=== PATIENT | female | born 1940 | race Caucasian/White ===

== ENCOUNTER → 2017-05-28 | Outpatient (CLI) | payer MEDICARE ==
--- NOTE | 2017-05-31 07:49 | MM ---
Reason for exam: additional evaluation requested from prior study. Last mammogram was performed 1 year and 2 months ago. History: Patient is postmenopausal and has history of breast cancer at age 50. Lumpectomy of the left breast, 1991. Radiation therapy, 1991. Benign excisional biopsy of the left breast, 1989. Took hormonal contraceptives for 3 years. Physical Findings: Nurse Summary: 1.5cm nodule in the right breast at 12 o'clock (nurse gilberto). MG 3D Diag Mammo W/Cad JAN Bilateral CC and MLO view(s) were taken. Prior study comparison: April 02, 2016, bilateral MG 3d diag mammo w/cad JAN. January 03, 2015, bilateral MG diagnostic mammo w CAD JAN. August 17, 2013, CAD bilateral diagnostic mammogram. August 12, 2012, CAD bilateral diagnostic mammogram. The breast tissue is heterogeneously dense. This may lower the sensitivity of mammography. Post surgical and post treatment change in the left breast. Stable regional calcifications, lumpectomy scar, fat necrosis, and retained wire fragment. BB on the right breast. Focal asymmetry anterior 12 o'clock right breast does not completely disperse. These results were verbally communicated with the patient and result sheet given to the patient on 05/28/17. ASSESSMENT: Incomplete: need additional imaging evaluation, BI-RAD 0 RECOMMENDATION: Ultrasound of the right breast. (11-1 o'clock to include the palpable area)
--- NOTE | 2017-05-31 07:52 | USB ---
Reason for exam: additional evaluation requested from abnormal screening. History: Patient is postmenopausal and has history of breast cancer at age 50. Lumpectomy of the left breast, 1991. Radiation therapy, 1991. Benign excisional biopsy of the left breast, 1989. Took hormonal contraceptives for 3 years. US Breast Limited RT Right breast ultrasound demonstrates a 1.1 x 0.9 x 1.5cm spiculated, solid, hypoechoic lesion at 12 o'clock, this is suspicious, corresponds to the palpable area and should be biopsied. These results were verbally communicated with the patient and result sheet given to the patient on 05/28/17. ASSESSMENT: Suspicious, BI-RAD 4 RECOMMENDATION: Surgical consultation and ultrasound core biopsy of the right breast. Called Dr. Washington with mammographic findings and has scheduled an appointment for the patient for 05/31/17 at 3:[address] Bullock. PRELIMINARY REPORT CALLED AND FAXED TO DR. BULLOCK ON 05/31/17 /TP.
== END | disposition home or self-care (01) ==
LOC: RADMAMWWP 13:07
PROVIDERS: ATTEND Obstetrics & Gynecology
DX: Z08 Encounter for follow-up examination after completed treatment for malignant neoplasm (principal); Z85.3 Personal history of malignant neoplasm of breast
CPT/HCPCS: 76642; G0204; G0279

== ENCOUNTER → 2017-06-02 | Day surgery (SDC) | payer MEDICARE ==
[2017-06-02 12:49] VITALS: RESP 16; BMI 22.3
[2017-06-02 14:04] VITALS: BP 142/77; PULSE 60; TEMP 97.5
--- NOTE | 2017-06-02 14:12 | USB ---
EXAMINATION TYPE: US biopsy breast VAD RT, MG diagnostic mammo RT wo CAD DATE OF EXAM: 06/02/2017 CLINICAL HISTORY: Abnormal Mammogram and ultrasound R92.8. Palpable abnormality by nurse. TECHNIQUE: Ultrasound guided core biopsy of right breast with clip placement and follow-up diagnostic two-view mammogram. COMPARISON: Right breast ultrasound and diagnostic bilateral breast mammogram May 28, 2017 and older studies. FINDINGS: The procedure of ultrasound guided core biopsy was explained to the patient. Benefits, alternatives, and risks were discussed. An informed consent was then obtained. The patient was placed in supine positioning for imaging and for the procedure. The overlying skin was prepped and draped in usual sterile fashion. Lidocaine was used as anesthetic into the skin. Lidocaine with epinephrine is used as anesthetic into the deeper tissue up to area of concern in the right breast. Under ultrasound guidance, a 12-gauge vacuum assisted biopsy gun device was used to obtain 4 core samples. Following this, a biopsy clip was left in lesion. The patient tolerated the procedure well without any immediate complication. The patient was kept in the radiology department for short stay after the procedure and then discharged home in stable condition. Postprocedure mammogram shows successful deployment of clip. Lesion is not well identified on this mammogram. Lesion is identified but still not well seen on 3- D mammogram on prior study. IMPRESSION: Successful, uncomplicated ultrasound guided core biopsy of area of concern in the right breast, full pathology results to follow. High index of suspicion noted at time of procedure. Pathology Results: Malignant BREAST, RIGHT, SITE A AT TWELVE O'CLOCK, ULTRASOUND GUIDED CORE BIOPSY: INVASIVE DUCTAL CARCINOMA. Recommendation Surgical consult of the right breast. SHAHRAM
== END ==
LOC: RADUSWWP 12:23
PROVIDERS: ATTEND Surgery
DX: C50.911 Malignant neoplasm of unspecified site of right female breast (principal); R92.8 Other abnormal and inconclusive findings on diagnostic imaging of breast; Z88.1 Allergy status to other antibiotic agents; Z88.2 Allergy status to sulfonamides; Z88.8 Allergy status to other drugs, medicaments and biological substances
CPT/HCPCS: 88305; 19083; G0206; A4648; J2001; 88341; 88342

== ENCOUNTER → 2018-04-04 | Outpatient (CLI) | payer MEDICARE ==
--- NOTE | 2018-04-04 16:54 | BD ---
EXAMINATION TYPE: Axial Bone Density DATE OF EXAM: 04/04/2018 COMPARISON: 2016 CLINICAL HISTORY: 77-year-old female postmenopausal without HRT, osteopenia Height: 63.5 Weight: 137 FRAX RISK QUESTIONS: History of Fracture in Adulthood: y Secondary Osteoporosis: RISK FACTORS HISTORY OF: Postmenopausal woman: y Lost more than 2 inches in height since high school: y MEDICATIONS: Additional Medications: breast cancer ,blood pressure, acid reflux Additional History: breast cancer original 25 years ago, reoccur ence 2017 EXAM MEASUREMENTS: Bone mineral densitometry was performed using the [employer] System. Bone mineral density as measured about the Lumbar spine is: ----- L1-L4(G/cm2): 1.036 T Score Values are as follows: ----- L2: -1.3 ----- L3: -0.9 ----- L4: -1.8 ----- L1-L4: -1.2 Bone mineral density has: Increased 1.8% since study of: 04/02/2016 Bone mineral density about the R hip (g/cm2): 0.675 Bone mineral density about the L hip (g/cm2): 0.656 T Score values are as follows: -----R Neck: -2.6 -----L Neck: -2.8 -----R Total: -1.9 -----L Total: -2.2 Bone mineral density has: Decreased -3.7% since study of: 04/02/2016 IMPRESSION: Osteoporosis (T Score less than -2.5). There is increased fracture risk and therapy is usually indicated based on age. Re-Screen 1-2 years. NOTE: T-SCORE=SD OF THE YOUNG ADULT MEAN.
== END | disposition home or self-care (01) ==
LOC: RADBDWWP 07:33
PROVIDERS: ATTEND Internal Medicine Hematology & Oncology
DX: M81.0 Age-related osteoporosis without current pathological fracture (principal); C50.811 Malignant neoplasm of overlapping sites of right female breast; Z79.890 Hormone replacement therapy
CPT/HCPCS: 77080

== ENCOUNTER → 2018-04-04 | Outpatient (CLI) | payer MEDICARE ==
--- NOTE | 2018-04-04 09:46 | MM ---
Reason for exam: follow-up at short interval from prior study. Last mammogram was performed 10 months ago. History: Patient is postmenopausal and has history of breast cancer at age 50. Malignant US biopsy breast VAD RT of the right breast, June 02, 2017. Lumpectomy of the left breast, 1991. Radiation therapy, 1991. Benign excisional biopsy of the left breast, 1989. Took hormonal contraceptives for 3 years. Taking antineoplastic for 1 year. Physical Findings: Nurse did not find any significant physical abnormalities on exam. MG 3D Diag Mammo W/Cad JAN Bilateral CC and MLO view(s) were taken. Prior study comparison: June 02, 2017, right breast MG diagnostic mammo RT wo CAD. May 28, 2017, bilateral MG 3d diag mammo w/cad JAN. The breast tissue is heterogeneously dense. This may lower the sensitivity of mammography. Post surgical and post treatment change right breast new from last year. 6 month follow up can continue to assess any evolving changes. Fat necrosis left breast, retained wire fragment are unchanged. These results were verbally communicated with the patient and result sheet given to the patient on 04/04/18. ASSESSMENT: Probably benign, BI-RAD 3 RECOMMENDATION: Follow-up diagnostic mammogram of the right breast in 6 months.
== END | disposition home or self-care (01) ==
LOC: RADMAMWWP 07:36
PROVIDERS: ATTEND Radiology Diagnostic Radiology
DX: C50.911 Malignant neoplasm of unspecified site of right female breast (principal)
CPT/HCPCS: 77066; G0279; 77062

== ENCOUNTER → 2018-10-10 | Outpatient (CLI) | payer MEDICARE ==
--- NOTE | 2018-10-10 10:39 | MM ---
Reason for exam: follow-up at short interval from prior study. Last mammogram was performed 6 months ago. History: Patient is postmenopausal and has history of breast cancer at age 50. Malignant US biopsy breast VAD RT of the right breast, June 02, 2017. Lumpectomy of the left breast, 1991. Radiation therapy, 1991. Benign excisional biopsy of the left breast, 1989. Took hormonal contraceptives for 3 years. Taking antineoplastic for 1 year. Physical Findings: Nurse did not find any significant physical abnormalities on exam. MG 3D Diag Mammo W/Cad RT CC and MLO view(s) were taken of the right breast. Prior study comparison: April 04, 2018, bilateral MG 3d diag mammo w/cad JAN. June 02, 2017, right breast MG diagnostic mammo RT wo CAD. The breast tissue is heterogeneously dense. This may lower the sensitivity of mammography. Post therapy change on the right. These results were verbally communicated with the patient and result sheet given to the patient on 10/10/18. ASSESSMENT: Benign, BI-RAD 2 RECOMMENDATION: Follow-up diagnostic mammogram of both breasts in 6 months. Back on schedule.
== END ==
LOC: RADMAMWWP 09:23
PROVIDERS: ATTEND Radiology Diagnostic Radiology
DX: C50.911 Malignant neoplasm of unspecified site of right female breast (principal)
CPT/HCPCS: 77065; G0279; 77061

== ENCOUNTER 2019-03-24 08:03 | Day surgery (SDC) | payer MEDICARE ==
[2019-03-23 08:33] VITALS: BMI 23.1
[2019-03-24] MEDS ORDERED: LIDOCAINE 1% 20 ML VIAL (10MG/ML) FOR IV START INTRADERMA ONE (08:40)
[2019-03-24] MEDS ORDERED: LACTATED RINGERS 1,000 ML IV ONE (08:40)
[2019-03-24 08:52] VITALS: RESP 16; TEMP 98.3
[2019-03-24] MEDS ORDERED: PROPOFOL 10 MG/ML 20 ML VIAL IV ONE (09:16)
--- NOTE | 2019-03-24 09:34 | P.PCN ---
Date of Procedure: 03/24/19 Procedure(s) Performed: BRIEF HISTORY: Patient is a 78-year-old pleasant female, scheduled for an elective colonoscopy as a part of evaluation of prior history of colon polyps. Last colonoscopy was 5 years ago. PROCEDURE PERFORMED: Colonoscopy. PREOPERATIVE DIAGNOSIS: History of colon polyps. IV sedation per Anesthesia. PROCEDURE: After informed consent was obtained, the patient, was brought into the endoscopy unit. IV sedation was administered by Anesthesia under continuous monitoring. Digital rectal examination was normal. Initially the Olympus CF-160 flexible video colonoscope was then inserted in the rectum, gradually advanced into the cecum without any difficulty. Careful examination was performed as the scope was gradually being withdrawn. Ileocecal valve and the appendiceal orifice were visualized and appeared normal. Prep was excellent. Mucosa of the cecum, ascending colon, transverse colon, descending colon, sigmoid colon, and rectum appeared normal. Scattered left-sided diverticulosis. Retroflexion was performed in the rectum and no lesions were seen. The patient tolerated the procedure well. IMPRESSION: Normal-appearing colon from rectum to cecum with no evidence of colorectal neoplasia . Scattered left-sided diverticulosis. RECOMMENDATIONS: Findings of this examination were discussed with the patient as well as a family. She was advised to be a high-fiber diet and take fiber supplements a regular basis. She can have a repeat surveillance colonoscopy in 5 years from now as a part of value should of prior history of colon polyps based on her overall medical condition..
[2019-03-24 09:56] VITALS: BP 126/78; PULSE 72
== END 2019-03-24 10:20 | disposition home or self-care (01) ==
LOC: ORWHC2ENDO 08:03
PROVIDERS: ATTEND Internal Medicine Gastroenterology
DX: Z12.11 Encounter for screening for malignant neoplasm of colon (principal); K57.30 Diverticulosis of large intestine without perforation or abscess without bleeding; K21.9 Gastro-esophageal reflux disease without esophagitis; Z86.010 Personal history of colon polyps; I10 Essential (primary) hypertension; E78.5 Hyperlipidemia, unspecified; Z85.3 Personal history of malignant neoplasm of breast; Z88.1 Allergy status to other antibiotic agents; Z79.82 Long term (current) use of aspirin; Z79.899 Other long term (current) drug therapy; Z88.2 Allergy status to sulfonamides; Z88.8 Allergy status to other drugs, medicaments and biological substances
CPT/HCPCS: J2704; G0105; 45378

== ENCOUNTER → 2019-04-05 | Outpatient (CLI) | payer MEDICARE ==
--- NOTE | 2019-04-05 09:40 | MM ---
Reason for exam: additional evaluation requested from prior study. Last mammogram was performed 6 months ago. History: Patient is postmenopausal and has history of breast cancer at age 50. Malignant US biopsy breast VAD RT of the right breast, June 02, 2017. Lumpectomy of the left breast, 1991. Radiation therapy, 1991. Benign excisional biopsy of the left breast, 1989. Took hormonal contraceptives for 3 years. Taking antineoplastic for 1 year. Physical Findings: Nurse Summary: 1cm nodule in the left breast at 12 o'clock (nurse kp). MG 3D Diag Mammo W/Cad JAN Bilateral CC and MLO view(s) were taken. Prior study comparison: October 10, 2018, right breast MG 3d diag mammo w/cad RT. April 04, 2018, bilateral MG 3d diag mammo w/cad JAN. There are scattered fibroglandular densities. No significant new findings when compared with previous films. These results were verbally communicated with the patient and result sheet given to the patient on 04/05/19. ASSESSMENT: Benign, BI-RAD 2 RECOMMENDATION: Follow-up diagnostic mammogram of both breasts in 1 year.
== END ==
LOC: RADMAMWWP 08:46
PROVIDERS: ATTEND Radiology Diagnostic Radiology
DX: C50.919 Malignant neoplasm of unspecified site of unspecified female breast (principal)
CPT/HCPCS: 77066; G0279; 77062

== ENCOUNTER → 2020-04-09 | Outpatient (CLI) | payer MEDICARE ==
--- NOTE | 2020-04-09 11:19 | MM ---
Reason for exam: additional evaluation requested from prior study. Last mammogram was performed 1 year ago. History: Patient is postmenopausal and has history of breast cancer at age 50. Malignant US biopsy breast VAD RT of the right breast, June 02, 2017. Lumpectomy of the left breast, 1991. Radiation therapy, 1991. Benign excisional biopsy of the left breast, 1989. Took hormonal contraceptives for 3 years. Taking antineoplastic for 1 year. Physical Findings: Nurse Summary: 1cm nodule in the left breast at 12 o'clock (nurse vinicius). MG 3D Diag Mammo W/Cad JAN Bilateral CC and MLO view(s) were taken. Prior study comparison: April 05, 2019, bilateral MG 3d diag mammo w/cad JAN. April 04, 2018, bilateral MG 3d diag mammo w/cad JAN. May 28, 2017, bilateral MG 3d diag mammo w/cad JAN. April 02, 2016, bilateral MG 3d diag mammo w/cad JAN. The breast tissue is heterogeneously dense. This may lower the sensitivity of mammography. No significant new findings when compared with previous films. These results were verbally communicated with the patient and result sheet given to the patient on 04/09/20. ASSESSMENT: Benign, BI-RAD 2 RECOMMENDATION: Follow-up diagnostic mammogram of both breasts in 1 year.
== END | disposition home or self-care (01) ==
LOC: RADMAMWWP 09:59
PROVIDERS: ATTEND Radiology Diagnostic Radiology
DX: C50.911 Malignant neoplasm of unspecified site of right female breast (principal); R92.8 Other abnormal and inconclusive findings on diagnostic imaging of breast
CPT/HCPCS: 77066; G0279; 77062

== ENCOUNTER → 2020-05-03 | Outpatient (CLI) | payer MEDICARE ==
--- NOTE | 2020-05-06 08:06 | BD ---
EXAMINATION TYPE: Axial Bone Density DATE OF EXAM: 05/03/2020 COMPARISON: 04/04/2018 CLINICAL HISTORY: Postmenopausal female. Height: 62.5 IN Weight: 129 LBS RISK FACTORS HISTORY OF: Family History of Osteoporosis: SISTER Active: YES Diet low in dairy products/other sources of calcium: YES Postmenopausal woman: AGE 54 Lost more than 2 inches in height since high school: YES 3 11/16" MEDICATIONS: Osteoporosis Medications: YES Which medication: Prolia How Lon YEARS Additional Medications: PROLIA INJ. , BLOOD PRESSURE , STOMACH MEDS,CALCIUM, VIT D Additional History: BREAST CANCER TWICE WITH RADIATION EXAM MEASUREMENTS: Bone mineral densitometry was performed using the [employer] System. Bone mineral density as measured about the Lumbar spine is: ----- L1-L4(G/cm2): 1.089 T Score Values are as follows: ----- L2: -1.1 ----- L3: -0.6 ----- L4: -0.5 ----- L1-L4: -0.8 Bone mineral density has: Increased 7.1% since study of: 04/04/2018 Bone mineral density about the R hip (g/cm2): 0.692 Bone mineral density about the L hip (g/cm2): 0.681 T Score values are as follows: -----R Neck: -2.5 -----L Neck: -2.6 -----R Total: -1.7 -----L Total: -2.1 Bone mineral density has: Increased 2.7% since study of: 04/04/2018 IMPRESSION: Osteoporosis (T Score less than -2.5) remains present. There remains increased fracture risk and therapy is usually indicated based on age. Re-Screen 1-2 years. NOTE: T-SCORE=SD OF THE YOUNG ADULT MEAN.
== END | disposition home or self-care (01) ==
LOC: RADBDWWP 08:35
PROVIDERS: ATTEND Internal Medicine Hematology & Oncology
DX: M81.0 Age-related osteoporosis without current pathological fracture (principal); C50.811 Malignant neoplasm of overlapping sites of right female breast; N95.1 Menopausal and female climacteric states; Z79.890 Hormone replacement therapy; Z88.1 Allergy status to other antibiotic agents; Z88.2 Allergy status to sulfonamides; Z88.8 Allergy status to other drugs, medicaments and biological substances
CPT/HCPCS: 77080

== ENCOUNTER → 2021-04-10 | Outpatient (CLI) | payer MEDICARE ==
--- NOTE | 2021-04-16 14:52 | MM ---
Reason for exam: additional evaluation requested from prior study. Last mammogram was performed 1 year ago. History: Patient is postmenopausal, has history of other cancer at age 78, and has history of breast cancer at age 50. Malignant US biopsy breast VAD RT of the right breast, June 02, 2017. Radiation therapy of the left breast, 2016. Lumpectomy of the left breast, 1991. Radiation therapy, 1991. Benign excisional biopsy of the left breast, 1989. Took hormonal contraceptives for 3 years. Taking antineoplastic for 2 years. Physical Findings: Nurse did not find any significant physical abnormalities on exam. MG 3D Diag Mammo W/Cad JAN Bilateral CC and MLO view(s) were taken. Prior study comparison: April 09, 2020, bilateral MG 3d diag mammo w/cad JAN. April 05, 2019, bilateral MG 3d diag mammo w/cad JAN. The breast tissue is heterogeneously dense. This may lower the sensitivity of mammography. Bilateral lumpectomy and radiation, stable. No significant new findings when compared with previous films. These results were verbally communicated with the patient and result sheet given to the patient on 04/10/21. ASSESSMENT: Benign, BI-RAD 2 RECOMMENDATION: Follow-up diagnostic mammogram of both breasts in 1 year.
== END | disposition home or self-care (01) ==
LOC: RADMAMWWP 12:53
PROVIDERS: ATTEND Internal Medicine Hematology & Oncology
DX: R92.2 Inconclusive mammogram (principal); Z78.0 Asymptomatic menopausal state; Z85.3 Personal history of malignant neoplasm of breast
CPT/HCPCS: 77066; G0279; 77062

== ENCOUNTER → 2021-07-18 | Outpatient (CLI) | payer MEDICARE ==
[2021-07-18 11:34] LABS: African American GFR (CKD) >90 (>60 ml/min/1.73 sqM); Blood Urea Nitrogen 25 mg/dL (7-17); Non-African American GFR(CKD) 79 (>60 ml/min/1.73 sqM)
--- NOTE | 2021-07-18 12:22 | CT ---
EXAMINATION TYPE: CT chest w con DATE OF EXAM: 07/18/2021 COMPARISON: None HISTORY: breast CA CT DLP: 171.5 mGycm Automated exposure control for dose reduction was used. CONTRAST: CT scan of the chest is performed with IV Contrast, patient injected with 100 mL of Isovue 300. FINDINGS: LUNGS: There is a pleural-based mass left upper lobe anteriorly measuring approximately 6.6 cm in stagecraft teacher niocaudal dimension by 3.2 cm in greatest transverse dimension by 1.9 cm AP dimension. There is evide nce of chest wall invasion as well as adjacent rib destruction of ribs 3 and 4. The remainder of the lungs are clear. Hyperinflation compatible with COPD. MEDIASTINUM: There are no greater than 1 cm hilar or mediastinal lymph nodes. No pericardial effusi on is seen. Thoracic aorta is of normal caliber. The heart is not enlarged. UPPER ABDOMEN: Bilateral adrenal nodularity measuring 1 cm on the left and 1.1 cm on the right. Left renal cyst. Hypoattenuating lesion near the dome of the liver felt to reflect cyst as well. OTHER: Postoperative changes left breast. IMPRESSION: Left upper lobe pleural-based mass with chest wall invasion and early rib destruction as noted. Corre late with PET/CT.
== END | disposition home or self-care (01) ==
LOC: RADCTMAIN 10:51
PROVIDERS: ATTEND Internal Medicine Hematology & Oncology
DX: Z03.89 Encounter for observation for other suspected diseases and conditions ruled out (principal); C50.811 Malignant neoplasm of overlapping sites of right female breast; R91.8 Other nonspecific abnormal finding of lung field
CPT/HCPCS: 82565; 84520; 71260; 36415; Q9967

== ENCOUNTER 2021-07-31 08:49 | Day surgery (SDC) | payer MEDICARE ==
[2021-07-31] MEDS ORDERED: ALPRAZolam 0.25 MG TAB PO PRN (09:03)
[2021-07-31] MEDS ORDERED: HYDROmorphone 0.5 MG/0.5 ML SYRINGE IVP PRN (09:03)
[2021-07-31 09:38] LABS: Mean Platelet Volume 9.9; Platelet Count 342 k/uL (150-450)
[2021-07-31 09:48] VITALS: TEMP 98.3
[2021-07-31 09:48] LABS: Prothrombin Time 10.8 sec (9.0-12.0)
--- NOTE | 2021-07-31 11:14 | XR ---
EXAMINATION TYPE: XR chest 1V portable DATE OF EXAM: 07/31/2021 COMPARISON: CT chest 07/18/2021 HISTORY: Status post left lung biopsy TECHNIQUE: Single frontal view of the chest is obtained. FINDINGS: Pleural-based density persists on the left. Postop changes are noted with surgical clips o f the right breast. There is no evident pneumothorax or pleural effusion. Cardiac mediastinal silhoue tte is within normal limits. Aorta is dense. IMPRESSION: No evident complication status post left lung biopsy
--- NOTE | 2021-07-31 12:11 | CT ---
EXAMINATION TYPE: CT biopsy lung LT DATE OF EXAM: 07/31/2021 HISTORY: Breast cancer, abnormal chest CT, pleural-based left upper lobe lung mass, R22.2 lung mass COMPARISON: CT chest 07/18/2021 Maximal barrier technique was utilized, hand hygiene obtained with soap and water. The skin overlyin g a suitable path to the pleural-based left upper lobe lung mass was localized using CT and the overl tom skin was prepped and draped. Lidocaine used for local anesthesia. A skin deejay made with a scal pel. Using CT guidance, access was gained to the lesion with a 19-gauge guide needle. Core specimen obtained coaxially with a 20-gauge needle and submitted to cytology. 2 pass(es) performed in all. Following the procedure no immediate complications. The patient is discharged in stable condition. Hemostasis achieved. IMPRESSION: SUCCESSFUL CT GUIDED CORE BIOPSY upper lobe lung mass. PATHOLOGY PENDING. THIS PROCEDURE WAS PERFOR MED BY THE UNDERSIGNED.
[2021-07-31 13:56] VITALS: RESP 16
[2021-07-31 13:59] VITALS: BP 143/77; PULSE 82
--- NOTE | 2021-07-31 14:11 | XR ---
EXAMINATION TYPE: XR chest 1V portable DATE OF EXAM: 07/31/2021 COMPARISON: Chest x-ray same dated earlier time HISTORY: Status post left lung biopsy TECHNIQUE: Single frontal view of the chest is obtained. FINDINGS: There is no interval change. IMPRESSION: No evident complication status post left lung biopsy.
== END 2021-07-31 14:08 | disposition home or self-care (01) ==
LOC: RADPROMAIN 08:49
PROVIDERS: ATTEND Internal Medicine Hematology & Oncology
DX: C50.912 Malignant neoplasm of unspecified site of left female breast (principal); C50.911 Malignant neoplasm of unspecified site of right female breast; C78.02 Secondary malignant neoplasm of left lung; Z86.11 Personal history of tuberculosis
CPT/HCPCS: 32408; 36415; 71045; 85049; 85610; 88305; 88341; 88342

== ENCOUNTER → 2021-08-20 | Outpatient (CLI) | payer MEDICARE ==
--- NOTE | 2021-08-20 16:31 | XR ---
EXAMINATION TYPE: XR skull limited DATE OF EXAM: 08/20/2021 COMPARISON: NONE HISTORY: Pre-MRI. History of breast cancer with newly diagnosed lung cancer. TECHNIQUE: 2 view skull. FINDINGS: No metallic intracranial foreign body is identified to prevent MRI study. There is nonspeci fic left parietal roughly 1.0 cm sclerotic focus. Suspect benign bone island. IMPRESSION: As above.
--- NOTE | 2021-08-21 04:14 | MR ---
EXAMINATION TYPE: MR brain wo con DATE OF EXAM: 08/20/2021 COMPARISON: None HISTORY: Lung cancer Multiplanar multiecho imaging of the brain without contrast. There is cerebral cortical atrophy. There is no mass effect nor midline shift. There is no evidence o f intracranial hemorrhage. There is patchy increased signal in the periventricular white matter. Diff usion images show increased signal around the lateral ventricles in the white matter. This could be s ubacute ischemia. There is metal artifact from left parietal craniotomy small defect. The brainstem is intact. Cerebellum is intact. There is mild thinning of the corpus callosum. Sella t urcica appears normal. There is no evidence of orbital mass. IMPRESSION: Cerebral atrophy. White matter signal changes consistent with acute and chronic small vessel ischemia . Demyelinating disease not excluded.
== END | disposition home or self-care (01) ==
LOC: RADMRIMAIN 15:54
PROVIDERS: ATTEND Internal Medicine Hematology & Oncology
DX: C34.12 Malignant neoplasm of upper lobe, left bronchus or lung (principal); G31.9 Degenerative disease of nervous system, unspecified; I99.8 Other disorder of circulatory system; C50.811 Malignant neoplasm of overlapping sites of right female breast; D64.9 Anemia, unspecified; M85.9 Disorder of bone density and structure, unspecified
CPT/HCPCS: 70250; 70551

== ENCOUNTER → 2021-08-22 | Outpatient (CLI) | payer MEDICARE ==
--- NOTE | 2021-08-26 08:37 | PE ---
Nuclear medicine PET/CT HISTORY: C 34.12, lung cancer, initial Patient received 11.1 mCi F-18 FDG intravenously and delayed scanning was performed from the skull ba se to the mid thighs. Localization and attenuation correction CT scan was performed Chest and neck: There is no cervical or supraclavicular adenopathy. There is a prevascular node measu ring approximately 1 cm short axis but with associated hypermetabolic uptake, SUV 14.7. No axillary, or hilar adenopathy. Along the anterior upper chest wall on the left at the site of patient's prior b iopsy there is hypermetabolic uptake corresponding with patient's history of lung cancer, SUV 18. The re is some local bone destruction. No pleural or pericardial effusion. Postop changes are noted in th e left breast. There are coronary artery calcifications. ABDOMEN: There is suspicious uptake at the level of the right adrenal gland, there is a right adrenal mass measuring 18 mm. SUV is 17. There is no ascites or evident liver mass. Osseous structures: Abnormal uptake is associated with air L2 vertebral body, SUV 41, axial image 139 , there is a lytic lesion present. IMPRESSION: Metastatic disease
== END | disposition home or self-care (01) ==
LOC: RADPETMAIN 12:49
PROVIDERS: ATTEND Internal Medicine Hematology & Oncology
DX: C34.12 Malignant neoplasm of upper lobe, left bronchus or lung (principal)
CPT/HCPCS: 78815; A9552

== ENCOUNTER 2021-09-18 10:04 | Emergency (ER) | payer MEDICARE ==
[2021-09-18 10:21] VITALS: TEMP 97.7
[2021-09-18] MEDS ORDERED: DIAZEPAM 5 MG/ML 2 ML INJ IM ONE (10:34)
--- NOTE | 2021-09-18 10:58 | ED ---
Back Pain HPI - General Chief Complaint: Back Pain/Injury Stated Complaint: Back Spasms Time Seen by Provider: 09/18/21 10:25 Source: patient, RN notes reviewed, old records reviewed Mode of arrival: ambulatory Limitations: no limitations - History of Present Illness Initial Comments: Patient is a 80-year-old female, currently undergoing radiation treatment for metastatic breast cancer, metastases in her spine, presenting to the emergency Department with complaints of back spasms for the past 1-2 days. She has been working with her doctors, they have tried ibuprofen, Tylenol threes with only minimal improvement. Patient states she does not like to take medications has not tried ibuprofen much. She did take a Tylenol 3 approximate 7 AM this mo rning with no improvement. She states it is very tight when it grabs, is intermittent and, if she stays completely still she feels fine. She denies any chest pain or shortness of breath, no fevers or chills, she has no further complaints at this time. She is supposed to be receiving radiation daily for 5 days, she has 2 days remaining. Upon arrival to the ER her vital signs are stable. - Related Data Home Medications Medication Instructions Recorded Confirmed Lisinopril-Hctz 20-25 mg 2 tab PO DAILY 06/01/17 07/31/21 [Zestoretic 20-25] Multivitamins, Thera [Multivitamin 1 tab PO DAILY 06/01/17 07/31/21 (formulary)] Omeprazole [PriLOSEC] 20 mg PO DAILY 06/01/17 07/31/21 Ubidecarenone [Co Q-10] 100 mg PO DAILY 06/01/17 07/31/21 Calcium 1200 W/ Vit D 2 tab PO DAILY 03/23/19 07/31/21 Glucosamine (Unknown Dose) 2 cap PO DAILY 03/23/19 07/31/21 Letrozole [Femara] 2.5 mg PO DAILY 03/23/19 07/31/21 Prolia (Unknown Dose) 1 injection SQ Q180D 03/23/19 07/31/21 Aspirin 81 mg PO DAILY 07/22/21 07/31/21 Cetirizine HCl 10 mg PO DAILY PRN 07/31/21 07/31/21 Previous Rx's Medication Instructions Recorded Baclofen 10 mg PO TID PRN #15 tab 11/04/21 HYDROcodone/APAP 5-325MG [[place] 1 tab PO Q6HR PRN 3 Days #12 tab 09/18/21 5-325] Allergies Allergy/AdvReac Type Severity Reaction Status Date / Time Sulfa (Sulfonamide Allergy Nausea Verified 09/18/21 10:21 Antibiotics) cephalexin AdvReac Vomiting Verified 09/18/21 10:21 prednisone AdvReac Rash/Hives Verified 09/18/21 10:21 Review of Systems ROS Statement: Those systems with pertinent positive or pertinent negative responses have been documented in the HPI. ROS Other: All systems not noted in ROS Statement are negative. Past Medical History Past Medical History: Cancer, GERD/Reflux, Hyperlipidemia, Hypertension Additional Past Medical History / Comment(s): BREAST CA X2, 1993 & 2016. OSTEOPENIA. deaf in left ear History of Any Multi-Drug Resistant Organisms: None Reported Past Surgical History: Appendectomy, Breast Surgery, Section, Orthopedic Surgery Additional Past Surgical History / Comment(s): left lung lobectomy 1973, ear sx x6; most recent 2004; Left ankle sx (pins/screw implanted and later removed); LT BREAST LUMPECTOMY 1993; 05/2017 RT LUMPECTOMY W/ LYMPH NODE EXC. COLONOSCOPY.ear operation x6 Past Anesthesia/Blood Transfusion Reactions: No Reported Reaction Additional Past Anesthesia/Blood Transfusion Reaction / Comment(s): nausea/vomiting W/ appendectomy at age 15, "ether" was used for anesthesia Past Psychological History: No Psychological Hx Reported Smoking Status: Former smoker Past Alcohol Use History: None Reported Past Drug Use History: None Reported - Past Family History Mother Family Medical History: Diabetes Mellitus, Hypertension Father Family Medical History: Cancer, Coronary Artery Disease (CAD) Additional Family Medical History / Comment(s): POSS PROSTATE CA. CEREBRAL HEMORRHAGE. General Exam - General Exam Comments Initial Comments: GENERAL: Patient is well-developed and well-nourished. Patient is nontoxic and in no acute distress. HEAD: Atraumatic, normocephalic. EYES: Pupils equal round and reactive to light, extraocular movements intact, sclera anicteric, conjunctiva are normal. Eyelids were unremarkable. ENT: Moist mucous membranes. NECK: Normal range of motion, supple without lymphadenopathy or JVD. LUNGS: Unlabored respirations. Breath sounds clear to auscultation bilaterally and equal. No wheezes rales or rhonchi. HEART: Regular rate and rhythm without murmurs, rubs or gallops. ABDOMEN: Soft, nontender, normoactive bowel sounds. No guarding, no rebound. No masses appreciated. MUSCULOSKELETAL: Normal extremities with adequate strength and normal range of motion, no pitting or edema. No clubbing or cyanosis. Pain with palpation of the right lumbar paraspinals. NEUROLOGICAL: Patient is alert and oriented x 3. SKIN: Warm, Dry, normal turgor, no rashes or lesions noted. Limitations: no limitations Course Vital Signs 09/18/21 09/18/21 09/18/21 10:15 10:24 15:15 Temperature 97.7 F Pulse Rate 57 L 91 Respiratory 18 16 Rate Blood Pressure 118/57 112/83 O2 Sat by Pulse 77 L 98 97 Oximetry Medical Decision Making - Medical Decision Making Patient is a 80-year-old female currently undergoing radiation treatment for metastatic breast cancer to the lumbar spine, presenting with back spasms for the past 1-2 days. She has tried Tylenol threes with no improvement. No other complaints today, her vitals are stable. Patient was given a small dose of Valium, morphine and Dilaudid with only minimal improvement in her symptoms. She has been resting comfortably. I discussed case with Dr. Saez for pain management admission, however he declined. Recommended anti-inflammatories and baclofen for at home. I discussed this with the family and the patient who is agreeable to this. Also recommend heat pads. They will follow-up with their oncologist. Return parameters were discussed with them and they verbalized understanding. Case discussed with Dr. Tang. Disposition Clinical Impression: Lumbar back pain, Spasm of back muscles Disposition: HOME SELF-CARE Condition: Stable Instructions (If sedation given, give patient instructions): Acute Low Back Pain (ED) Additional Instructions: Please return to the Emergency Department if symptoms worsen or any other concerns. Recommend muscle relaxer, ibuprofen for pain and spasms. Apply heat packs to the area. Also recommend [place] for more severe pain, if needed. Please follow-up with your oncologist as discussed. Prescriptions: Baclofen 10 mg PO TID PRN #15 tab PRN Reason: Spasms HYDROcodone/APAP 5-325MG [[place] 5-325] 1 tab PO Q6HR PRN 3 Days #12 tab PRN Reason: Pain Is patient prescribed a controlled substance at d/c from ED?: Yes When asked, does pt state using other controlled substances?: No If prescribed controlled substance>3 days was MAPS reviewed?: Prescribed <3 Days If opioid is for acute pain is fill amount 7 days or less?: Yes If Rx opioid, was Start Talking consent form obtained?: Yes Referrals: David Staton DO [Primary Care Provider] - 1-2 days Time of Disposition: 15:15
[2021-09-18] MEDS ORDERED: MORPHINE SULFATE 2 MG/ML SYRINGE IM STA (12:05)
[2021-09-18] MEDS ORDERED: HYDROmorphone 1 MG/ML 1 ML SYRINGE IM STA (12:55)
--- NOTE | 2021-09-18 14:09 | XR ---
EXAM TYPE: LUMBAR SPINE X RAY SERIES COMPARISON: NONE HISTORY: Pain TECHNIQUE: 3 views are submitted. FINDINGS: Alignment is anatomic. The pedicles are intact. The transverse processes are intact. Diffuse osteop enia. There are vascular calcifications multilevel hypertrophic and degenerative changes and grade 1 anterolisthesis L3 on L4 and L4 on L5. Multilevel facet arthropathy. Vascular calcifications noted. IMPRESSION: 1. Multilevel degenerative disc disease and facet arthropathy
[2021-09-18 15:16] VITALS: BP 112/83; PULSE 91; RESP 16
== END 2021-09-18 15:28 | disposition home or self-care (01) ==
LOC: EC 10:04
DX: M54.5 Low back pain (principal); M62.830 Muscle spasm of back; I10 Essential (primary) hypertension; E78.5 Hyperlipidemia, unspecified; K21.9 Gastro-esophageal reflux disease without esophagitis; Z88.2 Allergy status to sulfonamides; Z88.1 Allergy status to other antibiotic agents; Z88.8 Allergy status to other drugs, medicaments and biological substances; Z87.891 Personal history of nicotine dependence; Z79.899 Other long term (current) drug therapy
CPT/HCPCS: 72100; 99283; 96372; J3360; J2270; J1170

== ENCOUNTER 2021-09-20 13:18 | Inpatient (IN) | payer MEDICARE ==
[2021-09-20] MEDS ORDERED: SODIUM CHLORIDE 0.9% 500 ML 500 ML IV STA (13:50)
--- NOTE | 2021-09-20 14:07 | ED ---
General Adult HPI - General Chief complaint: Back Pain/Injury Stated complaint: Back pain, unable to walk Time Seen by Provider: 09/20/21 13:22 Source: patient, EMS Mode of arrival: EMS Limitations: physical limitation - History of Present Illness Initial comments: Dictation was produced using [employer] dictation software. please excuse any grammatical, word or spelling errors. Chief Complaint: 80-year-old female past medical history of lung cancer with metastatic spread to spine presents with back pain and altered mental status. History of Present Illness: This is a 72-year-old female she has past medical history of lung cancer. She has known metastatic spread to her lumbar spine seen on PET scan. She has no known history of metastatic spread to the brain. Daughter is at the bedside provides history of present illness. Patient has been having severe episodic back pain with various movements for the last 10 days. She was seen here in emergency department 2 days ago for the same complaint. Apparently patient had an x-ray performed showing no acute processes. She was initially attempted to be admitted to the hospital however hospitals refuse admission. Patient is back to the emergency brought in by daughter for persistent back pain. Patient is provided with a controlled narcotics and maybe is believe that patient is having a reaction to the opiates. Patient has been showing signs of repetitive speech, signs of aphasia. She has not been showing any signs of weakness to extremities. The ROS documented in this emergency department record has been reviewed and confirmed by me. Those systems with pertinent positive or negative responses have been documented in the HPI. All other systems are other negative and/or noncontributory. PHYSICAL EXAM: General Impression: Alert and oriented x3/4, not in acute distress HEENT: Normocephalic atraumatic, extra-ocular movements intact, pupils equal and reactive to light bilaterally, mucous membranes moist. Cardiovascular: Heart regular rate and rhythm Chest: Able to complete full sentences, no retractions, no tachypnea Abdomen: abdomen soft, non-tender, non-distended, no organomegaly Musculoskeletal: Pulses present and equal in all extremities, no peripheral edema Motor: no focal deficits noted Neurological: CN II-XII grossly intact, repetitive speech, no drift of the extremities, no sensory deficits to light touch, mildly aphasic, able to feel light and painful stimuli to the saddle area Skin: Intact with no visualized rashes Psych: Normal affect and mood ED course: 80-year-old female presents to the emergency department for signs of altered mental status upon waking this morning and persistent episodic back pain. All signs upon arrival are within acceptable limits. Case discussed with Dr. Cramer at 3:09 PM. He was told that patient's presentation. Dr. Cramer does recommend starting patient on anticoagulation medication to treat A. fib if her CT and CTA are negative. CT brain and CT angios of the head shows no acute processes. No large vessel occlusion. Patient had a candidate for thrombectomy. There is however atherothrombotic extensive plaque approximate 50% stenosis on the right and 70% on the left. No significant intracranial angiographic abnormality. CT brain is negative. Lumbar spine shows distractive lesion with expansion slightly into the spinal canal on the right side of the L2 vertebral body. Sister with metastatic disease of the spine. Chest x-ray shows pulmonary interstitial infiltrates increased compared to last exam. Laboratory evaluation obtained. CBC shows mild stress leukocytosis. Coag panel is unremarkable. Metabolic panel shows findings within acceptable limits. Wall in the emergency department patient has required significant amounts of analgesics. She is given multiple doses of Dilaudid. She also began having episodes of atrial fibrillation rapid ventricular rate. Patient started on heparin which is recommended by [facility] stroke neurologist if patient had no evidence of large intracranial vessel occlusion and normal head CT. Patient also given aspirin. Case discussed with Dr. Harmon is willing to accept patients care. Consultations made to spine surgery, oncology, cardiology and neurology. Plan is discussed with daughter at the bedside is agreeable. EKG interpretation: Ventricular rate 120, A. fib with RVR, QRS 80, QTc 464. No MN prolongation, no QTC prolongation, no ST or T-wave changes noted. EKG consistent with new-onset A. fib - Related Data Home Medications Medication Instructions Recorded Confirmed Lisinopril-Hctz 20-25 mg 2 tab PO DAILY 06/01/17 09/20/21 [Zestoretic 20-25] Multivitamins, Thera [Multivitamin 1 tab PO DAILY 06/01/17 09/20/21 (formulary)] Prolia (Unknown Dose) 1 injection SQ Q180D 03/23/19 09/20/21 Acetaminophen Tab [Tylenol] 325 mg PO Q4H PRN 09/20/21 09/20/21 Acetaminophen-Codeine 300-30mg 1 tab PO Q8H PRN 09/20/21 09/20/21 [Tylenol w/codeine #3] Previous Rx's Medication Instructions Recorded Baclofen 10 mg PO TID PRN #15 tab 09/18/21 HYDROcodone/APAP 5-325MG [[place] 1 tab PO Q6HR PRN 3 Days #12 tab 09/18/21 5-325] Allergies Allergy/AdvReac Type Severity Reaction Status Date / Time Sulfa (Sulfonamide Allergy Nausea Verified 09/20/21 14:34 Antibiotics) cephalexin AdvReac Vomiting Verified 09/20/21 14:34 prednisone AdvReac Rash/Hives Verified 09/20/21 14:34 Review of Systems ROS Statement: Those systems with pertinent positive or pertinent negative responses have been documented in the HPI. ROS Other: All systems not noted in ROS Statement are negative. Past Medical History Past Medical History: Cancer, GERD/Reflux, Hyperlipidemia, Hypertension Additional Past Medical History / Comment(s): BREAST CA X2, 1993 & 2016. OST EOPENIA. deaf in left ear History of Any Multi-Drug Resistant Organisms: None Reported Past Surgical History: Appendectomy, Breast Surgery, Section, Orthopedic Surgery Additional Past Surgical History / Comment(s): left lung lobectomy 1973, ear sx x6; most recent 2004; Left ankle sx (pins/screw implanted and later removed); LT BREAST LUMPECTOMY 1993; 05/2017 RT LUMPECTOMY W/ LYMPH NODE EXC. COLONOSCOPY.ear operation x6 Past Anesthesia/Blood Transfusion Reactions: No Reported Reaction Additional Past Anesthesia/Blood Transfusion Reaction / Comment(s): nausea/ vomiting W/ appendectomy at age 15, "ether" was used for anesthesia Past Psychological History: No Psychological Hx Reported Smoking Status: Former smoker Past Alcohol Use History: None Reported Past Drug Use History: None Reported - Past Family History Mother Family Medical History: Diabetes Mellitus, Hypertension Father Family Medical History: Cancer, Coronary Artery Disease (CAD) Additional Family Medical History / Comment(s): POSS PROSTATE CA. CEREBRAL HEMORRHAGE. General Exam Limitations: physical limitation Course Vital Signs 09/20/21 09/20/21 09/20/21 13:30 13:45 14:00 Temperature 98.4 F Pulse Rate 87 85 110 H Respiratory 18 18 18 Rate Blood Pressure 132/66 141/111 160/109 O2 Sat by Pulse 98 99 99 Oximetry 11/06/21 11/06/21 11/06/21 14:15 14:45 15:15 Temperature Pulse Rate 115 H 125 H 128 H Respiratory 18 18 18 Rate Blood Pressure 148/110 148/117 169/110 O2 Sat by Pulse 99 98 98 Oximetry Medical Decision Making - Lab Data Result diagrams: 09/20/21 14:36 09/20/21 14:36 Lab Results 09/20/21 09/20/21 09/20/21 Range/Units 14:36 14:36 14:36 WBC 11.5 H (3.8-10.6) k/uL RBC 4.09 (3.80-5.40) m/uL Hgb 11.6 (11.4-16.0) gm/dL Hct 35.4 (34.0-46.0) % MCV 86.7 (80.0-100.0) fL MCH 28.5 (25.0-35.0) pg MCHC 32.9 (31.0-37.0) g/dL RDW 12.5 (11.5-15.5) % Plt Count 380 (150-450) k/uL MPV 9.0 Neutrophils % 85 % Lymphocytes % 8 % Monocytes % 4 % Eosinophils % 1 % Basophils % 0 % Neutrophils # 9.8 H (1.3-7.7) k/uL Lymphocytes # 0.9 L (1.0-4.8) k/uL Monocytes # 0.5 (0-1.0) k/uL Eosinophils # 0.1 (0-0.7) k/uL Basophils # 0.1 (0-0.2) k/uL PT 10.3 (9.0-12.0) sec INR 1.0 (<1.2) APTT 20.5 L (22.0-30.0) sec Sodium 133 L (137-145) mmol/L Potassium 4.1 (3.5-5.1) mmol/L Chloride 98 (98-107) mmol/L Carbon Dioxide 23 (22-30) mmol/L Anion Gap 12 mmol/L BUN 29 H (7-17) mg/dL Creatinine 0.73 (0.52-1.04) mg/dL Est GFR (CKD-EPI)AfAm >90 (>60 ml/min/1.73 sqM) Est GFR (CKD-EPI)NonAf 79 (>60 ml/min/1.73 sqM) Glucose 116 H (74-99) mg/dL Calcium 9.4 (8.4-10.2) mg/dL Total Bilirubin 0.4 (0.2-1.3) mg/dL AST 32 (14-36) U/L ALT 16 (4-34) U/L Alkaline Phosphatase 125 (38-126) U/L Troponin I (0.000-0.034) ng/mL Total Protein 7.0 (6.3-8.2) g/dL Albumin 3.6 (3.5-5.0) g/dL 09/20/21 Range/Units 14:36 WBC (3.8-10.6) k/uL RBC (3.80-5.40) m/uL Hgb (11.4-16.0) gm/dL Hct (34.0-46.0) % MCV (80.0-100.0) fL MCH (25.0-35.0) pg MCHC (31.0-37.0) g/dL RDW (11.5-15.5) % Plt Count (150-450) k/uL MPV Neutrophils % % Lymphocytes % % Monocytes % % Eosinophils % % Basophils % % Neutrophils # (1.3-7.7) k/uL Lymphocytes # (1.0-4.8) k/uL Monocytes # (0-1.0) k/uL Eosinophils # (0-0.7) k/uL Basophils # (0-0.2) k/uL PT (9.0-12.0) sec INR (<1.2) APTT (22.0-30.0) sec Sodium (137-145) mmol/L Potassium (3.5-5.1) mmol/L Chloride (98-107) mmol/L Carbon Dioxide (22-30) mmol/L Anion Gap mmol/L BUN (7-17) mg/dL Creatinine (0.52-1.04) mg/dL Est GFR (CKD-EPI)AfAm (>60 ml/min/1.73 sqM) Est GFR (CKD-EPI)NonAf (>60 ml/min/1.73 sqM) Glucose (74-99) mg/dL Calcium (8.4-10.2) mg/dL Total Bilirubin (0.2-1.3) mg/dL AST (14-36) U/L ALT (4-34) U/L Alkaline Phosphatase (38-126) U/L Troponin I <0.012 (0.000-0.034) ng/mL Total Protein (6.3-8.2) g/dL Albumin (3.5-5.0) g/dL Critical Care Time Critical Care Time: Yes Total Critical Care Time: 33 Disposition Clinical Impression: New onset a-fib, Intractable pain, Aphasia Disposition: ADMITTED IP TO THIS [facility] Condition: Critical Referrals: David Staton DO [Primary Care Provider] - 1-2 days
--- NOTE | 2021-09-20 14:30 | CT ---
EXAMINATION TYPE: CT brain wo con for TPA DATE OF EXAM: 09/20/2021 COMPARISON: None HISTORY: cva CT DLP: 1250.8 mGycm Automated exposure control for dose reduction was used. Images obtained of the brain without contrast. There is cerebral atrophy. There is no mass effect nor midline shift. There is no sign of intracrania l hemorrhage. There is 1 cm extra-axial calcification at the left parietal convexity that could be a meningioma. There is minimal hypodensity in the periventricular white matter. The calvarium is intact . IMPRESSION: Cerebral atrophy. There is evidence for mild chronic small vessel ischemia. No acute intracranial abn ormality.
--- NOTE | 2021-09-20 14:42 | CT ---
EXAMINATION TYPE: CT lumbar spine w con DATE OF EXAM: 09/20/2021 COMPARISON: None HISTORY: back pain CT DLP: 736.4 mGycm Automated exposure control for dose reduction was used. CONTRAST: Performed with IV Contrast, patient injected with 65cc mL of Isovue 370. Images obtained from the level of T12-S2 vertebra without contrast. Lumbar vertebra have fairly normal alignment. There is a minimal degenerative subluxation at L4-5. Th ere is destructive changes in the right side L2 vertebral body that measures 3.1 cm with extension to the posterior cortex of the vertebral body and the superior cortex. There is slight compression defo rmity. There is some soft tissue extension into the spinal canal 4 mm on the right side. There is no significant spinal stenosis. This area shows significant increased uptake on the recent PET/CT scan. Abdominal aorta is atheromatous. Sacroiliac joints are intact. There is no evidence of lumbar paraspi nal mass. IMPRESSION: Destructive lesion with expansion slightly into the spinal canal on the right side of the L2 vertebra l body. This is consistent with metastatic disease. No significant spinal stenosis.
[2021-09-20 14:45] LABS: Basophils # (A) 0.1 k/uL (0-0.2); Basophils % (A) 0 %; Eosinophils # (A) 0.1 k/uL (0-0.7); Eosinophils % (A) 1 %; HCT 35.4 % (34.0-46.0); HGB 11.6 gm/dL (11.4-16.0); Lymphocytes # (A) 0.9 k/uL (1.0-4.8); Lymphocytes % (A) 8 %; MCH 28.5 pg (25.0-35.0); MCHC 32.9 g/dL (31.0-37.0); MCV 86.7 fL (80.0-100.0); Monocytes # (A) 0.5 k/uL (0-1.0); Monocytes % (A) 4 %; Neutrophils # (A) 9.8 k/uL (1.3-7.7); Neutrophils % (A) 85 %; Platelet Count 380 k/uL (150-450); RBC 4.09 m/uL (3.80-5.40); RDW 12.5 % (11.5-15.5); WBC 11.5 k/uL (3.8-10.6)
[2021-09-20 14:55] LABS: ALT 16 U/L (4-34); AST 32 U/L (14-36); African American GFR (CKD) >90 (>60 ml/min/1.73 sqM); Albumin 3.6 g/dL (3.5-5.0); Alkaline Phosphatase 125 U/L (38-126); Anion Gap 12 mmol/L; Blood Urea Nitrogen 29 mg/dL (7-17); Calcium 9.4 mg/dL (8.4-10.2); Carbon Dioxide 23 mmol/L (22-30); Chloride 98 mmol/L (98-107); Glucose 116 mg/dL (74-99); Non-African American GFR(CKD) 79 (>60 ml/min/1.73 sqM); Sodium 133 mmol/L (137-145); Total Bilirubin 0.4 mg/dL (0.2-1.3)
[2021-09-20] MEDS ORDERED: HYDROmorphone 0.5 MG/0.5 ML SYRINGE IVP STA ×2 (14:56→15:26)
[2021-09-20 15:01] LABS: Potassium 4.1 mmol/L (3.5-5.1)
[2021-09-20 15:04] LABS: Prothrombin Time 10.3 sec (9.0-12.0)
[2021-09-20 15:09] LABS: Partial Thromboplastin Time 20.5 sec (22.0-30.0)
--- NOTE | 2021-09-20 15:09 | CT ---
EXAMINATION TYPE: CT angio head neck DATE OF EXAM: 09/20/2021 COMPARISON: None HISTORY: cva CT DLP: 600.8 mGycm Automated exposure control for dose reduction was used. CONTRAST: Performed with IV Contrast, patient injected with 65cc mL of Isovue 370. Images obtained from the aortic arch to the vertex of the brain with IV contrast. There are 3-D post processed images. FINDINGS: There is normal branching pattern of the great vessels on the aortic arch. There is bilateral arteria l flow in the subclavian arteries. There is arterial flow in the common internal and external carotid arteries bilaterally. There is plaque formation and approximate 50% stenosis at the origin of the ri ght internal carotid artery. There is approximate 70% stenosis origin of the left internal carotid ar chelsie due to extensive plaque formation. There is bilateral arterial flow in the vertebral arteries. R ight vertebral artery is larger than the left. There is arterial flow in the vertebrobasilar artery s ystem. Basilar artery fills mostly from the right side. There is arterial flow in the anterior middle and posterior cerebral arteries bilaterally. There is normal enhancement of the venous sinuses. There is mucosal thickening in the ethmoid sinuses . There is moderate multilevel cervical spondylotic changes. IMPRESSION: Atherosclerotic extensive plaque at the carotid artery bifurcations and approximate 50% stenosis at t he origin right internal carotid artery and 70% stenosis origin left internal carotid artery. No significant intracranial angiographic abnormality.
--- NOTE | 2021-09-20 15:32 | XR ---
EXAMINATION TYPE: XR chest 1V portable DATE OF EXAM: 09/20/2021 COMPARISON: 07/31/2021 HISTORY: Altered mental status TECHNIQUE: Single view FINDINGS: There is some coarse interstitial density in both lungs and more on the left side. There is surgery with clips over the right breast. There are no hilar masses. Thoracic aorta is atheromatous. IMPRESSION: Increasing pulmonary interstitial infiltrates compared to last exam. No discrete pulmonar y mass.
[2021-09-20] MEDS ORDERED: HEPARIN SODIUM 1,000 UN/ML (10ML VL) IV ONE (15:34)
[2021-09-20] MEDS ORDERED: ASPIRIN 81 MG PO STA (15:41)
[2021-09-20] MEDS: DILTIAZEM 125 MG in SODIUM CHLORIDE 0.9% 100 ML IV SCH (16:11)
[2021-09-20] MEDS: HEPARIN SOD,PORK IN 0.45% NACL 25,000 UNIT in 0.45% NACL 1 250ML.BAG IV SCH (16:14)
[2021-09-20] MEDS ORDERED: ACETAMINOPHEN TAB 325 MG TAB PO PRN (16:48)
[2021-09-20] MEDS ORDERED: NALOXONE 0.4 MG/ML 1 ML VIAL IV PRN (16:48)
--- NOTE | 2021-09-20 22:31 | P.HPIM ---
History of Present Illness H&P Date: 09/20/21 Chief Complaint: Altered mental status Patient is a 80-year-old female with a known history of breast cancer diagnosed in 1993 and recurrence in 2017, metastatic lung cancer, osteopenia, deafness in the left ear, hypertension, hyperlipidemia, GERD and previous history of smoking presents to ER with altered mental status and also complaining of back pain. Patient has metastatic lesions in the lumbar spine seen on PET scan. Also has history of metastatic lesions in the brain. Patient is unable to provide history at this time. Patient's daughter is at bedside who can provide the history. Patient has been having severe back pain on and off for the past 10 days. Patient was seen in the ER about 2 days ago with similar complaints and refused admission at that time. Patient came back to the hospital due to persistent back pain. Patient is on baclofen and narcotic pain medications. Patient is able to move extremities while in bed. CT head showed cerebral atrophy. There is evidence for mild chronic small vessel ischemia. No acute abnormality noted. CT lumbar spine showed destructive lesion with expansion slightly into the spinal cord on the right side of the L2 vertebral body. This is consistent with metastatic disease. No significant spinal stenosis. CT angiogram of the chest showed atherosclerotic extensive plaque at the carotid artery bifurcations and approximate 50% stenosis at the origin of the right ICA and 70% stenosis origin left ICA. No significant intracranial angiographic abnormalities. Chest x-ray showed increasing pulmonary interstitial infiltrates compared to last exam. No discrete pulmonary mass. EKG showed atrial fibrillation with rapid ventricular rate. Laboratory showed WBC of 11.5 hemoglobin 11.6, platelets 389 neutrophils 9.8 Sodium 133 potassium 4.1 chloride 98 BUN 29 and creatinine 0.73 and glucose 116, troponin less than 0.012 and liver enzymes not elevated COVID-19 PCR not detected. Review of Systems Review of systems could not be obtained from the patient. Past Medical History Past Medical History: Cancer, GERD/Reflux, Hyperlipidemia, Hypertension Additional Past Medical History / Comment(s): BREAST CA X2, 1993 & 2017. OSTEOPENIA. deaf in left ear History of Any Multi-Drug Resistant Organisms: None Reported Past Surgical History: Appendectomy, Breast Surgery, Section, Orthopedic Surgery Additional Past Surgical History / Comment(s): left lung lobectomy 1973, ear sx x6; most recent 2004; Left ankle sx (pins/screw implanted and later removed); LT BREAST LUMPECTOMY 1993; 05/2017 RT LUMPECTOMY W/ LYMPH NODE EXC. COLONOSC OPY.ear operation x6 Past Anesthesia/Blood Transfusion Reactions: No Reported Reaction Additional Past Anesthesia/Blood Transfusion Reaction / Comment(s): nausea/vomiting W/ appendectomy at age 15, "ether" was used for anesthesia Past Psychological History: No Psychological Hx Reported Smoking Status: Former smoker Past Alcohol Use History: None Reported Past Drug Use History: None Reported - Past Family History Mother Family Medical History: Diabetes Mellitus, Hypertension Father Family Medical History: Cancer, Coronary Artery Disease (CAD) Additional Family Medical History / Comment(s): POSS PROSTATE CA. CEREBRAL HEMORRHAGE. Medications and Allergies Home Medications Medication Instructions Recorded Confirmed Type Lisinopril-Hctz 20-25 mg 2 tab PO DAILY 06/01/17 09/20/21 History [Zestoretic 20-25] Multivitamins, Thera [Multivitamin 1 tab PO DAILY 06/01/17 09/20/21 History (formulary)] Prolia (Unknown Dose) 1 injection SQ Q180D 03/23/19 09/20/21 History Baclofen 10 mg PO TID PRN #15 tab 09/18/21 09/20/21 Rx HYDROcodone/APAP 5-325MG [[place] 1 tab PO Q6HR PRN 3 Days #12 tab 09/18/21 09/20/21 Rx 5-325] Acetaminophen Tab [Tylenol] 325 mg PO Q4H PRN 09/20/21 09/20/21 History Acetaminophen-Codeine 300-30mg 1 tab PO Q8H PRN 09/20/21 09/20/21 History [Tylenol w/codeine #3] Allergies Allergy/AdvReac Type Severity Reaction Status Date / Time Sulfa (Sulfonamide Allergy Nausea Verified 09/20/21 14:34 Antibiotics) cephalexin AdvReac Vomiting Verified 09/20/21 14:34 prednisone AdvReac Rash/Hives Verified 09/20/21 14:34 Physical Exam Vitals: Vital Signs Temp Pulse Resp BP Pulse Ox 09/20/21 18:00 110 H 18 111/94 99 09/20/21 17:00 98 18 104/65 98 09/20/21 16:00 129 H 18 133/74 98 09/20/21 15:15 128 H 18 169/110 98 09/20/21 14:45 125 H 18 148/117 98 09/20/21 14:15 115 H 18 148/110 99 09/20/21 14:00 110 H 18 160/109 99 09/20/21 13:45 85 18 141/111 99 09/20/21 13:30 98.4 F 87 18 132/66 98 Intake and Output 09/20/21 09/20/21 09/20/21 06:59 14:59 22:59 Other: Weight 51.256 kg PHYSICAL EXAMINATION: Patient is currently lying in the bed. Awake alert. Could not provide history. Patient does repeat words and confusion... HEENT: Normocephalic. Neck is supple. Pupils reactive. Nostrils clear. Oral cavity is moist. Neck reveals no JVD, carotid bruits, or thyromegaly. CHEST EXAMINATION: Trachea is central. Symmetrical expansion. Bibasilar diminished sounds with scattered crackles.. CARDIAC: Normal S1, S2 with no gallops. No murmurs ABDOMEN: Soft. Bowel sounds normal. No organomegaly. No abdominal bruits. Extremities: reveal no edema. No clubbing or cyanosis Neurologically Patient is awake alert but not oriented. No gross focal neurological deficit. Skin: No rash or skin lesions. Psychiatric: Could not be assessed completely. Musculoskeletal: No joint swelling or deformity. Results CBC & Chem 7: 09/20/21 14:36 09/20/21 14:36 Labs: Abnormal Lab Results - Last 24 Hours (Table) 09/20/21 09/20/21 09/20/21 Range/Units 14:36 14:36 14:36 WBC 11.5 H (3.8-10.6) k/uL Neutrophils # 9.8 H (1.3-7.7) k/uL Lymphocytes # 0.9 L (1.0-4.8) k/uL APTT 20.5 L (22.0-30.0) sec Sodium 133 L (137-145) mmol/L BUN 29 H (7-17) mg/dL Glucose 116 H (74-99) mg/dL Assessment and Plan Assessment: Altered mental status is metabolic encephalopathy and brain mets. New onset atrial fibrillation with rapid regular rate. Dehydration volume depletion. Metastatic cancer with mets to spine. Intractable back pain with destructive lesion at the L2 vertebral body. Metastatic adenocarcinoma of the lung. Status post biopsy on 07/31/2021 Hypertension Hyperlipidemia GERD Osteopenia Deafness in the left ear bedtime Previous history of smoking Moderate protein calorie malnutrition. History of breast cancer DVT prophylaxis patient is already on heparin drip. Plan: Patient will be continued pain management with [place] and Dilaudid IV as needed. started on heparin drip and Cardizem drip for heart rate control. Gentle IV hydration and rule out any infection. UA was ordered. Cardiology and oncology was consulted. Continue to follow closely. Prognosis is poor at this time. Time with Patient: Greater than 30
[2021-09-21] MEDS: DEXAMETHASONE SOD PHOSPHATE 4 MG/ML 1 ML VIAL IVP SCH ×3 (01:12→12:00)
[2021-09-21] MEDS: SODIUM CHLORIDE 0.9% 1,000 ML IV SCH ×3 (01:13→18:13)
[2021-09-21] MEDS: HYDROmorphone 0.5 MG/0.5 ML SYRINGE IVP PRN (01:39)
[2021-09-21] MEDS: HYDROcodone/APAP 5-325MG 1 EACH TAB PO PRN ×3 (02:53→14:20)
[2021-09-21] MEDS: HEPARIN SODIUM 1,000 UN/ML (10ML VL) IV PRN ×2 (02:54→11:14)
[2021-09-21] MEDS: PANTOPRAZOLE 40 MG TABLET PO SCH ×2 (06:31→16:31)
[2021-09-21] MEDS: DILTIAZEM 125 MG in SODIUM CHLORIDE 0.9% 100 ML IV SCH (08:15)
[2021-09-21] MEDS ORDERED: MULTIVITAMINS, THERA 1 EACH TAB PO SCH (09:00)
[2021-09-21 10:28] LABS: Basophils % (A) 0 %; Eosinophils % (A) 0 %; HCT 33.9 % (34.0-46.0); HGB 11.4 gm/dL (11.4-16.0); Lymphocytes # (A) 0.6 k/uL (1.0-4.8); Lymphocytes % (A) 8 %; MCH 28.9 pg (25.0-35.0); MCHC 33.7 g/dL (31.0-37.0); Mean Platelet Volume 8.4; Monocytes # (A) 0.3 k/uL (0-1.0); Monocytes % (A) 4 %; Neutrophils % (A) 87 %; Platelet Count 376 k/uL (150-450); RBC 3.94 m/uL (3.80-5.40); RDW 13.2 % (11.5-15.5); WBC 6.9 k/uL (3.8-10.6)
--- NOTE | 2021-09-21 10:42 | P.CNOR ---
History of Present Illness - [facility] Consult date: 09/21/21 Requesting physician: Rod Rosario Consult reason: other (back pain, back mass) History of present illness: Patient is a 80-year-old female with history of breast cancer, metastatic lung cancer, osteopenia, hypertension who presented the ER yesterday with altered mental status back pain. We had pinned consult to forward back pain. CT scan of the spine reveals metastases to the body of L2 vertebra. During the encounter, patient was present on exam her, bed. She seems somewhat of an altered mental status and does respond to questions, however, patient does seem confused when she responds. Patient says her back pain began yesterday. Patient denies any falls/trauma to the area. Patient denies pain other locations. Patient denies any loss of numbness/tingling down the leg. Currently patient then baclofen narcotics for pain medications. Patient denies any previous orthopedic surgical history. Patient has any previous spine surgeries. Patient denies increasing chest pain, shortness of breath, nausea, vomiting, loss of bowel/bladder control. Patient denies any perineal numbness/tingling. Past Medical History Past Medical History: Cancer, GERD/Reflux, Hyperlipidemia, Hypertension Additional Past Medical History / Comment(s): BREAST CA X2, 1993 & 2016. OSTEOPENIA. deaf in left ear History of Any Multi-Drug Resistant Organisms: None Reported Past Surgical History: Appendectomy, Breast Surgery, Section, Orthopedic Surgery Additional Past Surgical History / Comment(s): left lung lobectomy 1973, ear sx x6; most recent 2004; Left ankle sx (pins/screw implanted and later removed); LT BREAST LUMPECTOMY 1993; 05/2017 RT LUMPECTOMY W/ LYMPH NODE EXC. COLONOSCOPY.ear operation x6 Past Anesthesia/Blood Transfusion Reactions: No Reported Reaction Additional Past Anesthesia/Blood Transfusion Reaction / Comm: nausea/vomiting W/ appendectomy at age 15, "ether" was used for anesthesia Past Psychological History: No Psychological Hx Reported Smoking Status: Former smoker Past Alcohol Use History: None Reported Past Drug Use History: None Reported - Past Family History Mother Family Medical History: Diabetes Mellitus, Hypertension Father Family Medical History: Cancer, Coronary Artery Disease (CAD) Additional Family Medical History / Comment(s): POSS PROSTATE CA. CEREBRAL HEMORRHAGE. Medications and Allergies Home Medications Medication Instructions Recorded Confirmed Type Lisinopril-Hctz 20-25 mg 2 tab PO DAILY 06/01/17 09/20/21 History [Zestoretic 20-25] Multivitamins, Thera [Multivitamin 1 tab PO DAILY 06/01/17 09/20/21 History (formulary)] Prolia (Unknown Dose) 1 injection SQ Q180D 03/23/19 09/20/21 History Baclofen 10 mg PO TID PRN #15 tab 09/18/21 09/20/21 Rx HYDROcodone/APAP 5-325MG [[place] 1 tab PO Q6HR PRN 3 Days #12 tab 09/18/21 09/20/21 Rx 5-325] Acetaminophen Tab [Tylenol] 325 mg PO Q4H PRN 09/20/21 09/20/21 History Acetaminophen-Codeine 300-30mg 1 tab PO Q8H PRN 09/20/21 09/20/21 History [Tylenol w/codeine #3] Allergies Allergy/AdvReac Type Severity Reaction Status Date / Time Sulfa (Sulfonamide Allergy Nausea Verified 09/20/21 14:34 Antibiotics) cephalexin AdvReac Vomiting Verified 09/20/21 14:34 prednisone AdvReac Rash/Hives Verified 09/20/21 14:34 Physical Examination Inspection: Negative for any evidence of open fractures, erythema, ecchymosis, nodules, deformities. Sensation: Sensation is equal, symmetric, bilaterally intact throughout bilatera l upper and lower extremities. Palpation: Significant tenderness patient throughout the midline lumbar spine. Nontender to the palpation throughout rest exam Range of motion: Patient is able somewhat raise both right and left lower extremities off the bed. Patient has full range of motion and knee flexion/extension, plantar flexion/dorsiflexion of ankles bilaterally. Bilateral upper extremities full range of motion in elbow flexion/extension, wrist flexion/extension, shoulder abduction, external/internal rotation. Motor: Safe Deposit Clerk strength 4/5 bilateral upper extremities; resisted elbow flexi on/extension shoulder abduction/internal/external rotation 4/5. Resisted hip flexion 3/5 bilaterally. Resisted plantar/dorsiflexion and knee flexion/extension 4/5 bilaterally. Neurovascular: Capillary refill 3 seconds bilaterally in digits of the upper extremities. Radial pulses intact, 2+ bilaterally Special tests: Negative Homans bilaterally; negative Ramón's bilaterally; negative clonus bilaterally Results - Labs Labs: Abnormal Lab Results - Last 24 Hours (Table) 09/20/21 09/20/21 09/20/21 Range/Units 14:36 14:36 14:36 WBC 11.5 H (3.8-10.6) k/uL Neutrophils # 9.8 H (1.3-7.7) k/uL Lymphocytes # 0.9 L (1.0-4.8) k/uL APTT 20.5 L (22.0-30.0) sec Sodium 133 L (137-145) mmol/L BUN 29 H (7-17) mg/dL Glucose 116 H (74-99) mg/dL 09/21/21 Range/Units 01:50 EST WBC (3.8-10.6) k/uL Neutrophils # (1.3-7.7) k/uL Lymphocytes # (1.0-4.8) k/uL APTT 30.8 H (22.0-30.0) sec Sodium (137-145) mmol/L BUN (7-17) mg/dL Glucose (74-99) mg/dL H & H 09/20/21 Range/Units 14:36 Hgb 11.6 (11.4-16.0) gm/dL Hct 35.4 (34.0-46.0) % Coagulation 09/20/21 Range/Units 14:36 INR 1.0 (<1.2) Result Diagrams: 09/21/21 10:06 09/20/21 14:36 Assessment and Plan Assessment: 1. Dorsalgia; lesion, L2 vertebral body 2. History of breast cancer; history of lung cancer 3. Multiple medical comorbidities Plan: 1. Dorsalgia; lesion, L2 vertebral body - computed tomography scan lumbar spine has been reviewed. I discussed findings with my attending, Dr. Cervantes. There is evident lesion, suspicious for metastasis of cancer to the lumbar spine at L2. There is no significant evidence for spinal stenosis. MRI of the spine has been ordered for further evaluation. We will await results from the MRI before proceeding with any potential intervention. At this time we do not recommend any urgent/emergent orthopedic surgical intervention. We will continue follow patient while in hospital 2. Appreciate medical management 3. Pain management - [place]; Tylenol; IV pain meds 4. DVT prophylaxis - heparin 5. GI prophylaxis - protonix 6. Appreciate consult 7. PT/OT - weightbearing as tolerated walker for assistance Time with Patient: Less than 30
[2021-09-21 10:44] LABS: Calcium 8.9 mg/dL (8.4-10.2); Potassium 3.8 mmol/L (3.5-5.1)
[2021-09-21 11:45] LABS: T4, Free (Free Thyroxine) 1.84 ng/dL (0.78-2.19)
[2021-09-21 11:49] LABS: Appearance,Urine Clear (Clear); Bacteria,Urine Moderate /hpf; Bilirubin,Urine Negative (Negative); Blood,Urine Trace (Negative); Color,Urine Yellow; Glucose,Urine (UA) Negative (Negative); Ketones,Urine 2+ (Negative); Leukocyte Esterase,Urine Large (Negative); Mucus,Urine Rare /hpf; Nitrite,Urine Negative (Negative); PH, Urine 5.5 (5.0-8.0); Protein,Urine Negative (Negative); RBC,Urine 7 /hpf (0-5); Specific Gravity,Urine 1.028 (1.001-1.035); Squamous Epithelial Cell,Urine <1 /hpf (0-4); Urobilinogen,Urine <2.0 mg/dL (<2.0); WBC,Urine 56 /hpf (0-5)
[2021-09-21] MEDS ORDERED: diazePAM 5 MG TAB PO PRN (13:02)
[2021-09-21] MEDS ORDERED: LORazepam 0.5 MG TAB PO PRN (15:19)
[2021-09-21] MEDS ORDERED: NYSTATIN 100,000 UNIT/GM POWD 15 GM TOPICAL SCH (16:00)
[2021-09-21] MEDS: HEPARIN SOD,PORK IN 0.45% NACL 25,000 UNIT in 0.45% NACL 1 250ML.BAG IV SCH (16:30)
[2021-09-21] MEDS: CYCLOBENZAPRINE 5 MG TAB PO SCH ×2 (16:31→21:09)
[2021-09-21] MEDS: SENNOSIDES-DOCUSATE SODIUM 1 EACH TAB PO SCH ×2 (16:31→21:09)
[2021-09-21] MEDS: LORATADINE 10 MG TAB PO SCH (16:32)
--- NOTE | 2021-09-21 16:38 | P.CRDCN ---
History of Present Illness History of present illness: HISTORY OF PRESENTING ILLNESS Patient is a pleasant 80-year-old female with history of breast cancer 1993 with recurrence in 2017 with metastatic lung cancer with metastases to the brain and recently to the back, hypertension, hyperlipidemia, GERD and previous tobacco abuse who presents secondary to back pain. Patient had been undergoing radiation for known metastatic lung cancer however states she started having severe back pain off and on over the prior week and a half. She was attempted on medications however, came to the emergency department with CAT scan showing what appeared to be metastasis to the spine. Orthopedic surgery has been consultative and scheduled for MRI tomorrow. She was found to have new onset of A. fib with mild RVR heart rates 100s to 120s. She denies any history of A. fib, she denies any chest pain, pressure, shortness breath. Patient normally and antihypertensive medications however these have been held with systolics in the 100-120 range. She denies any lightheadedness. She converted to normal sinus rhythm last night. REVIEW OF SYSTEMS At the time of my exam: CONSTITUTIONAL: Denies fever or chills. CARDIOVASCULAR: Denies chest pain, shortness of breath, orthopnea, PND or palpitations. RESPIRATORY: Denies cough. GASTROINTESTINAL: Denies abdominal pain, diarrhea, constipation, nausea or vomiting. MUSCULOSKELETAL: Denies myalgias. NEUROLOGIC: Denies numbness, tingling or weakness. ENDOCRINE: Denies fatigue, weight change, polydipsia or polyurina. GENITOURINARY: Denies burning, hematuria or urgency with micturation. HEMATOLOGIC: Denies history of anemia or bleeding. PHYSICAL EXAMINATION Vital signs reviewed. CONSTITUTIONAL: No apparent distress. HEENT: Head is normocephalic. Pupils are equal, round. Sclerae anicteric. Mucous membranes of the mouth are moist. No JVD. No carotid bruit. CHEST EXAMINATION: Lungs are clear to auscultation. No chest wall tenderness is noted on palpation or with deep breathing. HEART EXAMINATION: Regular rate and rhythm. S1, S2 heard. No murmurs, gallops or rub. ABDOMEN: Soft, nontender. Positive bowel sounds. EXTREMITIES: 2+ peripheral pulses, no lower extremity edema and no calf tendern ess. NEUROLOGIC EXAMINATION: Patient is awake, alert and oriented x3. ASSESSMENT 1. Paroxysmal atrial fibrillation, currently sinus rhythm 2. Metastatic cancer with metastases to the bone and brain 3. Hypertension currently borderline blood pressures off of antihypertensives PLAN Patient with new onset of atrial fibrillation as well as main presentation with back pain with concern of worsened metastases to the bone, spine. Orthopedic recommendations appreciated. Continue heparin drip at this time and would consider anticoagulation however if chemotherapy is to be entertained in the fut ure or any procedures okay to hold anticoagulation. Patient off of her home antihypertensives and if reinitiated would consider long-acting Cardizem to help control her rates if she does go back in A. fib. Check 2-D echo. Further recommendations to follow. Past Medical History Past Medical History: Cancer, GERD/Reflux, Hyperlipidemia, Hypertension Additional Past Medical History / Comment(s): BREAST CA X2, 1993 & 2016. OSTEOP ENIA. deaf in left ear History of Any Multi-Drug Resistant Organisms: None Reported Past Surgical History: Appendectomy, Breast Surgery, Section, Orthopedic Surgery Additional Past Surgical History / Comment(s): left lung lobectomy 1973, ear sx x6; most recent 2004; Left ankle sx (pins/screw implanted and later removed); LT BREAST LUMPECTOMY 1993; 05/2017 RT LUMPECTOMY W/ LYMPH NODE EXC. COLONOSCOPY.ear operation x6 Past Anesthesia/Blood Transfusion Reactions: No Reported Reaction Additional Past Anesthesia/Blood Transfusion Reaction / Comment(s): nausea/vom iting W/ appendectomy at age 15, "ether" was used for anesthesia Past Psychological History: No Psychological Hx Reported Smoking Status: Former smoker Past Alcohol Use History: None Reported Past Drug Use History: None Reported - Past Family History Mother Family Medical History: Diabetes Mellitus, Hypertension Father Family Medical History: Cancer, Coronary Artery Disease (CAD) Additional Family Medical History / Comment(s): POSS PROSTATE CA. CEREBRAL HEMORRHAGE. Medications and Allergies Home Medications Medication Instructions Recorded Confirmed Type Lisinopril-Hctz 20-25 mg 2 tab PO DAILY 06/01/17 09/20/21 History [Zestoretic 20-25] Multivitamins, Thera [Multivitamin 1 tab PO DAILY 06/01/17 09/20/21 History (formulary)] Prolia (Unknown Dose) 1 injection SQ Q180D 03/23/19 09/20/21 History Baclofen 10 mg PO TID PRN #15 tab 09/18/21 09/20/21 Rx HYDROcodone/APAP 5-325MG [[place] 1 tab PO Q6HR PRN 3 Days #12 tab 09/18/21 09/20/21 Rx 5-325] Acetaminophen Tab [Tylenol] 325 mg PO Q4H PRN 09/20/21 09/20/21 History Acetaminophen-Codeine 300-30mg 1 tab PO Q8H PRN 09/20/21 09/20/21 History [Tylenol w/codeine #3] Allergies Allergy/AdvReac Type Severity Reaction Status Date / Time Sulfa (Sulfonamide Allergy Nausea Verified 09/20/21 14:34 Antibiotics) cephalexin AdvReac Vomiting Verified 09/20/21 14:34 prednisone AdvReac Rash/Hives Verified 09/20/21 14:34 Physical Exam Vitals: Vital Signs Temp Pulse Pulse Resp BP BP Pulse Ox 09/21/21 12:00 97.2 F L 89 18 128/63 98 09/21/21 08:00 98.2 F 87 18 129/68 96 09/21/21 03:08 98 F 67 16 111/68 97 09/21/21 02:00 16 09/21/21 00:00 97.9 F 74 16 99/63 97 09/20/21 21:50 97.9 F 77 16 96/60 97 09/20/21 18:00 110 H 18 111/94 99 Intake and Output 09/21/21 09/21/21 09/21/21 06:59 14:59 22:59 Intake Total 738.426 47.927 Output Total 375 Balance 363.426 47.927 Intake: IV 490 Invasive Line 1 20 Invasive Line 2 20 Sodium Chloride 0.9% 1, 450 000 ml @ 75 mls/hr IV . [id number] [facility] Rx#:[id number] Intake, IV Titration 188.426 47.927 Amount Diltiazem 125 mg In 125 Sodium Chloride 0.9% 100 ml @ 10 MG/HR 10 mls/hr IV .[id number] [facility] Rx#: [id number] Heparin Sod,Pork in 0.45% 63.426 47.927 NaCl 25,000 unit In 0.45 % NaCl 1 250ml.bag @ 12 UNITS/KG/HR 6.151 mls/hr IV .Q24H [facility] Rx#: [id number] Sodium Chloride 0.9% 1, 000 ml @ 75 mls/hr IV . [id number] [facility] Rx#:[id number] Oral 60 Output: Urine 375 Straight 375 Other: Weight Results 09/21/21 10:06 09/21/21 10:06 Coagulation 09/21/21 09/21/21 Range/Units 01:50 EST 10:06 APTT 30.8 H 38.7 H (22.0-30.0) sec CBC 09/21/21 Range/Units 10:06 WBC 6.9 (3.8-10.6) k/uL RBC 3.94 (3.80-5.40) m/uL Hgb 11.4 (11.4-16.0) gm/dL Hct 33.9 L (34.0-46.0) % Plt Count 376 (150-450) k/uL Comprehensive Metabolic Panel 09/21/21 Range/Units 10:06 Sodium 136 L (137-145) mmol/L Potassium 3.8 (3.5-5.1) mmol/L Chloride 104 (98-107) mmol/L Carbon Dioxide 21 L (22-30) mmol/L BUN 22 H (7-17) mg/dL Creatinine 0.77 (0.52-1.04) mg/dL Glucose 131 H (74-99) mg/dL Calcium 8.9 (8.4-10.2) mg/dL Current Medications Generic Name Dose Route Start Last Admin Trade Name Freq PRN Reason Stop Dose Admin Acetaminophen 650 mg 09/20/21 16:48 Acetaminophen Tab 325 Mg Tab PO Q6HR PRN Mild Pain or Fever > 100.5 Hydrocodone Bitart/Acetaminophen 1 each 09/20/21 21:44 09/21/21 14:20 Hydrocodone/Apap 5-325mg 1 Each Tab PO 1 each Q6HR PRN Administration Pain Cyclobenzaprine HCl 5 mg 09/21/21 16:00 09/21/21 16:31 Cyclobenzaprine 5 Mg Tab PO 5 mg TID [facility] Administration Dexamethasone Sodium Phosphate 6 mg 09/21/21 18:00 Dexamethasone Sod Phosphate 10 Mg/Ml 1 Ml Vial IVP 09/22/21 12:01 Q6HR [facility] Diphenhydramine HCl 25 mg 09/21/21 21:00 Diphenhydramine 25 Mg Cap PO HS [facility] Heparin Sodium (Porcine) 0 unit 09/20/21 15:34 09/21/21 11:14 Heparin Sodium 1,000 Un/Ml (10ml Vl) IV 1,512.5 unit PER PROTOCOL PRN Administration Low PTT Protocol Hydromorphone HCl 0.5 mg 09/20/21 16:48 09/21/21 01:39 EDT Hydromorphone 0.5 Mg/0.5 Ml Syringe IVP 0.5 mg Q3HR PRN Administration Moderate Pain Heparin Sodium/Sodium Chloride 250 mls @ 6.151 mls/hr 09/20/21 15:45 09/21/21 16:30 25,000 unit/ Sodium Chloride IV 17 units/kg/hr .Q24H [facility] 8.714 mls/hr Administration Protocol 12 UNITS/KG/HR Sodium Chloride 1,000 mls @ 75 mls/hr 09/20/21 17:00 09/21/21 08:50 Saline 0.9% IV 75 mls/hr .[id number] [facility] Administration Levofloxacin 500 mg/ IV 100 mls @ 100 mls/hr 09/21/21 16:00 Solution IVPB Q24H [facility] Loratadine 10 mg 09/21/21 15:15 09/21/21 16:32 Loratadine 10 Mg Tab PO 10 mg DAILY [facility] Administration Lorazepam 0.5 mg 09/21/21 15:19 Lorazepam 0.5 Mg Tab PO ONCE PRN MRI Naloxone HCl 0.2 mg 09/20/21 16:48 Naloxone 0.4 Mg/Ml 1 Ml Vial IV Q2M PRN Opioid Reversal Pantoprazole Sodium 40 mg 09/21/21 07:30 09/21/21 16:31 Pantoprazole 40 Mg Tablet PO 40 mg AC-BID [facility] Administration Polyethylene Glycol 17 gm 09/21/21 15:15 Polyethylene Glycol 3350 17 Gm Powd.Pack PO DAILY [facility] Senna/Docusate Sodium 1 each 09/21/21 15:01 09/21/21 16:31 Sennosides-Docusate Sodium 1 Each Tab PO 1 each BID [facility] Administration Intake and Output 09/21/21 09/21/21 09/21/21 06:59 14:59 22:59 Intake Total 738.426 47.927 Output Total 375 Balance 363.426 47.927 Intake: IV 490 Invasive Line 1 20 Invasive Line 2 20 Sodium Chloride 0.9% 1, 450 000 ml @ 75 mls/hr IV . [id number] [facility] Rx#:[id number] Intake, IV Titration 188.426 47.927 Amount Diltiazem 125 mg In 125 Sodium Chloride 0.9% 100 ml @ 10 MG/HR 10 mls/hr IV .[id number] [facility] Rx#: [id number] Heparin Sod,Pork in 0.45% 63.426 47.927 NaCl 25,000 unit In 0.45 % NaCl 1 250ml.bag @ 12 UNITS/KG/HR 6.151 mls/hr IV .Q24H [facility] Rx#: [id number] Sodium Chloride 0.9% 1, 000 ml @ 75 mls/hr IV . [id number] [facility] Rx#:[id number] Oral 60 Output: Urine 375 Straight 375 Other: Weight 09/21/21 10:06 09/21/21 10:06
--- NOTE | 2021-09-21 16:44 | XR ---
EXAMINATION TYPE: XR chest 1V portable DATE OF EXAM: 09/21/2021 COMPARISON: Yesterday HISTORY: Altered mental status TECHNIQUE: Single view FINDINGS: There is no heart failure nor confluent pneumonic infiltrate. Costophrenic angles are clear . Thoracic aorta is atheromatous. There are chest leads. There is surgical clips over the right breas t. There is some coarsening of the lung markings in the left lower lobe. IMPRESSION: Mild infiltrate and fibrotic changes left lower lobe is improved compared to yesterday.
--- NOTE | 2021-09-21 17:19 | P.CNNES ---
History of Present Illness Consult date: 09/21/21 Reason for Consult: code stroke History of Present Illness: The patient is a 80-year-old female who is seen in neurologic consultation on September 21, 2021, via telemedicine. The patient reported to the emergency department as a "code stroke". According to her daughter, patient was very confused, forgetting dates, repeating herself and also had difficulty getting her words out. There is no reported loss of strength or facial droop. Patient denies headache and changes in vision. Patient herself feels that she came into the hospital because of back spasms. According to the patient's daughter who is at the bedside at the time of the evaluation, she feels her mother speech is much better than yesterday however not back to normal. The patient reportedly continues to repeat herself and is not remembering things that she should. She also is not articulating her words as well as she usually does. The patient denies difficulty swallowing. She denies weakness and numbness in her upper extremities. Patient's daughter repo rts that the confusion began late Wednesday night and got worse by the next morning. The next morning, the patient had reportedly lost her mobility. She was unable to stand. She slid to the floor and was unable to get up. The family subsequently called 911 and the patient was brought in by EMS. CT scan of the brain performed in the emergency department revealed no signs of acute hemorrhage or infarct. The patient does have a history of metastatic breast cancer, with metastases to the bones. She has been receiving radiation treatments for the bony metastases. The patient apparently had presented to the emergency department a day or 2 before her admission. She was discharged home with prescriptions for [place] and baclofen. Patient's daughter reports that she felt that the initial confusion may have been secondary to the medication effect however, when the patient was unable to ambulate, this was very concerning and so EMS was called. The patient herself does not recall these events. Past Medical History Past Medical History: Cancer, GERD/Reflux, Hyperlipidemia, Hypertension Additional Past Medical History / Comment(s): BREAST CA X2, 1994 & 2017. OSTEOPENIA. deaf in left ear History of Any Multi-Drug Resistant Organisms: None Reported Past Surgical History: Appendectomy, Breast Surgery, Section, Orthopedic Surgery Additional Past Surgical History / Comment(s): left lung lobectomy 1973, ear sx x6; most recent 2004; Left ankle sx (pins/screw implanted and later removed); LT BREAST LUMPECTOMY 1993; 05/2017 RT LUMPECTOMY W/ LYMPH NODE EXC. COLONOSCOPY.ear operation x6 Past Anesthesia/Blood Transfusion Reactions: No Reported Reaction Additional Past Anesthesia/Blood Transfusion Reaction / Comment(s): nausea/vomiting W/ appendectomy at age 15, "ether" was used for anesthesia Past Psychological History: No Psychological Hx Reported Smoking Status: Former smoker Past Alcohol Use History: None Reported Past Drug Use History: None Reported - Past Family History Mother Family Medical History: Diabetes Mellitus, Hypertension Father Family Medical History: Cancer, Coronary Artery Disease (CAD) Additional Family Medical History / Comment(s): POSS PROSTATE CA. CEREBRAL HEMORRHAGE. Medications and Allergies Home Medications Medication Instructions Recorded Confirmed Type Lisinopril-Hctz 20-25 mg 2 tab PO DAILY 06/01/17 09/20/21 History [Zestoretic 20-25] Multivitamins, Thera [Multivitamin 1 tab PO DAILY 06/01/17 09/20/21 History (formulary)] Prolia (Unknown Dose) 1 injection SQ Q180D 03/23/19 09/20/21 History Baclofen 10 mg PO TID PRN #15 tab 09/18/21 09/20/21 Rx HYDROcodone/APAP 5-325MG [[place] 1 tab PO Q6HR PRN 3 Days #12 tab 09/18/21 09/20/21 Rx 5-325] Acetaminophen Tab [Tylenol] 325 mg PO Q4H PRN 09/20/21 09/20/21 History Acetaminophen-Codeine 300-30mg 1 tab PO Q8H PRN 09/20/21 09/20/21 History [Tylenol w/codeine #3] Allergies Allergy/AdvReac Type Severity Reaction Status Date / Time Sulfa (Sulfonamide Allergy Nausea Verified 09/20/21 14:34 Antibiotics) cephalexin AdvReac Vomiting Verified 09/20/21 14:34 prednisone AdvReac Rash/Hives Verified 09/20/21 14:34 Physical Examination - Vital Signs Vital Signs: Vital Signs Temp Pulse Pulse Resp BP BP Pulse Ox 09/21/21 12:00 97.2 F L 89 18 128/63 98 09/21/21 08:00 98.2 F 87 18 129/68 96 09/21/21 03:08 98 F 67 16 111/68 97 09/21/21 02:00 16 09/21/21 00:00 97.9 F 74 16 99/63 97 09/20/21 21:50 97.9 F 77 16 96/60 97 09/20/21 18:00 110 H 18 111/94 99 09/20/21 17:00 98 18 104/65 98 09/20/21 16:00 129 H 18 133/74 98 Intake and Output 09/20/21 09/21/21 09/21/21 23:59 06:59 14:59 Intake Total 658.426 Output Total 375 Balance 283.426 Intake: IV 470 Invasive Line 1 10 Invasive Line 2 10 Sodium Chloride 0.9% 1, 450 000 ml @ 75 mls/hr IV . [id number] [facility] Rx#:[id number] Intake, IV Titration 188.426 Amount Diltiazem 125 mg In 125 Sodium Chloride 0.9% 100 ml @ 10 MG/HR 10 mls/hr IV .[id number] [facility] Rx#: [id number] Heparin Sod,Pork in 0.45% 63.426 NaCl 25,000 unit In 0.45 % NaCl 1 250ml.bag @ 12 UNITS/KG/HR 6.151 mls/hr IV .Q24H [facility] Rx#: [id number] Sodium Chloride 0.9% 1, 000 ml @ 75 mls/hr IV . [id number] [facility] Rx#:[id number] Output: Urine 375 Straight 375 Other: Weight Gen.: The patient is reclining in the bed. She is well-nourished. She is in mild to moderate distress secondary to pain. HEENT: Head is atraumatic, normocephalic. Fundus not visualized. There is no scleral icterus. Mucous membranes are moist. Neck: Supple without carotid bruits Heart: Regular rate and rhythm Extremities: Without edema Neurological examination Mental status: The patient is awake and alert. She is oriented to her name and date of . She initially reports her age to be "50". Her daughter then laughs at this and the patient realizes that she has given an incorrect answer. After thinking more about it, she is able to correctly state her age. The patient is not oriented to the current year. The patient's speech is clear. The patient does have R/L confusion. Cranial nerves: Pupils are equal at 2 mm and reactive. Visual field testing reveals a questionable bilateral lower, peripheral visual loss. Extraocular movements are intact. Facial sensation is intact. There is no facial asymmetry. Hearing is grossly intact. Uvula and palate are midline. Shoulder shrug is symmetric. Tongue protrudes midline. Motor: Bilateral test facility engineer strength 5/5. Biceps strength 4/5. Triceps 5/5. Deltoid strength is unable to be assessed secondary to shoulder pain. Bilateral hip flexors are diminished. Ankle plantar and dorsiflexor strength is 5/5. Sensation: Grossly intact to light touch throughout. There is no extinction with double simultaneous stimulation. Deep tendon reflexes: 2+/4+ in the upper extremities. 2+4+ at the right knee. 2-3+4+ at the left knee. Left plantar response was downgoing. Right plantar response was not assessed. Coordination: Finger to nose testing is intact bilaterally Results - Laboratory Findings CBC and BMP: 09/21/21 10:06 09/21/21 10:06 Abnormal Lab Findings: Abnormal Labs 09/20/21 09/20/21 09/20/21 14:36 14:36 14:36 WBC 11.5 H Hct Neutrophils # 9.8 H Lymphocytes # 0.9 L APTT 20.5 L Sodium 133 L Carbon Dioxide BUN 29 H Glucose 116 H TSH Urine Ketones Urine Blood Ur Leukocyte Esterase Urine RBC Urine WBC Urine WBC Clumps Urine Bacteria Urine Mucus 09/21/21 09/21/21 09/21/21 01:50 EST 10:06 10:06 WBC Hct 33.9 L Neutrophils # Lymphocytes # 0.6 L APTT 30.8 H Sodium 136 L Carbon Dioxide 21 L BUN 22 H Glucose 131 H TSH 0.153 L Urine Ketones Urine Blood Ur Leukocyte Esterase Urine RBC Urine WBC Urine WBC Clumps Urine Bacteria Urine Mucus 09/21/21 09/21/21 10:06 11:27 WBC Hct Neutrophils # Lymphocytes # APTT 38.7 H Sodium Carbon Dioxide BUN Glucose TSH Urine Ketones 2+ H Urine Blood Trace H Ur Leukocyte Esterase Large H Urine RBC 7 H Urine WBC 56 H Urine WBC Clumps Occasional H Urine Bacteria Moderate H Urine Mucus Rare H Assessment and Plan Assessment: 1. Reported expressive aphasia and facial asymmetry in a lady with metastatic cancer, therefore hypercoagulable state-rule out stroke versus metastases 2. 70% stenosis of the left internal carotid artery 3. Metastatic breast cancer Plan: 1. Agree with MRI of brain and spine with and without gadolinium 2. 2-D echocardiogram 3. Time with Patient: Greater than 30 (spent 40 minutes with patient via telemedicine)
[2021-09-21 17:32] LABS: Folate, Serum >20.00 ng/mL (4.40-31.00)
[2021-09-21] MEDS: LEVOFLOXACIN 500MG-D5W PMX 500 MG in DEXTROSE/WATER 1 100ML.BAG IVPB SCH (17:55)
[2021-09-21] MEDS: DEXAMETHASONE SOD PHOSPHATE 10 MG/ML 1 ML VIAL IVP SCH (17:56)
[2021-09-21] MEDS: polyethylene glycoL 3350 17 GM POWD.PACK PO SCH (18:12)
--- NOTE | 2021-09-21 18:59 | P.CONS ---
History of Present Illness - Reason for Consult Consult date: 09/20/21 Stage 4 lung Cancer - Chief Complaint Mental Status Changes - History of Present Illness Mrs. Brooke is a pleasant female who was recently diagnosed with stage 4 adenocarcinoma of the lung. She has a known remote history Breast Cancer. More recently metastatic adenocarcinoma of the lung with spine and bone mets. She recently completed 10 radiation treatments and radiation was started on patients back for palliaitive pain relief. I had a long discussion with patient's daughter earlier today and then again with patient and daughter and son in law at bedside. Her recent staging exams of her brain unfortunately did not include contrast therefore we cannot definitively exclude metastatic disease. Less than a week ago she was driving herself to radiation, no cognitive issues. She is now unable to ealk with pain, unilateral weakness and mental disorientation. CT spine with evidence of tumor protruding in canal of spinal cord. Ortho spine, neurology, and us (onc) have been asked to evaluate. She has a rash to abdomen, hive-like, not itching. Patient and daughter state this is similiar to when she had steroids in past. Although daughter feels this may have started prior to steroids. On exam she also has right chest protrusion, family stated was no =t there 48 hours prior. She has had urinary frequency and I did place order for urinalysis and culture as well as start dexamethasone and PPI yesterday after review of chart over night. Review of Systems ROS unobtainable: due to mental status All systems: negative Past Medical History Past Medical History: Cancer, GERD/Reflux, Hyperlipidemia, Hypertension Additional Past Medical History / Comment(s): BREAST CA X2, 1993 & 2016. OSTEOPENIA. deaf in left ear History of Any Multi-Drug Resistant Organisms: None Reported Past Surgical History: Appendectomy, Breast Surgery, Section, Orthopedic Surgery Additional Past Surgical History / Comment(s): left lung lobectomy 1973, ear sx x6; most recent 2004; Left ankle sx (pins/screw implanted and later removed); LT BREAST LUMPECTOMY 1993; 05/2017 RT LUMPECTOMY W/ LYMPH NODE EXC. COLONOSCOPY.ear operation x6 Past Anesthesia/Blood Transfusion Reactions: No Reported Reaction Additional Past Anesthesia/Blood Transfusion Reaction / Comm: nausea/vomiting W/ appendectomy at age 15, "ether" was used for anesthesia Past Psychological History: No Psychological Hx Reported Smoking Status: Former smoker Past Alcohol Use History: None Reported Past Drug Use History: None Reported - Past Family History Mother Family Medical History: Diabetes Mellitus, Hypertension Father Family Medical History: Cancer, Coronary Artery Disease (CAD) Additional Family Medical History / Comment(s): POSS PROSTATE CA. CEREBRAL HEMORRHAGE. Medications and Allergies Home Medications Medication Instructions Recorded Confirmed Type Lisinopril-Hctz 20-25 mg 2 tab PO DAILY 06/01/17 09/20/21 History [Zestoretic 20-25] Multivitamins, Thera [Multivitamin 1 tab PO DAILY 06/01/17 09/20/21 History (formulary)] Prolia (Unknown Dose) 1 injection SQ Q180D 03/23/19 09/20/21 History Baclofen 10 mg PO TID PRN #15 tab 09/18/21 09/20/21 Rx HYDROcodone/APAP 5-325MG [[place] 1 tab PO Q6HR PRN 3 Days #12 tab 09/18/21 09/20/21 Rx 5-325] Acetaminophen Tab [Tylenol] 325 mg PO Q4H PRN 09/20/21 09/20/21 History Acetaminophen-Codeine 300-30mg 1 tab PO Q8H PRN 09/20/21 09/20/21 History [Tylenol w/codeine #3] Allergies Allergy/AdvReac Type Severity Reaction Status Date / Time Sulfa (Sulfonamide Allergy Nausea Verified 09/20/21 14:34 Antibiotics) cephalexin AdvReac Vomiting Verified 09/20/21 14:34 prednisone AdvReac Rash/Hives Verified 09/20/21 14:34 Physical Exam Vitals: Vital Signs Temp Pulse Pulse Resp BP BP Pulse Ox 09/20/21 21:50 97.9 F 77 16 96/60 97 09/20/21 18:00 110 H 18 111/94 99 09/20/21 17:00 98 18 104/65 98 09/20/21 16:00 129 H 18 133/74 98 09/20/21 15:15 128 H 18 169/110 98 09/20/21 14:45 125 H 18 148/117 98 09/20/21 14:15 115 H 18 148/110 99 09/20/21 14:00 110 H 18 160/109 99 09/20/21 13:45 85 18 141/111 99 09/20/21 13:30 98.4 F 87 18 132/66 98 Intake and Output 09/20/21 09/20/21 09/21/21 14:59 22:59 05:59 Intake Total 81.151 Balance 81.151 Intake: Intake, IV Titration 81.151 Amount Heparin Sod,Pork in 0.45% 6.151 NaCl 25,000 unit In 0.45 % NaCl 1 250ml.bag @ 12 UNITS/KG/HR 6.151 mls/hr IV .Q24H [facility] Rx#: [id number] Sodium Chloride 0.9% 1, 75 000 ml @ 75 mls/hr IV . [id number] [facility] Rx#:[id number] Other: Weight 51.256 kg 51.256 kg - Constitutional General appearance: cooperative, no acute distress - EENT Eyes: EOMI ENT: hard of hearing, NA/AT - Neck Neck: normal ROM - Respiratory Respiratory: bilateral: diminished (Right chest wall protruding) - Gastrointestinal General gastrointestinal: soft - Integumentary Integumentary: pale - Musculoskeletal Musculoskeletal: generalized weakness, right sided weakness - Psychiatric pleasantly confused Results CBC & Chem 7: 09/21/21 10:06 09/21/21 10:06 Labs: Abnormal Lab Results - Last 24 Hours (Table) 09/20/21 09/20/21 09/20/21 Range/Units 14:36 14:36 14:36 WBC 11.5 H (3.8-10.6) k/uL Neutrophils # 9.8 H (1.3-7.7) k/uL Lymphocytes # 0.9 L (1.0-4.8) k/uL APTT 20.5 L (22.0-30.0) sec Sodium 133 L (137-145) mmol/L BUN 29 H (7-17) mg/dL Glucose 116 H (74-99) mg/dL Comments: Review of CT Lumbar and thoracic spine Assessment and Plan (1) Metastatic adenocarcinoma to lung Current Visit: Yes Status: Acute Code(s): C78.00 - SECONDARY MALIGNANT NEOPLASM OF UNSPECIFIED LUNG SNOMED Code(s): 3439271520529 (2) Bone metastases Current Visit: Yes Status: Acute Code(s): C79.51 - SECONDARY MALIGNANT NEOPLASM OF BONE SNOMED Code(s): 83902130 (3) Spinal cord compression Current Visit: Yes Status: Acute Code(s): G95.20 - UNSPECIFIED CORD COMPRESSION SNOMED Code(s): 26672794 (4) Spinal cord compression due to malignant neoplasm metastatic to spine Current Visit: Yes Status: Acute Code(s): G95.29 - OTHER CORD COMPRESSION; C79.51 - SECONDARY MALIGNANT NEOPLASM OF BONE SNOMED Code(s): 253974255 Plan: PLan and Recs - Consult placed for Dr. Shell regarding mass into spinal cord - Will start antibiotics for UTI (possible contributing factor to confusion) - COntinue close assessment of mentation - Dex 6mg [id number] and PPI x24 hours then 4mg q6 hours - Repeat MRI Brain - With COntrast - MRI of complete spine with and without ordered and pending - Would use ativan as opposed to Valium due to half life. - Imaging chest for new protrusion - Claritin added in am and Benadryl at PM for rash, nystatin powder - Howe catheter for urine retention Discussed in detail with multiple family and team members, greater than 45 minutes reviewing chart and with patient
[2021-09-21] MEDS: diphenhydrAMINE 25 MG CAP PO SCH (21:09)
[2021-09-22] MEDS: DEXAMETHASONE SOD PHOSPHATE 10 MG/ML 1 ML VIAL IVP SCH ×3 (00:09→11:59)
[2021-09-22] MEDS: PANTOPRAZOLE 40 MG TABLET PO SCH ×2 (06:06→15:08)
[2021-09-22] MEDS: HYDROmorphone 0.5 MG/0.5 ML SYRINGE IVP PRN ×2 (06:16→15:58)
[2021-09-22] MEDS: SENNOSIDES-DOCUSATE SODIUM 1 EACH TAB PO SCH ×2 (08:18→21:45)
[2021-09-22] MEDS: polyethylene glycoL 3350 17 GM POWD.PACK PO SCH (08:18)
[2021-09-22] MEDS: LORATADINE 10 MG TAB PO SCH (08:18)
[2021-09-22] MEDS: HYDROcodone/APAP 5-325MG 1 EACH TAB PO PRN ×3 (08:19→21:45)
[2021-09-22] MEDS: CYCLOBENZAPRINE 5 MG TAB PO SCH ×3 (08:19→21:45)
[2021-09-22] MEDS: SODIUM CHLORIDE 0.9% 1,000 ML IV SCH (08:20)
[2021-09-22] MEDS: LEVOFLOXACIN 500MG-D5W PMX 500 MG in DEXTROSE/WATER 1 100ML.BAG IVPB SCH (08:24)
--- NOTE | 2021-09-22 10:08 | P.PN ---
Subjective Progress Note Date: 09/21/21 Principal diagnosis: New onset atrial fibrillation Metastatic lung cancer with metastases to bone and brain Patient is a 80-year-old female with a known history of breast cancer diagnosed in 1993 and recurrence in 2017, metastatic lung cancer, osteopenia, deafness in the left ear, hypertension, hyperlipidemia, GERD and previous history of smoking presents to ER with altered mental status and also complaining of back pain. Patient has metastatic lesions in the lumbar spine seen on PET scan. Also has history of metastatic lesions in the brain. Patient is unable to provide history at this time. Patient's daughter is at bedside who can provide the history. Patient has been having severe back pain on and off for the past 10 days. Patient was seen in the ER about 2 days ago with similar complaints and refused admission at that time. Patient came back to the hospital due to persistent back pain. Patient is on baclofen and narcotic pain medications. Patient is able to move extremities while in bed. CT head showed cerebral atrophy. There is evidence for mild chronic small vessel ischemia. No acute abnormality noted. CT lumbar spine showed destructive lesion with expansion slightly into the spinal cord on the right side of the L2 vertebral body. This is consistent with metastatic disease. No significant spinal stenosis. CT angiogram of the chest showed atherosclerotic extensive plaque at the carotid artery bifurcations and approximate 50% stenosis at the origin of the right ICA and 70% stenosis origin left ICA. No significant intracranial angiographic abnormalities. Chest x-ray showed increasing pulmonary interstitial infiltrates compared to last exam. No discrete pulmonary mass. EKG showed atrial fibrillation with rapid ventricular rate. Laboratory showed WBC of 11.5 hemoglobin 11.6, platelets 389 neutrophils 9.8 Sodium 133 potassium 4.1 chloride 98 BUN 29 and creatinine 0.73 and glucose 116, troponin less than 0.012 and liver enzymes not elevated COVID-19 PCR not detected. 09/21/2021 Patient was admitted to hospital due to new onset paroxysmal atrial fibrillation. Currently converted to sinus rhythm. Patient is being continued on heparin drip and cardiology is on board. Patient was also seen by neurology due to altered mental status and also oncology for possible chemo/radiation for metastatic lesions. Otherwise patient is more awake alert and oriented 3 today. Pain is controlled with medications. Patient is afebrile. No nausea vomiting or abdominal pain or diarrhea. Tolerating oral diet slowly. No cough or sputum production. Denied any chest pain. Current medications reviewed. Objective - Vital Signs Vital signs: Vital Signs Temp 97.6 F 09/21/21 16:00 Pulse 99 09/21/21 16:00 Resp 18 09/21/21 16:00 BP 141/64 09/21/21 16:00 Pulse Ox 98 09/21/21 16:00 Intake & Output 09/20/21 09/21/21 09/21/21 19:59 06:59 18:59 Intake Total 1046.353 Output Total 375 Balance 671.353 Weight Intake: IV 490 Invasive Line 1 20 Invasive Line 2 20 Sodium Chloride 0.9% 1, 450 000 ml @ 75 mls/hr IV . [id number] [facility] Rx#:[id number] Intake, IV Titration 236.353 Amount Diltiazem 125 mg In 125 Sodium Chloride 0.9% 100 ml @ 10 MG/HR 10 mls/hr IV .[id number] [facility] Rx#: [id number] Heparin Sod,Pork in 0.45% 111.353 NaCl 25,000 unit In 0.45 % NaCl 1 250ml.bag @ 12 UNITS/KG/HR 6.151 mls/hr IV .Q24H [facility] Rx#: [id number] Sodium Chloride 0.9% 1, 000 ml @ 75 mls/hr IV . [id number] [facility] Rx#:[id number] Oral 320 Output: Urine 375 Straight 375 - Exam PHYSICAL EXAMINATION: Patient is lying in the bed comfortably, no acute distress, awake alert and oriented. Patient is malnourished and cachectic.. HEENT: Normocephalic. Neck is supple. Pupils reactive. Nostrils clear. Oral cavity is moist. Neck reveals no JVD, carotid bruits, or thyromegaly. CHEST EXAMINATION: Trachea is central. Symmetrical expansion. Bibasilar diminished sounds. Lung hung clear to auscultation and percussion. CARDIAC: Normal S1, S2 with no gallops. No murmurs ABDOMEN: Soft. Bowel sounds normal. No organomegaly. No abdominal bruits. Extremities: reveal no edema. No clubbing or cyanosis Neurologically awake, alert, oriented x3 with well-coordinated movements. No focal deficits noted Skin: No rash or skin lesions. Psychiatric: Coperative. Nonsuicidal Musculoskeletal: No joint swelling or deformity. Normal range of motion. - Labs CBC & Chem 7: 09/21/21 10:06 09/21/21 10:06 Labs: Abnormal Lab Results - Last 24 Hours (Table) 09/21/21 09/21/21 09/21/21 Range/Units 01:50 EST 10:06 10:06 Hct 33.9 L (34.0-46.0) % Lymphocytes # 0.6 L (1.0-4.8) k/uL APTT 30.8 H (22.0-30.0) sec Sodium 136 L (137-145) mmol/L Carbon Dioxide 21 L (22-30) mmol/L BUN 22 H (7-17) mg/dL Glucose 131 H (74-99) mg/dL Vitamin B12 (200.0-944.0) pg/mL TSH 0.153 L (0.465-4.680) mIU/L Urine Ketones (Negative) Urine Blood (Negative) Ur Leukocyte Esterase (Negative) Urine RBC (0-5) /hpf Urine WBC (0-5) /hpf Urine WBC Clumps (None) /hpf Urine Bacteria (None) /hpf Urine Mucus (None) /hpf 09/21/21 09/21/21 09/21/21 Range/Units 10:06 11:27 12:04 Hct (34.0-46.0) % Lymphocytes # (1.0-4.8) k/uL APTT 38.7 H (22.0-30.0) sec Sodium (137-145) mmol/L Carbon Dioxide (22-30) mmol/L BUN (7-17) mg/dL Glucose (74-99) mg/dL Vitamin B12 1031.0 H (200.0-944.0) pg/mL TSH (0.465-4.680) mIU/L Urine Ketones 2+ H (Negative) Urine Blood Trace H (Negative) Ur Leukocyte Esterase Large H (Negative) Urine RBC 7 H (0-5) /hpf Urine WBC 56 H (0-5) /hpf Urine WBC Clumps Occasional H (None) /hpf Urine Bacteria Moderate H (None) /hpf Urine Mucus Rare H (None) /hpf 09/21/21 Range/Units 17:39 Hct (34.0-46.0) % Lymphocytes # (1.0-4.8) k/uL APTT 60.3 H (22.0-30.0) sec Sodium (137-145) mmol/L Carbon Dioxide (22-30) mmol/L BUN (7-17) mg/dL Glucose (74-99) mg/dL Vitamin B12 (200.0-944.0) pg/mL TSH (0.465-4.680) mIU/L Urine Ketones (Negative) Urine Blood (Negative) Ur Leukocyte Esterase (Negative) Urine RBC (0-5) /hpf Urine WBC (0-5) /hpf Urine WBC Clumps (None) /hpf Urine Bacteria (None) /hpf Urine Mucus (None) /hpf Microbiology - Last 24 Hours (Table) 09/21/21 11:27 Urine Culture - Preliminary Urine,Voided Assessment and Plan Assessment: Altered mental status is metabolic encephalopathy and brain mets. He improved now. New onset atrial fibrillation with rapid regular rate. Currently converted to sinus rhythm. Paroxysmal atrial fibrillation. Acute urinary tract infection Dehydration volume depletion. Improved. Metastatic cancer with mets to spine. Intractable back pain with destructive lesion at the L2 vertebral body. Metastatic adenocarcinoma of the lung. Status post biopsy on 07/31/2021 Hypertension Hyperlipidemia GERD Osteopenia Deafness in the left ear bedtime Previous history of smoking Moderate protein calorie malnutrition. History of breast cancer DVT prophylaxis patient is already on heparin drip. Plan: Patient will be continued pain management with [place] and Dilaudid IV as needed. started on heparin drip and Cardizem drip for heart rate control. Cardizem drip has been discontinued. Gentle IV hydration. Cardiology and oncology was consulted. Continue to follow closely. Prognosis is poor at this time. Time with Patient: Greater than 30
--- NOTE | 2021-09-22 10:29 | P.PN ---
Subjective Progress Note Date: 09/22/21 Principal diagnosis: metastatic Lung with cord involvement Still in pain and confused Objective - Vital Signs Vital signs: Vital Signs Temp 98.2 F 09/22/21 07:56 Pulse 88 09/22/21 07:56 Resp 18 09/22/21 07:56 BP 160/89 09/22/21 07:56 Pulse Ox 99 09/22/21 07:56 Intake & Output 09/21/21 09/22/21 09/22/21 18:59 06:59 18:59 Intake Total 1286.353 270 Output Total 375 1625 Balance 911.353 -1625 270 Weight 62.5 kg Intake: IV 490 10 Invasive Line 1 20 Invasive Line 2 20 10 Sodium Chloride 0.9% 1, 450 000 ml @ 75 mls/hr IV . [id number] [facility] Rx#:[id number] Intake, IV Titration 236.353 Amount Diltiazem 125 mg In 125 Sodium Chloride 0.9% 100 ml @ 10 MG/HR 10 mls/hr IV .[id number] [facility] Rx#: [id number] Heparin Sod,Pork in 0.45% 111.353 NaCl 25,000 unit In 0.45 % NaCl 1 250ml.bag @ 12 UNITS/KG/HR 6.151 mls/hr IV .Q24H [facility] Rx#: [id number] Oral 560 260 Output: Urine 375 1625 Straight 375 Other: Voiding Method Indwelling Catheter Indwelling Catheter - Exam Alert confusion intermittent Occassional winces of pain if moves or shifts in bed Head: NCAT Chest wall with increased protrusion right ribcage Lungs: DIminished Heart: Reg to Afib Abdomen: Soft Extremities: RLE weak - Labs CBC & Chem 7: 09/21/21 10:06 09/21/21 10:06 Labs: Abnormal Lab Results - Last 24 Hours (Table) 09/21/21 09/21/21 09/21/21 Range/Units 10:06 10:06 10:06 Hct 33.9 L (34.0-46.0) % Lymphocytes # 0.6 L (1.0-4.8) k/uL APTT 38.7 H (22.0-30.0) sec Sodium 136 L (137-145) mmol/L Carbon Dioxide 21 L (22-30) mmol/L BUN 22 H (7-17) mg/dL Glucose 131 H (74-99) mg/dL Vitamin B12 (200.0-944.0) pg/mL TSH 0.153 L (0.465-4.680) mIU/L Urine Ketones (Negative) Urine Blood (Negative) Ur Leukocyte Esterase (Negative) Urine RBC (0-5) /hpf Urine WBC (0-5) /hpf Urine WBC Clumps (None) /hpf Urine Bacteria (None) /hpf Urine Mucus (None) /hpf 09/21/21 09/21/21 09/21/21 Range/Units 11:27 12:04 17:39 Hct (34.0-46.0) % Lymphocytes # (1.0-4.8) k/uL APTT 60.3 H (22.0-30.0) sec Sodium (137-145) mmol/L Carbon Dioxide (22-30) mmol/L BUN (7-17) mg/dL Glucose (74-99) mg/dL Vitamin B12 1031.0 H (200.0-944.0) pg/mL TSH (0.465-4.680) mIU/L Urine Ketones 2+ H (Negative) Urine Blood Trace H (Negative) Ur Leukocyte Esterase Large H (Negative) Urine RBC 7 H (0-5) /hpf Urine WBC 56 H (0-5) /hpf Urine WBC Clumps Occasional H (None) /hpf Urine Bacteria Moderate H (None) /hpf Urine Mucus Rare H (None) /hpf 09/22/21 Range/Units 05:20 Hct (34.0-46.0) % Lymphocytes # (1.0-4.8) k/uL APTT 58.9 H (22.0-30.0) sec Sodium (137-145) mmol/L Carbon Dioxide (22-30) mmol/L BUN (7-17) mg/dL Glucose (74-99) mg/dL Vitamin B12 (200.0-944.0) pg/mL TSH (0.465-4.680) mIU/L Urine Ketones (Negative) Urine Blood (Negative) Ur Leukocyte Esterase (Negative) Urine RBC (0-5) /hpf Urine WBC (0-5) /hpf Urine WBC Clumps (None) /hpf Urine Bacteria (None) /hpf Urine Mucus (None) /hpf Microbiology - Last 24 Hours (Table) 09/21/21 11:27 Urine Culture - Preliminary Urine,Voided Assessment and Plan (1) Metastatic adenocarcinoma to lung Current Visit: Yes Status: Acute Code(s): C78.00 - SECONDARY MALIGNANT NEOPLASM OF UNSPECIFIED LUNG SNOMED Code(s): 1701616387875 (2) Bone metastases Current Visit: Yes Status: Acute Code(s): C79.51 - SECONDARY MALIGNANT NEOPLASM OF BONE SNOMED Code(s): 37408092 (3) Spinal cord compression Current Visit: Yes Status: Acute Code(s): G95.20 - UNSPECIFIED CORD COMPRESSION SNOMED Code(s): 44639367 (4) Spinal cord compression due to malignant neoplasm metastatic to spine Current Visit: Yes Status: Acute Code(s): G95.29 - OTHER CORD COMPRESSION; C79.51 - SECONDARY MALIGNANT NEOPLASM OF BONE SNOMED Code(s): 281755225 Plan: PLan and Recs - Consult placed for Dr. Shell regarding mass into spinal cord - Will start antibiotics for UTI (possible contributing factor to confusion) - Continue close assessment of mentation - Dex 4mg q6 hours with PPI - Repeat MRI Brain - With COntrast - MRI of complete spine with and without ordered and pending - Would use ativan as opposed to Valium due to half life. - Claritin added in am and Benadryl at PM for rash, nystatin powder - Howe catheter for urine retention Case was discussed in detail with Dr. Shell (Radiation Oncology)
[2021-09-22] MEDS: METOPROLOL TARTRATE 25 MG TAB PO SCH ×2 (11:59→21:44)
--- NOTE | 2021-09-22 13:44 | P.PN ---
Progress Note - Text Progress Note Date: 09/22/21 New onset atrial fibrillation Metastatic lung cancer with metastases to bone and brain Patient is a 80-year-old female with a known history of breast cancer diagnosed in 1993 and recurrence in 2017, metastatic lung cancer, osteopenia, deafness in the left ear, hypertension, hyperlipidemia, GERD and previous history of smoking presents to ER with altered mental status and also complaining of back pain. Patient has metastatic lesions in the lumbar spine seen on PET scan. Also has history of metastatic lesions in the brain. Patient is unable to provide history at this time. Patient's daughter is at bedside who can provide the history. Patient has been having severe back pain on and off for the past 10 days. Patient was seen in the ER about 2 days ago with similar complaints and refused admission at that time. Patient came back to the hospital due to persistent back pain. Patient is on baclofen and narcotic pain medications. Patient is able to move extremities while in bed. 09/21/2021 Patient was admitted to hospital due to new onset paroxysmal atrial fibrillation. Currently converted to sinus rhythm. Patient is being continued on heparin drip and cardiology is on board. Patient was also seen by neurology due to altered mental status and also oncology for possible chemo/radiation for metastatic lesions. Otherwise patient is more awake alert and oriented 3 today. Pain is controlled with medications. Patient is afebrile. No nausea vomiting or abdominal pain or diarrhea. Tolerating oral diet slowly. No cough or sputum production. Denied any chest pain. September 22: Laying in bed. Awake. He took a shower. Pain control. Did eat some. Patient not been walking for last few days. IV heparin. Radiation oncology consulted. Levaquin being started for UTI Review of systems: Was done for constitutional, cardiovascular, GI, pulmonary. relevant finding as above Active Medications Acetaminophen (Acetaminophen Tab 325 Mg Tab) 650 mg PO Q6HR PRN PRN Reason: Mild Pain or Fever > 100.5 Hydrocodone Bitart/Acetaminophen (Hydrocodone/Apap 5-325mg 1 Each Tab) 1 each PO Q6HR PRN PRN Reason: Pain Last Admin: 09/22/21 08:19 Dose: 1 each Documented by: Cyclobenzaprine HCl (Cyclobenzaprine 5 Mg Tab) 5 mg PO TID [facility] Last Admin: 09/22/21 08:19 Dose: 5 mg Documented by: Diphenhydramine HCl (Diphenhydramine 25 Mg Cap) 25 mg PO HS [facility] Last Admin: 09/21/21 21:09 Dose: 25 mg Documented by: Heparin Sodium (Porcine) (Heparin Sodium 1,000 Un/Ml (10ml Vl)) 0 unit IV PER PROTOCOL PRN; Protocol PRN Reason: Low PTT Last Admin: 09/21/21 11:14 Dose: 1,512.5 unit Documented by: Hydromorphone HCl (Hydromorphone 0.5 Mg/0.5 Ml Syringe) 0.5 mg IVP Q3HR PRN PRN Reason: Moderate Pain Last Admin: 09/22/21 06:16 Dose: 0.5 mg Documented by: Heparin Sodium/Sodium Chloride (25,000 unit/ Sodium Chloride) 250 mls @ 6.151 m ls/hr IV .Q24H [facility]; Protocol Last Admin: 09/21/21 16:30 Dose: 17 units/kg/hr, 8.714 mls/hr Documented by: Sodium Chloride (Saline 0.9%) 1,000 mls @ 75 mls/hr IV .[id number] [facility] Last Admin: 09/22/21 08:20 Dose: 75 mls/hr Documented by: Levofloxacin 500 mg/ IV (Solution) 100 mls @ 100 mls/hr IVPB Q24H [facility] Loratadine (Loratadine 10 Mg Tab) 10 mg PO DAILY [facility] Last Admin: 09/22/21 08:18 Dose: 10 mg Documented by: Lorazepam (Lorazepam 0.5 Mg Tab) 0.5 mg PO ONCE PRN PRN Reason: MRI Metoprolol Tartrate (Metoprolol Tartrate 25 Mg Tab) 25 mg PO BID [facility] Last Admin: 09/22/21 11:59 Dose: 25 mg Documented by: Naloxone HCl (Naloxone 0.4 Mg/Ml 1 Ml Vial) 0.2 mg IV Q2M PRN PRN Reason: Opioid Reversal Pantoprazole Sodium (Pantoprazole 40 Mg Tablet) 40 mg PO AC-BID [facility] Last Admin: 09/22/21 06:06 Dose: 40 mg Documented by: Polyethylene Glycol (Polyethylene Glycol 3350 17 Gm Powd.Pack) 17 gm PO DAILY [facility] Last Admin: 09/22/21 08:18 Dose: 17 gm Documented by: Senna/Docusate Sodium (Sennosides-Docusate Sodium 1 Each Tab) 1 each PO BID [facility] Last Admin: 09/22/21 08:18 Dose: 1 each Documented by: INVESTIGATIONS, reviewed in the clinical context: UA: Positive for leukoesterase WBC CT head showed cerebral atrophy. There is evidence for mild chronic small vessel ischemia. No acute abnormality noted. CT lumbar spine showed destructive lesion with expansion slightly into the spinal cord on the right side of the L2 vertebral body. This is consistent with metastatic disease. No significant spinal stenosis. CT angiogram of the chest showed atherosclerotic extensive plaque at the carotid artery bifurcations and approximate 50% stenosis at the origin of the right ICA and 70% stenosis origin left ICA. No significant intracranial angiographic abnormalities. Chest x-ray showed increasing pulmonary interstitial infiltrates compared to last exam. No discrete pulmonary mass. EKG showed atrial fibrillation with rapid ventricular rate. Laboratory showed WBC of 11.5 hemoglobin 11.6, platelets 389 neutrophils 9.8 Sodium 133 potassium 4.1 chloride 98 BUN 29 and creatinine 0.73 and glucose 116, troponin less than 0.012 and liver enzymes not elevated COVID-19 PCR not detected. Assessment and plan: -Altered mental status is metabolic encephalopathy and brain mets.: Improving -Paroxysmal atrial fibrillation with rapid regular rate. Currently sinus rhythm. Lopressor 25 mg twice a day -Acute urinary tract infection with cystitis IV Levaquin -Dehydration volume depletion. Improved. IV fluids . -Intractable back pain with destructive lesion at the L2 vertebral body. Received 10 and radiation treatments. IV Dilaudid. On a heating pad. Add naproxen 250 mg 3 times a day. Flexeril 5 mg 3 times a day -Stage IV Metastatic adenocarcinoma of the lung. Status post biopsy on 07/31/2021 with metastatic of the bone and spine. Recently completed 10 radiation treatments for palliative pain relief. -Essential Hypertension Lopressor 25 mg twice a day -GERD Protonic -Osteopenia -Deafness in the left ear -Moderate protein calorie malnutrition. add ensure -IV heparin monitoring Follow PTT -DO NOT RESUSCITATE On IV heparin. Add naproxen 200 mg daily. Consult radiation oncology. PTOT. Discussed with patient.
--- NOTE | 2021-09-22 14:08 | P.PN ---
Subjective Progress Note Date: 09/22/21 HISTORY OF PRESENTING ILLNESS Patient is a pleasant 80-year-old female with history of breast cancer 1993 with recurrence in 2017 with metastatic lung cancer with metastases to the brain and recently to the back, hypertension, hyperlipidemia, GERD and previous tobacco abuse who presents secondary to back pain. Patient had been undergoing radiation for known metastatic lung cancer however states she started having severe back pain off and on over the prior week and a half. She was attempted on medications however, came to the emergency department with CAT scan showing what appeared to be metastasis to the spine. Orthopedic surgery has been consultative and scheduled for MRI tomorrow. She was found to have new onset of A. fib with mild RVR heart rates 100s to 120s. She denies any history of A. fib, she denies any chest pain, pressure, shortness breath. Patient normally and antihypertensive medications however these have been held with systolics in the 100-120 range. She denies any lightheadedness. She converted to normal sinus rhythm last night. 09/22/2021 Patient examined at the bedside. Denies chest pain or pressure. Denies SOB. Remains in sinus mechanism. She remains on IV heparin. PHYSICAL EXAMINATION Vital signs reviewed. CONSTITUTIONAL: No apparent distress. HEENT: Head is normocephalic. Pupils are equal, round. Sclerae anicteric. Mucous membranes of the mouth are moist. No JVD. No carotid bruit. CHEST EXAMINATION: Lungs are clear to auscultation. No chest wall tenderness is noted on palpation or with deep breathing. HEART EXAMINATION: Regular rate and rhythm. S1, S2 heard. No murmurs, gallops or rub. ABDOMEN: Soft, nontender. Positive bowel sounds. EXTREMITIES: 2+ peripheral pulses, no lower extremity edema and no calf tenderness. NEUROLOGIC EXAMINATION: Patient is awake, alert and oriented x3. ASSESSMENT 1. Paroxysmal atrial fibrillation, currently sinus rhythm 2. Metastatic cancer with metastases to the bone and brain 3. Hypertension currently borderline blood pressures off of antihypertensives PLAN 2D echo ordered. Await results. Begin metoprolol 25mg BID Continue IV heparin. Await further input from oncology regarding transition to oral anticoagulation Further recommendations pending patient course Nurse practitioner note has been reviewed by physician. Signing provider agrees with the documented findings, assessment, and plan of care. Objective - Vital Signs Vital signs: Vital Signs Temp 98.0 F 09/22/21 12:00 Pulse 96 09/22/21 12:00 Resp 18 09/22/21 12:00 BP 146/72 09/22/21 12:00 Pulse Ox 100 09/22/21 12:00 Intake & Output 09/21/21 09/22/21 09/22/21 18:59 06:59 18:59 Intake Total 1286.353 540 Output Total 375 1625 100 Balance 911.353 -1625 440 Weight 62.5 kg Intake: IV 490 20 Invasive Line 1 20 Invasive Line 2 20 20 Sodium Chloride 0.9% 1, 450 000 ml @ 75 mls/hr IV . [id number] [facility] Rx#:[id number] Intake, IV Titration 236.353 Amount Diltiazem 125 mg In 125 Sodium Chloride 0.9% 100 ml @ 10 MG/HR 10 mls/hr IV .[id number] [facility] Rx#: [id number] Heparin Sod,Pork in 0.45% 111.353 NaCl 25,000 unit In 0.45 % NaCl 1 250ml.bag @ 12 UNITS/KG/HR 6.151 mls/hr IV .Q24H [facility] Rx#: [id number] Oral 560 520 Output: Urine 375 1625 100 Straight 375 Other: Voiding Method Indwelling Catheter Indwelling Catheter - Labs CBC & Chem 7: 09/21/21 10:06 09/21/21 10:06 Labs: Abnormal Lab Results - Last 24 Hours (Table) 09/21/21 09/21/21 09/22/21 Range/Units 12:04 17:39 05:20 APTT 60.3 H 58.9 H (22.0-30.0) sec Vitamin B12 1031.0 H (200.0-944.0) pg/mL Microbiology - Last 24 Hours (Table) 09/21/21 11:27 Urine Culture - Final Urine,Voided
[2021-09-22] MEDS ORDERED: LORazepam 2 MG/ML INJ IV STA (14:40)
[2021-09-22] MEDS: NAPROXEN 250 MG TAB PO SCH ×2 (15:06→21:44)
--- NOTE | 2021-09-22 15:20 | P.PN ---
Progress Note - Text Progress Note Date: 09/22/21 Sincerely exam this morning. She is still waiting for her MRI due to circumstance at the hospital. States she is otherwise doing well. Her family is none room at the time with her. She denies any new symptoms denies any fevers chills shortness breath or chest pain at this time Exam is stable with similar findings to yesterday. No acute changes she does have a nunez now Vital signs stable AOx3 L2 metastatic lesion with pathologic fracture Low-back pain Generalized weakness with lower extremity weakness We will make recommendations once MRI is complete however I do feel that the patient patient may benefit from surgical intervention in the form of biopsy kyphoplasty of L2 with stabilization rods and screws secondary to the pathologic fracture of L2. I discussed this with the patient however family was not present we will attempt to speak with the family again when hospital ci rcumstance allows.
[2021-09-22] MEDS ORDERED: LORazepam 0.5 MG TAB PO PRN (16:00)
--- NOTE | 2021-09-22 16:42 | P.PN ---
Subjective Progress Note Date: 09/22/21 Principal diagnosis: metastatic Lung with cord involvement Patient is doing much better mentally today. She remembers our full conversation yesterday. UTI likely largely contributing, possibly dexamethasone (will know more after MRIs) Objective - Vital Signs Vital signs: Vital Signs Temp 98.2 F 09/22/21 15:11 Pulse 94 09/22/21 15:11 Resp 18 09/22/21 15:11 BP 154/80 09/22/21 15:11 Pulse Ox 100 09/22/21 15:11 Intake & Output 09/21/21 09/22/21 09/22/21 18:59 06:59 18:59 Intake Total 1286.353 746.522 Output Total 375 1625 100 Balance 911.353 -1625 646.522 Weight 62.5 kg Intake: IV 490 20 Invasive Line 1 20 Invasive Line 2 20 20 Sodium Chloride 0.9% 1, 450 000 ml @ 75 mls/hr IV . [id number] [facility] Rx#:[id number] Intake, IV Titration 236.353 206.522 Amount Diltiazem 125 mg In 125 Sodium Chloride 0.9% 100 ml @ 10 MG/HR 10 mls/hr IV .[id number] [facility] Rx#: [id number] Heparin Sod,Pork in 0.45% 111.353 206.522 NaCl 25,000 unit In 0.45 % NaCl 1 250ml.bag @ 12 UNITS/KG/HR 6.151 mls/hr IV .Q24H [facility] Rx#: [id number] Oral 560 520 Output: Urine 375 1625 100 Straight 375 Other: Voiding Method Indwelling Catheter Indwelling Catheter - Exam Alert confusion intermittent Occassional winces of pain if moves or shifts in bed Head: NCAT Chest wall with increased protrusion right ribcage Lungs: DIminished Heart: Reg to Afib Abdomen: Soft Extremities: RLE weak Alert and oriented and appropriate - Labs CBC & Chem 7: 09/21/21 10:06 09/21/21 10:06 Labs: Abnormal Lab Results - Last 24 Hours (Table) 09/21/21 09/21/21 09/22/21 Range/Units 12:04 17:39 05:20 APTT 60.3 H 58.9 H (22.0-30.0) sec Vitamin B12 1031.0 H (200.0-944.0) pg/mL Microbiology - Last 24 Hours (Table) 09/21/21 12:04 Blood Culture - Preliminary Blood No Growth after 24 hours 09/21/21 11:27 Urine Culture - Final Urine,Voided Assessment and Plan (1) Metastatic adenocarcinoma to lung Current Visit: Yes Status: Acute Code(s): C78.00 - SECONDARY MALIGNANT NEOPLASM OF UNSPECIFIED LUNG SNOMED Code(s): 6829428945434 (2) Bone metastases Current Visit: Yes Status: Acute Code(s): C79.51 - SECONDARY MALIGNANT NEOPLASM OF BONE SNOMED Code(s): 44979994 (3) Spinal cord compression Current Visit: Yes Status: Acute Code(s): G95.20 - UNSPECIFIED CORD COMPRESSION SNOMED Code(s): 70503590 (4) Spinal cord compression due to malignant neoplasm metastatic to spine Current Visit: Yes Status: Acute Code(s): G95.29 - OTHER CORD COMPRESSION; C79.51 - SECONDARY MALIGNANT NEOPLASM OF BONE SNOMED Code(s): 928313724 Plan: PLan and Recs - Consult placed for Dr. Shell regarding mass into spinal cord - Will start antibiotics for UTI (possible contributing factor to confusion) - Continue close assessment of mentation - Dex 4mg q6 hours with PPI - Repeat MRI Brain - With COntrast - MRI of complete spine with and without ordered and pending - Would use ativan as opposed to Valium due to half life. - Claritin added in am and Benadryl at PM for rash, nystatin powder - Howe catheter for urine retention Case was discussed in detail with Dr. Shell (Radiation Oncology) Await all imaging Continue treating UTI
--- NOTE | 2021-09-22 19:11 | MR ---
EXAMINATION TYPE: MR cspine/tspine/lspine wo/w DATE OF EXAM: 09/22/2021 COMPARISON: None HISTORY: Spinal lesions, weakness, and pain. CONTRAST: Standard multiplanar, multisequence MRI departmental protocol images were obtained without contrast a nd with 6 mL intravenous Gadavist gadolinium contrast. Images of the cervical thoracic and lumbar spine were obtained without and with IV contrast. Cervical vertebra have fairly normal alignment. There is degenerative disc space narrowing throughout the cervical spine with spurring of the endplates. There is a 11 mm area of decreased signal in the left side of the C7 vertebral body on the T1 images. This has increased signal on T2 and consistent w ith tumor. There is similar smaller 5 mm focus in the T1 vertebra on the left side. There is focus of 8 mm on the right side of T1 vertebral body. There is 7 mm focus increased signal in the anterior as pect of the T2 vertebral body. There is endplate spurring and posterior disc bulging with resultant s angela stenosis in the cervical spine from C3 to C6 level. Canal measures 6 mm at C3-4. Canal measures 5.5 mm at C5-6. In the thoracic spine is some mild biconcave deformity of the mid thoracic vertebra with up to 20% lo ss of height. This is consistent with osteoporosis and osteomalacia. There are multiple lesions in th e thoracic spine measure up to 2 cm. There is 2 cm lesion in the T7 vertebral body that extends into the left side pedicle. There is 1 cm lesion in the T10 posterior vertebral body extending into the ri ght side pedicle. There are multiple other smaller lesions. There is no thoracic spinal stenosis. There is L2 vertebral body destructive lesion with mild pathologic fracture. There is minimal fragmen t extension into the spinal canal of a few millimeters. There is no lumbar paraspinal mass. A signifi cant enhancement pattern is not seen in the multiple lesions of the cervical thoracic and lumbar spin e. IMPRESSION: Numerous destructive lesions in the cervical thoracic and lumbar spine which are asymmetric and consi stent with multifocal metastatic disease. There is cervical spinal stenosis related to degenerative d isc disease and posterior disc bulging at multiple levels. There is some osteoporotic type multiple mild compression fractures in the thoracic spine. There is a mild pathologic fracture of the L2 vertebral body with destructive lesion. No significant lumbar spi nal stenosis. Mild posterior disc bulging from L2 to L5 without significant encroachment on the spina l canal.
[2021-09-22] MEDS: HEPARIN SOD,PORK IN 0.45% NACL 25,000 UNIT in 0.45% NACL 1 250ML.BAG IV SCH (19:20)
--- NOTE | 2021-09-22 19:38 | MR ---
EXAMINATION TYPE: MR brain wo/w con DATE OF EXAM: 09/22/2021 COMPARISON: None HISTORY: Mental status change metastatic cancer. CONTRAST: Standard multiplanar, multisequence MRI departmental protocol images were obtained without contrast a nd with 6 mL intravenous Gadavist gadolinium contrast. There is cerebral cortical atrophy. There is no mass effect nor midline shift. There is no evidence o f intracranial hemorrhage. Diffusion images show no evidence of an acute infarct. On the FLAIR and T2 images there are patchy areas of increased signal in the periventricular white ma tter. Some of these are coalescent and measure up to 1 cm in thickness. Total number of lesions is ap proximately 25. The brainstem is intact. There is some thinning of the corpus callosum. There is a 1.7 x 1.4 cm enhancing focus that appears extra-axial adjacent to the left side anterior c linoid process. 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 There is a similar 1 cm focus of extra-axial enhancement left lateral parietal convexity also consistent with meningioma. I see no pathologic intra-axial enhancement.. There is some heterogeneous signal pattern in the sphenoid bone. In retrospect there is some mild dena ency in the anterior aspect of the sphenoid bone on the CT scan of 09/20/2021. This is equivocall meta static disease. IMPRESSION: There are 2 lesions consistent with meningiomas as above. Cerebral atrophy. White matter signal changes likely related to chronic small vessel ischemia or demy elinating disease. No evidence of intra-axial metastatic disease. 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
[2021-09-22] MEDS: diphenhydrAMINE 25 MG CAP PO SCH (21:46)
[2021-09-23] MEDS: SODIUM CHLORIDE 0.9% 1,000 ML IV SCH ×2 (06:06→08:22)
[2021-09-23] MEDS: PANTOPRAZOLE 40 MG TABLET PO SCH ×2 (06:07→15:07)
--- NOTE | 2021-09-23 07:40 | P.PN ---
Progress Note - Text Progress Note Date: 09/23/21 Pt s/e this AM. Her family is not at bedside. Nsg at bedside. Pt had MRI done yesterday that shows multifocal metestatic lesions to the CTL spine. L2 lesion has pathological fracture. Multilevel stenosis and spondylosis of the cervical spine with deformity noted as well. Her pain is all mid to lower back. She does have some VCF noted in T spine as well. Hard to correlate these with pain on her exam. L2 is painful. Her daughter will be in later today and we will discuss. I would recommend stabilization and cementation of L2 as this seems to be her worst level and the nidus of her pain. We will discuss with the family their wishes for her. Her exam is otherwise unchanged today. Nsg states she cannot transfer, log roll or move in bed w/o pain. If she sits still she is comfortable but any motion causes her pain.
[2021-09-23] MEDS: METOPROLOL TARTRATE 25 MG TAB PO SCH ×2 (08:19→21:39)
[2021-09-23] MEDS: CYCLOBENZAPRINE 5 MG TAB PO SCH ×3 (08:19→21:39)
[2021-09-23] MEDS: LORATADINE 10 MG TAB PO SCH (08:19)
[2021-09-23] MEDS: SENNOSIDES-DOCUSATE SODIUM 1 EACH TAB PO SCH ×2 (08:19→21:39)
[2021-09-23] MEDS: NAPROXEN 250 MG TAB PO SCH ×3 (08:20→21:38)
[2021-09-23] MEDS: HYDROcodone/APAP 5-325MG 1 EACH TAB PO PRN ×3 (08:21→20:05)
[2021-09-23] MEDS: polyethylene glycoL 3350 17 GM POWD.PACK PO SCH (08:22)
[2021-09-23] MEDS ORDERED: LEVOFLOXACIN 500MG-D5W PMX 500 MG in DEXTROSE/WATER 1 100ML.BAG IVPB SCH (09:00)
--- NOTE | 2021-09-23 12:17 | ECHOF ---
Referral Reason:LV function MEASUREMENTS -------- HEIGHT: 165.1 cm WEIGHT: 65.8 kg BP: RVIDd: 2.4 cm (< 3.3) IVSd: 1.3 cm (0.6 - 1.1) LVIDd: 4.3 cm (3.9 - 5.3) LVPWd: 1.2 cm (0.6 - 1.1) IVSs: 1.5 cm LVIDs: 2.6 cm LVPWs: 1.6 cm LA Diam: 4.5 cm (2.7 - 3.8) LAESV Index (A-L): 34.54 ml/m Ao Diam: 2.3 cm (2.0 - 3.7) AV Cusp: 1.5 cm (1.5 - 2.6) LA Diam: 4.5 cm (2.7 - 3.8) MV EXCURSION: 17.354 mm (> 18.000) MV EF SLOPE: 55 mm/s (70 - 150) EPSS: 0.4 cm MV E Mina: 0.74 m/s MV DecT: 218 ms MV A Mina: 0.79 m/s MV E/A Ratio: 0.93 RAP: 5.00 mmHg RVSP: 34.97 mmHg FINDINGS -------- Sinus rhythm. This was a technically adequate study. The left ventricular size is normal. There is mild concentric left ventricular hypertrophy. Overa ll left ventricular systolic function is low-normal with, an EF between 50 - 55 %. The right ventricle is normal in size. LA is moderately dilated 34-39 ml/m2 The right atrial size is normal. There is mild aortic valve sclerosis. There is no evidence of aortic regurgitation. Mild mitral annular calcification present. Moderate mitral regurgitation is present. Moderate tricuspid regurgitation present. Right ventricular systolic pressure is normal at < 35 mmH g. The right ventricular systolic pressure, as measured by Doppler, is 34.97mmHg. Trace/mild (physiologic) pulmonic regurgitation. The aortic root size is normal. There is no pericardial effusion. CONCLUSIONS -------- 1. There is mild concentric left ventricular hypertrophy. 2. Overall left ventricular systolic function is low-normal with, an EF between 50 - 55 %. 3. LA is moderately dilated 34-39 ml/m2 4. There is mild aortic valve sclerosis. 5. Mild mitral annular calcification present. 6. Moderate mitral regurgitation is present. 7. Moderate tricuspid regurgitation present. 8. Trace/mild (physiologic) pulmonic regurgitation. 9. There is no pericardial effusion. INSTANTIZER OPERATOR: Antonina Gutierrez RDCS
--- NOTE | 2021-09-23 12:23 | P.PN ---
Subjective Progress Note Date: 09/23/21 HISTORY OF PRESENTING ILLNESS Patient is a pleasant 80-year-old female with history of breast cancer 1993 with recurrence in 2017 with metastatic lung cancer with metastases to the brain and recently to the back, hypertension, hyperlipidemia, GERD and previous tobacco abuse who presents secondary to back pain. Patient had been undergoing radiation for known metastatic lung cancer however states she started having severe back pain off and on over the prior week and a half. She was attempted on medications however, came to the emergency department with CAT scan showing what appeared to be metastasis to the spine. Orthopedic surgery has been consultative and scheduled for MRI tomorrow. She was found to have new onset of A. fib with mild RVR heart rates 100s to 120s. She denies any history of A. fib, she denies any chest pain, pressure, shortness breath. Patient normally and antihypertensive medications however these have been held with systolics in the 100-120 range. She denies any lightheadedness. She converted to normal sinus rhythm last night. 09/22/2021 Patient examined at the bedside. Denies chest pain or pressure. Denies SOB. Remains in sinus mechanism. She remains on IV heparin. 09/23/2021 Patient remains on the cardiac stepdown unit. Patient examined at the bedside. Patient denies chest pain or pressure. Denies SOB. She remains on IV heparin. She has been evaluated by orthopedics who is recommending stabilization and cementation of L2. Telemetry reveals sinus mechanism. Echocardiogram completed reveals ejection fraction 50-55%. Moderate mitral regurgitation. Moderate tricuspid regurgitation. PHYSICAL EXAMINATION Vital signs reviewed. CONSTITUTIONAL: No apparent distress. HEENT: Head is normocephalic. Pupils are equal, round. Sclerae anicteric. Mucous membranes of the mouth are moist. No JVD. No carotid bruit. CHEST EXAMINATION: Lungs are clear to auscultation. No chest wall tenderness is noted on palpation or with deep breathing. HEART EXAMINATION: Regular rate and rhythm. S1, S2 heard. No murmurs, gallops or rub. ABDOMEN: Soft, nontender. Positive bowel sounds. EXTREMITIES: 2+ peripheral pulses, no lower extremity edema and no calf tenderness. NEUROLOGIC EXAMINATION: Patient is awake, alert and oriented x3. ASSESSMENT 1. Paroxysmal atrial fibrillation, currently sinus rhythm 2. Metastatic lung cancer with metastases to the bone and brain, and now spine 3. Hypertension currently borderline blood pressures off of antihypertensives 4. Urinary tract infection PLAN Continue current cardiac medications Continue telemetry monitoring Continue IV heparin until final decision is made from orthopedics and oncology Further recommendations pending patient course Nurse practitioner note has been reviewed by physician. Signing provider agrees with the documented findings, assessment, and plan of care. Objective - Vital Signs Vital signs: Vital Signs Temp 98.0 F 09/23/21 07:37 Pulse 82 09/23/21 07:37 Resp 18 09/23/21 07:37 BP 148/88 09/23/21 07:37 Pulse Ox 96 09/23/21 07:37 Intake & Output 09/22/21 09/23/21 09/23/21 18:59 06:59 18:59 Intake Total 756.522 270 Output Total 300 500 Balance 456.522 -500 270 Weight 66 kg Intake: IV 30 10 Invasive Line 2 20 Invasive Line 3 10 Invasive Line 4 10 Intake, IV Titration 206.522 Amount Heparin Sod,Pork in 0.45% 206.522 NaCl 25,000 unit In 0.45 % NaCl 1 250ml.bag @ 12 UNITS/KG/HR 6.151 mls/hr IV .Q24H [facility] Rx#: [id number] Oral 520 260 Output: Urine 300 500 Other: Voiding Method Indwelling Catheter Indwelling Catheter Indwelling Catheter # Voids 2 - Labs CBC & Chem 7: 09/21/21 10:06 09/21/21 10:06 Labs: Abnormal Lab Results - Last 24 Hours (Table) 09/23/21 Range/Units 06:44 APTT 46.5 H (22.0-30.0) sec Microbiology - Last 24 Hours (Table) 09/21/21 12:04 Blood Culture - Preliminary Blood No Growth after 24 hours 09/21/21 11:27 Urine Culture - Final Urine,Voided
[2021-09-23] MEDS: HEPARIN SOD,PORK IN 0.45% NACL 25,000 UNIT in 0.45% NACL 1 250ML.BAG IV SCH (15:10)
--- NOTE | 2021-09-23 16:45 | P.PN ---
Progress Note - Text Progress Note Date: 09/23/21 New onset atrial fibrillation Metastatic lung cancer with metastases to bone and brain Patient is a 80-year-old female with a known history of breast cancer diagnosed in 1993 and recurrence in 2017, metastatic lung cancer, osteopenia, deafness in the left ear, hypertension, hyperlipidemia, GERD and previous history of smoking presents to ER with altered mental status and also complaining of back pain. Patient has metastatic lesions in the lumbar spine seen on PET scan. Also has history of metastatic lesions in the brain. Patient is unable to provide history at this time. Patient's daughter is at bedside who can provide the history. Patient has been having severe back pain on and off for the past 10 days. Patient was seen in the ER about 2 days ago with similar complaints and refused admission at that time. Patient came back to the hospital due to persistent back pain. Patient is on baclofen and narcotic pain medications. Patient is able to move extremities while in bed. 09/21/2021 Patient was admitted to hospital due to new onset paroxysmal atrial fibrillation. Currently converted to sinus rhythm. Patient is being continued on heparin drip and cardiology is on board. Patient was also seen by neurology due to altered mental status and also oncology for possible chemo/radiation for metastatic lesions. Otherwise patient is more awake alert and oriented 3 today. Pain is controlled with medications. Patient is afebrile. No nausea vomiting or abdominal pain or diarrhea. Tolerating oral diet slowly. No cough or sputum production. Denied any chest pain. September 22: Laying in bed. Awake. He took a shower. Pain control. Did eat some. Patient not been walking for last few days. IV heparin. Radiation oncology consulted. Levaquin being started for UTI September 23: Sitting up in bed. Comfortable. Daughter the bedside. Dr. Cervantes I just spoke with the patient and the daughter. They have some discussion about surgical option. Daughter informs be that until 5 days ago patient is able to walk slowly.on the hospital. And she is only being managed by Tylenol. She really had brought the patient in for confusion. Not for worsening pain. Howe catheter was placed yesterday.. Review of systems: Was done for constitutional, cardiovascular, GI, pulmonary. relevant finding as above Active Medications Acetaminophen (Acetaminophen Tab 325 Mg Tab) 650 mg PO Q6HR PRN PRN Reason: Mild Pain or Fever > 100.5 Hydrocodone Bitart/Acetaminophen (Hydrocodone/Apap 5-325mg 1 Each Tab) 1 each PO Q4HR PRN PRN Reason: Pain Last Admin: 09/23/21 13:52 Dose: 1 each Documented by: Cyclobenzaprine HCl (Cyclobenzaprine 5 Mg Tab) 5 mg PO TID [facility] Last Admin: 09/23/21 15:07 Dose: 5 mg Documented by: Diphenhydramine HCl (Diphenhydramine 25 Mg Cap) 25 mg PO HS [facility] Last Admin: 09/22/21 21:46 Dose: 25 mg Documented by: Heparin Sodium (Porcine) (Heparin Sodium 1,000 Un/Ml (10ml Vl)) 0 unit IV PER PROTOCOL PRN; Protocol PRN Reason: Low PTT Last Admin: 09/21/21 11:14 Dose: 1,512.5 unit Documented by: Hydromorphone HCl (Hydromorphone 0.5 Mg/0.5 Ml Syringe) 0.5 mg IVP Q3HR PRN PRN Reason: Moderate Pain Last Admin: 09/22/21 15:58 Dose: 0.5 mg Documented by: Heparin Sodium/Sodium Chloride (25,000 unit/ Sodium Chloride) 250 mls @ 6.151 mls/hr IV .Q24H [facility]; Protocol Last Admin: 09/23/21 15:10 Dose: 17 units/kg/hr, 8.714 mls/hr Documented by: Sodium Chloride (Saline 0.9%) 1,000 mls @ 75 mls/hr IV .[id number] [facility] Last Admin: 09/23/21 08:22 Dose: 75 mls/hr Documented by: Levofloxacin 500 mg/ IV (Solution) 100 mls @ 100 mls/hr IVPB Q24H [facility] Last Admin: 09/23/21 08:19 Dose: 100 mls/hr Documented by: Loratadine (Loratadine 10 Mg Tab) 10 mg PO DAILY [facility] Last Admin: 09/23/21 08:19 Dose: 10 mg Documented by: Metoprolol Tartrate (Metoprolol Tartrate 25 Mg Tab) 25 mg PO BID [facility] Last Admin: 09/23/21 08:19 Dose: 25 mg Documented by: Naloxone HCl (Naloxone 0.4 Mg/Ml 1 Ml Vial) 0.2 mg IV Q2M PRN PRN Reason: Opioid Reversal Naproxen (Naproxen 250 Mg Tab) 250 mg PO TID [facility] Last Admin: 09/23/21 15:07 Dose: 250 mg Documented by: Pantoprazole Sodium (Pantoprazole 40 Mg Tablet) 40 mg PO AC-BID [facility] Last Admin: 09/23/21 15:07 Dose: 40 mg Documented by: Polyethylene Glycol (Polyethylene Glycol 3350 17 Gm Powd.Pack) 17 gm PO DAILY [facility] Last Admin: 09/23/21 08:22 Dose: 17 gm Documented by: Senna/Docusate Sodium (Sennosides-Docusate Sodium 1 Each Tab) 1 each PO BID [facility] Last Admin: 09/23/21 08:19 Dose: 1 each Documented by: On examination: VITAL SIGNS: 97.2, 80, 18, 163/90, 96% room air GENERAL APPEARANCE: Sitting up in bed, awake, comfortable HEENT: Normal external appearance of nose and ear. Oral cavity normal EYES: Pupils equal. Conjunctiva normal. NECK: JVD not raised. Mass not palpable. RESPIRATORY: Respiratory effort normal. Lungs clear to auscultation. CARDIOVASCULAR: First and second sounds normal. No edema. ABDOMEN: Soft. Liver and spleen not palpable. No tenderness. No mass palpable. PSYCHIATRY: Patient is able to answer simple questions. A bit forgetful. MUSCULAR skeletal: No tenderness over the vertebral column. Able to straight leg raise about 60 on both the sides. Vertebral pain is not reproducible on at the bending sideways forward bending. NEUROLOGICAL: Mild hyperreflexia of both knee. Questionable bilateral plantar upgoing. No increase in tone. INVESTIGATIONS, reviewed in the clinical context: MRI of brain with and without contrast [September 22] 2 lesions consistent with meningioma. Cerebral atrophy. Some white matter signal changes. No evidence of intra-axial metastatic disease. Possible sphenoid bone metastatic disease. MR C-spine/T-spine/L-spine with and without [September 22] numerous destructive lesion in the cervical spine and thoracic and lumbar spine. Consistent with metastatic disease. Cervical spine stenosis related to DJD. Posterior disc bulging at multiple levels. Some osteoporotic-type multiple mild compression fracture thoracic spine. Mild pathologic fracture of L2 vertebral body. With the structural lesion. No significant encroachment on the spinal canal. UA: Positive for leukoesterase WBC CT head showed cerebral atrophy. There is evidence for mild chronic small vessel ischemia. No acute abnormality noted. CT lumbar spine showed destructive lesion with expansion slightly into the spinal cord on the right side of the L2 vertebral body. This is consistent with metastatic disease. No significant spinal stenosis. CT angiogram of the chest showed atherosclerotic extensive plaque at the carotid artery bifurcations and approximate 50% stenosis at the origin of the right ICA and 70% stenosis origin left ICA. No significant intracranial angiographic abnormalities. Chest x-ray showed increasing pulmonary interstitial infiltrates compared to last exam. No discrete pulmonary mass. EKG showed atrial fibrillation with rapid ventricular rate. Laboratory showed WBC of 11.5 hemoglobin 11.6, platelets 389 neutrophils 9.8 Sodium 133 potassium 4.1 chloride 98 BUN 29 and creatinine 0.73 and glucose 116, troponin less than 0.012 and liver enzymes not elevated COVID-19 PCR not detected. Assessment and plan: -Altered mental status is metabolic encephalopathy possibly from UTI.: Better -Paroxysmal atrial fibrillation with rapid regular rate. Currently sinus rhythm. Lopressor 25 mg twice a day -Acute urinary tract infection with cystitis IV Levaquin-changed to Omnicef -Dehydration volume depletion. Improved. IV fluids . - back pain with mild destructive lesion at the L2 vertebral body. Multiple level of metastatic disease and DJD.. No spinal cord involvement. Received radiation treatments. IV Dilaudid. On a heating pad. naproxen 250 mg 3 times a day. Flexeril 5 mg 3 times a day -Stage IV Metastatic adenocarcinoma of the lung. Status post biopsy on 07/31/2021 with metastatic of the bone and spine. Recently completed 10 radiation treatments for palliative pain relief. -Essential Hypertension Lopressor 25 mg twice a day -GERD Protonic -Osteopenia -Deafness in the left ear -Moderate protein calorie malnutrition. add ensure -IV heparin monitoring Follow PTT -DO NOT RESUSCITATE -Mild cognitive impairment Patient's pain is well controlled. Patient only received 1 dose of Dilaudid yesterday morning. Naproxen was started yesterday to which she responded well and is good for bone pain. Care was discussed at length with the patient. At the daughter the bedside. Would like to increase activity and DC Howe catheter. Spoke to nurse rubalcava. At This point we will discuss with Dr. Cervantes before proceeding to DC the Howe and increasing activity. Daughter is very keen that conservative measures including increasing activity tried first. Total time spent today about 40 minutes with over20 minutes of discussion
--- NOTE | 2021-09-23 17:10 | P.PN ---
Subjective Progress Note Date: 09/23/21 I am seeing the patient for first time for neurological management. Please refer to Dr. Cisse's note for further details. Per patient denies any further episodes of difficulty getting her words out or any focal weakness. Patient states she is doing well. She had an MRI of cervical, thoracic and lumbar spine with and without ordered by the orthopedic team and it's reported as numerous destructive lesions in the cervical thoracic and lumbar which are asymmetric and consistent with multifocal metastatic disease. There is cervical spine stenosis related to degenerative disc disease and posterior disc bulging and multiple levels. There is some [id number] multiple mild compression fracture in the thoracic spine. There is a mild pathological fracture of the L2 vertebral body with destructive lesion. No significant lumbar spinal stenosis. Mild posterior disc bulging from L2 to L5 without significant encroachment on the spinal canal. MRI of the brain is reported as they're two lesion consistent with meningioma as above. She will atrophy. White matter signal changes likely related to chronic small vessel ischemia or demyelinating disease. No evidence of intra-axial metastatic disease. Possible sphenoid bone metastasis disease. The body of the report it is mentioned that the patient has 1.7 x 1.4 cm enhancing focus appears extra-axial adjacent to the left side anterior Cherelle noted process. 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 There is a similar 1 cm focus extra-axial enhancement in the left lateral parietal convexity also consistent with meningioma. And it's reported as the ICU no pathological intra-axial enhancement. Orthopedic surgery team is on board. Recommend stabilization and cementation of L2. Objective - Vital Signs Vital signs: Vital Signs Temp 97.2 F L 09/23/21 12:30 Pulse 80 09/23/21 12:30 Resp 18 09/23/21 12:30 BP 163/90 09/23/21 12:30 Pulse Ox 96 09/23/21 12:30 Intake & Output 09/22/21 09/23/21 09/23/21 18:59 06:59 18:59 Intake Total 756.522 897.805 Output Total 300 500 Balance 456.522 -500 897.805 Weight 66 kg Intake: IV 30 10 Invasive Line 2 20 Invasive Line 3 10 Invasive Line 4 10 Intake, IV Titration 206.522 127.805 Amount Heparin Sod,Pork in 0.45% 206.522 127.805 NaCl 25,000 unit In 0.45 % NaCl 1 250ml.bag @ 12 UNITS/KG/HR 6.151 mls/hr IV .Q24H [facility] Rx#: [id number] Oral 520 760 Output: Urine 300 500 Other: Voiding Method Indwelling Catheter Indwelling Catheter Indwelling Catheter # Voids 2 - Exam Gen.: The patient is reclining in the bed. She is well-nourished. Not in acute distress. Neurological examination Mental status: The patient is awake and alert, oriented to self, place and time. She is following commands. No aphasia or neglect. Cranial nerves: Pupils are equal at 2 mm and reactive. Visual field are full to confrontation. Extraocular movements are intact. Facial sensation is intact. There is no facial asymmetry. No dysarthria. Tongue protrudes midline. Motor: Gait is deferred. Deltoid are 4+ bilaterally, biceps are 5- bilaterally. Otherwise 5/5 throughout. Sensation: Grossly intact to light touch throughout. Deep tendon reflexes: 2+/4+ in the upper extremities. 2+4+ at the right knee. 2-3+4+ at the left knee. Coordination: Finger to nose testing is intact bilaterally Plantars are mute bilaterally. WORK-UP: TSH is 0.153 which is congenital low but the free T4 is 1.84. Vitamin B12 is 1031 and the history of folate is more than 20. Had an MRI of cervical, thoracic and lumbar spine with and without ordered by the orthopedic team and it's reported as numerous destructive lesions in the cervical thoracic and lumbar which are asymmetric and consistent with multifocal metastatic disease. There is cervical spine stenosis related to degenerative disc disease and posterior disc bulging and multiple levels. There is some [id number] multiple mild compression fracture in the thoracic spine. There is a mild pathological fracture of the L2 vertebral body with destructive lesion. No significant lumbar spinal stenosis. Mild posterior disc bulging from L2 to L5 without significant encroachment on the spinal canal. MRI of the brain is reported as they're two lesion consistent with meningioma as above. White matter signal changes likely related to chronic small vessel ischemia or demyelinating disease. No evidence of intra-axial metastatic disease. Possible sphenoid bone metastasis disease. The body of the report it is mentioned that the patient has 1.7 x 1.4 cm enhancing focus appears extra- axial adjacent to the left side anterior Cherelle noted process. 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 There is a similar 1 cm focus extra-axial enhancement in the left lateral parietal convexity also consistent with meningioma. And it's reported as the ICU no pathological intra-axial enhancement. CT angiography of the head and neck is reported as atherosclerotic extensive plaque at the carotid artery bifurcation and approximately 50% stenosis at the origin of the right ICA carotid and 70% stenosis at the origin left internal ca rotid artery. No significant intercranial and angiographic abnormality. 2D echo: Mild concentric left ventricle hypertrophy. Ejection fraction of 50- 55%. Left atrium is mildly dilated. Moderate mitral and tricuspid regurgitation. - Labs CBC & Chem 7: 09/21/21 10:06 09/21/21 10:06 Labs: Abnormal Lab Results - Last 24 Hours (Table) 09/23/21 Range/Units 06:44 APTT 46.5 H (22.0-30.0) sec Microbiology - Last 24 Hours (Table) 09/21/21 12:04 Blood Culture - Preliminary Blood No Growth after 24 hours 09/21/21 11:27 Urine Culture - Final Urine,Voided Assessment and Plan Assessment: Reported transient expressive aphasia and facial asymmetry. Possible TIA. 70% stenosis of the left internal carotid artery Intractable back pain with a pathological fracture over L2 Multilevel stenosis and spondylosis of the cervical spine Likely meningioma (1 cm focus extra-axial enhancement in the left lateral parietal and 1.7 1.4 cm over left sided anterior clinoid process) ?sphenoid bone metastasis disease per MRI Brain that is reported Paroxysmal atrial fibrillation currently sinus rhythm Acute urinary tract infection. Stage IV metastatic adenocarcinoma of the lung with metastases to the bone and spine status post radiation Deafness over the left ear Plan: Regarding the patient left ICA stenosis I started the patient on Lipitor 40 mg daily at bedtime. Consider aspirin 81 mg daily once off heparin drip. Consulted the vascular team for the left ICA stenosis. Ordered Carotid duplex. Continue neuro checks Continue cardiac monitoring. Physical therapy and occupation therapy are consulted. Ordered lipid panel. Orthopedic team is on board and they will try conservative management for the patient the lumbar fracture and has not been no proceed with the surgical intervention. Cardiology team and is on board Oncology and Radiation oncologist team are on board We'll defer the rest of the medical management to primary team. Upon discharge, the patient needs to follow-up with a neurologist within 1-2 weeks. The plan is discussed with the patient and her nurse. Immanuel Haley MD Neuro-Hospitalist Time with Patient: Less than 30
--- NOTE | 2021-09-23 17:31 | P.PN ---
Subjective Progress Note Date: 09/23/21 Principal diagnosis: Metastatic lung cancer metastatic disease spine and uti Objective - Vital Signs Vital signs: Vital Signs Temp 97.4 F L 09/23/21 15:16 Pulse 76 09/23/21 15:16 Resp 18 09/23/21 15:16 BP 141/80 09/23/21 15:16 Pulse Ox 98 09/23/21 15:16 Intake & Output 09/22/21 09/23/21 09/23/21 18:59 06:59 18:59 Intake Total 756.522 952.827 Output Total 300 500 950 Balance 456.522 -500 2.827 Weight 66 kg Intake: IV 30 20 Invasive Line 2 20 Invasive Line 3 20 Invasive Line 4 10 Intake, IV Titration 206.522 172.827 Amount Heparin Sod,Pork in 0.45% 206.522 172.827 NaCl 25,000 unit In 0.45 % NaCl 1 250ml.bag @ 12 UNITS/KG/HR 6.151 mls/hr IV .Q24H [facility] Rx#: [id number] Oral 520 760 Output: Urine 300 500 650 Straight 650 Urine/Stool Mix 300 Other: Voiding Method Indwelling Catheter Indwelling Catheter Indwelling Catheter # Voids 2 - Exam alert nad neck supple heart rrr lungs diminished and soft rle weak - Labs CBC & Chem 7: 09/21/21 10:06 09/21/21 10:06 Labs: Abnormal Lab Results - Last 24 Hours (Table) 09/23/21 Range/Units 06:44 APTT 46.5 H (22.0-30.0) sec Microbiology - Last 24 Hours (Table) 09/21/21 12:04 Blood Culture - Preliminary Blood No Growth after 48 hours 09/21/21 11:27 Urine Culture - Final Urine,Voided Assessment and Plan (1) Metastatic adenocarcinoma to lung Current Visit: Yes Status: Acute Code(s): C78.00 - SECONDARY MALIGNANT NEOPLASM OF UNSPECIFIED LUNG SNOMED Code(s): 4815855663429 (2) Bone metastases Current Visit: Yes Status: Acute Code(s): C79.51 - SECONDARY MALIGNANT NEOPLASM OF BONE SNOMED Code(s): 38869833 (3) Spinal cord compression Current Visit: Yes Status: Acute Code(s): G95.20 - UNSPECIFIED CORD COMPRESSION SNOMED Code(s): 34458066 (4) Spinal cord compression due to malignant neoplasm metastatic to spine Current Visit: Yes Status: Acute Code(s): G95.29 - OTHER CORD COMPRESSION; C79.51 - SECONDARY MALIGNANT NEOPLASM OF BONE SNOMED Code(s): 637479138 Plan: She overall is feeling better. MRI reviewed confirmed L2 fracture. Will decrease dexamethasone 4mg PO BID Await Dr. Shell to provide input on radiation versus surgical intervention Ortho spine following Treatment of UTI WBT per Orth
[2021-09-23] MEDS: diphenhydrAMINE 25 MG CAP PO SCH (21:38)
[2021-09-23] MEDS: ATORVASTATIN 40 MG TAB PO SCH (21:39)
[2021-09-23] MEDS: dexAMETHasone 4 MG TAB PO SCH (21:40)
[2021-09-23] MEDS: CEFDINIR 300 MG CAP PO SCH (21:40)
--- NOTE | 2021-09-24 01:45 | US ---
EXAMINATION TYPE: US carotid duplex BILAT DATE OF EXAM: 09/23/2021 COMPARISON: CTa CLINICAL HISTORY: carotid stenosis (per CTA). Carotid stenosis per order. Hypertension, previous smok er. EXAM MEASUREMENTS: RIGHT: Peak Systolic Velocity (PSV) cm/sec ----- Right CCA: 59.8 ----- Right ICA: 94.9 ----- Right ECA: 51.9 ICA/CCA ratio: 1.6 RIGHT: End Diastole cm/sec ----- Right CCA: 13.6 ----- Right ICA: 22.3 ----- Right ECA: 0.0 LEFT: Peak Systolic Velocity (PSV) cm/sec ----- Left CCA: 66.0 ----- Left ICA: 80.9 ----- Left ECA: 60.7 ICA/CCA ratio: 1.2 LEFT: End Diastole cm/sec ----- Left CCA: 15.4 ----- Left ICA: 25.9 ----- Left ECA: 8.4 VERTEBRALS (direction of flow): Right Vertebral: Antegrade Left Vertebral: Antegrade Rhythm: Normal Intimal thickening seen bilaterally. Plaque seen within bilateral carotid bulbs, bilateral prox ICA, bilateral prox ECA. Vessels appear to be tortuous bilaterally. No elevated velocities at this time. IMPRESSION: There is antegrade flow in the vertebral arteries. The images and measurements suggest less than 40% stenosis in both internal carotid arteries. Criteria for Assigning % of Stenosis / Diameter reduction (Estimation based on the indirect measurements of the internal carotid artery velocities (ICA PSV). 1. Normal (no stenosis)=ICA PSV < 125 cm/s: ratio < 2.0: ICA EDV<40 cm/s. 2. Less than 50% stenosis=ICA PSV < 125 cm/s: ratio < 2.0: ICA EDV<40 cm/s. 3. 50 to 69% stenosis=ICA PSV of 125 to 230 cm/s: ration 2.0 ? 4.0: ICA EDV 40-100 cm/s. 4. Greater than 70% stenosis to near occlusion= ICA PSV > 230 cm/s: ratio > 4.0: ICA EDV > 100 cm/s. 5. Near occlusion= ICA PSV velocities may be low or undetectable: variable ratio and ICA EDV. 6. Total occlusion=unable to detect flow.
[2021-09-24] MEDS: PANTOPRAZOLE 40 MG TABLET PO SCH ×2 (06:37→15:42)
[2021-09-24] MEDS: SODIUM CHLORIDE 0.9% 1,000 ML IV SCH ×2 (06:37→12:36)
--- NOTE | 2021-09-24 07:55 | P.PN ---
Progress Note - Text Progress Note Date: 09/24/21 [facility] Progress Note SUBJECTIVE: Patient seen and examined she is doing well her TLSO yesterday pain is fairly well controlled with this she did walk a few steps yesterday and said it felt pretty good she is in bed still today. 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 At this time the patient is doing OK with the brace and her and her family are not ready for surgery which is understandable. I spoke to her and her daughter at length about the different options for her and at this time they would like to continue with conservative care and speak with Rad/Onc and explore more options. We will follow with them in the office for further evaluation.
[2021-09-24 10:19] LABS: Basophils % (A) 0 %; Eosinophils % (A) 0 %; HCT 33.5 % (34.0-46.0); HGB 10.6 gm/dL (11.4-16.0); Lymphocytes # (A) 0.7 k/uL (1.0-4.8); Lymphocytes % (A) 10 %; MCH 28.6 pg (25.0-35.0); MCHC 31.7 g/dL (31.0-37.0); MCV 90.3 fL (80.0-100.0); Monocytes # (A) 0.2 k/uL (0-1.0); Monocytes % (A) 3 %; Neutrophils % (A) 85 %; Platelet Count 287 k/uL (150-450); RBC 3.71 m/uL (3.80-5.40); RDW 13.1 % (11.5-15.5); WBC 7.1 k/uL (3.8-10.6)
[2021-09-24] MEDS: polyethylene glycoL 3350 17 GM POWD.PACK PO SCH (10:33)
[2021-09-24] MEDS: NAPROXEN 250 MG TAB PO SCH ×3 (10:34→22:25)
[2021-09-24] MEDS: METOPROLOL TARTRATE 25 MG TAB PO SCH ×2 (10:34→22:23)
[2021-09-24] MEDS: CYCLOBENZAPRINE 5 MG TAB PO SCH ×3 (10:34→22:24)
[2021-09-24] MEDS: CEFDINIR 300 MG CAP PO SCH ×2 (10:34→22:25)
[2021-09-24] MEDS: LORATADINE 10 MG TAB PO SCH (10:34)
[2021-09-24] MEDS: dexAMETHasone 4 MG TAB PO SCH ×2 (10:34→22:27)
[2021-09-24] MEDS: HYDROcodone/APAP 5-325MG 1 EACH TAB PO PRN (10:35)
[2021-09-24] MEDS: SENNOSIDES-DOCUSATE SODIUM 1 EACH TAB PO SCH ×2 (10:37→22:24)
--- NOTE | 2021-09-24 11:04 | P.PN ---
Subjective Progress Note Date: 09/24/21 Principal diagnosis: severe pain - right lower back Patient reports she is feeling a bit better today. Still having relatively constant low back pain eccentric to the right. The pain is 6/10, and can "grab her" if she moves the wrong way and becomes more severe. She was able to ambulate a bit yesterday with a back brace and assistance. She is willing to try resuming radiotherapy today. Objective - Vital Signs Vital signs: Vital Signs Temp 97.8 F 09/24/21 07:20 Pulse 83 09/24/21 07:20 Resp 16 09/24/21 07:20 BP 130/78 09/24/21 07:20 Pulse Ox 99 09/24/21 07:20 Intake & Output 09/23/21 09/24/21 09/24/21 18:59 06:59 18:59 Intake Total 1212.827 Output Total 950 1800 Balance 262.827 -1800 Weight 62 kg Intake: IV 20 Invasive Line 3 20 Intake, IV Titration 172.827 Amount Heparin Sod,Pork in 0.45% 172.827 NaCl 25,000 unit In 0.45 % NaCl 1 250ml.bag @ 12 UNITS/KG/HR 6.151 mls/hr IV .Q24H [facility] Rx#: [id number] Oral 1020 Output: Urine 650 1800 Straight 650 Urine/Stool Mix 300 Other: Voiding Method Indwelling Catheter Indwelling Catheter # Voids 2 - Constitutional General appearance: Present: morbidly obese - EENT Eyes: Present: EOMI, PERRLA ENT: Present: NA/AT - Neck Neck: Absent: lymphadenopathy - Respiratory Respiratory: bilateral: CTA - Cardiovascular Rhythm: regular - Gastrointestinal General gastrointestinal: Absent: distended, tenderness - Integumentary Integumentary: Absent: pale - Neurologic Neurologic: Present: CNII-XII intact - Musculoskeletal Musculoskeletal: Present: strength equal bilaterally - Psychiatric Psychiatric: Present: A&O x's 3, appropriate affect, intact judgment & insight - Labs CBC & Chem 7: 09/24/21 06:40 09/21/21 10:06 Labs: Abnormal Lab Results - Last 24 Hours (Table) 09/24/21 09/24/21 Range/Units 06:40 06:40 RBC 3.71 L (3.80-5.40) m/uL Hgb 10.6 L (11.4-16.0) gm/dL Hct 33.5 L (34.0-46.0) % Lymphocytes # 0.7 L (1.0-4.8) k/uL APTT 45.2 H (22.0-30.0) sec Microbiology - Last 24 Hours (Table) 09/21/21 12:04 Blood Culture - Preliminary Blood No Growth after 48 hours Assessment and Plan Assessment: The patient is a 80-year-old female with a remote history of a left-sided breast cancer treated with lumpectomy and adjuvant radiation in 1991. She more recently underwent lumpectomy and adjuvant radiation for a right sided stage IA breast cancer, ER/AZ positive and HER-2 negative in 2016. The patient now unfortunately presents with a clinical stage IVB (cT3, cN2, M1c) adenocarcinoma of the anterior left upper lobe with metastatic disease involving L2 and a right adrenal metastasis. She underwent palliative radiotherapy to the left chest-wall due to pain and during this treatment developed increasing low back pain felt to be due to her L2 disease. She started a course of palliative RT to L2 but has only finished 2 fractions before becoming hospitalized. 1. Lower back pain: L2 lesion still seems most likely etiology - MRI did reveal smaller areas of disease. No cord compression, but there is some indentation of the thecal sac. Does seem progressed compared with her PET just a month prior. Agree with back brace, Decadron + [place] for pain. There is some mild compression deformity, but the patient has declined undergoing any procedure at this time. We will resume her radiotherapy today. Please pre- medicate patient before she comes down for therapy. She did get some benefit from her left chest-wall and hopefully we will be able to achieve some pain improvement if we complete her planned course (4 more treatments). 2. Metastatic NSCLC: Patient was awaiting NGS and is planned for chemo- immunotherapy in the near future. She will need outpatient follow-up with Dr. Balderas. Time with Patient: Less than 30
[2021-09-24 11:15] LABS: Chol/HDL Ratio 3.56 Ratio; HDL Cholesterol 56.2 mg/dL (40.00-60.00); LDL Cholesterol,Calculated 114.8 mg/dL (0.0-131.0)
[2021-09-24] MEDS: APIXABAN 5 MG TAB PO SCH ×2 (11:37→22:23)
--- NOTE | 2021-09-24 12:23 | P.GSCN ---
History of Present Illness Consult date: 09/24/21 Reason for Consult: Left ICA stenosis Requesting physician: Immanuel Haley History of present illness: This is a 80-year-old female reported to the emergency department on 09/20/2021 complaints of back pain and inability to walk. The patient's past medical history includes hyperlipidemia, hypertension, history of breast cancer, metastatic lung cancer with metastasis to the spine. Apparently also the patient was having signs of aphasia and repetitive speech and a code stroke was called. She had a CT angiogram of the head and neck that showed arthrosclerotic it's density plaque at the carotid artery bifurcations an approximate 50% stenosis at origin of right internal carotid artery and 70% stenosis at the origin of the left internal carotid artery, therefore vascular surgery was consulted. Yesterday she underwent a carotid Doppler with reports of images the measurement suggesting less than 40% stenosis in both internal carotid arteries. Patient was also diagnosed with new onset of atrial fibrillation is currently on a heparin drip. Patient has multiple consultants on including neurology, cardiology, oncology, and orthopedics. Neurology has worked patient up for reported transient expressive aphasia and facial asymmetry, possible TIA. The patient states the back pain was significant in her lower back, she was diagnosed with a UTI on admission and now currently being treated. States that back pain has improved. She's been up and ambulating. She states she has not had any further difficulty with speaking since admission. She denies any other focal deficits. Denies any previous history of carotid stenosis. States she has a history of hyperlipidemia however has not been on any medication for it. She had an MRI of cervical, thoracic and lumbar spine with and without ordered by the orthopedic team and it's reported as numerous destructive lesions in the cervical thoracic and lumbar which are asymmetric and consistent with multifocal metastatic disease. There is cervical spine stenosis related to degenerative disc disease and posterior disc bulging and multiple levels. There is some [id number] multiple mild compression fracture in the thoracic spine. There is a mild pathological fracture of the L2 vertebral body with destructive lesion. No significant lumbar spinal stenosis. Mild posterior disc bulging from L2 to L5 without significant encroachment on the spinal canal. MRI of the brain is reported as they're two lesion consistent with meningioma as above. She will atrophy. White matter signal changes likely related to chronic small vessel ischemia or demyelinating disease. No evidence of intra-axial metastatic disease. Possible sphenoid bone metastasis disease. The body of the report it is mentioned that the patient has 1.7 x 1.4 cm enhancing focus appears extra-axial adjacent to the left side anterior Cherelle noted process. 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 There is a similar 1 cm focus extra-axial enhancement in the left lateral parietal convexity also consistent with meningioma. And it's reported as the ICU no pathological intra-axial enhancement. Orthopedic surgery team is on board. Recommend stabilization and cementation of L2. Patient currently denies any upper extremity weakness, she's been working with physical therapy and occupational therapy with ambulation and is having significant improvement. Orthopedics is on standby as patient currently plans to consider other possible medical management. She she is denying any visual changes, slurred speech, difficulty swallowing, or other focal deficits. She denies any chest pain, shortness of breath, abdominal pain, nausea or vomiting. Back pain has improved. Review of Systems A 14 point review of systems was completed all pertinent positives and negatives as stated in the HPI Past Medical History Past Medical History: Cancer, GERD/Reflux, Hyperlipidemia, Hypertension Additional Past Medical History / Comment(s): BREAST CA X2, 1993 & 2016. OSTEOPENIA. deaf in left ear History of Any Multi-Drug Resistant Organisms: None Reported Past Surgical History: Appendectomy, Breast Surgery, Section, Orthopedic Surgery Additional Past Surgical History / Comment(s): left lung lobectomy 1973, ear sx x6; most recent 2004; Left ankle sx (pins/screw implanted and later removed); LT BREAST LUMPECTOMY 1993; 05/2017 RT LUMPECTOMY W/ LYMPH NODE EXC. COLONOSCOPY.ear operation x6 Past Anesthesia/Blood Transfusion Reactions: No Reported Reaction Additional Past Anesthesia/Blood Transfusion Reaction / Comm: nausea/vomiting W/ appendectomy at age 15, "ether" was used for anesthesia Past Psychological History: No Psychological Hx Reported Smoking Status: Former smoker Past Alcohol Use History: None Reported Past Drug Use History: None Reported - Past Family History Mother Family Medical History: Diabetes Mellitus, Hypertension Father Family Medical History: Cancer, Coronary Artery Disease (CAD) Additional Family Medical History / Comment(s): POSS PROSTATE CA. CEREBRAL HEMORRHAGE. Medications and Allergies Home Medications Medication Instructions Recorded Confirmed Type Lisinopril-Hctz 20-25 mg 2 tab PO DAILY 06/01/17 09/20/21 History [Zestoretic 20-25] Multivitamins, Thera [Multivitamin 1 tab PO DAILY 06/01/17 09/20/21 History (formulary)] Prolia (Unknown Dose) 1 injection SQ Q180D 03/23/19 09/20/21 History Baclofen 10 mg PO TID PRN #15 tab 09/18/21 09/20/21 Rx HYDROcodone/APAP 5-325MG [[place] 1 tab PO Q6HR PRN 3 Days #12 tab 09/18/21 09/20/21 Rx 5-325] Acetaminophen Tab [Tylenol] 325 mg PO Q4H PRN 09/20/21 09/20/21 History Acetaminophen-Codeine 300-30mg 1 tab PO Q8H PRN 09/20/21 09/20/21 History [Tylenol w/codeine #3] Allergies Allergy/AdvReac Type Severity Reaction Status Date / Time Sulfa (Sulfonamide Allergy Nausea Verified 09/20/21 14:34 Antibiotics) cephalexin AdvReac Vomiting Verified 09/20/21 14:34 prednisone AdvReac Rash/Hives Verified 09/20/21 14:34 Surgical - Exam Vital Signs Temp Pulse Resp BP Pulse Ox 98.4 F 87 18 132/66 98 09/20/21 13:30 09/20/21 13:30 09/20/21 13:30 09/20/21 13:30 09/20/21 13:30 General appearance: The patient is alert, oriented, in no acute distress. HET: Head is normocephalic and atraumatic. Pupils are equal and reactive. Oropharynx is clear without lesions. Neck: Supple without lymphadenopathy. Trachea midline. Heart: S1 S2. Regular rate and rhythm. Lungs: No crackles or wheezes are heard. Abdomen: Soft, nontender, nondistended with bowel sounds. No peritoneal signs. No palpable organomegaly or masses. Extremities: Normal skin color and turgor. No cyanosis, rash, ulceration, clubbing, or edema. Radial and pedal pulses are 2/4 bilaterally. Neurological: No focal deficits. Strength and sensation are grossly intact. Results - Labs 09/24/21 06:40 09/21/21 10:06 Abnormal Lab Results - Last 24 Hours (Table) 09/23/21 09/24/21 Range/Units 06:44 06:40 APTT 46.5 H 45.2 H (22.0-30.0) sec Microbiology - Last 24 Hours (Table) 09/21/21 12:04 Blood Culture - Preliminary Blood No Growth after 48 hours - Imaging Comments: see HPI for details Assessment and Plan Assessment: 1. Reported 70% left ICA stenosis on CT angiogram head and neck, carotid duplex showing less than 40% bilateral ICA stenosis 2. Reported transient expressive aphasia, possible TIA 3. New onset proximal atrial fibrillation 4. Metastatic lung cancer with metastasis to the spine 5. Intractable back pain with pathological fracture over L2 6. Urinary tract infection Plan: 1. CT angiogram and carotid duplex reviewed discordant findings 2. Agree with statin, continue atorvastatin 40 mg daily 3. No acute indication for any vascular surgical intervention 4. Recommend outpatient surveillance for carotid stenosis Thank you for this consultation, we will sign off at this time. The impression and plan of care has been dictated as directed. Dr. Howe I performed a history and examination of this patient, discussed the same with the dictator. I agree with the dictator's note ,documented as a scribe. Any additional findings or plans will be noted.
--- NOTE | 2021-09-24 12:41 | P.PN ---
Subjective Progress Note Date: 09/24/21 HISTORY OF PRESENTING ILLNESS Patient is a pleasant 80-year-old female with history of breast cancer 1993 with recurrence in 2017 with metastatic lung cancer with metastases to the brain and recently to the back, hypertension, hyperlipidemia, GERD and previous tobacco abuse who presents secondary to back pain. Patient had been undergoing radiation for known metastatic lung cancer however states she started having severe back pain off and on over the prior week and a half. She was attempted on medications however, came to the emergency department with CAT scan showing what appeared to be metastasis to the spine. Orthopedic surgery has been consultative and scheduled for MRI tomorrow. She was found to have new onset of A. fib with mild RVR heart rates 100s to 120s. She denies any history of A. fib, she denies any chest pain, pressure, shortness breath. Patient normally and antihypertensive medications however these have been held with systolics in the 100-120 range. She denies any lightheadedness. She converted to normal sinus rhythm last night. 09/22/2021 Patient examined at the bedside. Denies chest pain or pressure. Denies SOB. Remains in sinus mechanism. She remains on IV heparin. 09/23/2021 Patient remains on the cardiac stepdown unit. Patient examined at the bedside. Patient denies chest pain or pressure. Denies SOB. She remains on IV heparin. She has been evaluated by orthopedics who is recommending stabilization and cementation of L2. Telemetry reveals sinus mechanism. Echocardiogram completed reveals ejection fraction 50-55%. Moderate mitral regurgitation. Moderate tricuspid regurgitation. 09/24/2021 Patient examined this morning. She denies chest pain or pressure. Denies SOB. She remains in sinus mechanism. Per nursing, no invasive procedures are being pl anned at this time. Patient has opted not to undergo procedure on her back. PHYSICAL EXAMINATION Vital signs reviewed. CONSTITUTIONAL: No apparent distress. HEENT: Head is normocephalic. Pupils are equal, round. Sclerae anicteric. Mucous membranes of the mouth are moist. No JVD. No carotid bruit. CHEST EXAMINATION: Lungs are clear to auscultation. No chest wall tenderness is noted on palpation or with deep breathing. HEART EXAMINATION: Regular rate and rhythm. S1, S2 heard. No murmurs, gallops or rub. ABDOMEN: Soft, nontender. Positive bowel sounds. EXTREMITIES: 2+ peripheral pulses, no lower extremity edema and no calf tenderness. NEUROLOGIC EXAMINATION: Patient is awake, alert and oriented x3. ASSESSMENT 1. Paroxysmal atrial fibrillation, currently sinus rhythm 2. Metastatic lung cancer with metastases to the bone and brain, and now spine 3. Hypertension currently borderline blood pressures off of antihypertensives 4. Urinary tract infection PLAN Continue current cardiac medications Continue telemetry monitoring Discontinue IV heparin Begin Eliquis 5mg BID Case management consulted for insurance coverage We will follow on an as needed basis. Please call with questions or concerns Nurse practitioner note has been reviewed by physician. Signing provider agrees with the documented findings, assessment, and plan of care. Objective - Vital Signs Vital signs: Vital Signs Temp 97.2 F L 09/24/21 12:00 Pulse 75 09/24/21 12:00 Resp 16 09/24/21 12:00 BP 131/69 09/24/21 12:00 Pulse Ox 95 09/24/21 12:00 Intake & Output 09/23/21 09/24/21 09/24/21 18:59 06:59 18:59 Intake Total 1212.827 798.492 Output Total 950 1800 600 Balance 262.827 -1800 198.492 Weight 62 kg Intake: IV 20 Invasive Line 3 20 Intake, IV Titration 172.827 178.492 Amount Heparin Sod,Pork in 0.45% 172.827 178.492 NaCl 25,000 unit In 0.45 % NaCl 1 250ml.bag @ 12 UNITS/KG/HR 6.151 mls/hr IV .Q24H [facility] Rx#: [id number] Oral 1020 620 Output: Urine 650 1800 600 Straight 650 600 Urine/Stool Mix 300 Other: Voiding Method Indwelling Catheter Indwelling Catheter Indwelling Catheter # Voids 2 - Labs CBC & Chem 7: 09/24/21 06:40 09/21/21 10:06 Labs: Abnormal Lab Results - Last 24 Hours (Table) 09/24/21 09/24/21 Range/Units 06:40 06:40 RBC 3.71 L (3.80-5.40) m/uL Hgb 10.6 L (11.4-16.0) gm/dL Hct 33.5 L (34.0-46.0) % Lymphocytes # 0.7 L (1.0-4.8) k/uL APTT 45.2 H (22.0-30.0) sec Microbiology - Last 24 Hours (Table) 09/21/21 12:04 Blood Culture - Preliminary Blood No Growth after 48 hours
--- NOTE | 2021-09-24 13:10 | P.PN ---
Progress Note - Text Progress Note Date: 09/24/21 New onset atrial fibrillation Metastatic lung cancer with metastases to bone and brain Patient is a 80-year-old female with a known history of breast cancer diagnosed in 1993 and recurrence in 2017, metastatic lung cancer, osteopenia, deafness in the left ear, hypertension, hyperlipidemia, GERD and previous history of smoking presents to ER with altered mental status and also complaining of back pain. Patient has metastatic lesions in the lumbar spine seen on PET scan. Also has history of metastatic lesions in the brain. Patient is unable to provide history at this time. Patient's daughter is at bedside who can provide the history. Patient has been having severe back pain on and off for the past 10 days. Patient was seen in the ER about 2 days ago with similar complaints and refused admission at that time. Patient came back to the hospital due to persistent back pain. Patient is on baclofen and narcotic pain medications. Patient is able to move extremities while in bed. 09/21/2021 Patient was admitted to hospital due to new onset paroxysmal atrial fibrillation. Currently converted to sinus rhythm. Patient is being continued on heparin drip and cardiology is on board. Patient was also seen by neurology due to altered mental status and also oncology for possible chemo/radiation for metastatic lesions. Otherwise patient is more awake alert and oriented 3 today. Pain is controlled with medications. Patient is afebrile. No nausea vomiting or abdominal pain or diarrhea. Tolerating oral diet slowly. No cough or sputum production. Denied any chest pain. September 22: Laying in bed. Awake. He took a shower. Pain control. Did eat some. Patient not been walking for last few days. IV heparin. Radiation oncology consulted. Levaquin being started for UTI September 23: Sitting up in bed. Comfortable. Daughter the bedside. Dr. Cervantes I just spoke with the patient and the daughter. They have some discussion about surgical option. Daughter informs be that until 5 days ago patient is able to walk slowly.on the hospital. And she is only being managed by Tylenol. She really had brought the patient in for confusion. Not for worsening pain. Howe catheter was placed yesterday.. September 24: Patient did walk a few steps with the brace. Pain is rather well- controlled. Will be going for radiation treatment this afternoon. Oral intake fair. Review of systems: Was done for constitutional, cardiovascular, GI, pulmonary. relevant finding as above Active Medications Acetaminophen (Acetaminophen Tab 325 Mg Tab) 650 mg PO Q6HR PRN PRN Reason: Mild Pain or Fever > 100.5 Hydrocodone Bitart/Acetaminophen (Hydrocodone/Apap 5-325mg 1 Each Tab) 1 each PO Q4HR PRN PRN Reason: Pain Last Admin: 09/24/21 10:35 Dose: 1 each Documented by: Apixaban (Apixaban 5 Mg Tab) 5 mg PO BID [facility]; Protocol Last Admin: 09/24/21 11:37 Dose: 5 mg Documented by: Atorvastatin Calcium (Atorvastatin 40 Mg Tab) 40 mg PO HS [facility] Last Admin: 09/23/21 21:39 Dose: 40 mg Documented by: Cefdinir (Cefdinir 300 Mg Cap) 300 mg PO BID [facility] Last Admin: 09/24/21 10:34 Dose: 300 mg Documented by: Cyclobenzaprine HCl (Cyclobenzaprine 5 Mg Tab) 5 mg PO TID [facility] Last Admin: 09/24/21 10:34 Dose: 5 mg Documented by: Dexamethasone (Dexamethasone 4 Mg Tab) 4 mg PO BID [facility] Last Admin: 09/24/21 10:34 Dose: 4 mg Documented by: Diphenhydramine HCl (Diphenhydramine 25 Mg Cap) 25 mg PO HS [facility] Last Admin: 09/23/21 21:38 Dose: 25 mg Documented by: Hydromorphone HCl (Hydromorphone 0.5 Mg/0.5 Ml Syringe) 0.5 mg IVP Q3HR PRN PRN Reason: Moderate Pain Last Admin: 09/22/21 15:58 Dose: 0.5 mg Documented by: Sodium Chloride (Saline 0.9%) 1,000 mls @ 10 mls/hr IV .Q24H [facility] Last Admin: 09/24/21 12:36 Dose: Not Given Documented by: Loratadine (Loratadine 10 Mg Tab) 10 mg PO DAILY [facility] Last Admin: 09/24/21 10:34 Dose: 10 mg Documented by: Metoprolol Tartrate (Metoprolol Tartrate 25 Mg Tab) 25 mg PO BID [facility] Last Admin: 09/24/21 10:34 Dose: 25 mg Documented by: Naloxone HCl (Naloxone 0.4 Mg/Ml 1 Ml Vial) 0.2 mg IV Q2M PRN PRN Reason: Opioid Reversal Naproxen (Naproxen 250 Mg Tab) 250 mg PO TID [facility] Last Admin: 09/24/21 10:34 Dose: 250 mg Documented by: Pantoprazole Sodium (Pantoprazole 40 Mg Tablet) 40 mg PO AC-BID [facility] Last Admin: 09/24/21 06:37 Dose: 40 mg Documented by: Polyethylene Glycol (Polyethylene Glycol 3350 17 Gm Powd.Pack) 17 gm PO DAILY [facility] Last Admin: 09/24/21 10:33 Dose: 17 gm Documented by: Senna/Docusate Sodium (Sennosides-Docusate Sodium 1 Each Tab) 1 each PO BID [facility] Last Admin: 09/24/21 10:37 Dose: Not Given Documented by: On examination: VITAL SIGNS: 97.2, 75, 16, 1 31 x 69, 95% room air GENERAL APPEARANCE: Sitting up in chair, awake, comfortable HEENT: Normal external appearance of nose and ear. Oral cavity normal EYES: Pupils equal. Conjunctiva normal. NECK: JVD not raised. Mass not palpable. RESPIRATORY: Respiratory effort normal. Lungs clear to auscultation. CARDIOVASCULAR: First and second sounds normal. No edema. ABDOMEN: Soft. Liver and spleen not palpable. No tenderness. No mass palpable. Howe catheter PSYCHIATRY: Patient is able to answer simple questions. A bit forgetful. MUSCULAR skeletal: Able to move legs. INVESTIGATIONS, reviewed in the clinical context: September 24: WBC 7.1 hemoglobin 10.6 LDL 114 MRI of brain with and without contrast [September 22] 2 lesions consistent with meningioma. Cerebral atrophy. Some white matter signal changes. No evidence of intra-axial metastatic disease. Possible sphenoid bone metastatic disease. MR C-spine/T-spine/L-spine with and without [September 22] numerous destructive lesion in the cervical spine and thoracic and lumbar spine. Consistent with metastatic disease. Cervical spine stenosis related to DJD. Posterior disc bulging at multiple levels. Some osteoporotic-type multiple mild compression fracture thoracic spine. Mild pathologic fracture of L2 vertebral body. With the structural lesion. No significant encroachment on the spinal canal. UA: Positive for leukoesterase WBC CT head showed cerebral atrophy. There is evidence for mild chronic small vessel ischemia. No acute abnormality noted. CT lumbar spine showed destructive lesion with expansion slightly into the spinal cord on the right side of the L2 vertebral body. This is consistent with metastatic disease. No significant spinal stenosis. CT angiogram of the chest showed atherosclerotic extensive plaque at the carotid artery bifurcations and approximate 50% stenosis at the origin of the right ICA and 70% stenosis origin left ICA. No significant intracranial angiographic abnormalities. Chest x-ray showed increasing pulmonary interstitial infiltrates compared to last exam. No discrete pulmonary mass. EKG showed atrial fibrillation with rapid ventricular rate. Laboratory showed WBC of 11.5 hemoglobin 11.6, platelets 389 neutrophils 9.8 Sodium 133 potassium 4.1 chloride 98 BUN 29 and creatinine 0.73 and glucose 116, troponin less than 0.012 and liver enzymes not elevated COVID-19 PCR not detected. Assessment and plan: -Altered mental status is metabolic encephalopathy possibly from UTI.: Better -Paroxysmal atrial fibrillation with rapid regular rate. Currently sinus rhythm. Lopressor 25 mg twice a day -Acute urinary tract infection with cystitis IV Levaquin-changed to Omnicef -Dehydration volume depletion. Improved. IV fluids given . - back pain with mild destructive lesion at the L2 vertebral body. Multiple level of metastatic disease and DJD.. No spinal cord involvement. Received radiation treatments. IV Dilaudid-discontinue. On a heating pad. naproxen 250 mg 3 times a day. Flexeril 5 mg 3 times a day. [place]. -Stage IV Metastatic adenocarcinoma of the lung. Status post biopsy on 07/31/2021 with metastatic of the bone and spine. Recently completed 10 radiation treatments palliation -Essential Hypertension Lopressor 25 mg twice a day -GERD Protonic -Osteopenia -Deafness in the left ear -Moderate protein calorie malnutrition. add ensure -IV heparin monitoring Follow PTT -DO NOT RESUSCITATE -Mild cognitive impairment DC IV heparin and later today. Eliquis being started. DC IV fluids. Patient may be ablated with the brace. Follow with PT. Lumbar radiation treatment today.
--- NOTE | 2021-09-24 15:32 | P.PN ---
Subjective Progress Note Date: 09/24/21 The patient is seen at bedside and denies any new neurological problems. No further episode of difficulty getting her words out. Objective - Vital Signs Vital signs: Vital Signs Temp 97.2 F L 09/24/21 12:00 Pulse 75 09/24/21 12:00 Resp 16 09/24/21 12:00 BP 131/69 09/24/21 12:00 Pulse Ox 95 09/24/21 12:00 Intake & Output 09/23/21 09/24/21 09/24/21 18:59 06:59 18:59 Intake Total 1373.762 3350.492 Output Total 950 1800 600 Balance 262.827 -1800 808.492 Weight 62 kg Intake: IV 20 10 Invasive Line 3 20 10 Intake, IV Titration 172.827 178.492 Amount Heparin Sod,Pork in 0.45% 172.827 178.492 NaCl 25,000 unit In 0.45 % NaCl 1 250ml.bag @ 12 UNITS/KG/HR 6.151 mls/hr IV .Q24H [facility] Rx#: [id number] Oral 1020 1220 Output: Urine 650 1800 600 Straight 650 600 Urine/Stool Mix 300 Other: Voiding Method Indwelling Catheter Indwelling Catheter Indwelling Catheter # Voids 2 - Exam Gen.: The patient is reclining in the bed. She is well-nourished. Not in acute distress. Neurological examination Mental status: The patient is awake and alert, oriented to self, place and time. She is following commands. No aphasia or neglect. Cranial nerves: Pupils are equal at 2 mm and reactive. Visual field are full to confrontation. Extraocular movements are intact. Facial sensation is intact. There is no facial asymmetry. No dysarthria. Tongue protrudes midline. Motor: Gait is deferred. Deltoid are 4+ bilaterally, biceps are 5- bilaterally. Otherwise 5/5 throughout. Sensation: Grossly intact to light touch throughout. Deep tendon reflexes: 2+/4+ in the upper extremities. 2+4+ at the right knee. 2-3+4+ at the left knee. Coordination: Finger to nose testing is intact bilaterally Plantars are mute bilaterally. WORK-UP: TSH is 0.153 which is congenital low but the free T4 is 1.84. Vitamin B12 is 1031 and the history of folate is more than 20. Atenolol is triglycerides 145, cholesterol 200, LDL of 114 and HDL of 56. Had an MRI of cervical, thoracic and lumbar spine with and without ordered by the orthopedic team and it's reported as numerous destructive lesions in the cervical thoracic and lumbar which are asymmetric and consistent with multifocal metastatic disease. There is cervical spine stenosis related to degenerative disc disease and posterior disc bulging and multiple levels. There is some [id number] multiple mild compression fracture in the thoracic spine. There is a mild pathological fracture of the L2 vertebral body with destructive lesion. No significant lumbar spinal stenosis. Mild posterior disc bulging from L2 to L5 without significant encroachment on the spinal canal. MRI of the brain is reported as they're two lesion consistent with meningioma as above. White matter signal changes likely related to chronic small vessel ischemia or demyelinating disease. No evidence of intra-axial metastatic disease. Possible sphenoid bone metastasis disease. The body of the report it is mentioned that the patient has 1.7 x 1.4 cm enhancing focus appears extra- axial adjacent to the left side anterior Cherelle noted process. 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 There is a similar 1 cm focus extra-axial enhancement in the left lateral parietal convexity also consistent with meningioma. And it's reported as the ICU no pathological intra-axial enhancement. CT angiography of the head and neck is reported as atherosclerotic extensive plaque at the carotid artery bifurcation and approximately 50% stenosis at the origin of the right ICA carotid and 70% stenosis at the origin left internal carotid artery. No significant intercranial and angiographic abnormality. 2D echo: Mild concentric left ventricle hypertrophy. Ejection fraction of 50- 55%. Left atrium is mildly dilated. Moderate mitral and tricuspid regurgitation. Carotid duplex is reported as there is antegrade flow in the vertebral arteries. Images and measurements suggest less than 40% stenosis in both internal carotid arteries. - Labs CBC & Chem 7: 09/24/21 06:40 09/21/21 10:06 Labs: Abnormal Lab Results - Last 24 Hours (Table) 09/24/21 09/24/21 Range/Units 06:40 06:40 RBC 3.71 L (3.80-5.40) m/uL Hgb 10.6 L (11.4-16.0) gm/dL Hct 33.5 L (34.0-46.0) % Lymphocytes # 0.7 L (1.0-4.8) k/uL APTT 45.2 H (22.0-30.0) sec Microbiology - Last 24 Hours (Table) 09/21/21 12:04 Blood Culture - Preliminary Blood No Growth after 72 hours Assessment and Plan Assessment: Reported transient expressive aphasia and facial asymmetry. Likely TIA (especially with multiple risk factors). 70% stenosis of the left internal carotid artery (per CTA) but according to carotid duplex 40% stenosis. Intractable back pain with a pathological fracture over L2 Multilevel stenosis and spondylosis of the cervical spine Likely meningioma (1 cm focus extra-axial enhancement in the left lateral parietal and 1.7 1.4 cm over left sided anterior clinoid process) ?sphenoid bone metastasis disease per MRI Brain that is reported Paroxysmal atrial fibrillation currently sinus rhythm Acute urinary tract infection. Stage IV metastatic adenocarcinoma of the lung with metastases to the bone and spine status post radiation Deafness over the left ear Plan: Regarding the patient left ICA stenosis Continue Lipitor 40 mg daily at bedtime. Currently on Eliquis 5mg 1 tab bid. Will not add any antiplatelets to avoid risk of bleed. Vascular surgery team is consulted for the left ICA stenosis and they stated no acute intervention and outpatient surveillance. Continue neuro checks Continue cardiac monitoring. Physical therapy and occupation therapy are consulted. Orthopedic team is on board and they will try conservative management for the pa tient the lumbar fracture and has not been no proceed with the surgical intervention. Cardiology team and is on board Oncology and Radiation oncologist team are on board We'll defer the rest of the medical management to primary team. Upon discharge, the patient needs to follow-up with a neurologist within 1-2 weeks and recommend patient to follow-up with neurosurgeon. For DVT prophylaxis: Patient is on Eliquis. The plan is discussed with the patient and her nurse. There is no further neurological work-up. Please notify neurology if any further concerns. Immnauel Haley MD Neuro-Hospitalist Time with Patient: Less than 30
--- NOTE | 2021-09-24 19:19 | P.PN ---
Subjective Progress Note Date: 09/24/21 Principal diagnosis: Metastatic lung cancer mental status much improved today, sitting up eating. She has a back brace given by ortho. She is hesistant to mov forward with surgical intervention, least minimal if needed is recommended given her metastatic disease and need to begin chemotherapy kandi. Objective - Vital Signs Vital signs: Vital Signs Temp 97.7 F 09/24/21 04:00 Pulse 70 09/24/21 04:00 Resp 16 09/24/21 04:00 BP 166/81 09/24/21 04:00 Pulse Ox 97 09/24/21 04:00 Intake & Output 09/23/21 09/24/21 09/24/21 18:59 06:59 18:59 Intake Total 1212.827 Output Total 950 1800 Balance 262.827 -1800 Weight 62 kg Intake: IV 20 Invasive Line 3 20 Intake, IV Titration 172.827 Amount Heparin Sod,Pork in 0.45% 172.827 NaCl 25,000 unit In 0.45 % NaCl 1 250ml.bag @ 12 UNITS/KG/HR 6.151 mls/hr IV .Q24H [facility] Rx#: [id number] Oral 1020 Output: Urine 650 1800 Straight 650 Urine/Stool Mix 300 Other: Voiding Method Indwelling Catheter Indwelling Catheter # Voids 2 - Exam alert nad neck supple heart rrr lungs diminished and soft rle weak - Labs CBC & Chem 7: 09/24/21 06:40 09/21/21 10:06 Labs: Abnormal Lab Results - Last 24 Hours (Table) 09/24/21 Range/Units 06:40 APTT 45.2 H (22.0-30.0) sec Microbiology - Last 24 Hours (Table) 09/21/21 12:04 Blood Culture - Preliminary Blood No Growth after 48 hours Assessment and Plan (1) Metastatic adenocarcinoma to lung Current Visit: Yes Status: Acute Code(s): C78.00 - SECONDARY MALIGNANT NEOPLASM OF UNSPECIFIED LUNG SNOMED Code(s): 2555935574574 (2) Bone metastases Current Visit: Yes Status: Acute Code(s): C79.51 - SECONDARY MALIGNANT NEOPLASM OF BONE SNOMED Code(s): 73770717 (3) Spinal cord compression Current Visit: Yes Status: Acute Code(s): G95.20 - UNSPECIFIED CORD COMPRESSION SNOMED Code(s): 17786825 (4) Spinal cord compression due to malignant neoplasm metastatic to spine Current Visit: Yes Status: Acute Code(s): G95.29 - OTHER CORD COMPRESSION; C79.51 - SECONDARY MALIGNANT NEOPLASM OF BONE SNOMED Code(s): 312374923 Plan: She overall is feeling better. MRI reviewed confirmed L2 fracture. Will decrease dexamethasone 4mg PO BID Dr. Bell seen patient and to continue with xrt Ortho spine following Treatment of UTI WBT per Orth Prefer least invasive intervention in the picture of new metasttic cancer requiring chemo
[2021-09-24] MEDS: diphenhydrAMINE 25 MG CAP PO SCH (22:24)
[2021-09-24] MEDS: ATORVASTATIN 40 MG TAB PO SCH (22:25)
[2021-09-25] MEDS: PANTOPRAZOLE 40 MG TABLET PO SCH ×2 (06:25→17:52)
[2021-09-25] MEDS: SENNOSIDES-DOCUSATE SODIUM 1 EACH TAB PO SCH ×2 (08:31→21:51)
[2021-09-25] MEDS: LORATADINE 10 MG TAB PO SCH (08:31)
[2021-09-25] MEDS: METOPROLOL TARTRATE 25 MG TAB PO SCH ×2 (08:31→21:52)
[2021-09-25] MEDS: NAPROXEN 250 MG TAB PO SCH ×3 (08:31→21:53)
[2021-09-25] MEDS: CEFDINIR 300 MG CAP PO SCH ×2 (08:31→21:52)
[2021-09-25] MEDS: CYCLOBENZAPRINE 5 MG TAB PO SCH ×2 (08:32→15:04)
[2021-09-25] MEDS: APIXABAN 5 MG TAB PO SCH ×2 (08:32→21:51)
[2021-09-25] MEDS: polyethylene glycoL 3350 17 GM POWD.PACK PO SCH (08:32)
[2021-09-25] MEDS: dexAMETHasone 4 MG TAB PO SCH ×2 (08:32→21:54)
[2021-09-25 08:35] VITALS: BMI 23.4
[2021-09-25 09:12] LABS: Basophils # (A) 0.1 k/uL (0-0.2); Basophils % (A) 1 %; Eosinophils # (A) 0.1 k/uL (0-0.7); Eosinophils % (A) 1 %; HCT 35.2 % (34.0-46.0); HGB 10.8 gm/dL (11.4-16.0); Lymphocytes # (A) 0.8 k/uL (1.0-4.8); Lymphocytes % (A) 8 %; MCH 27.9 pg (25.0-35.0); MCHC 30.8 g/dL (31.0-37.0); MCV 90.5 fL (80.0-100.0); Mean Platelet Volume 10.9; Monocytes # (A) 0.3 k/uL (0-1.0); Monocytes % (A) 3 %; Neutrophils % (A) 87 %; Platelet Count 300 k/uL (150-450); RBC 3.89 m/uL (3.80-5.40); RDW 13.1 % (11.5-15.5); WBC 9.2 k/uL (3.8-10.6)
[2021-09-25 09:29] LABS: ALT 29 U/L (4-34); AST 31 U/L (14-36); African American GFR (CKD) >90 (>60 ml/min/1.73 sqM); Albumin 3.1 g/dL (3.5-5.0); Alkaline Phosphatase 114 U/L (38-126); Anion Gap 7 mmol/L; Blood Urea Nitrogen 19 mg/dL (7-17); Carbon Dioxide 24 mmol/L (22-30); Chloride 104 mmol/L (98-107); Glucose 138 mg/dL (74-99); Magnesium 1.6 mg/dL (1.6-2.3); Non-African American GFR(CKD) 89 (>60 ml/min/1.73 sqM); Potassium 4.8 mmol/L (3.5-5.1); Sodium 135 mmol/L (137-145); Total Bilirubin 0.3 mg/dL (0.2-1.3); Total Protein 6.3 g/dL (6.3-8.2)
[2021-09-25] MEDS: HYDROcodone/APAP 5-325MG 1 EACH TAB PO PRN (11:00)
[2021-09-25 12:07] LABS: Magnesium 2.1 mg/dL (1.5-2.4)
[2021-09-25 12:08] LABS: ALT 13 U/L (8-44); AST 32 U/L (13-35); Albumin 3.7 g/dL (3.8-4.9); Alkaline Phosphatase 129 U/L (41-126); Blood Urea Nitrogen 26.8 mg/dL (9.0-27.0); Calcium 10.6 mg/dL (8.7-10.3); Carbon Dioxide 13.1 mmol/L (21.6-31.8); Chloride 99 mmol/L (96-109); Glucose 112 mg/dL (70-110); Non-African American GFR(CKD) 61.2 (60.0-200.0); Potassium 4.5 mmol/L (3.5-5.5); Sodium 139 mmol/L (135-145); Total Bilirubin <0.20 mg/dL (0.30-1.20); Total Protein 6.9 g/dL (6.2-8.2)
--- NOTE | 2021-09-25 13:55 | P.PN ---
Progress Note - Text Progress Note Date: 09/25/21 New onset atrial fibrillation Metastatic lung cancer with metastases to bone and brain Patient is a 80-year-old female with a known history of breast cancer diagnosed in 1993 and recurrence in 2017, metastatic lung cancer, osteopenia, deafness in the left ear, hypertension, hyperlipidemia, GERD and previous history of smoking presents to ER with altered mental status and also complaining of back pain. Patient has metastatic lesions in the lumbar spine seen on PET scan. Also has history of metastatic lesions in the brain. Patient is unable to provide history at this time. Patient's daughter is at bedside who can provide the history. Patient has been having severe back pain on and off for the past 10 days. Patient was seen in the ER about 2 days ago with similar complaints and refused admission at that time. Patient came back to the hospital due to persistent back pain. Patient is on baclofen and narcotic pain medications. Patient is able to move extremities while in bed. 09/21/2021 Patient was admitted to hospital due to new onset paroxysmal atrial fibrillation. Currently converted to sinus rhythm. Patient is being continued on heparin drip and cardiology is on board. Patient was also seen by neurology due to altered mental status and also oncology for possible chemo/radiation for metastatic lesions. Otherwise patient is more awake alert and oriented 3 today. Pain is controlled with medications. Patient is afebrile. No nausea vomiting or abdominal pain or diarrhea. Tolerating oral diet slowly. No cough or sputum production. Denied any chest pain. September 22: Laying in bed. Awake. He took a shower. Pain control. Did eat some. Patient not been walking for last few days. IV heparin. Radiation oncology consulted. Levaquin being started for UTI September 23: Sitting up in bed. Comfortable. Daughter the bedside. Dr. Cervantes I just spoke with the patient and the daughter. They have some discussion about surgical option. Daughter informs be that until 5 days ago patient is able to walk slowly.on the hospital. And she is only being managed by Tylenol. She really had brought the patient in for confusion. Not for worsening pain. Howe catheter was placed yesterday.. September 24: Patient did walk a few steps with the brace. Pain is rather well- controlled. Will be going for radiation treatment this afternoon. Oral intake fair. September 25: Yesterday walked 30 feet with IV pole. Pain is much better controlled. Getting radiation treatment to the spine today. Had 100% of her breakfast and lunch. Feeling better. Review of systems: Was done for constitutional, cardiovascular, GI, pulmonary. relevant finding as above Active Medications Acetaminophen (Acetaminophen Tab 325 Mg Tab) 650 mg PO Q6HR PRN PRN Reason: Mild Pain or Fever > 100.5 Hydrocodone Bitart/Acetaminophen (Hydrocodone/Apap 5-325mg 1 Each Tab) 1 each PO Q4HR PRN PRN Reason: Pain Last Admin: 09/25/21 11:00 Dose: 1 each Documented by: Apixaban (Apixaban 5 Mg Tab) 5 mg PO BID [facility]; Protocol Last Admin: 09/25/21 08:32 Dose: 5 mg Documented by: Atorvastatin Calcium (Atorvastatin 40 Mg Tab) 40 mg PO [facility] Last Admin: 09/24/21 22:25 Dose: 40 mg Documented by: Cefdinir (Cefdinir 300 Mg Cap) 300 mg PO BID [facility] Last Admin: 09/25/21 08:31 Dose: 300 mg Documented by: Cyclobenzaprine HCl (Cyclobenzaprine 5 Mg Tab) 5 mg PO TID [facility] Last Admin: 09/25/21 08:32 Dose: 5 mg Documented by: Dexamethasone (Dexamethasone 4 Mg Tab) 4 mg PO BID [facility] Last Admin: 09/25/21 08:32 Dose: 4 mg Documented by: Diphenhydramine HCl (Diphenhydramine 25 Mg Cap) 25 mg PO HS [facility] Last Admin: 09/24/21 22:24 Dose: 25 mg Documented by: Sodium Chloride (Saline 0.9%) 1,000 mls @ 10 mls/hr IV .Q24H [facility] Last Admin: 09/24/21 12:36 Dose: Not Given Documented by: Loratadine (Loratadine 10 Mg Tab) 10 mg PO DAILY [facility] Last Admin: 09/25/21 08:31 Dose: 10 mg Documented by: Metoprolol Tartrate (Metoprolol Tartrate 25 Mg Tab) 25 mg PO BID [facility] Last Admin: 09/25/21 08:31 Dose: 25 mg Documented by: Naloxone HCl (Naloxone 0.4 Mg/Ml 1 Ml Vial) 0.2 mg IV Q2M PRN PRN Reason: Opioid Reversal Naproxen (Naproxen 250 Mg Tab) 250 mg PO TID [facility] Last Admin: 09/25/21 08:31 Dose: 250 mg Documented by: Pantoprazole Sodium (Pantoprazole 40 Mg Tablet) 40 mg PO AC-BID [facility] Last Admin: 09/25/21 06:25 Dose: 40 mg Documented by: Polyethylene Glycol (Polyethylene Glycol 3350 17 Gm Powd.Pack) 17 gm PO DAILY [facility] Last Admin: 09/25/21 08:32 Dose: Not Given Documented by: Senna/Docusate Sodium (Sennosides-Docusate Sodium 1 Each Tab) 1 each PO BID [facility] Last Admin: 09/25/21 08:31 Dose: 1 each Documented by: On examination: VITAL SIGNS: 97.4, 76, 18, 148/76, 100% room air GENERAL APPEARANCE: Sitting awake, comfortable HEENT: Normal external appearance of nose and ear. Oral cavity normal EYES: Pupils equal. Conjunctiva normal. NECK: JVD not raised. Mass not palpable. RESPIRATORY: Respiratory effort normal. Lungs clear to auscultation. CARDIOVASCULAR: First and second sounds normal. No edema. ABDOMEN: Soft. Liver and spleen not palpable. No tenderness. No mass palpable. Howe catheter PSYCHIATRY: Patient is able to answer simple questions. A bit forgetful. MUSCULAR skeletal: Able to move legs. INVESTIGATIONS, reviewed in the clinical context: September 25: Obesity 9.2 hemoglobin 10.8 potassium 4.8 creatinine 0.57 September 24: WBC 7.1 hemoglobin 10.6 LDL 114 MRI of brain with and without contrast [September 22] 2 lesions consistent with meningioma. Cerebral atrophy. Some white matter signal changes. No evidence of intra-axial metastatic disease. Possible sphenoid bone metastatic disease. MR C-spine/T-spine/L-spine with and without [September 22] numerous destructive lesion in the cervical spine and thoracic and lumbar spine. Consistent with metastatic disease. Cervical spine stenosis related to DJD. Posterior disc bulging at multiple levels. Some osteoporotic-type multiple mild compression fracture thoracic spine. Mild pathologic fracture of L2 vertebral body. With the structural lesion. No significant encroachment on the spinal canal. UA: Positive for leukoesterase WBC CT head showed cerebral atrophy. There is evidence for mild chronic small vessel ischemia. No acute abnormality noted. CT lumbar spine showed destructive lesion with expansion slightly into the spinal cord on the right side of the L2 vertebral body. This is consistent with metastatic disease. No significant spinal stenosis. CT angiogram of the chest showed atherosclerotic extensive plaque at the carotid artery bifurcations and approximate 50% stenosis at the origin of the right ICA and 70% stenosis origin left ICA. No significant intracranial angiographic abnormalities. Chest x-ray showed increasing pulmonary interstitial infiltrates compared to last exam. No discrete pulmonary mass. EKG showed atrial fibrillation with rapid ventricular rate. Laboratory showed WBC of 11.5 hemoglobin 11.6, platelets 389 neutrophils 9.8 Sodium 133 potassium 4.1 chloride 98 BUN 29 and creatinine 0.73 and glucose 116, troponin less than 0.012 and liver enzymes not elevated COVID-19 PCR not detected. Assessment and plan: -Altered mental status from metabolic encephalopathy possibly from UTI.: Improved -Paroxysmal atrial fibrillation with rapid regular rate. Currently sinus rhythm. Lopressor 25 mg twice a day -Acute urinary tract infection with cystitis IV Levaquin-changed to Omnicef -Dehydration volume depletion. Improved. IV fluids given . - back pain with mild destructive lesion at the L2 vertebral body. Multiple level of metastatic disease and DJD.. No spinal cord involvement. Received radiation treatments. IV Dilaudid-discontinue. On a heating pad. naproxen 250 mg 3 times a day. Flexeril 5 mg 3 times a day. [place] Getting inpatient radiation treatment. -Stage IV Metastatic adenocarcinoma of the lung. Status post biopsy on 07/31/2021 with metastatic of the bone and spine. Recently completed 10 radiation treatments palliation -Essential Hypertension Lopressor 25 mg twice a day -GERD Protonic -Osteopenia -Deafness in the left ear -Moderate protein calorie malnutrition. add ensure -IV heparin monitoring: Discontinued -DO NOT RESUSCITATE -Mild cognitive impairment Doing well with ambulation. Back brace. Pain controlled. Getting radiation treatment. Oral intake good. Hopefully discharge home with daughter tomorrow.
--- NOTE | 2021-09-25 14:35 | P.PN ---
Subjective Progress Note Date: 09/25/21 Patient seen and examined lying in bed in no acute changes through the night. Patient denies any focal deficits. She is awaiting discharge. He is currently on Ahlquist and Lipitor was started. Per neurology notes likely will be discharged home also on aspirin. Objective - Vital Signs Vital signs: Vital Signs Temp 97.6 F 09/25/21 08:00 Pulse 78 09/25/21 08:00 Resp 16 09/25/21 08:00 BP 165/83 09/25/21 08:00 Pulse Ox 100 09/25/21 08:00 Intake & Output 09/24/21 09/25/21 09/25/21 18:59 06:59 18:59 Intake Total 1768.492 420 Output Total 1000 1200 Balance 768.492 -1200 420 Weight 64 kg 64 kg Intake: IV 10 Invasive Line 3 10 Intake, IV Titration 178.492 Amount Heparin Sod,Pork in 0.45% 178.492 NaCl 25,000 unit In 0.45 % NaCl 1 250ml.bag @ 12 UNITS/KG/HR 6.151 mls/hr IV .Q24H [facility] Rx#: [id number] Oral 1580 420 Output: Urine 1000 1200 Straight 1000 Other: Voiding Method Indwelling Catheter Toilet Toilet - Exam General appearance: The patient is alert, oriented, appears in no acute distress. HET: Head is normocephalic and atraumatic. Pupils are equal and reactive. Oropharynx is clear without lesions. Neck: Supple without lymphadenopathy. Trachea midline. Extremities: Normal skin color and turgor. No cyanosis, rash, ulceration, clubbing, or edema. Radial and pedal pulses are 2/4 bilaterally. Neurological: No focal deficits. Strength and sensation are grossly intact. - Labs CBC & Chem 7: 09/25/21 07:34 09/25/21 07:36 Labs: Abnormal Lab Results - Last 24 Hours (Table) 09/24/21 09/25/21 09/25/21 Range/Units 06:40 07:34 07:36 RBC 3.71 L (3.80-5.40) m/uL Hgb 10.6 L 10.8 L (11.4-16.0) gm/dL Hct 33.5 L (34.0-46.0) % MCHC 30.8 L (31.0-37.0) g/dL Neutrophils # 8.0 H (1.3-7.7) k/uL Lymphocytes # 0.7 L 0.8 L (1.0-4.8) k/uL Sodium 135 L (137-145) mmol/L BUN 19 H (7-17) mg/dL Glucose 138 H (74-99) mg/dL Albumin 3.1 L (3.5-5.0) g/dL Microbiology - Last 24 Hours (Table) 09/21/21 12:04 Blood Culture - Preliminary Blood No Growth after 72 hours Assessment and Plan Assessment: 1. Reported 70% left ICA stenosis on CT angiogram head and neck, carotid duplex showing less than 40% bilateral ICA stenosis 2. Reported transient expressive aphasia, possible TIA 3. New onset proximal atrial fibrillation 4. Metastatic lung cancer with metastasis to the spine 5. Intractable back pain with pathological fracture over L2 6. Urinary tract infection Plan: 1. CT angiogram and carotid duplex reviewed discordant findings 2. Continue atorvastatin 40 mg daily 3. No acute indication for any vascular surgical intervention 4. Recommend outpatient surveillance for carotid stenosis Thank you for this consultation, we will sign off at this time. The impression and plan of care has been dictated as directed. Dr. Howe I performed a history and examination of this patient, discussed the same with the dictator. I agree with the dictator's note ,documented as a scribe. Any additional findings or plans will be noted.
[2021-09-25] MEDS: MAGNESIUM OXIDE 400 MG TAB PO SCH ×2 (15:04→21:51)
[2021-09-25] MEDS: SODIUM CHLORIDE 0.9% 1,000 ML IV SCH (17:49)
--- NOTE | 2021-09-25 21:19 | P.PN ---
Subjective Progress Note Date: 09/25/21 Principal diagnosis: Metastatic lung cancer She continues to improve everyday. Objective - Vital Signs Vital signs: Vital Signs Temp 97.4 F L 09/25/21 12:00 Pulse 76 09/25/21 12:00 Resp 18 09/25/21 12:00 BP 148/76 09/25/21 12:00 Pulse Ox 100 09/25/21 12:00 Intake & Output 09/24/21 09/25/21 09/25/21 18:59 06:59 18:59 Intake Total 1768.492 420 Output Total 1000 1200 150 Balance 768.492 -1200 270 Weight 64 kg 64 kg Intake: IV 10 Invasive Line 3 10 Intake, IV Titration 178.492 Amount Heparin Sod,Pork in 0.45% 178.492 NaCl 25,000 unit In 0.45 % NaCl 1 250ml.bag @ 12 UNITS/KG/HR 6.151 mls/hr IV .Q24H [facility] Rx#: [id number] Oral 1580 420 Output: Urine 1000 1200 150 Straight 1000 Other: Voiding Method Indwelling Catheter Toilet Toilet - Exam alert nad neck supple heart rrr lungs diminished and soft rle weak - Labs CBC & Chem 7: 09/25/21 07:34 09/25/21 07:36 Labs: Abnormal Lab Results - Last 24 Hours (Table) 09/24/21 09/25/21 09/25/21 Range/Units 06:40 07:34 07:36 Hgb 10.8 L (11.4-16.0) gm/dL MCHC 30.8 L (31.0-37.0) g/dL Neutrophils # 8.0 H (1.3-7.7) k/uL Lymphocytes # 0.8 L (1.0-4.8) k/uL Sodium 135 L (137-145) mmol/L Carbon Dioxide 13.1 L (21.6-31.8) mmol/L Anion Gap 26.90 H (4.00-12.00) mmol/L BUN 19 H (7-17) mg/dL Glucose 112 H 138 H (70-110) mg/dL Calcium 10.6 H (8.7-10.3) mg/dL Total Bilirubin <0.20 L (0.30-1.20) mg/dL Alkaline Phosphatase 129 H (41-126) U/L Albumin 3.7 L 3.1 L (3.8-4.9) g/dL Microbiology - Last 24 Hours (Table) 09/21/21 12:04 Blood Culture - Preliminary Blood No Growth after 72 hours Assessment and Plan (1) Metastatic adenocarcinoma to lung Current Visit: Yes Status: Acute Code(s): C78.00 - SECONDARY MALIGNANT NEOPLASM OF UNSPECIFIED LUNG SNOMED Code(s): 3175576935266 (2) Bone metastases Current Visit: Yes Status: Acute Code(s): C79.51 - SECONDARY MALIGNANT NEOPLASM OF BONE SNOMED Code(s): 86974411 (3) Spinal cord compression Current Visit: Yes Status: Acute Code(s): G95.20 - UNSPECIFIED CORD COMPRESSION SNOMED Code(s): 21862811 (4) Spinal cord compression due to malignant neoplasm metastatic to spine Current Visit: Yes Status: Acute Code(s): G95.29 - OTHER CORD COMPRESSION; C79.51 - SECONDARY MALIGNANT NEOPLASM OF BONE SNOMED Code(s): 143360713 Plan: She overall is feeling better. MRI reviewed confirmed L2 fracture. Will decrease dexamethasone 4mg PO BID Dr. Bell seen patient and to continue with xrt Ortho spine following Treatment of UTI WBT per Orth Prefer least invasive intervention in the picture of new metasttic cancer requiring chemo Will reschedule for her chemo teach and treatment after discharge. Abx per primary team
[2021-09-25] MEDS: diphenhydrAMINE 25 MG CAP PO SCH (21:51)
[2021-09-25] MEDS: ATORVASTATIN 40 MG TAB PO SCH (21:51)
[2021-09-26] MEDS: CYCLOBENZAPRINE 5 MG TAB PO SCH ×2 (00:52→08:23)
[2021-09-26 03:20] VITALS: RESP 16
[2021-09-26] MEDS: PANTOPRAZOLE 40 MG TABLET PO SCH (06:42)
[2021-09-26] MEDS: HYDROcodone/APAP 5-325MG 1 EACH TAB PO PRN (08:22)
[2021-09-26] MEDS: LORATADINE 10 MG TAB PO SCH (08:23)
[2021-09-26] MEDS: METOPROLOL TARTRATE 25 MG TAB PO SCH (08:23)
[2021-09-26] MEDS: MAGNESIUM OXIDE 400 MG TAB PO SCH (08:23)
[2021-09-26] MEDS: dexAMETHasone 4 MG TAB PO SCH (08:23)
[2021-09-26] MEDS: CEFDINIR 300 MG CAP PO SCH (08:23)
[2021-09-26] MEDS: APIXABAN 5 MG TAB PO SCH (08:24)
[2021-09-26] MEDS: NAPROXEN 250 MG TAB PO SCH (08:24)
[2021-09-26] MEDS: polyethylene glycoL 3350 17 GM POWD.PACK PO SCH (08:28)
[2021-09-26] MEDS: SENNOSIDES-DOCUSATE SODIUM 1 EACH TAB PO SCH (08:30)
[2021-09-26 08:32] VITALS: BP 168/92; PULSE 81; TEMP 98.3
[2021-09-26] MEDS: SODIUM CHLORIDE 0.9% 1,000 ML IV SCH (10:58)
--- NOTE | 2021-09-26 15:47 | P.DS ---
Providers Date of admission: 09/20/21 16:48 Expected date of discharge: 09/26/21 Attending physician: Garrett Saez Consults: 09/20/21 15:59 Consult Physician Routine Consulting Provider: Lius Cervantes Consult Reason/Comments: back pain, back mass Do you want consulting provider notified?: Yes Consult Physician Routine Consulting Provider: Chaitanya Blue Consult Reason/Comments: lung cancer w mets Do you want consulting provider notified?: Yes 09/20/21 16:00 Consult Physician Routine Consulting Provider: Arely Cisse Consult Reason/Comments: code stroke Do you want consulting provider notified?: Yes 09/20/21 23:36 Consult Physician Routine Consulting Provider: Frank Shell Consult Reason/Comments: Metastatic Disease with spinal Cord invasion Do you want consulting provider notified?: Yes, Notify in am 09/22/21 13:33 Consult Physician Routine Consulting Provider: Frank Shell Consult Reason/Comments: Spine metastases ? Rad Do you want consulting provider notified?: Yes 09/23/21 17:07 Consult Physician Routine Consulting Provider: Ashleigh Howe Consult Reason/Comments: left ica stenosis Do you want consulting provider notified?: Yes Primary care physician: [facility] Course: New onset atrial fibrillation Metastatic lung cancer with metastases to bone and brain Patient is a 80-year-old female with a known history of breast cancer diagnosed in 1993 and recurrence in 2017, metastatic lung cancer, osteopenia, deafness in the left ear, hypertension, hyperlipidemia, GERD and previous history of smoking presents to ER with altered mental status and also complaining of back pain. Patient has metastatic lesions in the lumbar spine seen on PET scan. Also has history of metastatic lesions in the brain. Patient is unable to provide history at this time. Patient's daughter is at bedside who can provide the history. Patient has been having severe back pain on and off for the past 10 days. Patient was seen in the ER about 2 days ago with similar complaints and refused admission at that time. Patient came back to the hospital due to persistent back pain. Patient is on baclofen and narcotic pain medications. Patient is able to move extremities while in bed. 09/21/2021 Patient was admitted to hospital due to new onset paroxysmal atrial fibrillation. Currently converted to sinus rhythm. Patient is being continued on heparin drip and cardiology is on board. Patient was also seen by neurology due to altered mental status and also oncology for possible chemo/radiation for metastatic lesions. Otherwise patient is more awake alert and oriented 3 today. Pain is controlled with medications. Patient is afebrile. No nausea vomiting or abdominal pain or diarrhea. Tolerating oral diet slowly. No cough or sputum production. Denied any chest pain. September 22: Laying in bed. Awake. He took a shower. Pain control. Did eat some. Patient not been walking for last few days. IV heparin. Radiation oncology consulted. Levaquin being started for UTI September 23: Sitting up in bed. Comfortable. Daughter the bedside. Dr. Cervantes I just spoke with the patient and the daughter. They have some discussion about surgical option. Daughter informs be that until 5 days ago patient is able to walk slowly.on the hospital. And she is only being managed by Tylenol. She really had brought the patient in for confusion. Not for worsening pain. Howe catheter was placed yesterday.. September 24: Patient did walk a few steps with the brace. Pain is rather well- controlled. Will be going for radiation treatment this afternoon. Oral intake fair. September 25: Yesterday walked 30 feet with IV pole. Pain is much better controlled. Getting radiation treatment to the spine today. Had 100% of her breakfast and lunch. Feeling better. September 26: Doing well. Pain much better control. Ambulating. To use a brace. Follow-up with chemotherapy. With Oncology. Discussion and discharge planning more than 35 minutes Consultation: Dr. Blue oncology Dr. Howe from vascular Dr. Sterling with cardiology Dr. Shell with radiation oncology On examination: VITAL SIGNS: 98.3, 81, 16, 160/92, 98% room air GENERAL APPEARANCE: awake, comfortable HEENT: Normal external appearance of nose and ear. Oral cavity normal EYES: Pupils equal. Conjunctiva normal. NECK: JVD not raised. Mass not palpable. RESPIRATORY: Respiratory effort normal. Lungs clear to auscultation. CARDIOVASCULAR: First and second sounds normal. No edema. ABDOMEN: Soft. Liver and spleen not palpable. No tenderness. No mass palpable. Howe catheter PSYCHIATRY: Patient is able to answer simple questions. A bit forgetful. MUSCULAR skeletal: Able to walk. INVESTIGATIONS, reviewed in the clinical context: September 25: Obesity 9.2 hemoglobin 10.8 potassium 4.8 creatinine 0.57 September 24: WBC 7.1 hemoglobin 10.6 LDL 114 MRI of brain with and without contrast [September 22] 2 lesions consistent with meningioma. Cerebral atrophy. Some white matter signal changes. No evidence of intra-axial metastatic disease. Possible sphenoid bone metastatic disease. MR C-spine/T-spine/L-spine with and without [September 22] numerous destructive lesion in the cervical spine and thoracic and lumbar spine. Consistent with metastatic disease. Cervical spine stenosis related to DJD. Posterior disc bulging at multiple levels. Some osteoporotic-type multiple mild compression fracture thoracic spine. Mild pathologic fracture of L2 vertebral body. With the structural lesion. No significant encroachment on the spinal canal. UA: Positive for leukoesterase WBC CT head showed cerebral atrophy. There is evidence for mild chronic small vessel ischemia. No acute abnormality noted. CT lumbar spine showed destructive lesion with expansion slightly into the spinal cord on the right side of the L2 vertebral body. This is consistent with metastatic disease. No significant spinal stenosis. CT angiogram of the chest showed atherosclerotic extensive plaque at the carotid artery bifurcations and approximate 50% stenosis at the origin of the right ICA and 70% stenosis origin left ICA. No significant intracranial angiographic abnormalities. Chest x-ray showed increasing pulmonary interstitial infiltrates compared to last exam. No discrete pulmonary mass. EKG showed atrial fibrillation with rapid ventricular rate. Laboratory showed WBC of 11.5 hemoglobin 11.6, platelets 389 neutrophils 9.8 Sodium 133 potassium 4.1 chloride 98 BUN 29 and creatinine 0.73 and glucose 116, troponin less than 0.012 and liver enzymes not elevated COVID-19 PCR not detected. Assessment and plan: -Altered mental status from metabolic encephalopathy possibly from UTI.: Improved -Paroxysmal atrial fibrillation with rapid regular rate. Currently sinus rhythm. Lopressor 25 mg twice a day -Acute urinary tract infection with cystitis IV Levaquin-changed to Omnicef for 3 more days -Dehydration volume depletion. Improved. IV fluids given . - back pain with mild destructive lesion at the L2 vertebral body. Multiple level of metastatic disease and DJD.. No spinal cord involvement. Received radiation treatments. IV Dilaudid-discontinue. On a heating pad. naproxen 250 mg 2 times a day. Baclofen 5 mg 3 times a day. [place]. Protonic satted. Getting inpatient radiation treatment. -Stage IV Metastatic adenocarcinoma of the lung. Status post biopsy on 07/31/2021 with metastatic of the bone and spine. Recently completed 10 radiation treatments palliation Follow-up with oncology outpatient -Essential Hypertension Lopressor 25 mg twice a day -GERD Increase Protonix to twice a day -Osteopenia -Deafness in the left ear -Moderate protein calorie malnutrition. add ensure -IV heparin monitoring: Discontinued -DO NOT RESUSCITATE -Mild cognitive impairment Disposition: Home with daughter Plan - Discharge Summary Discharge Rx Participant: No New Discharge Prescriptions: New Apixaban [Eliquis] 5 mg PO BID #60 tab dexAMETHasone ORAL [Hexadrol] 4 mg PO DAILY #15 tab Magnesium Oxide [Mag-Ox] 200 mg PO BID #30 tab polyethylene glycoL 3350 [Miralax] 17 gm PO DAILY packet Pantoprazole [Protonix] 40 mg PO AC-BID #60 tab Atorvastatin [Lipitor] 40 mg PO HS #30 tab Metoprolol Tartrate [Lopressor] 25 mg PO BID #60 tab Cefdinir [Omnicef] 300 mg PO BID #6 cap Acetaminophen Tab [Tylenol] 650 mg PO Q6HR PRN tab PRN Reason: Mild Pain Or Fever > 100.5 Naproxen 250 mg PO BID #30 tablet Continue Multivitamins, Thera [Multivitamin (formulary)] 1 tab PO DAILY HYDROcodone/APAP 5-325MG [Mcintyre 5-325] 1 tab PO Q6HR PRN 3 Days #12 tab PRN Reason: Pain Changed Baclofen 5 mg PO TID #15 tab Discontinued Lisinopril-Hctz 20-25 mg [Zestoretic 20-25] 2 tab PO DAILY Acetaminophen Tab [Tylenol] 325 mg PO Q4H PRN PRN Reason: Pain Or Fever > 100.5 Acetaminophen-Codeine 300-30mg [Tylenol w/codeine #3] 1 tab PO Q8H PRN PRN Reason: Pain No Action Prolia (Unknown Dose) 1 injection SQ Q180D Discharge Medication List Multivitamins, Thera [Multivitamin (formulary)] 1 tab PO DAILY 06/01/17 [History] Prolia (Unknown Dose) 1 injection SQ Q180D 03/23/19 [History] Acetaminophen Tab [Tylenol] 650 mg PO Q6HR PRN tab 09/26/21 [Rx] Apixaban [Eliquis] 5 mg PO BID #60 tab 09/26/21 [Rx] Atorvastatin [Lipitor] 40 mg PO HS #30 tab 09/26/21 [Rx] Baclofen 5 mg PO TID #15 tab 09/26/21 [Rx] Cefdinir [Omnicef] 300 mg PO BID #6 cap 09/26/21 [Rx] HYDROcodone/APAP 5-325MG [Mcintyre 5-325] 1 tab PO Q6HR PRN 3 Days #12 tab 09/26/21 [Rx] Magnesium Oxide [Mag-Ox] 200 mg PO BID #30 tab 09/26/21 [Rx] Metoprolol Tartrate [Lopressor] 25 mg PO BID #60 tab 09/26/21 [Rx] Naproxen 250 mg PO BID #30 tablet 09/26/21 [Rx] Pantoprazole [Protonix] 40 mg PO AC-BID #60 tab 09/26/21 [Rx] dexAMETHasone ORAL [Hexadrol] 4 mg PO DAILY #15 tab 09/26/21 [Rx] polyethylene glycoL 3350 [Miralax] 17 gm PO DAILY packet 09/26/21 [Rx] Follow up Appointment(s)/Referral(s): Chaitanya Blue MD [STAFF PHYSICIAN] - 10/21/21 3:30 pm (Office will call you after speaking with Faina Worthy NP to see if you need to be seen any sooner. ) David Staton DO [Primary Care Provider] - 09/29/21 10:20 am Ashleigh Howe DO [STAFF PHYSICIAN] - 4 Weeks (Please call to make follow up appt.) Frank Shell MD [STAFF PHYSICIAN] - 10/24/21 11:30 am (Given discharge instructions from Radiation Oncology) Patient Instructions/Handouts: A-fib (Atrial Fibrillation) (ED), Urinary Tract Infection in Women (ED), Vertebral Compression Fracture (ED), Safe Use of Anticoagulants (ED), Blood Thinners (ED), Urinary Tract Infection in Older Adults (GEN)
== END 2021-09-26 16:08 | disposition home or self-care (01) | DRG 308 ==
LOC: EC 13:18 → 3SCARD 16:48
PROVIDERS: ADMIT Hospitalist; ATTEND Hospitalist
PROC: D00 Radiation Therapy, Central and Peripheral Nervous System, Beam Radiation (ICD-10-PCS; 2021-09-24)
PROC: D0062ZZ Beam Radiation of Spinal Cord using Photons >10 MeV (ICD-10-PCS; principal; 2021-09-25)
DX: I48.0 Paroxysmal atrial fibrillation (principal); G93.41 Metabolic encephalopathy; C34.12 Malignant neoplasm of upper lobe, left bronchus or lung; C77.1 Secondary and unspecified malignant neoplasm of intrathoracic lymph nodes; C79.31 Secondary malignant neoplasm of brain; C79.51 Secondary malignant neoplasm of bone; C79.71 Secondary malignant neoplasm of right adrenal gland; E44.0 Moderate protein-calorie malnutrition; G95.29 Other cord compression; Z20.822 Contact with and (suspected) exposure to COVID-19; M84.58XA Pathological fracture in neoplastic disease, other specified site, initial encounter for fracture; R47.01 Aphasia; D68.59 Other primary thrombophilia; M85.80 Other specified disorders of bone density and structure, unspecified site; H91.92 Unspecified hearing loss, left ear; E78.5 Hyperlipidemia, unspecified; E86.0 Dehydration; G31.84 Mild cognitive impairment of uncertain or unknown etiology; G31.9 Degenerative disease of nervous system, unspecified; I08.1 Rheumatic disorders of both mitral and tricuspid valves; I10 Essential (primary) hypertension; I65.23 Occlusion and stenosis of bilateral carotid arteries; K21.9 Gastro-esophageal reflux disease without esophagitis; M43.16 Spondylolisthesis, lumbar region; Z85.3 Personal history of malignant neoplasm of breast; Z92.21 Personal history of antineoplastic chemotherapy; Z90.49 Acquired absence of other specified parts of digestive tract; Z87.891 Personal history of nicotine dependence; Z92.3 Personal history of irradiation; Z83.3 Family history of diabetes mellitus
CPT/HCPCS: 36415; 70450; 70496; 70498; 70553; 71045; 72100; 72132; 72156; 72157; 72158; 77412; 80048; 80053; 80061; 81001; 82306; 82607; 82746; 83735; 84425; 84439; 84443; 84484; 85025; 85610; 85730; 87040; 87086; 87635; 93005; 93306; 93880; 96365; 96366; 96375; 99291

== ENCOUNTER 2021-10-15 11:07 | Inpatient (IN) | payer MEDICARE ==
[2021-10-15] MEDS ORDERED: HYDROmorphone 0.5 MG/0.5 ML SYRINGE IVP STA ×2 (12:02→16:25)
[2021-10-15] MEDS ORDERED: SODIUM CHLORIDE 0.9% 1,000 ML IV STA (12:02)
[2021-10-15] MEDS ORDERED: DILTIAZEM DRIP BOLUS FROM BAG 1 MG SOLN IV ONE (12:02)
--- NOTE | 2021-10-15 12:09 | ED ---
General Adult HPI - General Chief complaint: Nausea/Vomiting/Diarrhea Stated complaint: vomiting, ca pt Time Seen by Provider: 10/15/21 11:25 Source: patient, family, RN notes reviewed, old records reviewed Mode of arrival: wheelchair Limitations: no limitations - History of Present Illness Initial comments: This is a 80-year-old female who presents emergency Department with a past medical history significant for lung cancer as well as cancer of the spine. Patient states she has multiple fractures of her spine. Patient states she had radiation initially last week Wednesday was her first chemotherapy. Patient states she felt fine until a few days ago when she started having nausea vomiting diarrhea. Patient states she's been unable to take any of her metoprolol or eliquis for her A. fib because she is so nauseated. Patient states today she felt weaker and couldn't stop vomiting so she came to the emergency department. Patient states she was initially diagnosed with A. fib about 4-5 weeks ago. Patient denies any fever chills or cough. Patient denies any abdominal pain. Patient denies lightheadedness or dizziness. Patient denies any chest pain or shortness of breath. - Related Data Home Medications Medication Instructions Recorded Confirmed Multivitamins, Thera [Multivitamin 1 tab PO DAILY 06/01/17 10/15/21 (formulary)] Prolia (Unknown Dose) 1 injection SQ Q180D 03/23/19 10/15/21 HYDROcodone/APAP 10-325MG [Errol 1 - 2 tab PO Q4HR PRN 10/15/21 10/15/21 10-325] OLANZapine [ZyPREXA] 5 mg PO HS 10/15/21 10/15/21 Ondansetron Odt [Zofran Odt] 4 mg PO Q6H PRN 10/15/21 10/15/21 Previous Rx's Medication Instructions Recorded Acetaminophen Tab [Tylenol] 650 mg PO Q6HR PRN tab 09/26/21 Apixaban [Eliquis] 5 mg PO BID #60 tab 09/26/21 Atorvastatin [Lipitor] 40 mg PO HS #30 tab 09/26/21 Baclofen 5 mg PO TID #15 tab 09/26/21 Magnesium Oxide [Mag-Ox] 200 mg PO BID #30 tab 09/26/21 Metoprolol Tartrate [Lopressor] 25 mg PO BID #60 tab 09/26/21 Naproxen 250 mg PO BID #30 tablet 09/26/21 Pantoprazole [Protonix] 40 mg PO AC-BID #60 tab 09/26/21 polyethylene glycoL 3350 [Miralax] 17 gm PO DAILY packet 09/26/21 Allergies Allergy/AdvReac Type Severity Reaction Status Date / Time Sulfa (Sulfonamide Allergy Nausea Verified 10/15/21 13:44 Antibiotics) cephalexin AdvReac Vomiting Verified 10/15/21 13:44 prednisone AdvReac Rash/Hives Verified 10/15/21 13:44 Review of Systems ROS Statement: Those systems with pertinent positive or pertinent negative responses have been documented in the HPI. ROS Other: All systems not noted in ROS Statement are negative. Past Medical History Past Medical History: Cancer, GERD/Reflux, Hyperlipidemia, Hypertension Additional Past Medical History / Comment(s): BREAST CA X2, 1993 & 2016.Lung and spine cancer. OSTEOPENIA. deaf in left ear History of Any Multi-Drug Resistant Organisms: None Reported Past Surgical History: Appendectomy, Breast Surgery, Section, Orthopedic Surgery Additional Past Surgical History / Comment(s): left lung lobectomy 1973, ear sx x6; most recent 2004; Left ankle sx (pins/screw implanted and later removed); LT BREAST LUMPECTOMY 1993; 05/2017 RT LUMPECTOMY W/ LYMPH NODE EXC. COLONOSCOPY.ear operation x6 Past Anesthesia/Blood Transfusion Reactions: No Reported Reaction Additional Past Anesthesia/Blood Transfusion Reaction / Comment(s): nause a/vomiting W/ appendectomy at age 15, "ether" was used for anesthesia Past Psychological History: No Psychological Hx Reported Smoking Status: Former smoker Past Alcohol Use History: None Reported Past Drug Use History: None Reported - Past Family History Mother Family Medical History: Diabetes Mellitus, Hypertension Father Family Medical History: Cancer, Coronary Artery Disease (CAD) Additional Family Medical History / Comment(s): POSS PROSTATE CA. CEREBRAL HEMORRHAGE. General Exam - General Exam Comments Initial Comments: GENERAL: Patient is well-developed and well-nourished. Patient is nontoxic and well-hydr ated and is in mild distress. ENT: Neck is soft and supple. No significant lymphadenopathy is noted. Oropharynx is clear. Dry mucous membranes. Neck has full range of motion without eliciting any pain. EYES: The sclera were anicteric and conjunctiva were pink and moist. Extraocular movements were intact and pupils were equal round and reactive to light. Eyelids were unremarkable. PULMONARY: Unlabored respirations. Good breath sounds bilaterally. No audible rales rhonchi or wheezing was noted. CARDIOVASCULAR: Patient has an irregular tachycardic rhythm ABDOMEN: Soft and nontender with normal bowel sounds. SKIN: Skin is clear with no lesions or rashes and otherwise unremarkable. NEUROLOGIC: Patient is alert and oriented x3. Cranial nerves II through XII are grossly intact. Motor and sensory are also intact. Normal speech, volume and content. Symmetrical smile. MUSCULOSKELETAL: Normal extremities with adequate strength and full range of motion. LYMPHATICS: No significant lymphadenopathy is noted PSYCHIATRIC: Normal psychiatric evaluation. Limitations: no limitations Course Vital Signs 10/15/21 10/15/21 11:24 12:25 Temperature 97.9 F Pulse Rate 60 138 H Respiratory 115 H 18 Rate Blood Pressure 79/53 103/92 O2 Sat by Pulse 97 98 Oximetry Medical Decision Making - Medical Decision Making EKG shows atrial fibrillation with rapid ventricular response at 128 bpm QRS is 82 QT interval is 298 QTC is 435 patient's EKG shows no ST segment elevation or depression. Patient was placed heart is in after she was given a Cardizem bolus. Patient was started back up on her eliquis. I spoke with Dr. Saez agreed to admit the patient admitted the patient I consult cardiology. - Lab Data Result diagrams: 10/15/21 12:10/15/21 12: Lab Results 10/15/21 10/15/21 10/15/21 Range/Units 12:21 12:21 12:21 WBC 5.2 (3.8-10.6) k/uL RBC 3.46 L (3.80-5.40) m/uL Hgb 10.0 L (11.4-16.0) gm/dL Hct 30.1 L (34.0-46.0) % MCV 87.0 (80.0-100.0) fL MCH 28.9 (25.0-35.0) pg MCHC 33.3 (31.0-37.0) g/dL RDW 15.7 H (11.5-15.5) % Plt Count 258 (150-450) k/uL MPV 9.9 Neutrophils % 84 % Lymphocytes % 7 % Monocytes % 6 % Eosinophils % 1 % Basophils % 0 % Neutrophils # 4.4 (1.3-7.7) k/uL Lymphocytes # 0.4 L (1.0-4.8) k/uL Monocytes # 0.3 (0-1.0) k/uL Eosinophils # 0.1 (0-0.7) k/uL Basophils # 0.0 (0-0.2) k/uL Sodium 135 L (137-145) mmol/L Potassium 4.0 (3.5-5.1) mmol/L Chloride 102 (98-107) mmol/L Carbon Dioxide 22 (22-30) mmol/L Anion Gap 11 mmol/L BUN 23 H (7-17) mg/dL Creatinine 0.69 (0.52-1.04) mg/dL Est GFR (CKD-EPI)AfAm >90 (>60 ml/min/1.73 sqM) Est GFR (CKD-EPI)NonAf 84 (>60 ml/min/1.73 sqM) Glucose 120 H (74-99) mg/dL Calcium 9.4 (8.4-10.2) mg/dL Magnesium 1.5 L (1.6-2.3) mg/dL Total Bilirubin 0.4 (0.2-1.3) mg/dL AST 26 (14-36) U/L ALT 28 (4-34) U/L Alkaline Phosphatase 105 (38-126) U/L Troponin I 0.083 H* (0.000-0.034) ng/mL Total Protein 6.0 L (6.3-8.2) g/dL Albumin 3.3 L (3.5-5.0) g/dL Disposition Clinical Impression: Atrial fibrillation with rapid ventricular response, Nausea vomiting and diarrhea Disposition: ADMITTED IP TO THIS HOSP Referrals: David Staton DO [Primary Care Provider] - 1-2 days Time of Disposition: 14:45
--- NOTE | 2021-10-15 12:48 | XR ---
EXAMINATION TYPE: XR chest 2V DATE OF EXAM: 10/15/2021 COMPARISON: 09/21/2021 TECHNIQUE: PA and lateral views submitted. HISTORY: Dysrhythmia FINDINGS: Curvature of the spine with atherosclerotic change aorta. Heart size is normal. There is surgical cli ps overlying the right lower right chest. Sclerotic density overlying the left lateral rib cage. Vagu e linear changes in the left upper lobe are again noted. Coarsened interstitium and findings suggesti ve of COPD. Hypertrophic and degenerative change of the spine. Compression deformity seen at the thor acolumbar junction. IMPRESSION: 1. COPD. Density in the left upper lobe likely correlates with the abnormal mass seen by previous PET scan.
[2021-10-15] MEDS: DILTIAZEM 125 MG in SODIUM CHLORIDE 0.9% 100 ML IV SCH (12:51)
[2021-10-15 12:52] LABS: Basophils % (A) 0 %; Eosinophils # (A) 0.1 k/uL (0-0.7); Eosinophils % (A) 1 %; HCT 30.1 % (34.0-46.0); Lymphocytes # (A) 0.4 k/uL (1.0-4.8); Lymphocytes % (A) 7 %; MCH 28.9 pg (25.0-35.0); MCHC 33.3 g/dL (31.0-37.0); Mean Platelet Volume 9.9; Monocytes # (A) 0.3 k/uL (0-1.0); Monocytes % (A) 6 %; Neutrophils # (A) 4.4 k/uL (1.3-7.7); Neutrophils % (A) 84 %; Platelet Count 258 k/uL (150-450); RBC 3.46 m/uL (3.80-5.40); RDW 15.7 % (11.5-15.5); WBC 5.2 k/uL (3.8-10.6)
[2021-10-15 13:07] LABS: ALT 28 U/L (4-34); AST 26 U/L (14-36); African American GFR (CKD) >90 (>60 ml/min/1.73 sqM); Albumin 3.3 g/dL (3.5-5.0); Alkaline Phosphatase 105 U/L (38-126); Anion Gap 11 mmol/L; Blood Urea Nitrogen 23 mg/dL (7-17); Calcium 9.4 mg/dL (8.4-10.2); Carbon Dioxide 22 mmol/L (22-30); Chloride 102 mmol/L (98-107); Glucose 120 mg/dL (74-99); Magnesium 1.5 mg/dL (1.6-2.3); Non-African American GFR(CKD) 84 (>60 ml/min/1.73 sqM); Sodium 135 mmol/L (137-145); Total Bilirubin 0.4 mg/dL (0.2-1.3)
[2021-10-15] MEDS ORDERED: NITROGLYCERIN SL TABS 0.4 MG TAB SUBLINGUAL PRN (14:46)
[2021-10-15] MEDS: SODIUM CHLORIDE 0.9% 1,000 ML IV SCH (16:22)
[2021-10-15 17:28] LABS: Prothrombin Time 10.4 sec (9.0-12.0)
[2021-10-15 17:32] LABS: Partial Thromboplastin Time 19.7 sec (22.0-30.0)
[2021-10-15] MEDS ORDERED: ACETAMINOPHEN TAB 325 MG TAB PO PRN (19:57)
[2021-10-15] MEDS ORDERED: ONDANSETRON ODT 4 MG TAB PO PRN (19:57)
[2021-10-15] MEDS ORDERED: HYDROcodone/APAP 10-325MG 1 EACH TAB PO PRN (20:02)
[2021-10-15] MEDS ORDERED: ONDANSETRON 4 MG/2 ML VIAL IVP PRN (20:03)
[2021-10-15] MEDS: NAPROXEN 250 MG TAB PO SCH (20:27)
[2021-10-15] MEDS: APIXABAN 5 MG TAB PO SCH (20:28)
[2021-10-15] MEDS: METOPROLOL TARTRATE 25 MG TAB PO SCH (20:28)
[2021-10-15] MEDS: ATORVASTATIN 40 MG TAB PO SCH (20:28)
--- NOTE | 2021-10-15 21:25 | P.HPIM ---
History of Present Illness H&P Date: 10/15/21 Chief Complaint: Nausea vomiting diarrhea 80-year-old female, follows with Dr. Staton. 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 Also has history of metastatic lesions in the brain. Patient has received radiation treatment to the lower spine. Patient received the first dose of chemotherapy about 8 days ago. Patient now presents with nausea vomiting diarrhea for the last 2 days. Last episode was this morning. No fever no chills. Slight abdominal discomfort. Patient also found to have atrial fibrillation with a rate of 128 in the ER. Put on a Cardizem drip. Review of systems: GEN.: Tired EYES: None HEENT: None NECK: None RESPIRATORY: None CARDIOVASCULAR: Heart racing GASTROINTESTINAL: As above GENITOURINARY: None MUSCULOSKELETAL: Joints and back pain LYMPHATICS: None HEMATOLOGICAL: None PSYCHIATRY: None NEUROLOGICAL: None Past medical history to include: breast cancer diagnosed in 1993 with recurrence in 2017. 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 Social history: Patient smoked for 30 years stopping at age of 44. 2 packs a day. Lives with her daughter On examination: VITAL SIGNS: 97.9, 16, 138, 18, 103/92, 98% on room air GENERAL APPEARANCE: BMI 22.3, awake, laying in bed not in distress HEENT: Normal external appearance of nose and ear. Oral cavity normal EYES: Pupils equal. Conjunctiva normal. NECK: JVD not raised. Mass not palpable. RESPIRATORY: Respiratory effort normal. Lungs clear to auscultation. CARDIOVASCULAR: Heart sounds irregular. No edema. ABDOMEN: Soft. Liver and spleen not palpable. No tenderness. No mass palpable. Howe catheter PSYCHIATRY: Patient is able to answer simple questions. MUSCULAR skeletal: Able to walk. INVESTIGATIONS, reviewed in the clinical context: WBC 5.2 hemoglobin 10 platelets 258 sodium 135 potassium 4 BUN 23, creatinine 0.69 Troponin I 0.083, 0.081, 0.87 Albumin 3.3 Coronavirus [PCR]: Not detected EKG tracing personally reviewed by me-atrial fibrillation rate 128 Chest x-ray film personally reviewed by me-hyperinflation. Abnormal density. Previous studies: MRI of brain with and without contrast September 22 2 lesions consistent with meningioma. Cerebral atrophy. Some white matter signal changes. No evidence of intra-axial metastatic disease. Possible sphenoid bone metastatic disease. MR C-spine/T-spine/L-spine with and without September 22 numerous destructive lesion in the cervical spine and thoracic and lumbar spine. Consistent with metastatic disease. Cervical spine stenosis related to DJD. Posterior disc bulging at multiple levels. Some osteoporotic-type multiple mild compression fracture thoracic spine. Mild pathologic fracture of L2 vertebral body. With the structural lesion. No significant encroachment on the spinal canal. UA: Positive for leukoesterase WBC CT head showed cerebral atrophy. There is evidence for mild chronic small vessel ischemia. No acute abnormality noted. CT lumbar spine showed destructive lesion with expansion slightly into the spinal cord on the right side of the L2 vertebral body. This is consistent with metastatic disease. No significant spinal stenosis. CT angiogram of the chest showed atherosclerotic extensive plaque at the carotid artery bifurcations and approximate 50% stenosis at the origin of the right ICA and 70% stenosis origin left ICA. No significant intracranial angiographic abnormalities. Chest x-ray showed increasing pulmonary interstitial infiltrates compared to last exam. No discrete pulmonary mass. EKG showed atrial fibrillation with rapid ventricular rate. Laboratory showed WBC of 11.5 hemoglobin 11.6, platelets 389 neutrophils 9.8 Sodium 133 potassium 4.1 chloride 98 BUN 29 and creatinine 0.73 and glucose 116, troponin less than 0.012 and liver enzymes not elevated COVID-19 PCR not detected. Assessment and plan: -Altered mental status from metabolic encephalopathy possibly from UTI.: Impr mick -Acute gastroenteritis, self-limiting. Patient's had no further nausea vomiting or diarrhea since this morning. IV fluids. -Paroxysmal atrial fibrillation now presenting with rapid ventricular rate IV Cardizem drip. Lopressor 25 mg twice a day -Troponin leak due to atrial fibrillation hemodynamic mismatch. Doubt acute coronary syndrome. Cardiology consulted. -Dehydration volume depletion. Improved. IV fluids given -Stage IV Metastatic adenocarcinoma of the lung. Status post biopsy on 07/31/2021 with metastatic of the bone and spine. Recently completed 10 radiation treatments palliation. Received 1 dose of chemotherapy 8 days ago Follow-up with oncology -Essential Hypertension Lopressor 25 mg twice a day -GERD Protonix -Osteopenia -Deafness in the left ear -mild protein calorie malnutrition. add ensure -DO NOT RESUSCITATE -Mild cognitive impairment IV Cardizem drip. IV fluids. Consult cardiology. Home medications continue. Care was discussed with the patient. Past Medical History Past Medical History: Atrial Fibrillation, Cancer, GERD/Reflux, Hyperlipidemia, Hypertension Additional Past Medical History / Comment(s): BREAST CA X2, 1993 & 2016.Lung and spine cancer. OSTEOPENIA. deaf in left ear History of Any Multi-Drug Resistant Organisms: None Reported Past Surgical History: Appendectomy, Breast Surgery, Section, Orthope dic Surgery Additional Past Surgical History / Comment(s): left lung lobectomy 1973, ear sx x6; most recent 2004; Left ankle sx (pins/screw implanted and later removed); LT BREAST LUMPECTOMY 1993; 05/2017 RT LUMPECTOMY W/ LYMPH NODE EXC. COLONOSCOPY.ear operation x6 Past Anesthesia/Blood Transfusion Reactions: No Reported Reaction Additional Past Anesthesia/Blood Transfusion Reaction / Comment(s): nausea/vomiting W/ appendectomy at age 15, "ether" was used for anesthesia Past Psychological History: No Psychological Hx Reported Smoking Status: Former smoker Past Alcohol Use History: None Reported Additional Past Alcohol Use History / Comment(s): started smoking regularly at age 14, quit smoking at age 44. Smoked 2 packs/day. Past Drug Use History: None Reported - Past Family History Mother Family Medical History: Diabetes Mellitus, Hypertension Father Family Medical History: Cancer, Coronary Artery Disease (CAD) Additional Family Medical History / Comment(s): POSS PROSTATE CA. CEREBRAL HEMORRHAGE. Medications and Allergies Home Medications Medication Instructions Recorded Confirmed Type Multivitamins, Thera [Multivitamin 1 tab PO DAILY 06/01/17 10/15/21 History (formulary)] Prolia (Unknown Dose) 1 injection SQ Q180D 03/23/19 10/15/21 History Acetaminophen Tab [Tylenol] 650 mg PO Q6HR PRN tab 09/26/21 10/15/21 Rx Apixaban [Eliquis] 5 mg PO BID #60 tab 09/26/21 10/15/21 Rx Atorvastatin [Lipitor] 40 mg PO HS #30 tab 09/26/21 10/15/21 Rx Baclofen 5 mg PO TID #15 tab 09/26/21 10/15/21 Rx Magnesium Oxide [Mag-Ox] 200 mg PO BID #30 tab 09/26/21 10/15/21 Rx Metoprolol Tartrate [Lopressor] 25 mg PO BID #60 tab 09/26/21 10/15/21 Rx Naproxen 250 mg PO BID #30 tablet 09/26/21 10/15/21 Rx Pantoprazole [Protonix] 40 mg PO AC-BID #60 tab 09/26/21 10/15/21 Rx polyethylene glycoL 3350 [Miralax] 17 gm PO DAILY packet 09/26/21 10/15/21 Rx HYDROcodone/APAP 10-325MG [[place] 1 - 2 tab PO Q4HR PRN 10/15/21 10/15/21 History 10-325] OLANZapine [ZyPREXA] 5 mg PO HS 10/15/21 10/15/21 History Ondansetron Odt [Zofran Odt] 4 mg PO Q6H PRN 10/15/21 10/15/21 History Allergies Allergy/AdvReac Type Severity Reaction Status Date / Time Sulfa (Sulfonamide Allergy Nausea Verified 10/15/21 13:44 Antibiotics) cephalexin AdvReac Vomiting Verified 10/15/21 13:44 prednisone AdvReac Rash/Hives Verified 10/15/21 13:44 Physical Exam Vitals: Vital Signs Temp Pulse Pulse Resp BP BP Pulse Ox 10/15/21 20:00 98.4 F 99 18 125/67 98 10/15/21 18:39 97.8 F 46 L 16 136/74 94 L 10/15/21 17:40 90 10/15/21 16:15 113 H 16 117/85 99 10/15/21 12:25 138 H 18 103/92 98 10/15/21 11:24 97.9 F 60 115 H 79/53 97 Intake and Output 10/15/21 10/15/21 10/15/21 06:59 14:59 22:59 Intake Total 7.167 300 Balance 7.167 300 Intake: Intake, IV Titration 7.167 300 Amount Diltiazem 125 mg In 7.167 Sodium Chloride 0.9% 100 ml @ 5 MG/HR 5 mls/hr IV .Q24H [facility] Rx#:[id number] Sodium Chloride 0.9% 1, 300 000 ml @ 75 mls/hr IV . [id number] [facility] Rx#:[id number] Other: Weight 58.967 kg 58.967 kg Results CBC & Chem 7: 10/15/21 12:21 10/15/21 12:21 Labs: Abnormal Lab Results - Last 24 Hours (Table) 10/15/21 10/15/21 10/15/21 Range/Units 12:21 12:21 12:21 RBC 3.46 L (3.80-5.40) m/uL Hgb 10.0 L (11.4-16.0) gm/dL Hct 30.1 L (34.0-46.0) % RDW 15.7 H (11.5-15.5) % Lymphocytes # 0.4 L (1.0-4.8) k/uL APTT (22.0-30.0) sec Sodium 135 L (137-145) mmol/L BUN 23 H (7-17) mg/dL Glucose 120 H (74-99) mg/dL Magnesium 1.5 L (1.6-2.3) mg/dL Troponin I 0.083 H* (0.000-0.034) ng/mL Total Protein 6.0 L (6.3-8.2) g/dL Albumin 3.3 L (3.5-5.0) g/dL 10/15/21 10/15/21 10/15/21 Range/Units 15:54 15:54 17:36 RBC (3.80-5.40) m/uL Hgb (11.4-16.0) gm/dL Hct (34.0-46.0) % RDW (11.5-15.5) % Lymphocytes # (1.0-4.8) k/uL APTT 19.7 L (22.0-30.0) sec Sodium (137-145) mmol/L BUN (7-17) mg/dL Glucose (74-99) mg/dL Magnesium (1.6-2.3) mg/dL Troponin I 0.081 H* 0.087 H* (0.000-0.034) ng/mL Total Protein (6.3-8.2) g/dL Albumin (3.5-5.0) g/dL Thrombosis Risk Factor Assmnt - Choose All That Apply Each Risk Factor Represents 2 Points: Malignancy Each Risk Factor Represents 3 Points: Age 75 years or older Thrombosis Risk Factor Assessment Total Risk Factor Score: 5 Thrombosis Risk Factor Assessment Level: High Risk
[2021-10-15] MEDS: BACLOFEN 10 MG TAB PO SCH (22:00)
[2021-10-15] MEDS: PANTOPRAZOLE 40 MG TABLET PO SCH (22:17)
[2021-10-15] MEDS: OLANZapine 5 MG TAB PO SCH (22:17)
[2021-10-16 04:58] LABS: Amorphous Sediment,Urine Rare /hpf; Appearance,Urine Clear (Clear); Bilirubin,Urine Negative (Negative); Blood,Urine Negative (Negative); Color,Urine Yellow; Glucose,Urine (UA) Negative (Negative); Hyaline Casts,Urine 9 /lpf (0-2); Ketones,Urine 2+ (Negative); Leukocyte Esterase,Urine Moderate (Negative); Mucus,Urine Few /hpf; Nitrite,Urine Negative (Negative); PH, Urine 5.5 (5.0-8.0); Protein,Urine Trace (Negative); RBC,Urine 2 /hpf (0-5); Specific Gravity,Urine 1.025 (1.001-1.035); Squamous Epithelial Cell,Urine <1 /hpf (0-4); Urobilinogen,Urine <2.0 mg/dL (<2.0); WBC,Urine 12 /hpf (0-5)
[2021-10-16] MEDS: SODIUM CHLORIDE 0.9% 1,000 ML IV SCH (06:36)
[2021-10-16] MEDS: PANTOPRAZOLE 40 MG TABLET PO SCH ×2 (06:36→16:00)
[2021-10-16] MEDS: DILTIAZEM 125 MG in SODIUM CHLORIDE 0.9% 100 ML IV SCH (06:37)
[2021-10-16 07:56] LABS: Anisocytosis Slight; Basophils % (A) 0 %; Eosinophils # (A) 0.2 k/uL (0-0.7); Eosinophils % (A) 5 %; HCT 24.9 % (34.0-46.0); HGB 8.3 gm/dL (11.4-16.0); Lymphocytes # (A) 0.5 k/uL (1.0-4.8); Lymphocytes % (A) 13 %; MCH 29.4 pg (25.0-35.0); MCHC 33.2 g/dL (31.0-37.0); MCV 88.7 fL (80.0-100.0); Mean Platelet Volume 9.9; Monocytes # (A) 0.2 k/uL (0-1.0); Monocytes % (A) 5 %; Neutrophils % (A) 75 %; Platelet Count 238 k/uL (150-450); RDW 16.7 % (11.5-15.5)
[2021-10-16 08:00] LABS: ALT 21 U/L (4-34); AST 19 U/L (14-36); African American GFR (CKD) >90 (>60 ml/min/1.73 sqM); Albumin 2.5 g/dL (3.5-5.0); Alkaline Phosphatase 79 U/L (38-126); Anion Gap 6 mmol/L; Blood Urea Nitrogen 18 mg/dL (7-17); Calcium 7.9 mg/dL (8.4-10.2); Carbon Dioxide 20 mmol/L (22-30); Chloride 108 mmol/L (98-107); Glucose 84 mg/dL (74-99); Magnesium 1.5 mg/dL (1.6-2.3); Non-African American GFR(CKD) 88 (>60 ml/min/1.73 sqM); Potassium 3.6 mmol/L (3.5-5.1); Sodium 134 mmol/L (137-145); Total Bilirubin 0.4 mg/dL (0.2-1.3); Total Protein 4.8 g/dL (6.3-8.2)
[2021-10-16] MEDS: MULTIVITAMINS, THERA 1 EACH TAB PO SCH (08:20)
[2021-10-16] MEDS: BACLOFEN 10 MG TAB PO SCH ×3 (08:20→20:42)
[2021-10-16] MEDS: polyethylene glycoL 3350 17 GM POWD.PACK PO SCH (08:20)
[2021-10-16] MEDS: METOPROLOL TARTRATE 25 MG TAB PO SCH ×2 (08:20→20:41)
[2021-10-16] MEDS: APIXABAN 5 MG TAB PO SCH ×2 (08:20→20:42)
[2021-10-16] MEDS: NAPROXEN 250 MG TAB PO SCH ×2 (08:30→20:41)
[2021-10-16] MEDS ORDERED: ASPIRIN 325 MG TAB PO SCH (09:00)
[2021-10-16 11:41] LABS: Chol/HDL Ratio 2.77 Ratio; LDL Cholesterol,Calculated 66.8 mg/dL (0.0-131.0); VLDL Calculation 19.44 mg/dL (5.00-40.00)
--- NOTE | 2021-10-16 12:10 | P.CRDCN ---
History of Present Illness Consult date: 10/16/21 History of present illness: HISTORY OF PRESENT ILLNESS: This is a 80-year-old female with a past medical history significant for breast cancer, metastatic lung cancer with metastases to the brain and back, hypertension, hyperlipidemia, GERD, former nicotine dependence, and recently diagnosed atrial fibrillation. Patient does not follow with a administrative appeals tribunal member but was seen in consultation by Dr. Quinn last month. We have been asked to see the patient in consultation for A. fib with RVR. Patient examined at the bedside. Patient states she received her first round of chemotherapy before . She states over the past 3-4 days she has been nauseated at home and having multiple episodes of vomiting. She has been unable to keep her cardiac medications down. Patient presented to the hospital for further evaluation. Patient was found to be in A. fib with RVR. She was started on IV Cardizem. Patient remains in atrial fibrillation at the time of my examination with a heart rate in the 80s. Patient states her nausea has improved and she has been able to keep down her oral medications. EKG reveals A. fib with RVR Chest xray COPD. Density in the left upper lobe likely correlates with abnormal mass seen by previous PET scan. Laboratory data: WBC 4.0. Hemoglobin 8.3. Platelet count 238. Sodium 134. Potassium 3.6. BUN 18. Creatinine 0.60. Troponin 0.083. 0.081. 0.087. Current home cardiac medications include Eliquis 5 mg twice a day and metoprolol tartrate 25 mg twice a day Most recent echocardiogram obtained in September 2021 revealed ejection fraction 50-55%, moderate mitral regurgitation, and moderate tricuspid regurgitation REVIEW OF SYSTEMS: At the time of my exam: CONSTITUTIONAL: Denies fever or chills. HEENT: Denies blurred vision, vision changes, or eye pain. Denies hemoptysis CARDIOVASCULAR: Denies chest pain. Denies orthopnea. Denies PND. Denies palpitations RESPIRATORY: Denies shortness of breath. GASTROINTESTINAL: Denies abdominal pain. Denies nausea or vomiting. HEMATOLOGIC: Denies bleeding disorders. GENITOURINARY: Denies any blood in urine. SKIN: Denies pruitis. Denies rash. PHYSICAL EXAM: VITAL SIGNS: Reviewed. GENERAL: Well-developed in no acute distress. HEENT: Head is normocephalic. Pupils are equal, round. Sclerae anicteric. Mucous membranes of the mouth are moist. Neck supple. No JVD or thyromegaly LUNGS: Respirations even and unlabored. Lungs essentially clear to auscultation bilaterally. HEART: Irregular rate and rhythm. S1 and S2 heard. ABDOMEN: Soft. Nondistended. Nontender. EXTREMITIES: Normal range of motion. No clubbing or cyanosis. Peripheral pulses intact. No lower extremity edema NEUROLOGIC: Awake and alert. Oriented x 3. ASSESSMENT: Nausea and vomiting Metastatic lung cancer with metastases to brain and spine Paroxysmal atrial fibrillation with RVR Hypertension Hyperlipidemia GERD Former nicotine dependence PLAN: No need to repeat echocardiogram as this was performed last month Continue Eliquis Continue home dose of metoprolol Discontinue IV Cardizem Further recommendations pending patient's course Nurse practitioner note has been reviewed by physician. Signing provider agrees with the documented findings, assessment, and plan of care. Past Medical History Past Medical History: Atrial Fibrillation, Cancer, GERD/Reflux, Hyperlipidemia, Hypertension Additional Past Medical History / Comment(s): BREAST CA X2, 1993 & 2016.Lung and spine cancer. OSTEOPENIA. deaf in left ear History of Any Multi-Drug Resistant Organisms: None Reported Past Surgical History: Appendectomy, Breast Surgery, Section, Orthopedic Surgery Additional Past Surgical History / Comment(s): left lung lobectomy 1973, ear sx x6; most recent 2004; Left ankle sx (pins/screw implanted and later removed); LT BREAST LUMPECTOMY 1993; 05/2017 RT LUMPECTOMY W/ LYMPH NODE EXC. COLONOSCOP Y.ear operation x6 Past Anesthesia/Blood Transfusion Reactions: No Reported Reaction Additional Past Anesthesia/Blood Transfusion Reaction / Comment(s): nausea/vomiting W/ appendectomy at age 15, "ether" was used for anesthesia Past Psychological History: No Psychological Hx Reported Smoking Status: Former smoker Past Alcohol Use History: None Reported Additional Past Alcohol Use History / Comment(s): started smoking regularly at age 14, quit smoking at age 44. Smoked 2 packs/day. Past Drug Use History: None Reported - Past Family History Mother Family Medical History: Diabetes Mellitus, Hypertension Father Family Medical History: Cancer, Coronary Artery Disease (CAD) Additional Family Medical History / Comment(s): POSS PROSTATE CA. CEREBRAL HEMORRHAGE. Medications and Allergies Home Medications Medication Instructions Recorded Confirmed Type Multivitamins, Thera [Multivitamin 1 tab PO DAILY 06/01/17 10/15/21 History (formulary)] Prolia (Unknown Dose) 1 injection SQ Q180D 03/23/19 10/15/21 History Acetaminophen Tab [Tylenol] 650 mg PO Q6HR PRN tab 09/26/21 10/15/21 Rx Apixaban [Eliquis] 5 mg PO BID #60 tab 09/26/21 10/15/21 Rx Atorvastatin [Lipitor] 40 mg PO HS #30 tab 09/26/21 10/15/21 Rx Baclofen 5 mg PO TID #15 tab 09/26/21 10/15/21 Rx Magnesium Oxide [Mag-Ox] 200 mg PO BID #30 tab 09/26/21 10/15/21 Rx Metoprolol Tartrate [Lopressor] 25 mg PO BID #60 tab 09/26/21 10/15/21 Rx Naproxen 250 mg PO BID #30 tablet 09/26/21 10/15/21 Rx Pantoprazole [Protonix] 40 mg PO AC-BID #60 tab 09/26/21 10/15/21 Rx polyethylene glycoL 3350 [Miralax] 17 gm PO DAILY packet 09/26/21 10/15/21 Rx HYDROcodone/APAP 10-325MG [[place] 1 - 2 tab PO Q4HR PRN 10/15/21 10/15/21 History 10-325] OLANZapine [ZyPREXA] 5 mg PO HS 10/15/21 10/15/21 History Ondansetron Odt [Zofran Odt] 4 mg PO Q6H PRN 10/15/21 10/15/21 History Allergies Allergy/AdvReac Type Severity Reaction Status Date / Time Sulfa (Sulfonamide Allergy Nausea Verified 10/15/21 13:44 Antibiotics) cephalexin AdvReac Vomiting Verified 10/15/21 13:44 prednisone AdvReac Rash/Hives Verified 10/15/21 13:44 Physical Exam Vitals: Vital Signs Temp Pulse Pulse Pulse Resp BP BP 10/16/21 08:15 98.5 F 99 16 115/69 10/16/21 04:00 98.1 F 90 17 118/79 10/16/21 01:32 78 18 10/15/21 23:22 98.0 F 72 18 111/72 10/15/21 20:00 98.4 F 99 18 125/67 10/15/21 18:39 97.8 F 46 L 16 136/74 10/15/21 17:40 90 10/15/21 16:15 113 H 16 117/85 10/15/21 12:25 138 H 18 103/92 Pulse Ox 10/16/21 08:15 99 10/16/21 04:00 98 10/16/21 01:32 10/15/21 23:22 99 10/15/21 20:00 98 10/15/21 18:39 94 L 10/15/21 17:40 10/15/21 16:15 99 10/15/21 12:25 98 Intake and Output 10/15/21 10/16/21 10/16/21 22:59 06:59 14:59 Intake Total 300 717.833 686.084 Output Total 300 Balance 300 717.833 386.084 Intake: Intake, IV Titration 300 717.833 26.084 Amount Diltiazem 125 mg In 117.833 26.084 Sodium Chloride 0.9% 100 ml @ 5 MG/HR 5 mls/hr IV .Q24H [facility] Rx#:[id number] Sodium Chloride 0.9% 1, 300 600 000 ml @ 75 mls/hr IV . [id number] [facility] Rx#:[id number] Oral 660 Output: Urine 300 Other: # Voids 1 Weight 58.967 kg 58.3 kg Results 10/16/21 06:51 10/16/21 06:58 Cardiac Enzymes 10/15/21 10/15/21 10/15/21 Range/Units 12:21 12:21 15:54 AST 26 (14-36) U/L Troponin I 0.083 H* 0.081 H* (0.000-0.034) ng/mL 10/15/21 10/16/21 Range/Units 17:36 06:58 AST 19 (14-36) U/L Troponin I 0.087 H* (0.000-0.034) ng/mL Coagulation 10/15/21 Range/Units 15:54 PT 10.4 (9.0-12.0) sec APTT 19.7 L (22.0-30.0) sec Lipids 10/16/21 Range/Units 06:58 Triglycerides 97.20 (0.00-149.00) mg/dL Cholesterol 135.00 (0.00-200.00) mg/dL HDL Cholesterol 48.80 (40.00-60.00) mg/dL Cholesterol/HDL Ratio 2.77 Ratio CBC 10/15/21 10/16/21 Range/Units 12:21 06:51 WBC 5.2 4.0 (3.8-10.6) k/uL RBC 3.46 L 2.80 L (3.80-5.40) m/uL Hgb 10.0 L 8.3 L D (11.4-16.0) gm/dL Hct 30.1 L 24.9 L (34.0-46.0) % Plt Count 258 238 (150-450) k/uL Comprehensive Metabolic Panel 10/15/21 10/16/21 Range/Units 12:21 06:58 Sodium 135 L 134 L (137-145) mmol/L Potassium 4.0 3.6 (3.5-5.1) mmol/L Chloride 102 108 H (98-107) mmol/L Carbon Dioxide 22 20 L (22-30) mmol/L BUN 23 H 18 H (7-17) mg/dL Creatinine 0.69 0.60 (0.52-1.04) mg/dL Glucose 120 H 84 (74-99) mg/dL Calcium 9.4 7.9 L (8.4-10.2) mg/dL AST 26 19 (14-36) U/L ALT 28 21 (4-34) U/L Alkaline Phosphatase 105 79 (38-126) U/L Total Protein 6.0 L 4.8 L (6.3-8.2) g/dL Albumin 3.3 L 2.5 L (3.5-5.0) g/dL Current Medications Generic Name Dose Route Start Last Admin Trade Name Freq PRN Reason Stop Dose Admin Acetaminophen 650 mg 10/15/21 19:57 Acetaminophen Tab 325 Mg Tab PO Q6HR PRN Mild Pain or Fever > 100.5 Hydrocodone Bitart/Acetaminophen 1 each 10/15/21 20:02 Hydrocodone/Apap 10-325mg 1 Each Tab PO Q4HR PRN MODERATE Pain Apixaban 5 mg 10/15/21 21:00 10/16/21 08:20 Apixaban 5 Mg Tab PO 5 mg BID [facility] Administration Protocol Atorvastatin Calcium 40 mg 10/15/21 21:00 10/15/21 20:28 Atorvastatin 40 Mg Tab PO 40 mg HS [facility] Administration Baclofen 5 mg 10/15/21 22:00 10/16/21 08:20 Baclofen 10 Mg Tab PO 5 mg TID [facility] Administration Sodium Chloride 1,000 mls @ 75 mls/hr 10/15/21 15:00 10/16/21 06:36 Saline 0.9% IV 75 mls/hr .[id number] [facility] Administration Metoprolol Tartrate 25 mg 10/15/21 21:00 10/16/21 08:20 Metoprolol Tartrate 25 Mg Tab PO 25 mg BID [facility] Administration Multivitamins 1 each 10/16/21 09:00 10/16/21 08:20 Multivitamins, Thera 1 Each Tab PO 1 each DAILY [facility] Administration Naproxen 250 mg 10/15/21 21:00 10/16/21 08:30 Naproxen 250 Mg Tab PO Not Given BID [facility] Nitroglycerin 0.4 mg 10/15/21 14:46 Nitroglycerin Sl Tabs 0.4 Mg Tab SUBLINGUAL Q5M PRN Chest Pain Olanzapine 5 mg 10/15/21 21:00 10/15/21 22:17 Olanzapine 5 Mg Tab PO 5 mg HS [facility] Administration Ondansetron HCl 4 mg 10/15/21 19:57 Ondansetron Odt 4 Mg Tab PO Q6H PRN Nausea WHEN PO ROUTE Ondansetron HCl 4 mg 10/15/21 20:03 Ondansetron 4 Mg/2 Ml Vial IVP Q6HR PRN Nausea And Vomiting Pantoprazole Sodium 40 mg 10/15/21 20:00 10/16/21 06:36 Pantoprazole 40 Mg Tablet PO 40 mg AC-BID [facility] Administration Polyethylene Glycol 17 gm 10/16/21 09:00 10/16/21 08:20 Polyethylene Glycol 3350 17 Gm Powd.Pack PO 17 gm DAILY [facility] Administration Intake and Output 10/15/21 10/16/21 10/16/21 22:59 06:59 14:59 Intake Total 300 717.833 686.084 Output Total 300 Balance 300 717.833 386.084 Intake: Intake, IV Titration 300 717.833 26.084 Amount Diltiazem 125 mg In 117.833 26.084 Sodium Chloride 0.9% 100 ml @ 5 MG/HR 5 mls/hr IV .Q24H [facility] Rx#:[id number] Sodium Chloride 0.9% 1, 300 600 000 ml @ 75 mls/hr IV . [id number] [facility] Rx#:[id number] Oral 660 Output: Urine 300 Other: # Voids 1 Weight 58.967 kg 58.3 kg 10/16/21 06:51 10/16/21 06:58
[2021-10-16 13:29] LABS: Reticulocyte % 0.8 % (0.5-2.0)
[2021-10-16 14:12] LABS: LDH 418 U/L (313-618)
--- NOTE | 2021-10-16 17:13 | P.PN ---
Progress Note - Text Progress Note Date: 10/16/21 Chief Complaint: Nausea vomiting diarrhea 80-year-old female, follows with Dr. Staton. 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 Also has history of metastatic lesions in the brain. Patient has received radiation treatment to the lower spine. Patient received the first dose of chemotherapy about 8 days ago. Patient now presents with nausea vomiting diarrhea for the last 2 days. Last episode was this morning. No fever no chills. Slight abdominal discomfort. Patient also found to have atrial fibrillation with a rate of 128 in the ER. Put on a Cardizem drip. October 16: Patient doing much better. No nausea vomiting diarrhea. Heart rate better controlled. On IV fluids. Lopressor 25 mg twice a day. A. fib controlled with a rate in the 80s. IV Cardizem discontinued. Increase activity. Review of systems: Was done for constitutional, cardiovascular, GI, pulmonary. relevant finding as above Active Medications Acetaminophen (Acetaminophen Tab 325 Mg Tab) 650 mg PO Q6HR PRN PRN Reason: Mild Pain or Fever > 100.5 Hydrocodone Bitart/Acetaminophen (Hydrocodone/Apap 10-325mg 1 Each Tab) 1 each PO Q4HR PRN PRN Reason: MODERATE Pain Apixaban (Apixaban 5 Mg Tab) 5 mg PO BID [facility]; Protocol Last Admin: 10/16/21 08:20 Dose: 5 mg Documented by: Atorvastatin Calcium (Atorvastatin 40 Mg Tab) 40 mg PO HS [facility] Last Admin: 10/15/21 20:28 Dose: 40 mg Documented by: Baclofen (Baclofen 10 Mg Tab) 5 mg PO TID [facility] Last Admin: 10/16/21 16:00 Dose: 5 mg Documented by: Sodium Chloride (Saline 0.9%) 1,000 mls @ 75 mls/hr IV .[id number] [facility] Last Admin: 10/16/21 06:36 Dose: 75 mls/hr Documented by: Metoprolol Tartrate (Metoprolol Tartrate 25 Mg Tab) 25 mg PO BID [facility] Last Admin: 10/16/21 08:20 Dose: 25 mg Documented by: Multivitamins (Multivitamins, Thera 1 Each Tab) 1 each PO DAILY [facility] Last Admin: 10/16/21 08:20 Dose: 1 each Documented by: Naproxen (Naproxen 250 Mg Tab) 250 mg PO BID [facility] Last Admin: 10/16/21 08:30 Dose: Not Given Documented by: Nitroglycerin (Nitroglycerin Sl Tabs 0.4 Mg Tab) 0.4 mg SUBLINGUAL Q5M PRN PRN Reason: Chest Pain Olanzapine (Olanzapine 5 Mg Tab) 5 mg PO HS [facility] Last Admin: 10/15/21 22:17 Dose: 5 mg Documented by: Ondansetron HCl (Ondansetron Odt 4 Mg Tab) 4 mg PO Q6H PRN PRN Reason: Nausea WHEN PO ROUTE Ondansetron HCl (Ondansetron 4 Mg/2 Ml Vial) 4 mg IVP Q6HR PRN PRN Reason: Nausea And Vomiting Pantoprazole Sodium (Pantoprazole 40 Mg Tablet) 40 mg PO AC-BID [facility] Last Admin: 10/16/21 16:00 Dose: 40 mg Documented by: Polyethylene Glycol (Polyethylene Glycol 3350 17 Gm Powd.Pack) 17 gm PO DAILY [facility] Last Admin: 10/16/21 08:20 Dose: 17 gm Documented by: Past medical history to include: breast cancer diagnosed in 1993 with recurrence in 2017. 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 Social history: Patient smoked for 30 years stopping at age of 44. 2 packs a day. Lives with her daughter On examination: VITAL SIGNS: 98.1, 79, 18, 119/76, 98% room air GENERAL APPEARANCE: Laying in bed, awake, more comfortable HEENT: Normal external appearance of nose and ear. Oral cavity normal EYES: Pupils equal. Conjunctiva normal. NECK: JVD not raised. Mass not palpable. RESPIRATORY: Respiratory effort normal. Lungs clear to auscultation. CARDIOVASCULAR: Heart sounds irregular. No edema. ABDOMEN: Soft. Liver and spleen not palpable. No tenderness. No mass palpable. Howe catheter PSYCHIATRY: Patient is able to answer simple questions. MUSCULAR skeletal: Able to walk. INVESTIGATIONS, reviewed in the clinical context: October 16: White count 4 hemoglobin 8.3 platelets 238 potassium 3.6 creatinine 0.6 WBC 5.2 hemoglobin 10 platelets 258 sodium 135 potassium 4 BUN 23, creatinine 0 .69 Troponin I 0.083, 0.081, 0.87 Albumin 3.3 Coronavirus [PCR]: Not detected EKG tracing personally reviewed by me-atrial fibrillation rate 128 Chest x-ray film personally reviewed by me-hyperinflation. Abnormal density. Previous studies: MRI of brain with and without contrast September 22 2 lesions consistent with meningioma. Cerebral atrophy. Some white matter signal changes. No evidence of intra-axial metastatic disease. Possible sphenoid bone metastatic disease. MR C-spine/T-spine/L-spine with and without September 22 numerous destructive lesion in the cervical spine and thoracic and lumbar spine. Consistent with metastatic disease. Cervical spine stenosis related to DJD. Posterior disc bulging at multiple levels. Some osteoporotic-type multiple mild compression fracture thoracic spine. Mild pathologic fracture of L2 vertebral body. With the structural lesion. No significant encroachment on the spinal canal. UA: Positive for leukoesterase WBC CT head showed cerebral atrophy. There is evidence for mild chronic small vessel ischemia. No acute abnormality noted. CT lumbar spine showed destructive lesion with expansion slightly into the spinal cord on the right side of the L2 vertebral body. This is consistent with metastatic disease. No significant spinal stenosis. CT angiogram of the chest showed atherosclerotic extensive plaque at the carotid artery bifurcations and approximate 50% stenosis at the origin of the right ICA and 70% stenosis origin left ICA. No significant intracranial angiographic abnormalities. Chest x-ray showed increasing pulmonary interstitial infiltrates compared to last exam. No discrete pulmonary mass. EKG showed atrial fibrillation with rapid ventricular rate. Laboratory showed WBC of 11.5 hemoglobin 11.6, platelets 389 neutrophils 9.8 Sodium 133 potassium 4.1 chloride 98 BUN 29 and creatinine 0.73 and glucose 116, troponin less than 0.012 and liver enzymes not elevated COVID-19 PCR not detected. Assessment and plan: -Altered mental status from metabolic encephalopathy possibly from UTI.: Improved -Acute gastroenteritis, self-limiting. Patient's had no further nausea vomiting or diarrhea : Improved IV fluids DC tonight. Diet has been advanced.. -Paroxysmal atrial fibrillation now presenting with rapid ventricular rate: Better controlled this morning. IV Cardizem drip-discontinued. Lopressor 25 mg twice a day -Troponin leak due to atrial fibrillation hemodynamic mismatch. Doubt acute coronary syndrome. Telemetry. -Dehydration volume depletion. Improved. IV fluids given -Stage IV Metastatic adenocarcinoma of the lung. Status post biopsy on 07/31/2021 with metastatic of the bone and spine. Recently completed 10 radiation treatments palliation. Received 1 dose of chemotherapy 8 days ago Follow-up with oncology -Essential Hypertension Lopressor 25 mg twice a day -GERD Protonix -Osteopenia -Deafness in the left ear -mild protein calorie malnutrition. add ensure -DO NOT RESUSCITATE -Mild cognitive impairment IV Cardizem discontinued. Lopressor 25 mg twice a day. Diet advanced. Activity as tolerated. If remains good DC tomorrow.
[2021-10-16] MEDS: ATORVASTATIN 40 MG TAB PO SCH (20:42)
[2021-10-16] MEDS: OLANZapine 5 MG TAB PO SCH (20:42)
[2021-10-17] MEDS: SODIUM CHLORIDE 0.9% 1,000 ML IV SCH (06:47)
[2021-10-17] MEDS: PANTOPRAZOLE 40 MG TABLET PO SCH ×2 (06:53→17:09)
[2021-10-17] MEDS: MULTIVITAMINS, THERA 1 EACH TAB PO SCH (09:16)
[2021-10-17] MEDS: APIXABAN 5 MG TAB PO SCH ×2 (09:16→21:26)
[2021-10-17] MEDS: polyethylene glycoL 3350 17 GM POWD.PACK PO SCH (09:16)
[2021-10-17] MEDS: METOPROLOL TARTRATE 50 MG TAB PO SCH ×2 (09:16→21:26)
[2021-10-17] MEDS: BACLOFEN 10 MG TAB PO SCH ×3 (09:16→21:26)
--- NOTE | 2021-10-17 10:56 | P.PN ---
Subjective Progress Note Date: 10/17/21 HISTORY OF PRESENT ILLNESS: This is a 80-year-old female with a past medical history significant for breast cancer, metastatic lung cancer with metastases to the brain and back, hype rtension, hyperlipidemia, GERD, former nicotine dependence, and recently diagnosed atrial fibrillation. Patient does not follow with a box brander but was seen in consultation by Dr. Quinn last month. We have been asked to see the patient in consultation for A. fib with RVR. Patient examined at the bedside. Patient states she received her first round of chemotherapy before . She states over the past 3-4 days she has been nauseated at home and having multiple episodes of vomiting. She has been unable to keep her cardiac medications down. Patient presented to the hospital for further evaluation. Patient was found to be in A. fib with RVR. She was started on IV Cardizem. Patient remains in atrial fibrillation at the time of my examination with a heart rate in the 80s. Patient states her nausea has improved and she has been able to keep down her oral medications. EKG reveals A. fib with RVR Chest xray COPD. Density in the left upper lobe likely correlates with abnormal mass seen by previous PET scan. Laboratory data: WBC 4.0. Hemoglobin 8.3. Platelet count 238. Sodium 134. Potassium 3.6. BUN 18. Creatinine 0.60. Troponin 0.083. 0.081. 0.087. Current home cardiac medications include Eliquis 5 mg twice a day and metoprolol tartrate 25 mg twice a day Most recent echocardiogram obtained in September 2021 revealed ejection fraction 50-55%, moderate mitral regurgitation, and moderate tricuspid regurgitation 10/17/2021 Shunt examined this morning at the bedside. Patient denies chest pain or pressure. She denies shortness of breath. She states her nausea and vomiting have resolved and she was able to eat her breakfast this morning. She remains in atrial fibrillation with a heart rate ranging between 90 and 120. She is cur rently on metoprolol 25 mg twice a day. Pressure 161/87. PHYSICAL EXAM: VITAL SIGNS: Reviewed. GENERAL: Well-developed in no acute distress. HEENT: Head is normocephalic. Pupils are equal, round. Sclerae anicteric. Mucous membranes of the mouth are moist. Neck supple. No JVD or thyromegaly LUNGS: Respirations even and unlabored. Lungs essentially clear to auscultation bilaterally. HEART: Tachycardic. Irregular rate and rhythm. S1 and S2 heard. ABDOMEN: Soft. Nondistended. Nontender. EXTREMITIES: Normal range of motion. No clubbing or cyanosis. Peripheral pulses intact. No lower extremity edema NEUROLOGIC: Awake and alert. Oriented x 3. ASSESSMENT: Nausea and vomiting Metastatic lung cancer with metastases to brain and spine Paroxysmal atrial fibrillation with RVR Hypertension Hyperlipidemia GERD Former nicotine dependence PLAN: No need to repeat echocardiogram as this was performed last month Continue Eliquis Increase metoprolol to 50 mg twice a day If patients heart rate is controlled this afternoon she may be discharged home from a cardiac standpoint and follow up in the office with Dr. Quinn Further recommendations pending patient's course Nurse practitioner note has been reviewed by physician. Signing provider agrees with the documented findings, assessment, and plan of care. Objective - Vital Signs Vital signs: Vital Signs Temp 98.4 F 10/17/21 09:10 Pulse 135 H 10/17/21 09:10 Resp 16 10/17/21 09:10 BP 161/87 10/17/21 09:10 Pulse Ox 99 10/17/21 09:10 Intake & Output 10/16/21 10/17/21 10/17/21 18:59 06:59 18:59 Intake Total 1046.084 10 Output Total 600 400 Balance 446.084 -390 Weight 60 kg Intake: IV 10 Invasive Line 1 10 Intake, IV Titration 26.084 Amount Diltiazem 125 mg In 26.084 Sodium Chloride 0.9% 100 ml @ 5 MG/HR 5 mls/hr IV .Q24H [facility] Rx#:[id number] Oral 1020 Output: Urine 600 400 Other: Voiding Method Toilet # Voids 2 - Labs CBC & Chem 7: 10/16/21 06:51 10/16/21 06:58 Labs: Microbiology - Last 24 Hours (Table) 10/16/21 03:15 Urine Culture - Preliminary Urine,Voided Gram Neg Bacilli 10/15/21 17:36 Blood Culture - Preliminary Blood No Growth after 24 hours
[2021-10-17] MEDS: NAPROXEN 250 MG TAB PO SCH ×2 (11:18→21:26)
[2021-10-17 11:23] LABS: % Iron Saturation 23.28 (12.00-45.00); Iron 59 ug/dL (50-170); Total Iron Binding Capacity 253 ug/dL (228-460)
[2021-10-17] MEDS: DILTIAZEM ORAL 30 MG TAB PO SCH ×3 (13:07→22:37)
--- NOTE | 2021-10-17 13:46 | P.PN ---
Progress Note - Text Progress Note Date: 10/17/21 Spoke to who has asked me to place order for Oncology consult.
[2021-10-17 14:18] LABS: Folate, Serum >20.00 ng/mL (4.40-31.00)
--- NOTE | 2021-10-17 14:35 | P.PN ---
Progress Note - Text Progress Note Date: 10/17/21 Chief Complaint: Nausea vomiting diarrhea 80-year-old female, follows with Dr. Staton. 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 Also has history of metastatic lesions in the brain. Patient has received radiation treatment to the lower spine. Patient received the first dose of chemotherapy about 8 days ago. Patient now presents with nausea vomiting diarrhea for the last 2 days. Last episode was this morning. No fever no chills. Slight abdominal discomfort. Patient also found to have atrial fibrillation with a rate of 128 in the ER. Put on a Cardizem drip. October 16: Patient doing much better. No nausea vomiting diarrhea. Heart rate better controlled. On IV fluids. Lopressor 25 mg twice a day. A. fib controlled with a rate in the 80s. IV Cardizem discontinued. Increase activity. October 17: Doing better. Oral intake good. No GI symptoms. Heart rate occasionally going up. Cardizem 30 mg 3 times a day added. Lopressor 50 mg twice a day. Discussed with the patient increase activity. Review of systems: Was done for constitutional, cardiovascular, GI, pulmonary. relevant finding as above Active Medications Acetaminophen (Acetaminophen Tab 325 Mg Tab) 650 mg PO Q6HR PRN PRN Reason: Mild Pain or Fever > 100.5 Hydrocodone Bitart/Acetaminophen (Hydrocodone/Apap 10-325mg 1 Each Tab) 1 each PO Q4HR PRN PRN Reason: MODERATE Pain Apixaban (Apixaban 5 Mg Tab) 5 mg PO BID [facility]; Protocol Last Admin: 10/17/21 09:16 Dose: 5 mg Documented by: Atorvastatin Calcium (Atorvastatin 40 Mg Tab) 40 mg PO HS [facility] Last Admin: 10/16/21 20:42 Dose: 40 mg Documented by: Baclofen (Baclofen 10 Mg Tab) 5 mg PO TID [facility] Last Admin: 10/17/21 09:16 Dose: 5 mg Documented by: Diltiazem HCl (Diltiazem Oral 30 Mg Tab) 30 mg PO TID [facility] Last Admin: 10/17/21 13:07 Dose: 30 mg Documented by: Levofloxacin 750 mg/ IV (Solution) 150 mls @ 100 mls/hr IVPB Q24H [facility] Metoprolol Tartrate (Metoprolol Tartrate 50 Mg Tab) 50 mg PO BID [facility] Last Admin: 10/17/21 09:16 Dose: 50 mg Documented by: Multivitamins (Multivitamins, Thera 1 Each Tab) 1 each PO DAILY [facility] Last Admin: 10/17/21 09:16 Dose: 1 each Documented by: Naproxen (Naproxen 250 Mg Tab) 250 mg PO BID [facility] Last Admin: 10/17/21 11:18 Dose: Not Given Documented by: Nitroglycerin (Nitroglycerin Sl Tabs 0.4 Mg Tab) 0.4 mg SUBLINGUAL Q5M PRN PRN Reason: Chest Pain Olanzapine (Olanzapine 5 Mg Tab) 5 mg PO HS [facility] Last Admin: 10/16/21 20:42 Dose: 5 mg Documented by: Ondansetron HCl (Ondansetron 4 Mg/2 Ml Vial) 4 mg IVP Q6HR PRN PRN Reason: Nausea And Vomiting Pantoprazole Sodium (Pantoprazole 40 Mg Tablet) 40 mg PO AC-BID [facility] Last Admin: 10/17/21 06:53 Dose: 40 mg Documented by: Polyethylene Glycol (Polyethylene Glycol 3350 17 Gm Powd.Pack) 17 gm PO DAILY [facility] Last Admin: 10/17/21 09:16 Dose: 17 gm Documented by: Past medical history to include: breast cancer diagnosed in 1993 with recurrence in 2017. 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 Social history: Patient smoked for 30 years stopping at age of 44. 2 packs a day. Lives with her daughter On examination: VITAL SIGNS: 98.8, 122, 18, 150/74, 98% room air GENERAL APPEARANCE: Reclining in bed, awake, comfortable HEENT: Normal external appearance of nose and ear. Oral cavity normal EYES: Pupils equal. Conjunctiva normal. NECK: JVD not raised. Mass not palpable. RESPIRATORY: Respiratory effort normal. Lungs clear to auscultation. CARDIOVASCULAR: Heart sounds irregular. No edema. ABDOMEN: Soft. Liver and spleen not palpable. No tenderness. No mass palpable. Howe catheter PSYCHIATRY: Answering questions appropriately MUSCULAR skeletal: Able to walk. INVESTIGATIONS, reviewed in the clinical context: October 16: White count 4 hemoglobin 8.3 platelets 238 potassium 3.6 creatinine 0.6 WBC 5.2 hemoglobin 10 platelets 258 sodium 135 potassium 4 BUN 23, creatinine 0.69 Troponin I 0.083, 0.081, 0.87 Albumin 3.3 Coronavirus [PCR]: Not detected EKG tracing personally reviewed by me-atrial fibrillation rate 128 Chest x-ray film personally reviewed by me-hyperinflation. Abnormal density. Previous studies: MRI of brain with and without contrast September 22 2 lesions consistent with meningioma. Cerebral atrophy. Some white matter signal changes. No evidence of intra-axial metastatic disease. Possible sphenoid bone metastatic disease. MR C-spine/T-spine/L-spine with and without September 22 numerous destructive lesion in the cervical spine and thoracic and lumbar spine. Consistent with metastatic disease. Cervical spine stenosis related to DJD. Posterior disc bulging at multiple levels. Some osteoporotic-type multiple mild compression fracture thoracic spine. Mild pathologic fracture of L2 vertebral body. With the structural lesion. No significant encroachment on the spinal canal. UA: Positive for leukoesterase WBC CT head showed cerebral atrophy. There is evidence for mild chronic small vessel ischemia. No acute abnormality noted. CT lumbar spine showed destructive lesion with expansion slightly into the spinal cord on the right side of the L2 vertebral body. This is consistent with metastatic disease. No significant spinal stenosis. CT angiogram of the chest showed atherosclerotic extensive plaque at the carotid artery bifurcations and approximate 50% stenosis at the origin of the right ICA and 70% stenosis origin left ICA. No significant intracranial angiographic abnormalities. Chest x-ray showed increasing pulmonary interstitial infiltrates compared to last exam. No discrete pulmonary mass. EKG showed atrial fibrillation with rapid ventricular rate. Laboratory showed WBC of 11.5 hemoglobin 11.6, platelets 389 neutrophils 9.8 Sodium 133 potassium 4.1 chloride 98 BUN 29 and creatinine 0.73 and glucose 116, troponin less than 0.012 and liver enzymes not elevated COVID-19 PCR not detected. Assessment and plan: -Altered mental status from metabolic encephalopathy possibly from UTI.: Improved -Acute gastroenteritis, self-limiting. Patient's had no further nausea vomiting or diarrhea : Improved IV fluids DC . Diet has been advanced.. -Paroxysmal atrial fibrillation now presenting with rapid ventricular rate: Uncontrolled IV Cardizem drip-discontinued. Increase Lopressor 50 mg twice a day. Cardizem 30 mg 3 times a day -Troponin leak due to atrial fibrillation hemodynamic mismatch. Doubt acute coronary syndrome. Telemetry. -Dehydration volume depletion. Improved. IV fluids given -Stage IV Metastatic adenocarcinoma of the lung. Status post biopsy on 07/31/2021 with metastatic of the bone and spine. Recently completed 10 radiation treatments palliation. Received 1 dose of chemotherapy 8 days ago Follow-up with oncology -Essential Hypertension Lopressor 50 mg twice a day. Cardizem 30 mg 3 times a day -GERD Protonix -Osteopenia -Deafness in the left ear -mild protein calorie malnutrition. add ensure -DO NOT RESUSCITATE -Mild cognitive impairment Lopressor increased to 50 mg twice a day. Cardizem added 30 mg 3 times a day. Overall doing better. Increase activity. Follow with cardiology/oncology.
[2021-10-17] MEDS: LEVOFLOXACIN 750MG-D5W PMX 750 MG in DEXTROSE/WATER 1 150ML.BAG IVPB SCH (15:03)
[2021-10-17 15:22] LABS: Anisocytosis Slight; Basophils % (A) 0 %; Eosinophils # (A) 0.3 k/uL (0-0.7); Eosinophils % (A) 7 %; HCT 25.4 % (34.0-46.0); HGB 8.3 gm/dL (11.4-16.0); Lymphocytes # (A) 0.5 k/uL (1.0-4.8); Lymphocytes % (A) 13 %; MCH 29.4 pg (25.0-35.0); MCHC 32.9 g/dL (31.0-37.0); MCV 89.6 fL (80.0-100.0); Mean Platelet Volume 8.6; Monocytes # (A) 0.4 k/uL (0-1.0); Monocytes % (A) 9 %; Neutrophils # (A) 2.7 k/uL (1.3-7.7); Neutrophils % (A) 68 %; Platelet Count 231 k/uL (150-450); RBC 2.83 m/uL (3.80-5.40); RDW 16.7 % (11.5-15.5)
[2021-10-17 15:31] LABS: Albumin 2.7 g/dL (3.5-5.0); Calcium 8.2 mg/dL (8.4-10.2); Magnesium 1.4 mg/dL (1.6-2.3); Potassium 4.1 mmol/L (3.5-5.1); Total Bilirubin 0.1 mg/dL (0.2-1.3); Total Protein 4.9 g/dL (6.3-8.2)
--- NOTE | 2021-10-17 20:22 | P.CONS ---
<Faina Worthy - Last Filed: 10/17/21 20:15> History of Present Illness - Reason for Consult Consult date: 10/16/21 Metastatic Ling s/p chemo cycle 1 Requesting physician: Garrett Saez - Chief Complaint N/V/D/D - History of Present Illness Inga is a pleasant female well known to us, primary oncologist Dr. Balderas. She has a recent diagnosis metastatic Lung Cancer, status post cycle 1. She did well for first week although then the nausea and vomiting and no po intake resulting in dehydration. On admission Urine culture positive and she has right flank pain. Levaquin initiated. Review of Systems All systems: negative Constitutional: Reports as per HPI Past Medical History Past Medical History: Atrial Fibrillation, Cancer, GERD/Reflux, Hyperlipidemia, Hypertension Additional Past Medical History / Comment(s): BREAST CA X2, 1993 & 2016.Lung and spine cancer. OSTEOPENIA. deaf in left ear History of Any Multi-Drug Resistant Organisms: None Reported Past Surgical History: Appendectomy, Breast Surgery, Section, Ortho pedic Surgery Additional Past Surgical History / Comment(s): left lung lobectomy 1973, ear sx x6; most recent 2004; Left ankle sx (pins/screw implanted and later removed); LT BREAST LUMPECTOMY 1993; 05/2017 RT LUMPECTOMY W/ LYMPH NODE EXC. COLONOSCOPY.ear operation x6 Past Anesthesia/Blood Transfusion Reactions: No Reported Reaction Additional Past Anesthesia/Blood Transfusion Reaction / Comm: nausea/vomiting W/ appendectomy at age 15, "ether" was used for anesthesia Past Psychological History: No Psychological Hx Reported Smoking Status: Former smoker Past Alcohol Use History: None Reported Additional Past Alcohol Use History / Comment(s): started smoking regularly at age 14, quit smoking at age 44. Smoked 2 packs/day. Past Drug Use History: None Reported - Past Family History Mother Family Medical History: Diabetes Mellitus, Hypertension Father Family Medical History: Cancer, Coronary Artery Disease (CAD) Additional Family Medical History / Comment(s): POSS PROSTATE CA. CEREBRAL HEMORRHAGE. Medications and Allergies Home Medications Medication Instructions Recorded Confirmed Type Multivitamins, Thera [Multivitamin 1 tab PO DAILY 06/01/17 10/15/21 History (formulary)] Prolia (Unknown Dose) 1 injection SQ Q180D 03/23/19 10/15/21 History Acetaminophen Tab [Tylenol] 650 mg PO Q6HR PRN tab 09/26/21 10/15/21 Rx Apixaban [Eliquis] 5 mg PO BID #60 tab 09/26/21 10/15/21 Rx Atorvastatin [Lipitor] 40 mg PO HS #30 tab 09/26/21 10/15/21 Rx Baclofen 5 mg PO TID #15 tab 09/26/21 10/15/21 Rx Magnesium Oxide [Mag-Ox] 200 mg PO BID #30 tab 09/26/21 10/15/21 Rx Naproxen 250 mg PO BID #30 tablet 09/26/21 10/15/21 Rx Pantoprazole [Protonix] 40 mg PO AC-BID #60 tab 09/26/21 10/15/21 Rx polyethylene glycoL 3350 [Miralax] 17 gm PO DAILY packet 09/26/21 10/15/21 Rx HYDROcodone/APAP 10-325MG [[place] 1 - 2 tab PO Q4HR PRN 10/15/21 10/15/21 History 10-325] OLANZapine [ZyPREXA] 5 mg PO HS 10/15/21 10/15/21 History Ondansetron Odt [Zofran ODT] 4 mg PO Q6H PRN 10/15/21 10/15/21 History Diltiazem Oral [Cardizem*] 30 mg PO TID #90 tab 10/18/21 Rx Metoprolol Tartrate [Lopressor] 50 mg PO BID #60 tab 10/18/21 Rx Allergies Allergy/AdvReac Type Severity Reaction Status Date / Time Sulfa (Sulfonamide Allergy Nausea Verified 10/15/21 13:44 Antibiotics) cephalexin AdvReac Vomiting Verified 10/15/21 13:44 prednisone AdvReac Rash/Hives Verified 10/15/21 13:44 Physical Exam Vitals: Vital Signs Temp Pulse Pulse Pulse Resp BP BP 10/16/21 08:15 98.5 F 99 16 115/69 10/16/21 04:00 98.1 F 90 17 118/79 10/16/21 01:32 78 18 10/15/21 23:22 98.0 F 72 18 111/72 10/15/21 20:00 98.4 F 99 18 125/67 10/15/21 18:39 97.8 F 46 L 16 136/74 10/15/21 17:40 90 10/15/21 16:15 113 H 16 117/85 10/15/21 12:25 138 H 18 103/92 10/15/21 11:24 97.9 F 60 115 H 79/53 Pulse Ox 10/16/21 08:15 99 10/16/21 04:00 98 10/16/21 01:32 10/15/21 23:22 99 10/15/21 20:00 98 10/15/21 18:39 94 L 10/15/21 17:40 10/15/21 16:15 99 10/15/21 12:25 98 10/15/21 11:24 97 Intake and Output 10/15/21 10/16/21 10/16/21 22:59 06:59 14:59 Intake Total 300 717.833 18.667 Balance 300 717.833 18.667 Intake: Intake, IV Titration 300 717.833 18.667 Amount Diltiazem 125 mg In 117.833 18.667 Sodium Chloride 0.9% 100 ml @ 5 MG/HR 5 mls/hr IV .Q24H [facility] Rx#:[id number] Sodium Chloride 0.9% 1, 300 600 000 ml @ 75 mls/hr IV . [id number] [facility] Rx#:[id number] Other: # Voids 1 Weight 58.967 kg 58.3 kg - Constitutional General appearance: cooperative, no acute distress - EENT Eyes: EOMI ENT: NA/AT - Neck Neck: normal ROM - Respiratory Respiratory: bilateral: CTA - Cardiovascular Rhythm: regularly irregular - Gastrointestinal General gastrointestinal: normal bowel sounds, tenderness - Integumentary Integumentary: pale - Neurologic Neurologic: CNII-XII intact - Musculoskeletal Musculoskeletal: generalized weakness, right sided weakness - Psychiatric Psychiatric: A&O x's 3, appropriate affect Results CBC & Chem 7: 10/17/21 14:31 10/17/21 14:31 Labs: Abnormal Lab Results - Last 24 Hours (Table) 10/15/21 10/15/21 10/15/21 Range/Units 12: 12: 12:21 RBC 3.46 L (3.80-5.40) m/uL Hgb 10.0 L (11.4-16.0) gm/dL Hct 30.1 L (34.0-46.0) % RDW 15.7 H (11.5-15.5) % Lymphocytes # 0.4 L (1.0-4.8) k/uL APTT (22.0-30.0) sec Sodium 135 L (137-145) mmol/L Chloride (98-107) mmol/L Carbon Dioxide (22-30) mmol/L BUN 23 H (7-17) mg/dL Glucose 120 H (74-99) mg/dL Calcium (8.4-10.2) mg/dL Magnesium 1.5 L (1.6-2.3) mg/dL Troponin I 0.083 H* (0.000-0.034) ng/mL Total Protein 6.0 L (6.3-8.2) g/dL Albumin 3.3 L (3.5-5.0) g/dL Urine Protein (Negative) Urine Ketones (Negative) Ur Leukocyte Esterase (Negative) Urine WBC (0-5) /hpf Amorphous Sediment (None) /hpf Hyaline Casts (0-2) /lpf Urine Mucus (None) /hpf 10/15/21 10/15/21 10/15/21 Range/Units 15:54 15:54 17:36 RBC (3.80-5.40) m/uL Hgb (11.4-16.0) gm/dL Hct (34.0-46.0) % RDW (11.5-15.5) % Lymphocytes # (1.0-4.8) k/uL APTT 19.7 L (22.0-30.0) sec Sodium (137-145) mmol/L Chloride (98-107) mmol/L Carbon Dioxide (22-30) mmol/L BUN (7-17) mg/dL Glucose (74-99) mg/dL Calcium (8.4-10.2) mg/dL Magnesium (1.6-2.3) mg/dL Troponin I 0.081 H* 0.087 H* (0.000-0.034) ng/mL Total Protein (6.3-8.2) g/dL Albumin (3.5-5.0) g/dL Urine Protein (Negative) Urine Ketones (Negative) Ur Leukocyte Esterase (Negative) Urine WBC (0-5) /hpf Amorphous Sediment (None) /hpf Hyaline Casts (0-2) /lpf Urine Mucus (None) /hpf 10/16/21 10/16/21 10/16/21 Range/Units 03:15 06:51 06:58 RBC 2.80 L (3.80-5.40) m/uL Hgb 8.3 L D (11.4-16.0) gm/dL Hct 24.9 L (34.0-46.0) % RDW 16.7 H (11.5-15.5) % Lymphocytes # 0.5 L (1.0-4.8) k/uL APTT (22.0-30.0) sec Sodium 134 L (137-145) mmol/L Chloride 108 H (98-107) mmol/L Carbon Dioxide 20 L (22-30) mmol/L BUN 18 H (7-17) mg/dL Glucose (74-99) mg/dL Calcium 7.9 L (8.4-10.2) mg/dL Magnesium 1.5 L (1.6-2.3) mg/dL Troponin I (0.000-0.034) ng/mL Total Protein 4.8 L (6.3-8.2) g/dL Albumin 2.5 L (3.5-5.0) g/dL Urine Protein Trace H (Negative) Urine Ketones 2+ H (Negative) Ur Leukocyte Esterase Moderate H (Negative) Urine WBC 12 H (0-5) /hpf Amorphous Sediment Rare H (None) /hpf Hyaline Casts 9 H (0-2) /lpf Urine Mucus Few H (None) /hpf Assessment and Plan (1) Pyelonephritis Status: Acute Code(s): N12 - TUBULO-INTERSTITIAL NEPHRITIS, NOT SPCF ACUTE OR CHRONIC SNOMED Code(s): 01063095 (2) Lumbar back pain Status: Acute Code(s): M54.50 - LOW BACK PAIN, UNSPECIFIED SNOMED Code(s): 229519281 (3) Metastatic adenocarcinoma to lung Status: Acute Code(s): C78.00 - SECONDARY MALIGNANT NEOPLASM OF UNSPECIFIED LUNG SNOMED Code(s): 7126758222337 (4) New onset a-fib Status: Acute Code(s): I48.91 - UNSPECIFIED ATRIAL FIBRILLATION SNOMED Code(s): 14399777 Plan: COntinue antibiotics will continue on olanzapine for nausea Hydration for dehydration and further assess kidneys with ultrasound Physician Attest: I have completed the full history and ohysical and agree with above dictation dictated as ascribe <Chaitanya Blue - Last Filed: 10/19/21 22:59> History of Present Illness - History of Present Illness As above: Given time of onset of symptoms, it is more likely these are due to UTI rather than chemo effect Results CBC & Chem 7: 10/18/21 10:20 10/18/21 10:20 Labs: Microbiology - Last 24 Hours (Table) 10/15/21 17:36 Blood Culture - Preliminary Blood No Growth after 96 hours 10/17/21 14:31 Blood Culture - Preliminary Blood No Growth after 48 hours
[2021-10-17] MEDS: OLANZapine 5 MG TAB PO SCH (21:26)
[2021-10-17] MEDS: ATORVASTATIN 40 MG TAB PO SCH (21:26)
--- NOTE | 2021-10-17 21:58 | US ---
EXAMINATION TYPE: US kidneys/renal and bladder DATE OF EXAM: 10/17/2021 COMPARISON: NONE CLINICAL HISTORY: Assess for hydro, pain right flank. Patient stated has lung and spine CA and c/o ri ght flank pain; recent UTI EXAM MEASUREMENTS: Right Kidney: 10.0 x 5.1 x 3.9 cm Left Kidney: 10.4 x 5.5 x 4.1 cm Post Void Residual Volume: not assessed on inpatient Right Kidney: No hydronephrosis seen; multiple renal cysts seen with largest seen inferior lateral co rtex = 0.9 x 0.8 x 0.7cm. Left Kidney: superior cortical cyst seen = 1.4 x 1.4 x 1.3cm and inferior cortical cyst also seen = 1 .2 x 1.3 x 1.3cm. Bladder: wnl Bilateral Jets seen: yes IMPRESSION: There are renal cortical cysts. No evidence of a solid renal mass or obstruction. No evidence of a bl adder mass.
--- NOTE | 2021-10-18 00:40 | CT ---
EXAMINATION TYPE: CT angio chest DATE OF EXAM: 10/17/2021 COMPARISON: 08/22/2021 HISTORY: R/O PE, Spine Cancer CT DLP: 218.70 mGycm Automated exposure control for dose reduction was used. CONTRAST: Performed with IV Contrast, patient injected with 60 mL of Isovue 370. Images obtained from the thoracic inlet to the diaphragm with IV contrast. There are 3-D post process ed images. There is patchy irregular pleural thickening on the anterior chest wall bilaterally. There are small bilateral pleural effusions. Heart size is normal. There is no pericardial effusion. Upper abdominal soft tissues are intact. There is normal contrast opacification of the pulmonary arteries. There are no filling defects. There are a few paratracheal lymph nodes up to 1 cm. There are no hilar masses. There is some spurring in the thoracic spine. IMPRESSION: No evidence of pulmonary embolism. Pleural thickening on the anterior chest wall bilaterally. Pleural effusions. This could relate to mesothelioma. Pleural thickening increased slightly compared to 08/22 CT scan.
[2021-10-18] MEDS: PANTOPRAZOLE 40 MG TABLET PO SCH (06:19)
[2021-10-18] MEDS: NAPROXEN 250 MG TAB PO SCH (08:42)
[2021-10-18] MEDS: METOPROLOL TARTRATE 50 MG TAB PO SCH (08:42)
[2021-10-18] MEDS: DILTIAZEM ORAL 30 MG TAB PO SCH ×2 (08:42→14:49)
[2021-10-18] MEDS: polyethylene glycoL 3350 17 GM POWD.PACK PO SCH (08:42)
[2021-10-18] MEDS: MULTIVITAMINS, THERA 1 EACH TAB PO SCH (08:42)
[2021-10-18] MEDS: APIXABAN 5 MG TAB PO SCH (08:42)
[2021-10-18] MEDS: BACLOFEN 10 MG TAB PO SCH ×2 (08:43→15:06)
[2021-10-18 08:46] VITALS: RESP 18
[2021-10-18 10:52] LABS: Anisocytosis Slight; Basophils % (A) 0 %; Eosinophils # (A) 0.2 k/uL (0-0.7); Eosinophils % (A) 5 %; HCT 24.2 % (34.0-46.0); HGB 7.9 gm/dL (11.4-16.0); Lymphocytes # (A) 0.7 k/uL (1.0-4.8); Lymphocytes % (A) 14 %; MCH 29.2 pg (25.0-35.0); MCHC 32.6 g/dL (31.0-37.0); MCV 89.7 fL (80.0-100.0); Mean Platelet Volume 8.9; Monocytes # (A) 0.3 k/uL (0-1.0); Monocytes % (A) 7 %; Neutrophils # (A) 3.5 k/uL (1.3-7.7); Neutrophils % (A) 73 %; Platelet Count 208 k/uL (150-450); RDW 17.1 % (11.5-15.5); WBC 4.8 k/uL (3.8-10.6)
[2021-10-18 11:13] VITALS: BP 115/65; PULSE 62; TEMP 98.4
[2021-10-18 11:29] LABS: ALT 20 U/L (4-34); AST 19 U/L (14-36); African American GFR (CKD) >90 (>60 ml/min/1.73 sqM); Albumin 2.6 g/dL (3.5-5.0); Alkaline Phosphatase 100 U/L (38-126); Anion Gap 6 mmol/L; Blood Urea Nitrogen 13 mg/dL (7-17); Calcium 8.2 mg/dL (8.4-10.2); Carbon Dioxide 24 mmol/L (22-30); Chloride 103 mmol/L (98-107); Glucose 107 mg/dL (74-99); Magnesium 1.4 mg/dL (1.6-2.3); Non-African American GFR(CKD) 86 (>60 ml/min/1.73 sqM); Potassium 3.6 mmol/L (3.5-5.1); Sodium 133 mmol/L (137-145); Total Bilirubin 0.2 mg/dL (0.2-1.3); Total Protein 4.9 g/dL (6.3-8.2)
[2021-10-18] MEDS: LEVOFLOXACIN 750MG-D5W PMX 750 MG in DEXTROSE/WATER 1 150ML.BAG IVPB SCH (13:34)
--- NOTE | 2021-10-18 15:24 | PN ---
PROGRESS NOTE Inga is a 80-year-old lady who is admitted to hospital with atrial fibrillation. She is back in sinus rhythm and is doing well and is free of symptoms. Her heart rate is in the 60s. She is currently on Cardizem 30 t.i.d. and metoprolol 50 b.i.d. On exam, heart rate is 62 beats per minute, blood pressure is 115/65, O2 saturation is 100% on room air. ASSESSMENT: Paroxysmal atrial fibrillation. PLAN: Patient will continue the Eliquis, Lipitor. I told her to hold the Cardizem, continue the Lopressor and to make an appointment with Dr. Lin on Wednesday. MMODL / IJN: [id number] /
--- NOTE | 2021-10-18 16:52 | P.DS ---
Providers Date of admission: 10/15/21 14:48 Expected date of discharge: 10/18/21 Attending physician: Garrett Saez Consults: 10/15/21 14:46 Consult Physician Urgent Consulting Provider: [facility] Consult Reason/Comments: A. fib with rapid ventricular response Do you want consulting provider notified?: Yes 10/17/21 13:45 Consult Physician Routine Consulting Provider: Chaitanya Blue Consult Reason/Comments: On Chemo Do you want consulting provider notified?: Already Contacted Primary care physician: [facility] Course: Chief Complaint: Nausea vomiting diarrhea 80-year-old female, follows with Dr. Staton. 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 Also has history of metastatic lesions in the brain. Patient has received radiation treatment to the lower spine. Patient received the first dose of chemotherapy about 8 days ago. Patient now presents with nausea vomiting diarrhea for the last 2 days. Last episode was this morning. No fever no chills. Slight abdominal discomfort. Patient also found to have atrial fibrillation with a rate of 128 in the ER. Put on a Cardizem drip. October 16: Patient doing much better. No nausea vomiting diarrhea. Heart rate better controlled. On IV fluids. Lopressor 25 mg twice a day. A. fib controlled with a rate in the 80s. IV Cardizem discontinued. Increase activity. October 17: Doing better. Oral intake good. No GI symptoms. Heart rate occasionally going up. Cardizem 30 mg 3 times a day added. Lopressor 50 mg twice a day. Discussed with the patient increase activity. October 18: Patient is sinus rhythm. Doing well. Oral intake good. Keen to go home. Patient has no urinary symptoms. No antibiotics. Discussion and discharge planning more than 35 minutes Consultation: Dr. Wallace Camejo from cardiology Dr. Blue from oncology Past medical history to include: breast cancer diagnosed in 1993 with recurrence in 2017. 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 Social history: Patient smoked for 30 years stopping at age of 44. 2 packs a day. Lives with her daughter On examination: VITAL SIGNS: 98.4, 62, 18, 115/65, and 100% room air GENERAL APPEARANCE: Reclining in bed, awake, comfortable HEENT: Normal external appearance of nose and ear. Oral cavity normal EYES: Pupils equal. Conjunctiva normal. NECK: JVD not raised. Mass not palpable. RESPIRATORY: Respiratory effort normal. Lungs clear to auscultation. CARDIOVASCULAR: Heart sounds irregular. No edema. ABDOMEN: Soft. Liver and spleen not palpable. No tenderness. No mass palpable. Howe catheter PSYCHIATRY: Answering questions appropriately MUSCULAR skeletal: Able to walk. INVESTIGATIONS, reviewed in the clinical context: October 18: White count 4.18 albumin 7.9 potassium 3.6 creatinine 0.64 October 16: White count 4 hemoglobin 8.3 platelets 238 potassium 3.6 creatinine 0.6 WBC 5.2 hemoglobin 10 platelets 258 sodium 135 potassium 4 BUN 23, creatinine 0.69 Troponin I 0.083, 0.081, 0.87 Albumin 3.3 Coronavirus [PCR]: Not detected EKG tracing personally reviewed by me-atrial fibrillation rate 128 Chest x-ray film personally reviewed by me-hyperinflation. Abnormal density. Previous studies: MRI of brain with and without contrast September 22 2 lesions consistent with meningioma. Cerebral atrophy. Some white matter signal changes. No evidence of intra-axial metastatic disease. Possible sphenoid bone metastatic disease. MR C-spine/T-spine/L-spine with and without September 22 numerous destructive lesion in the cervical spine and thoracic and lumbar spine. Consistent with metastatic disease. Cervical spine stenosis related to DJD. Posterior disc bulging at multiple levels. Some osteoporotic-type multiple mild compression fracture thoracic spine. Mild pathologic fracture of L2 vertebral body. With the structural lesion. No significant encroachment on the spinal canal. UA: Positive for leukoesterase WBC CT head showed cerebral atrophy. There is evidence for mild chronic small vessel ischemia. No acute abnormality noted. CT lumbar spine showed destructive lesion with expansion slightly into the spinal cord on the right side of the L2 vertebral body. This is consistent with metastatic disease. No significant spinal stenosis. CT angiogram of the chest showed atherosclerotic extensive plaque at the carotid artery bifurcations and approximate 50% stenosis at the origin of the right ICA and 70% stenosis origin left ICA. No significant intracranial angiographic abnormalities. Chest x-ray showed increasing pulmonary interstitial infiltrates compared to last exam. No discrete pulmonary mass. EKG showed atrial fibrillation with rapid ventricular rate. Laboratory showed WBC of 11.5 hemoglobin 11.6, platelets 389 neutrophils 9.8 Sodium 133 potassium 4.1 chloride 98 BUN 29 and creatinine 0.73 and glucose 116, troponin less than 0.012 and liver enzymes not elevated COVID-19 PCR not detected. Assessment and plan: -Altered mental status from metabolic encephalopathy possibly from UTI.: Improved -Acute gastroenteritis, self-limiting. Patient's had no further nausea vomiting or diarrhea : Improved IV fluids DC . Diet has been advanced.. -Paroxysmal atrial fibrillation now presenting with rapid ventricular rate: Back in sinus rhythm IV Cardizem drip-discontinued. Lopressor 50 mg twice a day. Cardizem 30 mg 3 times a day -Troponin leak due to atrial fibrillation hemodynamic mismatch. Doubt acute coronary syndrome. Telemetry. -Dehydration volume depletion. Improved. IV fluids given -Stage IV Metastatic adenocarcinoma of the lung. Status post biopsy on 07/31/2021 with metastatic of the bone and spine. Recently completed 10 radiation treatments palliation. Received 1 dose of chemotherapy 8 days ago Follow-up with oncology -Essential Hypertension Lopressor 50 mg twice a day. Cardizem 30 mg 3 times a day -GERD Protonix -Osteopenia -Deafness in the left ear -mild protein calorie malnutrition. add ensure -DO NOT RESUSCITATE -Mild cognitive impairment Disposition: Home Plan - Discharge Summary Discharge Rx Participant: No New Discharge Prescriptions: New Diltiazem Oral [Cardizem*] 30 mg PO TID #90 tab Metoprolol Tartrate [Lopressor] 50 mg PO BID #60 tab Continue Multivitamins, Thera [Multivitamin (formulary)] 1 tab PO DAILY Prolia (Unknown Dose) 1 injection SQ Q180D Apixaban [Eliquis] 5 mg PO BID #60 tab Magnesium Oxide [Mag-Ox] 200 mg PO BID #30 tab polyethylene glycoL 3350 [Miralax] 17 gm PO DAILY packet Pantoprazole [Protonix] 40 mg PO AC-BID #60 tab OLANZapine [ZyPREXA] 5 mg PO HS Atorvastatin [Lipitor] 40 mg PO HS #30 tab Acetaminophen Tab [Tylenol] 650 mg PO Q6HR PRN tab PRN Reason: Mild Pain Or Fever > 100.5 Baclofen 5 mg PO TID #15 tab Naproxen 250 mg PO BID #30 tablet HYDROcodone/APAP 10-325MG [[place] 10-325] 1 - 2 tab PO Q4HR PRN PRN Reason: Pain Ondansetron Odt [Zofran ODT] 4 mg PO Q6H PRN PRN Reason: Nausea Discontinued Metoprolol Tartrate [Lopressor] 25 mg PO BID #60 tab Discharge Medication List Multivitamins, Thera [Multivitamin (formulary)] 1 tab PO DAILY 06/01/17 [History] Prolia (Unknown Dose) 1 injection SQ Q180D 03/23/19 [History] Acetaminophen Tab [Tylenol] 650 mg PO Q6HR PRN tab 09/26/21 [Rx] Apixaban [Eliquis] 5 mg PO BID #60 tab 09/26/21 [Rx] Atorvastatin [Lipitor] 40 mg PO HS #30 tab 09/26/21 [Rx] Baclofen 5 mg PO TID #15 tab 09/26/21 [Rx] Magnesium Oxide [Mag-Ox] 200 mg PO BID #30 tab 09/26/21 [Rx] Naproxen 250 mg PO BID #30 tablet 09/26/21 [Rx] Pantoprazole [Protonix] 40 mg PO AC-BID #60 tab 09/26/21 [Rx] polyethylene glycoL 3350 [Miralax] 17 gm PO DAILY packet 09/26/21 [Rx] HYDROcodone/APAP 10-325MG [[place] 10-325] 1 - 2 tab PO Q4HR PRN 10/15/21 [History] OLANZapine [ZyPREXA] 5 mg PO HS 10/15/21 [History] Ondansetron Odt [Zofran ODT] 4 mg PO Q6H PRN 10/15/21 [History] Diltiazem Oral [Cardizem*] 30 mg PO TID #90 tab 10/18/21 [Rx] Metoprolol Tartrate [Lopressor] 50 mg PO BID #60 tab 10/18/21 [Rx] Follow up Appointment(s)/Referral(s): David Staton DO [Primary Care Provider] - 1-2 days (office closed, please call Wednesday for follow-up appointment) Palmer Quinn DO [STAFF PHYSICIAN] - 1 Week (office closed, please call Wednesday for follow-up appointment) [facility], [NON-STAFF] - 1 Week Patient Instructions/Handouts: A-fib (Atrial Fibrillation) (DC) Discharge Disposition: HOME SELF-CARE
--- NOTE | 2021-10-22 08:04 | CDI ---
Documentation Clarification Form Date: 10/22/2021 07:57:45 AM From: Leander Chapa Phone: Admit Date: 10/15/2021 02:48:00 PM Patient Name: Inga Brooke Visit Number: [id number] Discharge Date: 10/18/2021 03:39:00 PM ATTENTION: The Clinical Documentation Specialists (CDI) and [facility] Coding Staff appreciate your assistance in clarifying documentation. Please respond to the clarification below the line at the bottom and electronically sign. The CDI & [facility] Coding staff will review the response and follow-up if needed. Please note: Queries are made part of the Legal Health Record. If you have any questions, please contact the author of this message via ITS. Dr. Garrett Saez The patients principal diagnosis the diagnosis that was chiefly responsible for the admission - has not been clearly identified and clarification is requested. The patient presented with the following: dehydration, UTI and A-fib History/Risk factors: Clinical Indicators: Lab findings: Radiology findings: Vital Signs: Treatment: IV cardizem, IV fluids, IV abx Consults: cardiology In your professional opinion, can you please clarify which diagnosis, after study, was the reason chiefly responsible for the admission? [ ] atrial fibrillation [ ] dehydration [ ] Other, please specify [ ] Unable to determine [ ] UTI [ ] A-fib, dehydration and UTI equally Acute metabolic encephalopathy from UTI and dehydration MTDD
== END 2021-10-18 15:39 | disposition home or self-care (01) | DRG 640 ==
LOC: EC 11:07 → 3SCARD 14:48
PROVIDERS: ADMIT Hospitalist; ATTEND Hospitalist
DX: E86.0 Dehydration (principal); G93.41 Metabolic encephalopathy; N39.0 Urinary tract infection, site not specified; C79.31 Secondary malignant neoplasm of brain; C78.00 Secondary malignant neoplasm of unspecified lung; E44.1 Mild protein-calorie malnutrition; N12 Tubulo-interstitial nephritis, not specified as acute or chronic; K52.9 Noninfective gastroenteritis and colitis, unspecified; E78.5 Hyperlipidemia, unspecified; Z68.22 Body mass index [BMI] 22.0-22.9, adult; G31.84 Mild cognitive impairment of uncertain or unknown etiology; H91.92 Unspecified hearing loss, left ear; I10 Essential (primary) hypertension; I48.0 Paroxysmal atrial fibrillation; J44.9 Chronic obstructive pulmonary disease, unspecified; K21.9 Gastro-esophageal reflux disease without esophagitis; M85.80 Other specified disorders of bone density and structure, unspecified site; Z66 Do not resuscitate; Z20.822 Contact with and (suspected) exposure to COVID-19; M54.50 Low back pain, unspecified; Z79.01 Long term (current) use of anticoagulants; Z79.899 Other long term (current) drug therapy; Z82.49 Family history of ischemic heart disease and other diseases of the circulatory system; Z83.3 Family history of diabetes mellitus; Z85.3 Personal history of malignant neoplasm of breast; Z87.891 Personal history of nicotine dependence; Z90.49 Acquired absence of other specified parts of digestive tract; Z92.21 Personal history of antineoplastic chemotherapy; Z92.3 Personal history of irradiation; R77.8 Other specified abnormalities of plasma proteins
CPT/HCPCS: 36415; 71046; 71275; 76770; 80053; 80061; 81001; 82607; 82728; 82746; 83540; 83550; 83615; 83735; 83921; 84484; 85025; 85045; 85610; 85730; 87040; 87077; 87086; 87186; 87635; 93005; 96365; 96366; 96375; 99285

== ENCOUNTER → 2021-11-06 | Outpatient (CLI) | payer MEDICARE ==
--- NOTE | 2021-11-06 11:56 | XR ---
EXAMINATION TYPE: XR Hip RT and AP Pelvis DATE OF EXAM: 11/06/2021 COMPARISON: NONE HISTORY: Pain TECHNIQUE: A single AP view of the pelvis is obtained. Two views of the right hip are obtained. FINDINGS: There is mild concentric narrowing of the hip with hypertrophic change of the acetabulum. There is spurring along the greater trochanter. Mild diffuse osteopenia. No acute fracture or disloca tion. Vascular calcifications noted. IMPRESSION: 1. Mild diffuse osteopenia. Mild arthropathy of the hip correlate for femoral acetabular impingement. 2. Greater trochanter spurring can be associated with trochanteric bursitis correlate clinically.
== END | disposition home or self-care (01) ==
LOC: RADXRMAIN 11:35
PROVIDERS: ATTEND Nurse Practitioner Adult Health
DX: C34.12 Malignant neoplasm of upper lobe, left bronchus or lung (principal); C50.811 Malignant neoplasm of overlapping sites of right female breast; D64.9 Anemia, unspecified; M85.9 Disorder of bone density and structure, unspecified
CPT/HCPCS: 73502

== ENCOUNTER → 2021-12-05 | Outpatient (CLI) | payer MEDICARE ==
--- NOTE | 2021-12-08 08:45 | PE ---
EXAMINATION TYPE: PET CT fusion skull to thigh DATE OF EXAM: 12/05/2021 COMPARISON: Most recent CTA chest October 17, 2021 and older CTs. Most recent PET/CT August 22, 2021 HISTORY: Left-sided lung cancer progress study. Recently completed chemotherapy. TECHNIQUE: Following the intravenous administration of 13.48 mCi of F-18 FDG, whole body images are performed from the skull base to the midthigh. Images are reviewed on the computer in the coronal, a xial, and sagittal planes. Reconstructed rotating images are created on independent workstation and reviewed on the computer. A localization and attenuation correction CT is performed in conjunction with the PET scan. Blood glucose level equals 119. SCAN: Subsequent Scan FINDINGS: SKULL BASE AND NECK: No new areas of abnormal hypermetabolic uptake. CHEST, MEDIASTINUM, AND HILAR REGION: Small left pleural effusion shows continued increased size from most recent CT. There is improved hypermetabolic uptake in the abnormal destructive soft tissue ante rior left midlung with some lytic involvement of the adjacent ribs, max SUV is 6.64 versus prior stud y 30.3. Stable in size prevascular lymph node measuring 1.4 x 1.1 cm with hypermetabolic uptake, max SUV is 8 .39 versus 14.74 prior study. New narrowing 1.0 cm focus just anterior to the aorta level of diaphragmatic hiatus axial image 116 c ould reflect new lymph node, max SUV is 3.1. ABDOMEN AND PELVIS: There is stable in size right adrenal mass measuring 1.5 x 1.3 cm current study, max SUV is 5.81 current study versus 17.18 prior study. Normal excretion is present. No new areas of abnormal hypermetabolic uptake noted. OSSEOUS STRUCTURES: No new areas of abnormal hypermetabolic uptake noted. No hypermetabolic uptake currently in the right L2 level at site of prior pathologic fracture OTHER CT: Three-vessel coronary artery calcification is redemonstrated. Cardiomegaly is again seen. S urgical changes to the right breast are again seen. Dystrophic calcifications medially in the left br east redemonstrated. Moderate to severe calcified plaque bilateral carotid bulb level. Just over 1.0 cm low dense lesion posterior hepatic dome favored benign thin-walled cyst is redemonst rated axial image 120. Moderate to severe calcified plaque of the aorta extends into branch vessels. Underlying scoliosis is present. IMPRESSION: Predominantly positive treatment response with diminished hypermetabolic uptake or max GOMEZ V in the anterior left midlung destructive neoplasm along with the prevascular adenopathy and right a drenal metastatic focus. However cannot exclude new near 1.0 cm hypermetabolic lymph node near the di aphragmatic hiatus. Continued PET CT monitoring advised.
== END | disposition home or self-care (01) ==
LOC: RADPETMAIN 14:42
PROVIDERS: ATTEND Internal Medicine Hematology & Oncology
DX: C34.12 Malignant neoplasm of upper lobe, left bronchus or lung (principal)
CPT/HCPCS: 78815; A9552

== ENCOUNTER 2021-12-25 11:02 | Inpatient (IN) | payer MEDICARE ==
[2021-12-25] MEDS ORDERED: SODIUM CHLORIDE 0.9% 500 ML 500 ML IV STA (11:23)
[2021-12-25] MEDS ORDERED: ONDANSETRON 4 MG/2 ML VIAL IVP STA (11:28)
--- NOTE | 2021-12-25 11:29 | ED ---
General Adult HPI - General Chief complaint: Syncope Stated complaint: syncope Time Seen by Provider: 12/25/21 11:11 Source: patient, EMS, RN notes reviewed Mode of arrival: EMS - History of Present Illness Initial comments: A 81-year-old female presents to the emergency department for evaluation of syncopal episode today. Patient states she was walking down a hallway when she felt lightheaded and was lowered to the ground with assistance. Patient states she has been experiencing increased shortness of breath for the past week. States she is currently undergoing chemotherapy for lung cancer with metastases. Also reports periodic infusions related to ongoing issues with anemia. Patient states she had a similar episode on Wednesday at her home and was checked out by EMS, but did not require any further treatment at that time. Patient denies any injury related to syncopal episode. States she is pain free at this time, but does have mild nausea. Denies headache, blurry vision, chest pain, palpitations, abdominal pain, vomiting, diarrhea, constipation, hematuria, or dysuria. - Related Data Home Medications Medication Instructions Recorded Confirmed HYDROcodone/APAP 10-325MG [[place] 1 - 2 tab PO Q4HR PRN 10/15/21 12/25/21 10-325] OLANZapine [ZyPREXA] 5 mg PO HS 10/15/21 12/25/21 Ondansetron Odt [Zofran ODT] 4 mg PO Q6H PRN 10/15/21 12/25/21 Folic Acid 1 mg PO DAILY 12/25/21 12/25/21 Glucosamine Sulfate 500 mg PO DAILY 12/25/21 12/25/21 Ubidecarenone [Co Q-10] 100 mg PO DAILY 12/25/21 12/25/21 Previous Rx's Medication Instructions Recorded Apixaban [Eliquis] 5 mg PO BID #60 tab 09/26/21 Atorvastatin [Lipitor] 40 mg PO HS #30 tab 09/26/21 Magnesium Oxide [Mag-Ox] 200 mg PO BID #30 tab 09/26/21 Pantoprazole [Protonix] 40 mg PO AC-BID #60 tab 09/26/21 Metoprolol Tartrate [Lopressor] 50 mg PO BID #60 tab 10/18/21 Allergies Allergy/AdvReac Type Severity Reaction Status Date / Time Sulfa (Sulfonamide Allergy Nausea Verified 12/25/21 13:41 Antibiotics) cephalexin AdvReac Vomiting Verified 12/25/21 13:41 prednisone AdvReac Rash/Hives Verified 12/25/21 13:41 Review of Systems ROS Statement: Those systems with pertinent positive or pertinent negative responses have been documented in the HPI. ROS Other: All systems not noted in ROS Statement are negative. Past Medical History Past Medical History: Atrial Fibrillation, Cancer, GERD/Reflux, Hyperlipidemia, Hypertension Additional Past Medical History / Comment(s): BREAST CA X2, 1993 & 2016.Lung and spine cancer. OSTEOPENIA. deaf in left ear History of Any Multi-Drug Resistant Organisms: None Reported Past Surgical History: Appendectomy, Breast Surgery, Section, Orthopedic Surgery Additional Past Surgical History / Comment(s): left lung lobectomy 1973, ear sx x6; most recent 2004; Left ankle sx (pins/screw implanted and later removed); LT BREAST LUMPECTOMY 1993; 05/2017 RT LUMPECTOMY W/ LYMPH NODE EXC. COLONOSCOPY.ear operation x6 Past Anesthesia/Blood Transfusion Reactions: No Reported Reaction Additional Past Anesthesia/Blood Transfusion Reaction / Comment(s): nausea/vomiting W/ appendectomy at age 15, "ether" was used for anesthesia Past Psychological History: No Psychological Hx Reported Smoking Status: Former smoker Past Alcohol Use History: None Reported Past Drug Use History: None Reported - Past Family History Mother Family Medical History: Diabetes Mellitus, Hypertension Father Family Medical History: Cancer, Coronary Artery Disease (CAD) Additional Family Medical History / Comment(s): POSS PROSTATE CA. CEREBRAL HEMORRHAGE. General Exam Limitations: no limitations (Well-developed, well-nourished female in no acute distress. Initial temperature 97.9, pulse 82- recheck 121, respirations 18, blood pressure 91, pulse ox 99% on room) General appearance: alert, in no apparent distress Eye exam: Present: normal appearance, PERRL, EOMI. Absent: scleral icterus, conjunctival injection, periorbital swelling, periorbital tenderness Respiratory exam: Present: decreased breath sounds (Right side), other (Normal lung sounds left side). Absent: respiratory distress, wheezes, rales, rhonchi, stridor, chest wall tenderness Cardiovascular Exam: Present: tachycardia (Heart rate observed fluctuating between 82 to 121; appears to be in atrial fibrillation), irregular rhythm GI/Abdominal exam: Present: soft, normal bowel sounds. Absent: distended, tenderness, guarding, rebound, rigid Extremities exam: Present: other (Trace dependent pitting edema of bilateral lower extremities) Back exam: Present: normal inspection. Absent: CVA tenderness (R), CVA tenderness (L), paraspinal tenderness, vertebral tenderness Neurological exam: Present: alert, oriented X3, CN II-XII intact Expanded Patient oriented to: Present: person, place, time Speech: Present: fluid speech Cranial nerves: EOM's Intact: Normal, Tongue Deviation: Normal, Nystagmus: Normal Cerebellar function: Finger to Nose: Normal Motor strength exam: RUE: 5, LUE: 5, RLE: 5, LLE: 5 Eye Response: (4) open spontaneously Motor Response: (6) obeys commands Verbal Response: (5) oriented Sweta Total: 15 Psychiatric exam: Present: normal affect, normal mood Skin exam: Present: warm, dry, intact, pallor Course Vital Signs 12/25/21 12/25/21 12/25/21 11:11 12:09 13:00 Temperature 97.9 F Pulse Rate 82 118 H 137 H Respiratory 18 18 18 Rate Blood Pressure 126/91 119/89 119/91 O2 Sat by Pulse 99 99 97 Oximetry 12/25/21 12/25/21 12/25/21 14:35 14:55 16:16 Temperature Pulse Rate 140 H 146 H 120 H Respiratory 18 18 18 Rate Blood Pressure 103/93 127/97 112/87 O2 Sat by Pulse 97 97 97 Oximetry 12/25/21 12/25/21 17:00 19:09 Temperature 97.9 F Pulse Rate 112 H 112 H Respiratory 18 18 Rate Blood Pressure 96/79 96/79 O2 Sat by Pulse 98 98 Oximetry - Reevaluation(s) Reevaluation #1: 12/25/21 13:15 Upon reevaluation, patient continues to be resting comfortably. Observed heart rate fluctuations between 104-144 while present at the bedside. Patient will be started on Cardizem IV and given a small bolus. She has been taking her Eliquis twice daily as prescribed, however unable to clarify whether or not she has been taking Cardizem/diltiazem at home. Current med list does not include this, however it is included on a previous one. Medical Decision Making - Medical Decision Making 81-year-old female with a past medical history of lung cancer with metastatic disease currently undergoing chemotherapy presents to the emergency department for evaluation of syncopal episode. States she had a similar episode on Wednesday and did not seek treatment at that time after being cleared by EMS. Describes syncopal episode as feeling lightheaded while ambulatory; was lowered to the floor with assistance. Upon arrival, patient appears somewhat pale, but is in no acute distress. Presently, patient has a heart rate fluctuating between 104- 144 though does not experience a sensation of racing heart or palpitations. Reports intermittent shortness of breath that has worsened over the past week, however has not experienced labored breathing. She had a recent hospitalization for A. fib with RVR. Unable to clarify with the patient whether or not she has actually been taking Cardizem which was documented electronically, but not on paper. Has been taking Eliquis twice daily as prescribed. Cardizem drip and bolus were initiated. Magnesium was replaced. Last chemo 2 weeks ago. WBCs 2.5, hemoglobin of 8.5 which appears stable to improved for patient. Spoke with Dr. Saez who agrees to accept this patient for admission to the hospital. Cardiology and oncology consulted. This patient's care was provided in collaboration with my attending Dr. Rosario. - Lab Data Result diagrams: 12/25/21 11:39 12/25/21 11:39 Lab Results 12/25/21 12/25/21 12/25/21 Range/Units 11:39 11:39 11:39 WBC 2.5 L (3.8-10.6) k/uL RBC 2.54 L (3.80-5.40) m/uL Hgb 8.4 L (11.4-16.0) gm/dL Hct 25.6 L (34.0-46.0) % MCV 100.6 H (80.0-100.0) fL MCH 33.0 (25.0-35.0) pg MCHC 32.8 (31.0-37.0) g/dL RDW 20.2 H (11.5-15.5) % Plt Count 155 (150-450) k/uL MPV 10.6 Neutrophils % Not Reportable Neutrophils % (Manual) 47 % Lymphocytes % Not Reportable Lymphocytes % (Manual) 25 % Monocytes % Not Reportable Monocytes % (Manual) 25 % Eosinophils % Not Reportable Eosinophils % (Manual) 3 % Basophils % Not Reportable Neutrophils # Not Reportable Neutrophils # (Manual) 1.18 L (1.3-7.7) k/uL Lymphocytes # Not Reportable Lymphocytes # (Manual) 0.63 L (1.0-4.8) k/uL Monocytes # Not Reportable Monocytes # (Manual) 0.63 (0-1.0) k/uL Eosinophils # Not Reportable Eosinophils # (Manual) 0.08 (0-0.7) k/uL Basophils # Not Reportable Nucleated RBCs 0 (0-0) /100 WBC Manual Slide Review Performed Polychromasia Present Hypochromasia Slight Poikilocytosis (manual Present Anisocytosis Moderate Macrocytosis Moderate Ovalocytes Present PT 11.6 (9.0-12.0) sec INR 1.1 (<1.2) APTT 24.7 (22.0-30.0) sec D-Dimer 0.52 (<0.60) mg/L FEU Sodium 136 L (137-145) mmol/L Potassium 4.0 (3.5-5.1) mmol/L Chloride 105 (98-107) mmol/L Carbon Dioxide 24 (22-30) mmol/L Anion Gap 7 mmol/L BUN 12 (7-17) mg/dL Creatinine 0.78 (0.52-1.04) mg/dL Est GFR (CKD-EPI)AfAm 84 (>60 ml/min/1.73 sqM) Est GFR (CKD-EPI)NonAf 73 (>60 ml/min/1.73 sqM) Glucose 108 H (74-99) mg/dL Calcium 9.1 (8.4-10.2) mg/dL Magnesium 1.5 L (1.6-2.3) mg/dL Total Bilirubin 0.4 (0.2-1.3) mg/dL AST 45 H (14-36) U/L ALT 46 H (4-34) U/L Alkaline Phosphatase 221 H (38-126) U/L Troponin I (0.000-0.034) ng/mL NT-Pro-B Natriuret Pep pg/mL Total Protein 6.4 (6.3-8.2) g/dL Albumin 3.5 (3.5-5.0) g/dL 12/25/21 12/25/21 Range/Units 11:39 11:39 WBC (3.8-10.6) k/uL RBC (3.80-5.40) m/uL Hgb (11.4-16.0) gm/dL Hct (34.0-46.0) % MCV (80.0-100.0) fL MCH (25.0-35.0) pg MCHC (31.0-37.0) g/dL RDW (11.5-15.5) % Plt Count (150-450) k/uL MPV Neutrophils % Neutrophils % (Manual) % Lymphocytes % Lymphocytes % (Manual) % Monocytes % Monocytes % (Manual) % Eosinophils % Eosinophils % (Manual) % Basophils % Neutrophils # Neutrophils # (Manual) (1.3-7.7) k/uL Lymphocytes # Lymphocytes # (Manual) (1.0-4.8) k/uL Monocytes # Monocytes # (Manual) (0-1.0) k/uL Eosinophils # Eosinophils # (Manual) (0-0.7) k/uL Basophils # Nucleated RBCs (0-0) /100 WBC Manual Slide Review Polychromasia Hypochromasia Poikilocytosis (manual Anisocytosis Macrocytosis Ovalocytes PT (9.0-12.0) sec INR (<1.2) APTT (22.0-30.0) sec D-Dimer (<0.60) mg/L FEU Sodium (137-145) mmol/L Potassium (3.5-5.1) mmol/L Chloride (98-107) mmol/L Carbon Dioxide (22-30) mmol/L Anion Gap mmol/L BUN (7-17) mg/dL Creatinine (0.52-1.04) mg/dL Est GFR (CKD-EPI)AfAm (>60 ml/min/1.73 sqM) Est GFR (CKD-EPI)NonAf (>60 ml/min/1.73 sqM) Glucose (74-99) mg/dL Calcium (8.4-10.2) mg/dL Magnesium (1.6-2.3) mg/dL Total Bilirubin (0.2-1.3) mg/dL AST (14-36) U/L ALT (4-34) U/L Alkaline Phosphatase (38-126) U/L Troponin I <0.012 (0.000-0.034) ng/mL NT-Pro-B Natriuret Pep 3080 pg/mL Total Protein (6.3-8.2) g/dL Albumin (3.5-5.0) g/dL - EKG Data Rate: tachycardia EKG Comments: EKG was obtained at 1127 and shows atrial fibrillation with rapid ventricular response and right axis deviation. There are nonspecific ST and T-wave abnormalities. Ventricular rate 127, MI interval indeterminate, QRS duration 92, QT/QTC 300/375. Interpretation: Abnormal ECG. - Radiology Data Radiology results: report reviewed, image reviewed Two-view chest x-ray was obtained. Report was reviewed in its entirety. Impression per Dr. Prather is small to moderate-sized left pleural effusion slightly increased from prior. Mild chronic emphasizing me shows changes and mild cardiomegaly redemonstrated. Known left lung neoplasm less well seen on plain film versus PET/CT. Disposition Clinical Impression: Atrial fibrillation with RVR, Hypomagnesemia Disposition: ADMITTED IP TO THIS HOSP Condition: Serious Decision Date: 12/25/21 Decision Time: 15:13
[2021-12-25 12:08] LABS: INR 1.1 (<1.2); Partial Thromboplastin Time 24.7 sec (22.0-30.0); Prothrombin Time 11.6 sec (9.0-12.0)
[2021-12-25 12:11] LABS: Anisocytosis Moderate; HCT 25.6 % (34.0-46.0); HGB 8.4 gm/dL (11.4-16.0); Hypochromasia Slight; MCHC 32.8 g/dL (31.0-37.0); MCV 100.6 fL (80.0-100.0); Macrocytosis Moderate; Mean Platelet Volume 10.6; Platelet Count 155 k/uL (150-450); RBC 2.54 m/uL (3.80-5.40); RDW 20.2 % (11.5-15.5); WBC 2.5 k/uL (3.8-10.6)
--- NOTE | 2021-12-25 12:26 | XR ---
EXAMINATION TYPE: XR chest 2V DATE OF EXAM: 12/25/2021 COMPARISON: Chest x-ray October 15, 2021. CTA chest October 17, 2021. PET/CT December 05, 2021 HISTORY: Syncope and weakness. History of lung cancer. TECHNIQUE: Frontal and lateral views of the chest are obtained. FINDINGS: The osseous structures remain demineralized. Underlying scoliosis is redemonstrated. Exagg erated thoracic kyphosis again seen. There is mild cardiomegaly with atherosclerotic thoracic aorta. There is new small to moderate-sized left pleural effusion. There is associated left basilar opacity. Right lung remains clear. Surgical clips redemonstrated overlying the right breast. IMPRESSION: Small to moderate-sized left pleural effusion slightly increased from prior. Background mild chronic emphysematous change and mild cardiomegaly redemonstrated. Known left lung neoplasm less well seen on plain films versus PET/CT.
[2021-12-25 12:27] LABS: Albumin 3.5 g/dL (3.5-5.0); Calcium 9.1 mg/dL (8.4-10.2); Magnesium 1.5 mg/dL (1.6-2.3); Total Bilirubin 0.4 mg/dL (0.2-1.3); Total Protein 6.4 g/dL (6.3-8.2)
[2021-12-25 13:10] LABS: Eosinophils # (M) 0.08 k/uL (0-0.7); Lymphocytes # (M) 0.63 k/uL (1.0-4.8); Monocytes # (M) 0.63 k/uL (0-1.0); Neutrophils # (M) 1.18 k/uL (1.3-7.7); Neutrophils % (M) 47 %; Nucleated Red Blood Cells 0 /100 WBC (0-0); Ovalocytes Present; Poikilocytosis (M) Present; Polychromasia Present; Total Cells Counted 100
[2021-12-25] MEDS ORDERED: DILTIAZEM 5 MG/ML 5 ML VIAL IVP STA (13:22)
[2021-12-25] MEDS ORDERED: DILTIAZEM DRIP BOLUS FROM BAG 1 MG SOLN IV ONE (14:36)
[2021-12-25] MEDS: DILTIAZEM 125 MG in SODIUM CHLORIDE 0.9% 100 ML IV SCH (14:45)
[2021-12-25] MEDS: MAGNESIUM SULFATE-D5W PMX 1 GM in DEXTROSE/WATER 1 100ML.BAG IVPB SCH ×2 (14:58→16:11)
[2021-12-25] MEDS ORDERED: NALOXONE 0.4 MG/ML 1 ML VIAL IV PRN (15:09)
[2021-12-25] MEDS ORDERED: ONDANSETRON 4 MG/2 ML VIAL IVP PRN (15:09)
[2021-12-25] MEDS ORDERED: ACETAMINOPHEN TAB 325 MG TAB PO PRN (15:09)
[2021-12-25 15:48] LABS: Appearance,Urine Clear (Clear); Bilirubin,Urine Negative (Negative); Blood,Urine Trace (Negative); Color,Urine Light Yellow; Glucose,Urine (UA) Negative (Negative); Ketones,Urine Negative (Negative); Leukocyte Esterase,Urine Negative (Negative); Mucus,Urine Rare /hpf; Nitrite,Urine Negative (Negative); Protein,Urine Trace (Negative); RBC,Urine 1 /hpf (0-5); Specific Gravity,Urine 1.006 (1.001-1.035); Urobilinogen,Urine <2.0 mg/dL (<2.0); WBC,Urine 2 /hpf (0-5)
[2021-12-25] MEDS: SODIUM CHLORIDE 0.9% 1,000 ML IV SCH (16:11)
[2021-12-25] MEDS ORDERED: HYDROcodone/APAP 10-325MG 1 EACH TAB PO PRN (21:11)
[2021-12-25] MEDS: METOPROLOL TARTRATE 50 MG TAB PO SCH (21:44)
[2021-12-25] MEDS: FAMOTIDINE 20 MG TAB PO SCH (21:44)
[2021-12-25] MEDS: ATORVASTATIN 40 MG TAB PO SCH (21:44)
[2021-12-25] MEDS: APIXABAN 5 MG TAB PO SCH (21:44)
[2021-12-25] MEDS: OLANZapine 5 MG TAB PO SCH (21:45)
[2021-12-26] MEDS: DILTIAZEM 125 MG in SODIUM CHLORIDE 0.9% 100 ML IV SCH (06:01)
[2021-12-26] MEDS: SODIUM CHLORIDE 0.9% 1,000 ML IV SCH (06:01)
[2021-12-26 07:46] LABS: Anisocytosis Moderate; HCT 26.4 % (34.0-46.0); HGB 8.3 gm/dL (11.4-16.0); Hypochromasia Moderate; MCH 32.5 pg (25.0-35.0); MCHC 31.3 g/dL (31.0-37.0); MCV 103.9 fL (80.0-100.0); Macrocytosis Marked; Mean Platelet Volume 10.4; Platelet Count 202 k/uL (150-450); RBC 2.55 m/uL (3.80-5.40); RDW 20.7 % (11.5-15.5); WBC 2.4 k/uL (3.8-10.6)
[2021-12-26 07:56] LABS: Calcium 8.8 mg/dL (8.4-10.2); Potassium 3.8 mmol/L (3.5-5.1)
[2021-12-26 08:25] LABS: Eosinophils # (M) 0.07 k/uL (0-0.7); Metamyelocytes # (M) 0.02 k/uL (0); Metamyelocytes % 1 %; Monocytes # (M) 0.53 k/uL (0-1.0); Myelocytes # (M) 0.05 k/uL (0); Myelocytes % 2 %; Neutrophils # (M) 1.08 k/uL (1.3-7.7); Neutrophils % (M) 45 %; Nucleated Red Blood Cells 0 /100 WBC (0-0); Total Cells Counted 200
[2021-12-26 08:26] LABS: Poikilocytosis (M) Present; Polychromasia Present
[2021-12-26] MEDS ORDERED: NON FORMULARY DRUG (Glucosamine Sulfate 500 MG Cap) PO SCH (09:00)
[2021-12-26] MEDS ORDERED: NON FORMULARY DRUG (Ubidecarenone [Co Q-10] 100 MG Capsule) PO SCH (09:00)
[2021-12-26] MEDS: METOPROLOL TARTRATE 50 MG TAB PO SCH (09:23)
[2021-12-26] MEDS: APIXABAN 5 MG TAB PO SCH ×2 (09:23→19:59)
[2021-12-26] MEDS: FOLIC ACID 1 MG TAB PO SCH (09:24)
[2021-12-26] MEDS: FAMOTIDINE 20 MG TAB PO SCH (09:24)
[2021-12-26] MEDS: MAGNESIUM OXIDE 400 MG TAB PO SCH ×2 (09:24→19:59)
[2021-12-26] MEDS ORDERED: METOPROLOL TARTRATE 25 MG TAB PO STA (10:12)
[2021-12-26] MEDS: PANTOPRAZOLE 40 MG TABLET PO SCH ×2 (12:02→18:53)
--- NOTE | 2021-12-26 12:27 | P.CONS ---
History of Present Illness - Reason for Consult Consult date: 12/26/21 Metastatic Cancer with Syncope and LOC Requesting physician: Janna Peña - Chief Complaint LOC - History of Present Illness This is a very nice lady who presented with abnormal right breast screening mammograms in ,she had additonal imaging and U/S revealed 1.1cm lesion at 12 o'clock,core biopsy was positive for invasive carcinoma. On 06/14/2017,she had right breast lumpectomy and sentinel nodes biopsy,pathology revealed grade 1,invasive ductal carcinoma,2cm,negative nodes,ER/AK strongly positive and HER2/AURORA negative. She completed adjuvant radiation therapy on 09/02/2017. She declined oncotypeDx. She had a remoted history of left breast cancer in 1991,treated with lumpectomy and adjuvant radiation only. No prior use of hormone replacement therapy. Bone density on 04/02/2017 revealed osteopenia. She started femara in August/2017,she also started alendronate + vitamin D3 and calcium,then was switched to prolia instead since repeat bone density in March/2018 did not reveal any improvement on alendronate. Mammograms on 04/06/2019 were benign Mammograms on 04/09/2020 were benign. Bone density in April/2020 revealed improvement in her bone density. Mammograms on 04/17/2021 were negative. She had left sided rib pain which led to CT scan of chest on 07/18/2021 which revealed 6.6 cm ELMER lung mass with rib invasion. On 07/31/2021,CT guided biopsy of the ELMER mass was positive for adenocarcinoma,IHC were non specific,lung primary is in DDX.(the clinical and radiographic picture are consistent with lung primary). On 08/20/2021,brain MRI was negative for metastatic disease. On 08/22/2021,PET scan revealed suspicious uptake in ELMER lung mass,L2 and right adrenal gland. PDL-1 was negative Liquid biopsy revealed KKEAP1 mutation,high TMB,NGS on tissues revealed POLE1 and ARIDA1 mutations,TMB 12.6,MADHU She completed palliative XRT to left rib and L2. On 10/07/2021,she started alimta/carboplatin/keytruda and completed 4 cycles on 12/09/2021. On 12/05/2021 repeat PET showed positive treatment response with diminished hypermetabolic uptake left midlung destructive neoplasm along with the prevascular adenopathy and right adrenal metastatic focus,however cannot exclude new near 1.0 cm hypermetabolic lymph node near the diaphragmatic hiatus. She feels tired but better,her appetite is better,her weight is stable,no dyspnea (has chronic exertional dyspnea)or cough,her rib pain is under control,no diarrhea. She presented to office on 12.25.21 and was seen by myself for evaluation of "syncopal" episode at home. Clinically appearing dehydrated she was sent to back of infusion to receive IV fluids when you could see her face turn pale and she passed out, losing consciousness, less thn 30 seconds. She did not fall and hit floor or any other objects as nursing and staff was able to catch her in time. She was slowly lowered to the floor, IV was started and ems was contacted. During evaluation she was noted to be in Atrial fibrillation also Dr. Diez did evaluate prior to transportation to hospital. She has now been admitted and undergoing further work-up I did speak with patients daughter yesterday. During work-up COVID was positive Review of Systems All systems: negative Constitutional: Reports as per HPI Past Medical History Past Medical History: Atrial Fibrillation, Cancer, GERD/Reflux, Hyperlipidemia, Hypertension Additional Past Medical History / Comment(s): BREAST CA X2, 1993 & 2016.Lung and spine cancer. OSTEOPENIA. deaf in left ear History of Any Multi-Drug Resistant Organisms: None Reported Past Surgical History: Appendectomy, Breast Surgery, Section, Orthopedic Surgery Additional Past Surgical History / Comment(s): left lung lobectomy 1973, ear sx x6; most recent 2004; Left ankle sx (pins/screw implanted and later removed); LT BREAST LUMPECTOMY 1993; 05/2017 RT LUMPECTOMY W/ LYMPH NODE EXC. COLONOSCOPY.ear operation x6 Past Anesthesia/Blood Transfusion Reactions: No Reported Reaction Additional Past Anesthesia/Blood Transfusion Reaction / Comm: nausea/vomiting W/ appendectomy at age 15, "ether" was used for anesthesia Past Psychological History: No Psychological Hx Reported Smoking Status: Former smoker Past Alcohol Use History: None Reported Past Drug Use History: None Reported - Past Family History Mother Family Medical History: Diabetes Mellitus, Hypertension Father Family Medical History: Cancer, Coronary Artery Disease (CAD) Additional Family Medical History / Comment(s): POSS PROSTATE CA. CEREBRAL HEMORRHAGE. Medications and Allergies Home Medications Medication Instructions Recorded Confirmed Type Apixaban [Eliquis] 5 mg PO BID #60 tab 09/26/21 12/25/21 Rx Atorvastatin [Lipitor] 40 mg PO HS #30 tab 09/26/21 12/25/21 Rx Magnesium Oxide [Mag-Ox] 200 mg PO BID #30 tab 09/26/21 12/25/21 Rx Pantoprazole [Protonix] 40 mg PO AC-BID #60 tab 09/26/21 12/25/21 Rx HYDROcodone/APAP 10-325MG [[place] 1 - 2 tab PO Q4HR PRN 10/15/21 12/25/21 History 10-325] OLANZapine [ZyPREXA] 5 mg PO HS 10/15/21 12/25/21 History Ondansetron Odt [Zofran ODT] 4 mg PO Q6H PRN 10/15/21 12/25/21 History Metoprolol Tartrate [Lopressor] 50 mg PO BID #60 tab 10/18/21 12/25/21 Rx Folic Acid 1 mg PO DAILY 12/25/21 12/25/21 History Glucosamine Sulfate 500 mg PO DAILY 12/25/21 12/25/21 History Ubidecarenone [Co Q-10] 100 mg PO DAILY 12/25/21 12/25/21 History Allergies Allergy/AdvReac Type Severity Reaction Status Date / Time Sulfa (Sulfonamide Allergy Nausea Verified 12/25/21 13:41 Antibiotics) cephalexin AdvReac Vomiting Verified 12/25/21 13:41 prednisone AdvReac Rash/Hives Verified 12/25/21 13:41 Physical Exam Vitals: Vital Signs Temp Pulse Pulse Resp BP BP Pulse Ox 12/26/21 12:00 98.1 F 72 16 118/77 96 12/26/21 08:00 98 F 93 16 135/79 98 12/26/21 04:00 98.1 F 80 18 130/74 95 12/25/21 23:58 96 18 106/70 95 12/25/21 20:00 98.1 F 114 H 18 130/84 98 12/25/21 19:09 97.9 F 112 H 18 96/79 98 12/25/21 17:00 112 H 18 96/79 98 12/25/21 16:16 120 H 18 112/87 97 12/25/21 14:55 146 H 18 127/97 97 12/25/21 14:35 140 H 18 103/93 97 12/25/21 13:00 137 H 18 119/91 97 Intake and Output 12/25/21 12/26/21 12/26/21 22:59 06:59 14:59 Intake Total 76.333 240 Balance 76.333 240 Intake: Intake, IV Titration 76.333 Amount Diltiazem 125 mg In 76.333 Sodium Chloride 0.9% 100 ml @ Per Protocol IV .Q0M [facility] Rx#:[id number] Oral 240 Other: Voiding Method Toilet # Voids 1 2 Weight 59.874 kg Pale, Thin EOM I O/P without thrush Neck Supple Heart Rate Irregular Abdomen soft LE PULL OVER edema, loss of muscular integrity Results CBC & Chem 7: 12/26/21 07:29 12/26/21 07:29 Labs: Abnormal Lab Results - Last 24 Hours (Table) 12/25/21 12/25/21 12/25/21 Range/Units 11:39 11:39 15:37 WBC (3.8-10.6) k/uL RBC (3.80-5.40) m/uL Hgb (11.4-16.0) gm/dL Hct (34.0-46.0) % MCV (80.0-100.0) fL RDW (11.5-15.5) % Neutrophils # (Manual) 1.18 L (1.3-7.7) k/uL Lymphocytes # (Manual) 0.63 L (1.0-4.8) k/uL Metamyelocytes # (Man) (0) k/uL Myelocytes # (Manual) (0) k/uL Macrocytosis Sodium 136 L (137-145) mmol/L Glucose 108 H (74-99) mg/dL Magnesium 1.5 L (1.6-2.3) mg/dL AST 45 H (14-36) U/L ALT 46 H (4-34) U/L Alkaline Phosphatase 221 H (38-126) U/L Urine Protein Trace H (Negative) Urine Blood Trace H (Negative) Urine Mucus Rare H (None) /hpf Coronavirus (PCR) (Not Detectd) 12/25/21 12/26/21 12/26/21 Range/Units 16:16 07:29 07:29 WBC 2.4 L (3.8-10.6) k/uL RBC 2.55 L (3.80-5.40) m/uL Hgb 8.3 L (11.4-16.0) gm/dL Hct 26.4 L (34.0-46.0) % MCV 103.9 H (80.0-100.0) fL RDW 20.7 H (11.5-15.5) % Neutrophils # (Manual) 1.08 L (1.3-7.7) k/uL Lymphocytes # (Manual) 0.70 L (1.0-4.8) k/uL Metamyelocytes # (Man) 0.02 H (0) k/uL Myelocytes # (Manual) 0.05 H (0) k/uL Macrocytosis Marked A Sodium (137-145) mmol/L Glucose 141 H (74-99) mg/dL Magnesium (1.6-2.3) mg/dL AST (14-36) U/L ALT (4-34) U/L Alkaline Phosphatase (38-126) U/L Urine Protein (Negative) Urine Blood (Negative) Urine Mucus (None) /hpf Coronavirus (PCR) Detected A (Not Detectd) Assessment and Plan (1) Metastatic adenocarcinoma to lung Narrative/Plan: Assess Brain MRI with falls and LOC, most likely Atrial fib but with high risk for progression to brain (has spinal mets) and been "off" per daughter should rule out other contributing factors. Current Visit: No Status: Acute Code(s): C78.00 - SECONDARY MALIGNANT NEOPLASM OF UNSPECIFIED LUNG SNOMED Code(s): 3380039859769 (2) Fall Narrative/Plan: Likely from Dehydration and Atrial Fib RVR - Cardiology and Neurology Consults placed - Check MRI Current Visit: Yes Status: Acute Code(s): W19.XXXA - UNSPECIFIED FALL, INITIAL ENCOUNTER SNOMED Code(s): 5684149 (3) Loss of consciousness Narrative/Plan: Likely a combination of COVID+, Dehydration, Atrial Fib with RVR. Will need to assess for Pulmonary EMboli as well Current Visit: Yes Status: Acute Code(s): R40.20 - UNSPECIFIED COMA SNOMED Code(s): 237173334 (4) Atrial fibrillation with rapid ventricular response Narrative/Plan: Cardiology is following and AC therapy started Current Visit: Yes Status: Acute Code(s): I48.91 - UNSPECIFIED ATRIAL FIBRILLATION SNOMED Code(s): 608295350588643 (5) Bone metastases Current Visit: No Status: Acute Code(s): C79.51 - SECONDARY MALIGNANT NEOPLASM OF BONE SNOMED Code(s): 03529165 Plan: Physician Attest: I have completed the full history and physical and agree with above dictation, dictated as a scribe.
--- NOTE | 2021-12-26 12:34 | P.CRDCN ---
History of Present Illness History of present illness: This is a 80-year-old female with a past medical history significant for paroxysmal atrial fibrillation (on Eliquis). breast cancer in 1994 and recurrence in 2017, metastatic lung cancer with metastases to the brain and back, hypertension, hyperlipidemia, GERD, former nicotine dependence. He follows with Dr. Quinn. We have been asked to see the patient in consultation for Christy munoz with RVR and syncope. Patient presents to the emergency department after a syncopal episode. She states she was at her [facility] appointment, she stood up to go to the front desk host, she had symptoms of lightheadedness and loss consciousness. She states the front end loader operator caught her. She is unsure how long she was out, but woke up to everyone standing around her. She states she had a similar episode of syncope on 12/21/2021. She states she was at home with her friend, she was standing at that time, had similar symptoms of lightheadedness and then loss consciousness briefly. Her Friend called EMS, she was told her blood pressure was low and that she was likely dehydrated. She did not present to the hospital at that time. She also has been feeling more short of breath over the past couple days, has been noticing it more at night. She denies any palpitations, fever, cough, chills, diaphoresis, chest pain, nausea, vomiting, diarrhea or decreased appetite. She did not know she had Covid, tested positive on admission. DIAGNOSTICS: EKG atrial fibrillation with rapid ventricular response, heart rate 127 Chest xraysmall to moderate left pleural effusion slightly increased from prior. Background mild chronic emphysema change, known left lung neoplasm Laboratory data: WBC 2.4, Hgb 8.3, Plt 202, Sodium 138, K 3.8, BUN 12, 0.86, Mag 1.9 Current home cardiac medications include Eliquis 5 mg twice a day and metoprolol tartrate 50 mg twice a day Most recent echocardiogram obtained in September 2021 revealed ejection fraction 50-55%, moderate mitral regurgitation, and moderate tricuspid regurgitation REVIEW OF SYSTEMS: At the time of my exam: CONSTITUTIONAL: Denies fever or chills. HEENT: Denies blurred vision, vision changes, or eye pain. Denies hemoptysis CARDIOVASCULAR: Denies chest pain. Denies orthopnea. Denies PND. Denies palpitations RESPIRATORY: Denies shortness of breath. GASTROINTESTINAL: Denies abdominal pain. Denies nausea or vomiting. HEMATOLOGIC: Denies bleeding disorders. GENITOURINARY: Denies any blood in urine. SKIN: Denies pruitis. Denies rash. PHYSICAL EXAM: VITAL SIGNS: Reviewed. GENERAL: Well-developed in no acute distress. HEENT: Head is normocephalic. Pupils are equal, round. Sclerae anicteric. Mucous membranes of the mouth are moist. Neck supple. No JVD or thyromegaly LUNGS: Respirations even and unlabored. Lungs essentially clear to auscultation bilaterally, diminished in the bases. HEART: Irregular rate and rhythm. S1 and S2 heard. Systolic ejection murmur at apex ABDOMEN: Soft. Nondistended. Nontender. EXTREMITIES: Normal range of motion. No clubbing or cyanosis. Peripheral pulses intact. No lower extremity edema NEUROLOGIC: Awake and alert. Oriented x 3. ASSESSMENT: Syncope unclear etiology at this time, possibly vasvoagal, rule out cardiac cause Paroxysmal atrial fibrillation with RVR on Eliquis Covid-19 infection Metastatic lung cancer with metastases to brain and spine Hypertension Hyperlipidemia GERD Former nicotine dependence PLAN: Obtain limited 2D echocardiogram to assess pericardial effusion Increase metoprolol tartrate 75mg BID Wean off IV Cardizem Continue Eliquis 30 day event monitor ordered Further recommendations based on clinical course Nurse practitioner note has been reviewed by physician. Signing provider agrees with the documented findings, assessment, and plan of care. Past Medical History Past Medical History: Atrial Fibrillation, Cancer, GERD/Reflux, Hyperlipidemia, Hypertension Additional Past Medical History / Comment(s): BREAST CA X2, 1993 & 2016.Lung and spine cancer. OSTEOPENIA. deaf in left ear History of Any Multi-Drug Resistant Organisms: None Reported Past Surgical History: Appendectomy, Breast Surgery, Section, Orthopedic Surgery Additional Past Surgical History / Comment(s): left lung lobectomy 1973, ear sx x6; most recent 2004; Left ankle sx (pins/screw implanted and later removed); LT BREAST LUMPECTOMY 1993; 05/2017 RT LUMPECTOMY W/ LYMPH NODE EXC. COLONOSCOPY.ear operation x6 Past Anesthesia/Blood Transfusion Reactions: No Reported Reaction Additional Past Anesthesia/Blood Transfusion Reaction / Comment(s): n ausea/vomiting W/ appendectomy at age 15, "ether" was used for anesthesia Past Psychological History: No Psychological Hx Reported Smoking Status: Former smoker Past Alcohol Use History: None Reported Past Drug Use History: None Reported - Past Family History Mother Family Medical History: Diabetes Mellitus, Hypertension Father Family Medical History: Cancer, Coronary Artery Disease (CAD) Additional Family Medical History / Comment(s): POSS PROSTATE CA. CEREBRAL HEMORRHAGE. Medications and Allergies Home Medications Medication Instructions Recorded Confirmed Type Apixaban [Eliquis] 5 mg PO BID #60 tab 09/26/21 12/25/21 Rx Atorvastatin [Lipitor] 40 mg PO HS #30 tab 09/26/21 12/25/21 Rx Magnesium Oxide [Mag-Ox] 200 mg PO BID #30 tab 09/26/21 12/25/21 Rx Pantoprazole [Protonix] 40 mg PO AC-BID #60 tab 09/26/21 12/25/21 Rx HYDROcodone/APAP 10-325MG [[place] 1 - 2 tab PO Q4HR PRN 10/15/21 12/25/21 History 10-325] OLANZapine [ZyPREXA] 5 mg PO HS 10/15/21 12/25/21 History Ondansetron Odt [Zofran ODT] 4 mg PO Q6H PRN 10/15/21 12/25/21 History Metoprolol Tartrate [Lopressor] 50 mg PO BID #60 tab 10/18/21 12/25/21 Rx Folic Acid 1 mg PO DAILY 12/25/21 12/25/21 History Glucosamine Sulfate 500 mg PO DAILY 12/25/21 12/25/21 History Ubidecarenone [Co Q-10] 100 mg PO DAILY 12/25/21 12/25/21 History Allergies Allergy/AdvReac Type Severity Reaction Status Date / Time Sulfa (Sulfonamide Allergy Nausea Verified 12/25/21 13:41 Antibiotics) cephalexin AdvReac Vomiting Verified 12/25/21 13:41 prednisone AdvReac Rash/Hives Verified 12/25/21 13:41 Physical Exam Vitals: Vital Signs Temp Pulse Pulse Resp BP BP Pulse Ox 12/26/21 04:00 98.1 F 80 18 130/74 95 12/25/21 23:58 96 18 106/70 95 12/25/21 20:00 98.1 F 114 H 18 130/84 98 12/25/21 19:09 97.9 F 112 H 18 96/79 98 12/25/21 17:00 112 H 18 96/79 98 12/25/21 16:16 120 H 18 112/87 97 12/25/21 14:55 146 H 18 127/97 97 12/25/21 14:35 140 H 18 103/93 97 12/25/21 13:00 137 H 18 119/91 97 12/25/21 12:09 118 H 18 119/89 99 12/25/21 11:11 97.9 F 82 18 126/91 99 Intake and Output 12/25/21 12/26/21 12/26/21 22:59 06:59 14:59 Intake Total 76.333 Balance 76.333 Intake: Intake, IV Titration 76.333 Amount Diltiazem 125 mg In 76.333 Sodium Chloride 0.9% 100 ml @ Per Protocol IV .Q0M [facility] Rx#:[id number] Other: Voiding Method Toilet # Voids 1 2 Weight 59.874 kg Results 12/26/21 07:29 12/26/21 07:29 Cardiac Enzymes 12/25/21 12/25/21 Range/Units 11:39 11:39 AST 45 H (14-36) U/L Troponin I <0.012 (0.000-0.034) ng/mL Coagulation 12/25/21 Range/Units 11:39 PT 11.6 (9.0-12.0) sec APTT 24.7 (22.0-30.0) sec CBC 12/25/21 12/26/21 Range/Units 11:39 07:29 WBC 2.5 L 2.4 L (3.8-10.6) k/uL RBC 2.54 L 2.55 L (3.80-5.40) m/uL Hgb 8.4 L 8.3 L (11.4-16.0) gm/dL Hct 25.6 L 26.4 L (34.0-46.0) % Plt Count 155 202 (150-450) k/uL Comprehensive Metabolic Panel 12/25/21 12/26/21 Range/Units 11:39 07:29 Sodium 136 L 138 (137-145) mmol/L Potassium 4.0 3.8 (3.5-5.1) mmol/L Chloride 105 106 (98-107) mmol/L Carbon Dioxide 24 25 (22-30) mmol/L BUN 12 12 (7-17) mg/dL Creatinine 0.78 0.86 (0.52-1.04) mg/dL Glucose 108 H 141 H (74-99) mg/dL Calcium 9.1 8.8 (8.4-10.2) mg/dL AST 45 H (14-36) U/L ALT 46 H (4-34) U/L Alkaline Phosphatase 221 H (38-126) U/L Total Protein 6.4 (6.3-8.2) g/dL Albumin 3.5 (3.5-5.0) g/dL Current Medications Generic Name Dose Route Start Last Admin Trade Name Freq PRN Reason Stop Dose Admin Acetaminophen 650 mg 12/25/21 15:09 Acetaminophen Tab 325 Mg Tab PO Q6HR PRN Mild Pain or Fever > 100.5 Hydrocodone Bitart/Acetaminophen 1 each 12/25/21 21:11 Hydrocodone/Apap 10-325mg 1 Each Tab PO Q4HR PRN Pain Apixaban 5 mg 12/25/21 21:15 12/25/21 21:44 Apixaban 5 Mg Tab PO 5 mg BID KEYSHAWN Administration Protocol Atorvastatin Calcium 40 mg 12/25/21 21:15 12/25/21 21:44 Atorvastatin 40 Mg Tab PO 40 mg HS KEYSHAWN Administration Famotidine 20 mg 12/25/21 21:00 12/25/21 21:44 Famotidine 20 Mg Tab PO 20 mg BID KEYSHAWN Administration Folic Acid 1 mg 12/26/21 09:00 Folic Acid 1 Mg Tab PO DAILY [facility] Diltiazem HCl 125 mg/ Sodium 125 mls @ 0 mls/hr 12/25/21 14:00 12/26/21 06:01 Chloride IV 5 mls/hr .Q0M KEYSHAWN 5 mls/hr Administration Protocol Per Protocol Sodium Chloride 1,000 mls @ 75 mls/hr 12/25/21 15:15 12/26/21 06:01 Saline 0.9% IV 75 mls/hr .[id number] KEYSHAWN Administration Magnesium Oxide 200 mg 12/26/21 09:00 Magnesium Oxide 400 Mg Tab PO BID [facility] Metoprolol Tartrate 50 mg 12/25/21 21:15 12/25/21 21:44 Metoprolol Tartrate 50 Mg Tab PO 50 mg BID KEYSHAWN Administration Naloxone HCl 0.2 mg 12/25/21 15:09 Naloxone 0.4 Mg/Ml 1 Ml Vial IV Q2M PRN Opioid Reversal Olanzapine 5 mg 12/25/21 21:15 12/25/21 21:45 Olanzapine 5 Mg Tab PO Not Given HS [facility] Ondansetron HCl 4 mg 12/25/21 15:09 Ondansetron 4 Mg/2 Ml Vial IVP Q8HR PRN Nausea And Vomiting Intake and Output 12/25/21 12/26/21 12/26/21 22:59 06:59 14:59 Intake Total 76.333 Balance 76.333 Intake: Intake, IV Titration 76.333 Amount Diltiazem 125 mg In 76.333 Sodium Chloride 0.9% 100 ml @ Per Protocol IV .Q0M [facility] Rx#:[id number] Other: Voiding Method Toilet # Voids 1 2 Weight 59.874 kg 12/26/21 07:29 12/26/21 07:29
[2021-12-26 14:54] LABS: % Iron Saturation 15.31 (12.00-45.00)
--- NOTE | 2021-12-26 16:35 | P.CNNES ---
History of Present Illness Consult date: 12/26/21 Requesting physician: Faina Worthy Reason for Consult: LOC and Syncopal with metastatic cancer, confirm no seizurel like activity History of Present Illness: Patient is a 81-year-old female, very pleasant, with history of metastatic cancer, who came to the hospital for evaluation of recurrent syncopal spells. Patient states that yesterday she was at [facility] walking to the back to receive IV fluids, when she felt not well. She stopped walking. The staff at [facility] was able to hold, and we her down. There was no convulsive activity noted. She did pass out for about 30 seconds. No tongue bite or loss of control of urine. No significant postictal confusion. Patient apparently had a similar episode last Wednesday on 12/21/2020, when she was out shopping with her friend, when she was putting "while standing, she did not feel well. Her friend caught her and set her down. EMS were called, and they checked her BP and was felt she was dehydrated. Patient says that in summer in around June, she was at [facility], kneeling down, but it was hard, and she felt she will pass out, and a DVD next to her caught her. Never had any convulsive activity. Denies any history of seizures. Patient states that with each of these spells, everyone said "I turned white". Patient's vitals on arrival blood pressure 126/91, pulse rate 82 temperature 97.9. Her blood pressure has dipped down to 96/79. Blood test shows WBC 2.5 hemoglobin 8.4, platelets 155. PT/PTT and d-dimer are normal. Chem-7 normal, AST mildly elevated 45, ALT 46. Troponin negative. UA negative. Anderson virus PCR positive. Chest x-ray showed small to moderate-sized left pleural effusion slightly increased from prior. Background mild chronic emphysematous change and mild cardiomegaly redemonstrated. Known left lung neoplasm less well seen on plain films versus PET/CT. Patient states she has history of smoking 1 pack per week for 20 years, quit 40 years ago. Denies any diabetes, does have hypertension. Review of Systems Patient denies any numbness tingling focal weakness or visual disturbance. Denies any personal or family history of epilepsy. Patient is hard of hearing. She is wheezing. Some breathing difficulty. No chest pain otherwise. No fever or chills. All other 14 points of review of systems reviewed and noncontributory to the present illness. Past Medical History Past Medical History: Atrial Fibrillation, Cancer, GERD/Reflux, Hyperlipidemia, Hypertension Additional Past Medical History / Comment(s): BREAST CA X2, 1993 & 2016.Lung and spine cancer. OSTEOPENIA. deaf in left ear History of Any Multi-Drug Resistant Organisms: None Reported Past Surgical History: Appendectomy, Breast Surgery, Section, Orthopedic Surgery Additional Past Surgical History / Comment(s): left lung lobectomy 1973, ear sx x6; most recent 2004; Left ankle sx (pins/screw implanted and later removed); LT BREAST LUMPECTOMY 1993; 05/2017 RT LUMPECTOMY W/ LYMPH NODE EXC. COLONOSCOPY.ear operation x6 Past Anesthesia/Blood Transfusion Reactions: No Reported Reaction Additional Past Anesthesia/Blood Transfusion Reaction / Comment(s): nausea/vomiting W/ appendectomy at age 15, "ether" was used for anesthesia Past Psychological History: No Psychological Hx Reported Smoking Status: Former smoker Past Alcohol Use History: None Reported Past Drug Use History: None Reported - Past Family History Mother Family Medical History: Diabetes Mellitus, Hypertension Father Family Medical History: Cancer, Coronary Artery Disease (CAD) Additional Family Medical History / Comment(s): POSS PROSTATE CA. CEREBRAL HEMORRHAGE. Medications and Allergies Home Medications Medication Instructions Recorded Confirmed Type Apixaban [Eliquis] 5 mg PO BID #60 tab 09/26/21 12/25/21 Rx Atorvastatin [Lipitor] 40 mg PO HS #30 tab 09/26/21 12/25/21 Rx Magnesium Oxide [Mag-Ox] 200 mg PO BID #30 tab 09/26/21 12/25/21 Rx Pantoprazole [Protonix] 40 mg PO AC-BID #60 tab 09/26/21 12/25/21 Rx HYDROcodone/APAP 10-325MG [[place] 1 - 2 tab PO Q4HR PRN 10/15/21 12/25/21 History 10-325] OLANZapine [ZyPREXA] 5 mg PO HS 10/15/21 12/25/21 History Ondansetron Odt [Zofran ODT] 4 mg PO Q6H PRN 10/15/21 12/25/21 History Metoprolol Tartrate [Lopressor] 50 mg PO BID #60 tab 10/18/21 12/25/21 Rx Folic Acid 1 mg PO DAILY 12/25/21 12/25/21 History Glucosamine Sulfate 500 mg PO DAILY 12/25/21 12/25/21 History Ubidecarenone [Co Q-10] 100 mg PO DAILY 12/25/21 12/25/21 History Allergies Allergy/AdvReac Type Severity Reaction Status Date / Time Sulfa (Sulfonamide Allergy Nausea Verified 12/25/21 13:41 Antibiotics) cephalexin AdvReac Vomiting Verified 12/25/21 13:41 prednisone AdvReac Rash/Hives Verified 12/25/21 13:41 Physical Examination - Vital Signs Vital Signs: Vital Signs Temp Pulse Pulse Resp BP BP Pulse Ox 12/26/21 12:00 98.1 F 72 16 118/77 96 12/26/21 08:00 98 F 93 16 135/79 98 12/26/21 04:00 98.1 F 80 18 130/74 95 12/25/21 23:58 96 18 106/70 95 12/25/21 20:00 98.1 F 114 H 18 130/84 98 12/25/21 19:09 97.9 F 112 H 18 96/79 98 12/25/21 17:00 112 H 18 96/79 98 12/25/21 16:16 120 H 18 112/87 97 Intake and Output 12/26/21 12/26/21 12/26/21 06:59 14:59 22:59 Intake Total 76.333 240 Balance 76.333 240 Intake: Intake, IV Titration 76.333 Amount Diltiazem 125 mg In 76.333 Sodium Chloride 0.9% 100 ml @ Per Protocol IV .Q0M [facility] Rx#:[id number] Oral 240 Other: # Voids 2 1 Patient is an elderly female, in no acute distress. She is wheezing. Patient is alert awake oriented to time place and person. She knows it is December and the year is 2021 and that she is in [facility] in [facility] in [facility]. Speech and language functions are normal. Attention, concentration and fund of knowledge is adequate. On cranial examination, pupils are round and reacting to light, visual hung are full on confrontation, extraocular muscles are intact with no nystagmus. Face is symmetric, tongue protrudes to the midline. Palatal elevation and sensation normal, hearing and shoulder shrug normal, facial sensation normal. Shoulder shrug normal. On muscle strength testing, there is no pronator drift and the strength is normal in arms and legs distally and proximally. Deep tendon reflexes are 1+ and plantars withdrawal bilaterally. Sensory to touch is equal with no neglect. Cerebellar function showed no ataxia for [id number] testing. No dysdiadochokinesia. Tone and bulk of muscles normal. Gait deferred. On general examination, there is no carotid bruit or murmur, S1-S2 audible. Abdomen is soft nontender. Chest is clear, but patient is wheezing bilaterally. Peripheral pulses are present. Mild peripheral edema. Patient has mild clubbing. Results - Laboratory Findings CBC and BMP: 12/26/21 07:29 12/26/21 07:29 Abnormal Lab Findings: Abnormal Labs 12/25/21 12/25/21 12/25/21 11:39 11:39 15:37 WBC 2.5 L RBC 2.54 L Hgb 8.4 L Hct 25.6 L MCV 100.6 H RDW 20.2 H Neutrophils # (Manual) 1.18 L Lymphocytes # (Manual) 0.63 L Metamyelocytes # (Man) Myelocytes # (Manual) Macrocytosis Sodium 136 L Glucose 108 H Magnesium 1.5 L Ferritin AST 45 H ALT 46 H Alkaline Phosphatase 221 H Urine Protein Trace H Urine Blood Trace H Urine Mucus Rare H Coronavirus (PCR) 12/25/21 12/26/21 12/26/21 16:16 07:29 07:29 WBC 2.4 L RBC 2.55 L Hgb 8.3 L Hct 26.4 L MCV 103.9 H RDW 20.7 H Neutrophils # (Manual) 1.08 L Lymphocytes # (Manual) 0.70 L Metamyelocytes # (Man) 0.02 H Myelocytes # (Manual) 0.05 H Macrocytosis Marked A Sodium Glucose 141 H Magnesium Ferritin AST ALT Alkaline Phosphatase Urine Protein Urine Blood Urine Mucus Coronavirus (PCR) Detected A 12/26/21 07:29 WBC RBC Hgb Hct MCV RDW Neutrophils # (Manual) Lymphocytes # (Manual) Metamyelocytes # (Man) Myelocytes # (Manual) Macrocytosis Sodium Glucose Magnesium Ferritin 927.0 H AST ALT Alkaline Phosphatase Urine Protein Urine Blood Urine Mucus Coronavirus (PCR) Assessment and Plan Assessment: * Recurrent syncopal spells, likely due to orthostasis versus arrhythmia. Patient probably was also dehydrated, also has a superimposed acute Covid-19 infection. * Atrial fibrillation with rapid ventricular rate. * Acute Covid-19 infection * History of breast cancer (1993, recurrence in 2017), currently in remission * Metastatic lung cancer * Neutropenia, likely from chemotherapy. * X tobacco use Plan: * Check orthostatics. * Cardiology following for arrhythmia. * 2-D echo pending. * Agree with checking 30 days event monitoring. * Patient also undergoing MRI of the brain with and without contrast. * These episodes do not appear seizures. * We will follow clinically. Thank you for the consult.
--- NOTE | 2021-12-26 18:03 | ECHOF ---
Referral Reason:rule out pericardial effusion MEASUREMENTS -------- HEIGHT: 162.6 cm WEIGHT: 59.9 kg BP: 118/77 IVSd: 1.6 cm (0.6 - 1.1) LVIDd: 3.6 cm (3.9 - 5.3) LVPWd: 1.4 cm (0.6 - 1.1) IVSs: 1.8 cm LVIDs: 2.4 cm LVPWs: 1.7 cm FINDINGS -------- This was a technically adequate study. The left ventricular size is normal. There is moderate concentric left ventricular hypertrophy. O verall left ventricular systolic function is normal with, an EF between 55 - 60 %. There is a trivial pericardial effusion present. Moderate Pleural Effusion. CONCLUSIONS -------- 1. The left ventricular size is normal. 2. There is moderate concentric left ventricular hypertrophy. 3. Overall left ventricular systolic function is normal with, an EF between 55 - 60 %. 4. There is a trivial pericardial effusion present. SOCIAL PSYCHOLOGIST: Emilie Clark RDCS
--- NOTE | 2021-12-26 19:14 | CT ---
EXAMINATION TYPE: CT angio chest CT DLP: 220.90 mGycm, Automated exposure control for dose reduction was used. DATE OF EXAM: 12/26/2021 5:39 PM COMPARISON: Scan 08/22/2021 CT chest 10/17/2021 CLINICAL INDICATION:Female, 81 years old with history of Rule out PE; Covid +, prior scan TECHNIQUE/CONTRAST: CTA scan of the thorax is performed with IV Contrast, patient injected with 65ml mL of Isovue 370, pu lmonary embolism protocol. MIP images are created and reviewed. FINDINGS: Pulmonary Artery: There is no evidence for a filling defect within the pulmonary vasculature to sugge st acute pulmonary embolism. The pulmonary artery is of normal size. Lungs/Pleura: Bilateral small pleural effusions. There is pleural thickening most pronounced in the a nterior aspect of the right middle lobe/upper lobe and left upper lobe/lower lobe. Erosive changes to the left rib #4 is present. Airway: Large airways are patent. Heart: Mildly enlarged for size Vasculature: Moderate atherosclerotic calcifications are present throughout the aorta and its branche s. Mediastinum: FDG positive lymph node in the AP window measuring up to 7 mm in short axis which is mil dly smaller when compared to PET scan from 08/22/2021. Musculoskeletal: Moderate degenerative disc disease changes are present throughout the thoracolumbar spine. A forementioned erosion of the left rib secondary to the adjacent pleural-based mass. There is chronic changes throughout the spine with body hemangioma felt to be present involving T8. Soft Tissues: Surgical clips within the breasts are noted. The left breast calcifications present. Lower neck: No significant findings. Upper Abdomen: No significant findings. IMPRESSION: 1. No evidence of pulmonary embolism. 2. Redemonstration of anterior pleural-based mass with erosion into the left rib #4. 3. Mediastinal lymphadenopathy which was FDG avid on prior PET, minimally decrease in size from prior . 4. Consolidation of the anterior right chest is minimally worsened compared to prior on 10/17/2021. Co rrelate for post treatment changes. 5. Bilateral small pleural effusions, increased from prior.
[2021-12-26] MEDS: METOPROLOL TARTRATE 25 MG TAB PO SCH (19:59)
[2021-12-26] MEDS: ATORVASTATIN 40 MG TAB PO SCH (19:59)
[2021-12-26] MEDS: OLANZapine 5 MG TAB PO SCH (20:00)
[2021-12-26] MEDS ORDERED: DILTIAZEM ORAL 30 MG TAB PO STA (21:02)
[2021-12-26] MEDS: DILTIAZEM ORAL 30 MG TAB PO SCH (21:06)
--- NOTE | 2021-12-26 22:37 | P.HPIM ---
History of Present Illness H&P Date: 12/26/21 Chief Complaint: Passing out Very pleasant 81 female, follows with Dr. Staton. 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 Also metastatic lesions in the brain. Patient has received radiation treatment to the lower spine. Patient has received chemotherapy. Also getting immunotherapy.. Patient presents with episodes of passing out. She done it twice in the last 1 week. Normally when walking. Does feel lightheaded. Some palpitations. D enies any nausea vomiting diarrhea. Appetite is okay. Does feel cold all the time no fever. Patient found to be in atrial fibrillation in the ER the range of 1:30. Patient started IV Cardizem in the ER. Patient also detected for COVID-19 in the ER. Patient denies any fever or chills. No cough or shortness of breath. Patient was vaccinated for the same. Review of systems: GEN.: Tired EYES: None HEENT: None NECK: None RESPIRATORY: None CARDIOVASCULAR: Palpitation GASTROINTESTINAL: As above GENITOURINARY: None MUSCULOSKELETAL: Joints and back pain LYMPHATICS: None HEMATOLOGICAL: None PSYCHIATRY: None NEUROLOGICAL: None Past medical history to include: breast cancer diagnosed in 1993 with recurrence in 2017. 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 Atrial fibrillation, Social history: Patient smoked for 30 years stopping at age of 44. 2 packs a day. Lives alone. Family history: Diabetes, hypertension, prostate cancer Physical examination: VITAL SIGNS: 97.9, 1:30, 18, 119/89, 99% room air upon presentation GENERAL: BMI 22.7, sitting at edge of bed, awake, tired. EYES: Pupils equal. Conjunctiva palel. HEENT: External appearance of nose and ears normal, oral cavity grossly normal. NECK: JVD not raised; masses not palpable. HEART: First and second heart sounds are normal; no edema. LUNGS: Respiratory rate normal; clear to auscultation. ABDOMEN: Soft, nontender, liver spleen not palpable, no masses palpable. PSYCH: Alert and oriented x3; mood and affect normal. MUSCULOSKELETAL:No Clubbing/cyanosis;muscles-grossly intact. Evidence of OA NEUROLOGICAL: Cranial nerves grossly intact; no facial asymmetry, power and sensation grossly intact. LYMPHATICS: No lymph nodes palpable in the axilla and neck INVESTIGATIONS, reviewed in the clinical context: White count 2.4 hemoglobin 8.3 platelets 202 sodium 138 potassium 3.8. 12 creatinine 0.86 AST 45 ALT 46 proBNP 3080 albumin 3.5 Coronavirus [PCF]: Detected Assessment and plan: -Syncopal episodes likely from uncontrolled underlying atrial fibrillation. -Paroxysmal atrial fibrillation now presenting with rapid ventricular rate: IV Cardizem started in the ER-discontinued earlier today... Lopressor 75 mg twice a day. Cardizem 30 mg 3 times a day. 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 Status post biopsy on 07/31/2021 with metastatic of the bone and spine. radiation treatments palliation. Received chemotherapy. Currently immunotherapy. Follow-up with oncology -Essential Hypertension Lopressor 75 mg twice a day. Cardizem 30 mg 3 times a day -GERD Protonix -Osteopenia -Deafness in the left ear -DO NOT RESUSCITATE -Mild cognitive impairment Patient initially was started on IV Cardizem in the ER. Discontinued earlier today. Does of Lopressor is increased. Other medications continued. Care was discussed with the patient. Questions answered. Past Medical History Past Medical History: Atrial Fibrillation, Cancer, GERD/Reflux, Hyperlipidemia, Hypertension Additional Past Medical History / Comment(s): BREAST CA X2, 1993 & 2016.Lung and spine cancer. OSTEOPENIA. deaf in left ear History of Any Multi-Drug Resistant Organisms: None Reported Past Surgical History: Appendectomy, Breast Surgery, Section, Orthopedic Surgery Additional Past Surgical History / Comment(s): left lung lobectomy 1973, ear sx x6; most recent 2004; Left ankle sx (pins/screw implanted and later removed); LT BREAST LUMPECTOMY 1993; 05/2017 RT LUMPECTOMY W/ LYMPH NODE EXC. COLONOSCOPY.ear operation x6 Past Anesthesia/Blood Transfusion Reactions: No Reported Reaction Additional Past Anesthesia/Blood Transfusion Reaction / Comment(s): nausea/vomiting W/ appendectomy at age 15, "ether" was used for anesthesia Past Psychological History: No Psychological Hx Reported Smoking Status: Former smoker Past Alcohol Use History: None Reported Past Drug Use History: None Reported - Past Family History Mother Family Medical History: Diabetes Mellitus, Hypertension Father Family Medical History: Cancer, Coronary Artery Disease (CAD) Additional Family Medical History / Comment(s): POSS PROSTATE CA. CEREBRAL HEMORRHAGE. Medications and Allergies Home Medications Medication Instructions Recorded Confirmed Type Apixaban [Eliquis] 5 mg PO BID #60 tab 09/26/21 12/25/21 Rx Atorvastatin [Lipitor] 40 mg PO HS #30 tab 09/26/21 12/25/21 Rx Magnesium Oxide [Mag-Ox] 200 mg PO BID #30 tab 09/26/21 12/25/21 Rx Pantoprazole [Protonix] 40 mg PO AC-BID #60 tab 09/26/21 12/25/21 Rx HYDROcodone/APAP 10-325MG [[place] 1 - 2 tab PO Q4HR PRN 10/15/21 12/25/21 History 10-325] OLANZapine [ZyPREXA] 5 mg PO HS 10/15/21 12/25/21 History Ondansetron Odt [Zofran ODT] 4 mg PO Q6H PRN 10/15/21 12/25/21 History Metoprolol Tartrate [Lopressor] 50 mg PO BID #60 tab 10/18/21 12/25/21 Rx Folic Acid 1 mg PO DAILY 12/25/21 12/25/21 History Glucosamine Sulfate 500 mg PO DAILY 12/25/21 12/25/21 History Ubidecarenone [Co Q-10] 100 mg PO DAILY 12/25/21 12/25/21 History Allergies Allergy/AdvReac Type Severity Reaction Status Date / Time Sulfa (Sulfonamide Allergy Nausea Verified 12/25/21 13:41 Antibiotics) cephalexin AdvReac Vomiting Verified 12/25/21 13:41 prednisone AdvReac Rash/Hives Verified 12/25/21 13:41 Physical Exam Vitals: Vital Signs Temp Pulse Pulse Resp BP BP Pulse Ox 12/26/21 08:00 98 F 93 16 135/79 98 12/26/21 04:00 98.1 F 80 18 130/74 95 12/25/21 23:58 96 18 106/70 95 12/25/21 20:00 98.1 F 114 H 18 130/84 98 12/25/21 19:09 97.9 F 112 H 18 96/79 98 12/25/21 17:00 112 H 18 96/79 98 02/10/22 16:16 120 H 18 112/87 97 12/25/21 14:55 146 H 18 127/97 97 12/25/21 14:35 140 H 18 103/93 97 12/25/21 13:00 137 H 18 119/91 97 12/25/21 12:09 118 H 18 119/89 99 12/25/21 11:11 97.9 F 82 18 126/91 99 Intake and Output 12/25/21 12/26/21 12/26/21 22:59 06:59 14:59 Intake Total 76.333 240 Balance 76.333 240 Intake: Intake, IV Titration 76.333 Amount Diltiazem 125 mg In 76.333 Sodium Chloride 0.9% 100 ml @ Per Protocol IV .Q0M [facility] Rx#:[id number] Oral 240 Other: Voiding Method Toilet # Voids 1 2 Weight 59.874 kg Results CBC & Chem 7: 12/26/21 07:29 12/26/21 07:29 Labs: Abnormal Lab Results - Last 24 Hours (Table) 12/25/21 12/25/21 12/25/21 Range/Units 11:39 11:39 15:37 WBC 2.5 L (3.8-10.6) k/uL RBC 2.54 L (3.80-5.40) m/uL Hgb 8.4 L (11.4-16.0) gm/dL Hct 25.6 L (34.0-46.0) % MCV 100.6 H (80.0-100.0) fL RDW 20.2 H (11.5-15.5) % Neutrophils # (Manual) 1.18 L (1.3-7.7) k/uL Lymphocytes # (Manual) 0.63 L (1.0-4.8) k/uL Metamyelocytes # (Man) (0) k/uL Myelocytes # (Manual) (0) k/uL Macrocytosis Sodium 136 L (137-145) mmol/L Glucose 108 H (74-99) mg/dL Magnesium 1.5 L (1.6-2.3) mg/dL AST 45 H (14-36) U/L ALT 46 H (4-34) U/L Alkaline Phosphatase 221 H (38-126) U/L Urine Protein Trace H (Negative) Urine Blood Trace H (Negative) Urine Mucus Rare H (None) /hpf Coronavirus (PCR) (Not Detectd) 12/25/21 12/26/21 12/26/21 Range/Units 16:16 07:29 07:29 WBC 2.4 L (3.8-10.6) k/uL RBC 2.55 L (3.80-5.40) m/uL Hgb 8.3 L (11.4-16.0) gm/dL Hct 26.4 L (34.0-46.0) % MCV 103.9 H (80.0-100.0) fL RDW 20.7 H (11.5-15.5) % Neutrophils # (Manual) 1.08 L (1.3-7.7) k/uL Lymphocytes # (Manual) 0.70 L (1.0-4.8) k/uL Metamyelocytes # (Man) 0.02 H (0) k/uL Myelocytes # (Manual) 0.05 H (0) k/uL Macrocytosis Marked A Sodium (137-145) mmol/L Glucose 141 H (74-99) mg/dL Magnesium (1.6-2.3) mg/dL AST (14-36) U/L ALT (4-34) U/L Alkaline Phosphatase (38-126) U/L Urine Protein (Negative) Urine Blood (Negative) Urine Mucus (None) /hpf Coronavirus (PCR) Detected A (Not Detectd) Thrombosis Risk Factor Assmnt - Choose All That Apply Any of the Below Risk Factors Present?: No Each Risk Factor Represents 2 Points: Age 61-74 years Other congenital or acquired thrombophilia - If yes, enter type in comment: No Thrombosis Risk Factor Assessment Total Risk Factor Score: 2 Thrombosis Risk Factor Assessment Level: Low Risk
[2021-12-27] MEDS: SODIUM CHLORIDE 0.9% 1,000 ML IV SCH ×2 (01:28→10:25)
[2021-12-27] MEDS: DILTIAZEM ORAL 30 MG TAB PO SCH ×3 (04:52→21:23)
[2021-12-27] MEDS: METOPROLOL TARTRATE 25 MG TAB PO SCH (04:53)
[2021-12-27 06:30] LABS: Appearance,Urine Clear (Clear); Bilirubin,Urine Negative (Negative); Blood,Urine Small (Negative); Color,Urine Light Yellow; Glucose,Urine (UA) Negative (Negative); Hyaline Casts,Urine 1 /lpf (0-2); Ketones,Urine Negative (Negative); Leukocyte Esterase,Urine Negative (Negative); Mucus,Urine Rare /hpf; Nitrite,Urine Negative (Negative); Protein,Urine Trace (Negative); RBC,Urine 2 /hpf (0-5); Squamous Epithelial Cell,Urine <1 /hpf (0-4); Urobilinogen,Urine <2.0 mg/dL (<2.0); WBC,Urine 7 /hpf (0-5)
[2021-12-27] MEDS: MAGNESIUM OXIDE 400 MG TAB PO SCH ×2 (09:00→21:23)
[2021-12-27] MEDS: PANTOPRAZOLE 40 MG TABLET PO SCH ×2 (09:01→17:48)
[2021-12-27] MEDS: APIXABAN 5 MG TAB PO SCH ×2 (09:01→21:23)
[2021-12-27] MEDS: FAMOTIDINE 20 MG TAB PO SCH (09:01)
[2021-12-27] MEDS: FOLIC ACID 1 MG TAB PO SCH (09:01)
[2021-12-27 10:05] LABS: ALT 56 U/L (4-34); AST 42 U/L (14-36); African American GFR (CKD) >90 (>60 ml/min/1.73 sqM); Albumin 3.4 g/dL (3.5-5.0); Alkaline Phosphatase 218 U/L (38-126); Anion Gap 7 mmol/L; Blood Urea Nitrogen 14 mg/dL (7-17); Calcium 9.1 mg/dL (8.4-10.2); Carbon Dioxide 23 mmol/L (22-30); Chloride 107 mmol/L (98-107); Glucose 154 mg/dL (74-99); Magnesium 1.7 mg/dL (1.6-2.3); Non-African American GFR(CKD) 83 (>60 ml/min/1.73 sqM); Potassium 4.2 mmol/L (3.5-5.1); Sodium 137 mmol/L (137-145); Total Bilirubin 0.5 mg/dL (0.2-1.3); Total Protein 6.5 g/dL (6.3-8.2)
[2021-12-27 10:12] LABS: Anisocytosis Moderate; HCT 26.2 % (34.0-46.0); Hypochromasia Marked; MCH 32.8 pg (25.0-35.0); MCHC 30.7 g/dL (31.0-37.0); MCV 106.9 fL (80.0-100.0); Macrocytosis Marked; Mean Platelet Volume 10.3; Platelet Count 230 k/uL (150-450); RBC 2.45 m/uL (3.80-5.40); RDW 21.4 % (11.5-15.5); WBC 2.5 k/uL (3.8-10.6)
[2021-12-27 11:38] LABS: Glucose,Whole Blood 103 mg/dL (75-99)
[2021-12-27 12:25] LABS: Band Neutrophils % 1 %; Eosinophils # (M) 0.08 k/uL (0-0.7); Metamyelocytes # (M) 0.03 k/uL (0); Metamyelocytes % 1 %; Monocytes # (M) 0.48 k/uL (0-1.0); Myelocytes # (M) 0.03 k/uL (0); Myelocytes % 1 %; Neutrophils % (M) 53 %; Nucleated Red Blood Cells 0 /100 WBC (0-0); Total Cells Counted 200
[2021-12-27 12:30] LABS: Poikilocytosis (M) Present
[2021-12-27 12:32] LABS: Polychromasia Present
[2021-12-27] MEDS ORDERED: METOPROLOL TARTRATE 50 MG TAB PO STA (13:00)
--- NOTE | 2021-12-27 13:43 | PN ---
PROGRESS NOTE DATE OF SERVICE: 12/27/2021 CHIEF COMPLAINT: Tired. Inga is seen today in followup. She feels a little tired. She still has some shortness of breath, but it is better, and there are no headaches, no blurred vision, no nausea or vomiting. No reported melena, hematochezia or hematuria. PHYSICAL EXAMINATION: She is alert, oriented x3. There is no confusion. She does not appear to be in distress. Her vital signs are temperature 98.2, pulse is 80, irregular, respirations 16, blood pressure 122/77, pulse ox 94% on room air. HEENT: Normocephalic, atraumatic. No obvious icterus. Neck is a supple. CHEST: Equal expansion bilaterally. LUNGS: Clear. Heart is irregular. ABDOMEN: Soft. No tenderness. Extremities reveal no edema. MEDICATIONS: Her current medications include: 1. Acetaminophen 650 every 6 hours as needed. 2. Eliquis 5 mg b.i.d. 3. Atorvastatin 40 mg daily. 4. Cardizem 30 mg t.i.d. 5. Pepcid 20 mg daily. 6. Folic acid 1 mg daily. 7. [place] one every 4 hours as needed. 8. Magnesium oxide 200 mg b.i.d. 9. Lopressor 75 mg b.i.d. 10.Zyprexa 5 mg at bedtime. 11.Zofran 4 mg IV every 8 hours as needed. 12.Protonix 40 mg b.i.d. LABORATORY DATA FROM TODAY: Total WBC 2.5, hemoglobin 8.0, hematocrit 26.2. MCV is 106.9. Platelets are 230. Sodium 137, potassium 4.2, chloride 107. CO2 is 23. BUN is 14, creatinine 0.7. AST 42, ALT is 52. Alkaline phosphatase 218. IMPRESSION: 1. Metastatic adenocarcinoma of the lung. The patient initially presented with large left upper lobe mass causing rib invasion with metastatic disease to the right adrenal gland and to L2. The patient did receive palliative radiation therapy to the left lung lesion causing rib destruction and also palliative radiation therapy to L2 spine. Subsequently she received systemic chemo immunotherapy with a combination of Alimta, carboplatin and Keytruda; completed 4 cycles on 12/09/2021, and she had a follow-up PET scan that revealed positive treatment response. Plan is to continue with maintenance immunotherapy only. 2. Syncopal episode and shortness of breath. Recent CT angiogram of the chest did not reveal any evidence of pulmonary embolus. Also, recent echocardiogram revealed normal ejection fraction. Her syncopal episode and shortness of breath in part could be related to atrial fibrillation with rapid ventricular response, which seems under control right now, and also in part related to vasovagal and anemia. 3. Anemia. This is in part related to chemotherapy. Also, previously she had iron deficiency anemia and she did receive parenteral iron as an outpatient last month. 4. History of right breast carcinoma diagnosed in May of 2017. She had a right breast lumpectomy and sentinel node biopsy revealing grade 1 invasive ductal carcinoma measuring 2 cm, negative sentinel node. Estrogen and progesterone receptor were strongly positive and HER-2/dex negative. She was on endocrine therapy was aromatase inhibitor. 5. Remote history of left breast carcinoma in 1991, treated with lumpectomy and radiation therapy only at that time. RECOMMENDATIONS: 1. Her clinical presentation is very unlikely to be related to metastatic disease to her brain. She did have a brain MRI in September which was negative, and there is no need to repeat brain MRI at this point in time. 2. Monitor her blood count. 3. Continue current management per Cardiology. 4. Once her condition improves, she could be discharged home. She will be re- evaluated in the outpatient setting and we will repeat iron panel. If there is evidence of recurrent iron deficiency, she will be treated with parenteral iron as well. 5. The plan also is to resume immunotherapy with Keytruda in the outpatient setting. Thank you very much. MMABDIFATAH / EMMAN: [id number] /
[2021-12-27] MEDS ORDERED: Magnesium Replacement Protocol 1 EACH MISC MISCELLANE PRN (13:50)
[2021-12-27] MEDS: MAGNESIUM SULFATE-D5W PMX 1 GM in DEXTROSE/WATER 1 100ML.BAG IVPB SCH ×2 (13:56→16:00)
--- NOTE | 2021-12-27 13:56 | P.PN ---
Subjective This is a 80-year-old female with a past medical history significant for paroxysmal atrial fibrillation (on Eliquis). breast cancer in 1994 and recu rrence in 2017, metastatic lung cancer with metastases to the brain and back, hypertension, hyperlipidemia, GERD, former nicotine dependence. He follows with Dr. Quinn. We have been asked to see the patient in consultation for A. fib with RVR and syncope. Patient presents to the emergency department after a syncopal episode. She states she was at her [facility] appointment, she stood up to go to the front attendant, she had symptoms of lightheadedness and loss consciousness. She states the front attendant caught her. She is unsure how long she was out, but woke up to everyone standing around her. She states she had a similar episode of syncope on 12/21/2021. She states she was at home wit h her friend, she was standing at that time, had similar symptoms of lightheadedness and then loss consciousness briefly. Her Friend called EMS, she was told her blood pressure was low and that she was likely dehydrated. She did not present to the hospital at that time. She also has been feeling more short of breath over the past couple days, has been noticing it more at night. She denies any palpitations, fever, cough, chills, diaphoresis, chest pain, nausea, vomiting, diarrhea or decreased ap petite. She did not know she had Covid, tested positive on admission. DIAGNOSTICS: EKG atrial fibrillation with rapid ventricular response, heart rate 127 Chest xraysmall to moderate left pleural effusion slightly increased from prior. Background mild chronic emphysema change, known left lung neoplasm Laboratory data: WBC 2.4, Hgb 8.3, Plt 202, Sodium 138, K 3.8, BUN 12, 0.86, Mag 1.9 Current home cardiac medications include Eliquis 5 mg twice a day and metoprolol tartrate 50 mg twice a day Most recent echocardiogram obtained in September 2021 revealed ejection fraction 50-55%, moderate mitral regurgitation, and moderate tricuspid regurgitation 12/27 Patient denies any chest pain or pressure or shortness breath. She has been feeling well however still remains in A. fib with RVR. Heart rates in the 120s up to 140s now. She was increased from her home dose of Metoprolol 50 mg twice a day up to 75 mg twice a day however heart rates still elevated. Therefore the metoprolol was increased 100 mg twice a day and also Cardizem was added. PHYSICAL EXAM: VITAL SIGNS: Reviewed. GENERAL: Well-developed in no acute distress. HEENT: Head is normocephalic. Pupils are equal, round. Sclerae anicteric. Mucous membranes of the mouth are moist. Neck supple. No JVD or thyromegaly LUNGS: Respirations even and unlabored. Lungs essentially clear to auscultation bilaterally, diminished in the bases. HEART: Irregular rate and rhythm. S1 and S2 heard. Systolic ejection murmur at apex ABDOMEN: Soft. Nondistended. Nontender. EXTREMITIES: Normal range of motion. No clubbing or cyanosis. Peripheral pulses intact. No lower extremity edema NEUROLOGIC: Awake and alert. Oriented x 3. ASSESSMENT: Syncope unclear etiology at this time, possibly vasvoagal, rule out cardiac cause Paroxysmal atrial fibrillation with RVR on Eliquis Covid-19 infection Metastatic lung cancer with metastases to brain and spine Hypertension Hyperlipidemia GERD Former nicotine dependence PLAN: Echo shows preserved EF without significant valvular disease. Continue Eliquis A. fib still uncontrolled and therefore we will additionally increase the metoprolol to 100 mg twice a day as well as the Cardizem 30 mg 3 times a day. 30 day event monitor going home. Further recommendations based on clinical course Objective - Vital Signs Vital signs: Vital Signs Temp 98.2 F 12/27/21 12:45 Pulse 133 H 12/27/21 12:45 Resp 16 12/27/21 12:45 BP 140/89 12/27/21 12:45 Pulse Ox 94 L 12/27/21 12:45 Intake & Output 12/26/21 12/27/21 12/27/21 18:59 06:59 18:59 Intake Total 240 790 Output Total 100 Balance 240 -100 790 Weight 59.5 kg Intake: Intake, IV Titration 550 Amount Sodium Chloride 0.9% 1, 550 000 ml @ 75 mls/hr IV . [id number] [facility] Rx#:[id number] Oral 240 240 Output: Urine 100 Other: # Voids 1 1 - Labs CBC & Chem 7: 12/27/21 08:41 12/27/21 08:41 Labs: Abnormal Lab Results - Last 24 Hours (Table) 12/26/21 12/27/21 12/27/21 Range/Units 07:29 05:05 08:41 WBC 2.5 L (3.8-10.6) k/uL RBC 2.45 L (3.80-5.40) m/uL Hgb 8.0 L (11.4-16.0) gm/dL Hct 26.2 L (34.0-46.0) % MCV 106.9 H (80.0-100.0) fL MCHC 30.7 L (31.0-37.0) g/dL RDW 21.4 H (11.5-15.5) % Lymphocytes # (Manual) 0.60 L (1.0-4.8) k/uL Metamyelocytes # (Man) 0.03 H (0) k/uL Myelocytes # (Manual) 0.03 H (0) k/uL Macrocytosis Marked A Glucose (74-99) mg/dL POC Glucose (mg/dL) (75-99) mg/dL Ferritin 927.0 H (10.0-291.0) ng/mL AST (14-36) U/L ALT (4-34) U/L Alkaline Phosphatase (38-126) U/L Albumin (3.5-5.0) g/dL Ur Specific [place] 1.040 H (1.001-1.035) Urine Protein Trace H (Negative) Urine Blood Small H (Negative) Urine WBC 7 H (0-5) /hpf Urine Mucus Rare H (None) /hpf 12/27/21 12/27/21 Range/Units 08:41 11:37 WBC (3.8-10.6) k/uL RBC (3.80-5.40) m/uL Hgb (11.4-16.0) gm/dL Hct (34.0-46.0) % MCV (80.0-100.0) fL MCHC (31.0-37.0) g/dL RDW (11.5-15.5) % Lymphocytes # (Manual) (1.0-4.8) k/uL Metamyelocytes # (Man) (0) k/uL Myelocytes # (Manual) (0) k/uL Macrocytosis Glucose 154 H (74-99) mg/dL POC Glucose (mg/dL) 103 H (75-99) mg/dL Ferritin (10.0-291.0) ng/mL AST 42 H (14-36) U/L ALT 56 H (4-34) U/L Alkaline Phosphatase 218 H (38-126) U/L Albumin 3.4 L (3.5-5.0) g/dL Ur Specific [place] (1.001-1.035) Urine Protein (Negative) Urine Blood (Negative) Urine WBC (0-5) /hpf Urine Mucus (None) /hpf
--- NOTE | 2021-12-27 14:27 | P.PN ---
Progress Note - Text Progress Note Date: 12/27/21 Chief Complaint: Passing out Very pleasant 81 female, follows with Dr. Staton. 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 Also metastatic lesions in the brain. Patient has received radiation treatment to the lower spine. Patient has received chemotherapy. Also getting immunotherapy.. Patient presents with episodes of passing out. She done it twice in the last 1 week. Normally when walking. Does feel lightheaded. Some palpitations. Denies any nausea vomiting diarrhea. Appetite is okay. Does feel cold all the time no fever. Patient found to be in atrial fibrillation in the ER the range of 1:30. Patient started IV Cardizem in the ER. Patient also detected for COVID-19 in the ER. Patient denies any fever or chills. No cough or shortness of breath. Patient was vaccinated for the same. December 27: No chest pain palpitation. A. fib somewhat uncontrollably above 100. We'll give an extra dose of Lopressor 50 mg this afternoon increase Lopressor 100 mg twice a day. Active Medications Acetaminophen (Acetaminophen Tab 325 Mg Tab) 650 mg PO Q6HR PRN PRN Reason: Mild Pain or Fever > 100.5 Hydrocodone Bitart/Acetaminophen (Hydrocodone/Apap 10-325mg 1 Each Tab) 1 each PO Q4HR PRN PRN Reason: Pain Apixaban (Apixaban 5 Mg Tab) 5 mg PO BID [facility]; Protocol Last Admin: 12/27/21 09:01 Dose: 5 mg Documented by: Atorvastatin Calcium (Atorvastatin 40 Mg Tab) 40 mg PO HS [facility] Last Admin: 12/26/21 19:59 Dose: 40 mg Documented by: Diltiazem HCl (Diltiazem Oral 30 Mg Tab) 30 mg PO TID [facility] Last Admin: 12/27/21 04:52 Dose: 30 mg Documented by: Famotidine (Famotidine 20 Mg Tab) 20 mg PO DAILY [facility] Last Admin: 12/27/21 09:01 Dose: 20 mg Documented by: Folic Acid (Folic Acid 1 Mg Tab) 1 mg PO DAILY [facility] Last Admin: 12/27/21 09:01 Dose: 1 mg Documented by: Magnesium Sulfate/Dextrose 1 (gm/ IV Solution) 100 mls @ 100 mls/hr IVPB Q1H [facility] Stop: 12/27/21 15:59 Last Admin: 12/27/21 13:56 Dose: 100 mls/hr Documented by: Magnesium Oxide (Magnesium Oxide 400 Mg Tab) 200 mg PO BID [facility] Last Admin: 12/27/21 09:00 Dose: 200 mg Documented by: Metoprolol Tartrate (Metoprolol Tartrate 50 Mg Tab) 100 mg PO BID [facility] Miscellaneous Information (Magnesium Replacement Protocol 1 Each Misc) 1 each MISCELLANE DAILY PRN; Protocol PRN Reason: Per Protocol Naloxone HCl (Naloxone 0.4 Mg/Ml 1 Ml Vial) 0.2 mg IV Q2M PRN PRN Reason: Opioid Reversal Olanzapine (Olanzapine 5 Mg Tab) 5 mg PO HS [facility] Last Admin: 12/26/21 20:00 Dose: 5 mg Documented by: Ondansetron HCl (Ondansetron 4 Mg/2 Ml Vial) 4 mg IVP Q8HR PRN PRN Reason: Nausea And Vomiting Pantoprazole Sodium (Pantoprazole 40 Mg Tablet) 40 mg PO AC-BID [facility] Last Admin: 12/27/21 09:01 Dose: 40 mg Documented by: Past medical history to include: breast cancer diagnosed in 1993 with recurrence in 2017. 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 Atrial fibrillation, Social history: Patient smoked for 30 years stopping at age of 44. 2 packs a day. Lives alone. Family history: Diabetes, hypertension, prostate cancer Physical examination: VITAL SIGNS: 98.2, 133, 16, 140/89, 94% room air GENERAL: Sitting up in chair, awake, not in distress EYES: Pupils equal. Conjunctiva palel. HEENT: External appearance of nose and ears normal, oral cavity grossly normal. NECK: JVD not raised; masses not palpable. HEART: Heart sounds irregular; no edema. LUNGS: Respiratory rate normal; clear to auscultation. ABDOMEN: Soft, nontender, liver spleen not palpable, no masses palpable. PSYCH: Alert and oriented x3; mood and affect normal. MUSCULOSKELETAL:No Clubbing/cyanosis;muscles-grossly intact. Evidence of OA INVESTIGATIONS, reviewed in the clinical context: December 27: White count 2.5 hemoglobin 8 potassium 4.2 creatinine 0.7 White count 2.4 hemoglobin 8.3 platelets 202 sodium 138 potassium 3.8. 12 creatinine 0.86 AST 45 ALT 46 proBNP 3080 albumin 3.5 Coronavirus [PCF]: Detected Assessment and plan: -Syncopal episodes likely from uncontrolled underlying atrial fibrillation. -COVID-19 positive, asymptomatic -Paroxysmal atrial fibrillation now presenting with rapid ventricular rate: Uncontrolled IV Cardizem -discontinued... Increase Lopressor 100 mg twice daily. Cardizem 30 mg 3 times a day. 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 Status post biopsy on 07/31/2021 with metastatic of the bone and spine. radiation treatments palliation. Received chemotherapy. Currently immu notherapy. Follow-up with oncology -Essential Hypertension Lopressor 100 mg twice a day. Cardizem 30 mg 3 times a day -GERD Protonix -Osteopenia -Deafness in the left ear -DO NOT RESUSCITATE -Mild cognitive impairment Given additional dose of 50 mg Lopressor this afternoon. Increase Lopressor 200 mg twice a day. Discussed with patient. Other medications to continue.
[2021-12-27 16:36] LABS: Glucose,Whole Blood 136 mg/dL (75-99)
[2021-12-27] MEDS: METOPROLOL TARTRATE 50 MG TAB PO SCH (21:23)
[2021-12-27] MEDS: ATORVASTATIN 40 MG TAB PO SCH (21:23)
[2021-12-27] MEDS: OLANZapine 5 MG TAB PO SCH (21:27)
[2021-12-28] MEDS: PANTOPRAZOLE 40 MG TABLET PO SCH ×2 (06:32→16:47)
[2021-12-28 08:36] LABS: Calcium 9.6 mg/dL (8.4-10.2); Magnesium 1.8 mg/dL (1.6-2.3); Potassium 3.9 mmol/L (3.5-5.1)
[2021-12-28] MEDS: METOPROLOL TARTRATE 50 MG TAB PO SCH ×2 (09:11→20:17)
[2021-12-28] MEDS: MAGNESIUM OXIDE 400 MG TAB PO SCH ×2 (09:12→20:17)
[2021-12-28] MEDS: APIXABAN 5 MG TAB PO SCH ×2 (09:12→20:17)
[2021-12-28] MEDS: FOLIC ACID 1 MG TAB PO SCH (09:12)
[2021-12-28] MEDS: FAMOTIDINE 20 MG TAB PO SCH (09:12)
[2021-12-28] MEDS: DILTIAZEM ORAL 30 MG TAB PO SCH (09:12)
[2021-12-28 09:24] LABS: Anisocytosis Moderate; HCT 28.1 % (34.0-46.0); HGB 8.6 gm/dL (11.4-16.0); Hypochromasia Marked; MCH 32.4 pg (25.0-35.0); MCHC 30.7 g/dL (31.0-37.0); MCV 105.3 fL (80.0-100.0); Macrocytosis Marked; Mean Platelet Volume 10.5; Platelet Count 323 k/uL (150-450); RBC 2.67 m/uL (3.80-5.40); RDW 21.3 % (11.5-15.5)
[2021-12-28 10:45] LABS: Band Neutrophils % 1 %; Basophils # (M) 0.03 k/uL (0-0.2); Eosinophils # (M) 0.12 k/uL (0-0.7); Lymphocytes # (M) 1.11 k/uL (1.0-4.8); Monocytes # (M) 0.36 k/uL (0-1.0); Myelocytes # (M) 0.09 k/uL (0); Myelocytes % 3 %; Neutrophils % (M) 44 %; Nucleated Red Blood Cells 0 /100 WBC (0-0); Total Cells Counted 200
[2021-12-28 10:47] LABS: Poikilocytosis (M) Present
[2021-12-28 10:49] LABS: Polychromasia Present
[2021-12-28 11:23] LABS: Glucose,Whole Blood 114 mg/dL (75-99)
--- NOTE | 2021-12-28 13:48 | P.PN ---
Subjective This is a 80-year-old female with a past medical history significant for paroxysmal atrial fibrillation (on Eliquis). breast cancer in 1994 and recu rrence in 2017, metastatic lung cancer with metastases to the brain and back, hypertension, hyperlipidemia, GERD, former nicotine dependence. He follows with Dr. Quinn. We have been asked to see the patient in consultation for A. fib with RVR and syncope. Patient presents to the emergency department after a syncopal episode. She states she was at her [facility] appointment, she stood up to go to the front end alignment specialist, she had symptoms of lightheadedness and loss consciousness. She states the front office supervisor caught her. She is unsure how long she was out, but woke up to everyone standing around her. She states she had a similar episode of syncope on 12/21/2021. She states she was at home wit h her friend, she was standing at that time, had similar symptoms of lightheadedness and then loss consciousness briefly. Her Friend called EMS, she was told her blood pressure was low and that she was likely dehydrated. She did not present to the hospital at that time. She also has been feeling more short of breath over the past couple days, has been noticing it more at night. She denies any palpitations, fever, cough, chills, diaphoresis, chest pain, nausea, vomiting, diarrhea or decreased ap petite. She did not know she had Covid, tested positive on admission. DIAGNOSTICS: EKG atrial fibrillation with rapid ventricular response, heart rate 127 Chest xraysmall to moderate left pleural effusion slightly increased from prior. Background mild chronic emphysema change, known left lung neoplasm Laboratory data: WBC 2.4, Hgb 8.3, Plt 202, Sodium 138, K 3.8, BUN 12, 0.86, Mag 1.9 Current home cardiac medications include Eliquis 5 mg twice a day and metoprolol tartrate 50 mg twice a day Most recent echocardiogram obtained in September 2021 revealed ejection fraction 50-55%, moderate mitral regurgitation, and moderate tricuspid regurgitation 12/27 Patient denies any chest pain or pressure or shortness breath. She has been feeling well however still remains in A. fib with RVR. Heart rates in the 120s up to 140s now. She was increased from her home dose of Metoprolol 50 mg twice a day up to 75 mg twice a day however heart rates still elevated. Therefore the metoprolol was increased 100 mg twice a day and also Cardizem was added. 12/28 Patient seen and examined. Patient remains in A. fib with heart rates somewhat better controlled however predominantly 90s to 110s. Metoprolol was increased to 100 mg twice daily and Cardizem 30 mg was added yesterday. Heart rates still remained somewhat high. She denies any lightheadedness. She does state she feels somewhat more short of breath compared to yesterday with minimal exertion such as walking to the bathroom. PHYSICAL EXAM: VITAL SIGNS: Reviewed. GENERAL: Well-developed in no acute distress. HEENT: Head is normocephalic. Pupils are equal, round. Sclerae anicteric. Mucous membranes of the mouth are moist. Neck supple. No JVD or thyromegaly LUNGS: Respirations even and unlabored. Lungs essentially clear to auscultation bilaterally, diminished in the bases. HEART: Irregular rate and rhythm. S1 and S2 heard. Systolic ejection murmur at apex ABDOMEN: Soft. Nondistended. Nontender. EXTREMITIES: Normal range of motion. No clubbing or cyanosis. Peripheral pulses intact. No lower extremity edema NEUROLOGIC: Awake and alert. Oriented x 3. ASSESSMENT: Syncope unclear etiology at this time, possibly vasvoagal, rule out cardiac cause Paroxysmal atrial fibrillation with RVR on Eliquis Covid-19 infection Metastatic lung cancer with metastases to brain and spine Hypertension Hyperlipidemia GERD Former nicotine dependence Acute on chronic diastolic heart failure likely exacerbated by A. fib PLAN: Echo shows preserved EF without significant valvular disease. Continue Eliquis Status post increases in metoprolol as well as addition of Cardizem however A. fib still somewhat poorly controlled mainly 90-110s. We will therefore continue with the metoprolol 100 mg twice a day and increase the Cardizem to 60 mg 3 times a day. Additionally add flecainide for rhythm control. Patient with worsened heart failure symptoms and therefore we will add Lasix and check chest x-ray. Hopeful discharge in 24-48 hours however patient was stating she feels worse today than yesterday. 30 day event monitor going home. Further recommendations based on clinical course Objective - Vital Signs Vital signs: Vital Signs Temp 97.9 F 12/28/21 12:20 Pulse 94 12/28/21 12:20 Resp 16 12/28/21 12:20 BP 123/62 12/28/21 12:20 Pulse Ox 92 L 12/28/21 12:20 Intake & Output 12/27/21 12/28/21 12/28/21 18:59 06:59 18:59 Intake Total 1026 200 Balance 1026 200 Intake: Intake, IV Titration 550 Amount Sodium Chloride 0.9% 1, 550 000 ml @ 75 mls/hr IV . [id number] [facility] Rx#:[id number] Oral 476 200 Other: Voiding Method Toilet # Voids 3 # Bowel Movements 0 - Labs CBC & Chem 7: 12/28/21 07:34 12/28/21 07:34 Labs: Abnormal Lab Results - Last 24 Hours (Table) 12/27/21 12/28/21 12/28/21 Range/Units 16:35 07:34 07:34 WBC 3.0 L (3.8-10.6) k/uL RBC 2.67 L (3.80-5.40) m/uL Hgb 8.6 L (11.4-16.0) gm/dL Hct 28.1 L (34.0-46.0) % MCV 105.3 H (80.0-100.0) fL MCHC 30.7 L (31.0-37.0) g/dL RDW 21.3 H (11.5-15.5) % Myelocytes # (Manual) 0.09 H (0) k/uL Macrocytosis Marked A Glucose 154 H (74-99) mg/dL POC Glucose (mg/dL) 136 H (75-99) mg/dL 12/28/21 Range/Units 11:21 WBC (3.8-10.6) k/uL RBC (3.80-5.40) m/uL Hgb (11.4-16.0) gm/dL Hct (34.0-46.0) % MCV (80.0-100.0) fL MCHC (31.0-37.0) g/dL RDW (11.5-15.5) % Myelocytes # (Manual) (0) k/uL Macrocytosis Glucose (74-99) mg/dL POC Glucose (mg/dL) 114 H (75-99) mg/dL
[2021-12-28] MEDS: FLECAINIDE 50 MG TAB PO SCH ×2 (14:06→20:19)
[2021-12-28] MEDS: FUROSEMIDE 40 MG TAB PO SCH (14:06)
--- NOTE | 2021-12-28 14:32 | P.PN ---
Progress Note - Text Progress Note Date: 12/28/21 Chief Complaint: Passing out Very pleasant 81 female, follows with Dr. Staton. 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 Also metastatic lesions in the brain. Patient has received radiation treatment to the lower spine. Patient has received chemotherapy. Also getting immunotherapy.. Patient presents with episodes of passing out. She done it twice in the last 1 week. Normally when walking. Does feel lightheaded. Some palpitations. Denies any nausea vomiting diarrhea. Appetite is okay. Does feel cold all the time no fever. Patient found to be in atrial fibrillation in the ER the range of 1:30. Patient started IV Cardizem in the ER. Patient also detected for COVID-19 in the ER. Patient denies any fever or chills. No cough or shortness of breath. Patient was vaccinated for the same. December 27: No chest pain palpitation. A. fib somewhat uncontrollably above 100. We'll give an extra dose of Lopressor 50 mg this afternoon increase Lopressor 100 mg twice a day. December 28: Patient's A. fib. Remains uncontrolled although 100. He was started on flecainide today. Also Cardizem 60 mg 3 times a day. On Lopressor 100 mg twice a day. Active Medications Acetaminophen (Acetaminophen Tab 325 Mg Tab) 650 mg PO Q6HR PRN PRN Reason: Mild Pain or Fever > 100.5 Hydrocodone Bitart/Acetaminophen (Hydrocodone/Apap 10-325mg 1 Each Tab) 1 each PO Q4HR PRN PRN Reason: Pain Apixaban (Apixaban 5 Mg Tab) 5 mg PO BID [facility]; Protocol Last Admin: 12/28/21 09:12 Dose: 5 mg Documented by: Atorvastatin Calcium (Atorvastatin 40 Mg Tab) 40 mg PO HS [facility] Last Admin: 12/27/21 21:23 Dose: 40 mg Documented by: Diltiazem HCl (Diltiazem Oral 60 Mg Tab) 60 mg PO TID [facility] Famotidine (Famotidine 20 Mg Tab) 20 mg PO DAILY [facility] Last Admin: 12/28/21 09:12 Dose: 20 mg Documented by: Flecainide Acetate (Flecainide 50 Mg Tab) 50 mg PO Q12HR [facility] Last Admin: 12/28/21 14:06 Dose: 50 mg Documented by: Folic Acid (Folic Acid 1 Mg Tab) 1 mg PO DAILY [facility] Last Admin: 12/28/21 09:12 Dose: 1 mg Documented by: Furosemide (Furosemide 40 Mg Tab) 40 mg PO DAILY [facility] Last Admin: 12/28/21 14:06 Dose: 40 mg Documented by: Magnesium Oxide (Magnesium Oxide 400 Mg Tab) 200 mg PO BID [facility] Last Admin: 12/28/21 09:12 Dose: 200 mg Documented by: Metoprolol Tartrate (Metoprolol Tartrate 50 Mg Tab) 100 mg PO BID [facility] Last Admin: 12/28/21 09:11 Dose: 100 mg Documented by: Miscellaneous Information (Magnesium Replacement Protocol 1 Each Misc) 1 each MISCELLANE DAILY PRN; Protocol PRN Reason: Per Protocol Naloxone HCl (Naloxone 0.4 Mg/Ml 1 Ml Vial) 0.2 mg IV Q2M PRN PRN Reason: Opioid Reversal Olanzapine (Olanzapine 5 Mg Tab) 5 mg PO HS [facility] Last Admin: 12/27/21 21:27 Dose: 5 mg Documented by: Ondansetron HCl (Ondansetron 4 Mg/2 Ml Vial) 4 mg IVP Q8HR PRN PRN Reason: Nausea And Vomiting Pantoprazole Sodium (Pantoprazole 40 Mg Tablet) 40 mg PO AC-BID [facility] Last Admin: 12/28/21 06:32 Dose: 40 mg Documented by: Past medical history to include: breast cancer diagnosed in 1993 with recurrence in 2017. 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 Atrial fibrillation, Social history: Patient smoked for 30 years stopping at age of 44. 2 packs a day. Lives alone. Family history: Diabetes, hypertension, prostate cancer Physical examination: VITAL SIGNS: 97.9, 94, 16, 1 23 x 62, 92% room air GENERAL: Sitting up in chair, awake, not in distress EYES: Pupils equal. Conjunctiva palel. HEENT: External appearance of nose and ears normal, oral cavity grossly normal. NECK: JVD not raised; masses not palpable. HEART: Heart sounds irregular; no edema. LUNGS: Respiratory rate normal; clear to auscultation. ABDOMEN: Soft, nontender, liver spleen not palpable, no masses palpable. PSYCH: Alert and oriented x3; mood and affect normal. MUSCULOSKELETAL:No Clubbing/cyanosis;muscles-grossly intact. Evidence of OA INVESTIGATIONS, reviewed in the clinical context: December 28: White count 3 hemoglobin 8.6 platelets 323 potassium 3.9 creatinine 0.84 December 27: White count 2.5 hemoglobin 8 potassium 4.2 creatinine 0.7 White count 2.4 hemoglobin 8.3 platelets 202 sodium 138 potassium 3.8. 12 creatinine 0.86 AST 45 ALT 46 proBNP 3080 albumin 3.5 Coronavirus [PCF]: Detected Assessment and plan: -Syncopal episodes likely from uncontrolled underlying atrial fibrillation. -COVID-19 positive, asymptomatic -Paroxysmal atrial fibrillation now presenting with rapid ventricular rate: Uncontrolled IV Cardizem -discontinued... Increase Lopressor 100 mg twice daily. Increase Cardizem 60 mg 3 times a day. Eliquis. Flecainide 50 mg every 12 started. -Stage IV Metastatic adenocarcinoma of the lung. Status post biopsy on 07/31/2021 with metastatic of the bone and spine. radiation treatments palliation. Received chemotherapy. Currently immunotherapy. Follow-up with oncology -Essential Hypertension Lopressor 100 mg twice a day. Cardizem 60 mg 3 times a day -GERD Protonix -Osteopenia -Deafness in the left ear -DO NOT RESUSCITATE -Mild cognitive impairment Lopressor 100 mg twice a day. Flecainide added. Cardizem 60 mg every 8. Other medications to continue. Discussed with patient. A. fib remains uncontrolled this morning.
--- NOTE | 2021-12-28 15:43 | PN ---
PROGRESS NOTE DATE OF SERVICE: December 28, 2021. CHIEF COMPLAINT: Short of breath. Inga is seen today as a followup. She remained a little less short of breath, but she has improved significantly. No more loss of consciousness. She is alert and oriented x3. She has no nausea or vomiting. No melena, hematochezia or hemoptysis. MEDICATIONS: His current medications are reviewed in her electronic medical record. PHYSICAL EXAMINATION: She is alert, oriented x3. No distress. Her vital signs are temperature: 97.9 afebrile, pulse 94, respirations 16, blood pressure 123/62, pulse ox is 92 percent on room air. HEENT: Normocephalic, atraumatic. Neck: Supple. Chest equal expansion bilaterally. Lungs: Scattered rhonchi. Heart is regular. Abdomen: Soft. No tenderness. Extremities reveal no edema. Skin: No significant bruises, ecchymosis, or petechiae. Lymphatics: no peripherally enlarged cervical nodes or supraclavicular nodes. LABORATORY DATA: WBC of 3.0, hemoglobin is 8.7, hematocrit 28.1, MCV is 105.3, platelets are 332. Sodium 138, potassium 3.9, chloride 104, CO2 24, BUN 12, creatinine 0.84. IMPRESSION: 1. Metastatic adenocarcinoma of the lung. The patient presented with left upper lobe mass causing rib invasion with metastatic disease to right adrenal gland and L2. She did initially receive palliative radiation therapy to the lung mass and destructive rib lesion and then subsequently was started on the combination chemo/immunotherapy and completed 4 cycles on 12/09/2021 and a followup PET scan revealed positive treatment response and the plan to continue with maintenance immunotherapy. 2. 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 Estrogen and progesterone receptor were strongly positive and HER-2/dex negative. She was on endocrine therapy with aromatase inhibitors up to her diagnosis of lung cancer. 3. Anemia. This is in part related to recent chemotherapy. Also, she previously had iron deficiency anemia, which was corrected with parenteral iron as outpatient last month. 4. Atrial fibrillation with uncontrolled rate. RECOMMENDATIONS: 1. Continue current management per Cardiology to control her heart rate. 2. Monitor her blood count. Her hemoglobin appears to be stable. 3. Once her condition improves she will resume immunotherapy in the outpatient setting. MMODL / IJN: [id number] /
[2021-12-28] MEDS: DILTIAZEM ORAL 60 MG TAB PO SCH ×2 (16:47→20:17)
[2021-12-28] MEDS: ATORVASTATIN 40 MG TAB PO SCH (20:17)
[2021-12-28] MEDS: OLANZapine 5 MG TAB PO SCH (20:18)
[2021-12-29] MEDS: PANTOPRAZOLE 40 MG TABLET PO SCH ×2 (06:23→17:46)
--- NOTE | 2021-12-29 08:15 | P.PN ---
Progress Note - Text Progress Note Date: 12/28/21 Patient's orthostatics while supine blood pressure 128/78, sitting blood pressure 145/80 and standing 142/75. 2-D echo revealed normal left ventricular size. Moderate concentric LVH. EF is between 55-60%. There is trivial pericardial effusion. MRI brain pending. Dr. Haley will be resuming neurology service in the morning. Please inform Dr. Haley after the MRI has been completed, or if any other neurological concerns.
[2021-12-29] MEDS: APIXABAN 5 MG TAB PO SCH ×2 (08:52→20:56)
[2021-12-29] MEDS: DILTIAZEM ORAL 60 MG TAB PO SCH (08:52)
[2021-12-29] MEDS: FUROSEMIDE 40 MG TAB PO SCH (08:52)
[2021-12-29] MEDS: FLECAINIDE 50 MG TAB PO SCH ×2 (08:53→20:56)
[2021-12-29] MEDS: MAGNESIUM OXIDE 400 MG TAB PO SCH ×2 (08:53→20:56)
[2021-12-29] MEDS: METOPROLOL TARTRATE 50 MG TAB PO SCH ×2 (08:53→20:56)
[2021-12-29] MEDS: FOLIC ACID 1 MG TAB PO SCH (08:53)
[2021-12-29] MEDS: FAMOTIDINE 20 MG TAB PO SCH (08:53)
[2021-12-29] MEDS ORDERED: DILTIAZEM CD 240 MG CAP.ER.24H PO SCH (11:00)
--- NOTE | 2021-12-29 11:11 | P.PN ---
Subjective Progress Note Date: 12/29/21 Principal diagnosis: A-fib, NSCLC In f/u today pt states feeling ok, no fever, uncontrolled cough or distressing resp c/o, chest pain. Objective - Vital Signs Vital signs: Vital Signs Temp 98.2 F 12/29/21 09:13 Pulse 102 H 12/29/21 09:13 Resp 18 12/29/21 09:13 BP 136/76 12/29/21 09:13 Pulse Ox 97 12/29/21 09:13 Intake & Output 12/28/21 12/29/21 12/29/21 18:59 06:59 18:59 Intake Total 480 200 Output Total 350 Balance 480 -150 Intake: Oral 480 200 Output: Urine 350 Other: Voiding Method Toilet Toilet # Voids 1 1 # Bowel Movements 0 - Constitutional General appearance: Present: average body habitus, cooperative, no acute distress - EENT Eyes: Present: anicteric sclerae, edentulous ENT: Present: hearing grossly normal - Respiratory Details: resp even ad unlabored at rest - Integumentary Integumentary: Present: normal - Neurologic Neurologic: Present: CNII-XII intact - Psychiatric Psychiatric: Present: A&O x's 3, appropriate affect, intact judgment & insight - Labs CBC & Chem 7: 12/28/21 07:34 12/28/21 07:34 Labs: Abnormal Lab Results - Last 24 Hours (Table) 12/28/21 Range/Units 11:21 POC Glucose (mg/dL) 114 H (75-99) mg/dL Assessment and Plan (1) Atrial fibrillation with rapid ventricular response Narrative/Plan: Cardiology has seen pt. Medications adjusted. industrial real estate agent ordered. ECHO complete. Pt is on anticoagulation. Current Visit: Yes Status: Acute Priority: High Code(s): I48.91 - UNSPECIFIED ATRIAL FIBRILLATION SNOMED Code(s): 081673835542686 (2) COVID Narrative/Plan: 12/25/21. IM treatment and mgmt. Current Visit: Yes Status: Acute Priority: High Code(s): U07.1 - COVID-19 SNOMED Code(s): 043245938 (3) Adenocarcinoma, lung Narrative/Plan: On maintenance IO. Will resume once current acute condition is resolved. Current Visit: Yes Status: Acute Priority: High Code(s): C34.90 - MALIGNANT NEOPLASM OF UNSP PART OF UNSP BRONCHUS OR LUNG SNOMED Code(s): 978984566 Plan: attests: I have performed H&P, seen and examined pt, developed impression and plan of care. Discussed with dictator. Agree with dictation, documented as a scribe.
[2021-12-29] MEDS ORDERED: DILTIAZEM CD 180 MG CAP.ER.24H PO ONE (11:30)
--- NOTE | 2021-12-29 12:10 | P.PN ---
Subjective This is a 80-year-old female with a past medical history significant for paroxysmal atrial fibrillation (on Eliquis). 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 He follows with Dr. Quinn. We have been asked to see the patient in consultation for A. fib with RVR and syncope. Patient presents to the emergency department after a syncopal episode. She states she was at her [facility] appointment, she stood up to go to the front sight attacher, she had symptoms of lightheadedness and loss consciousness. She states the vest front presser caught her. She is unsure how long she was out, but woke up to everyone standing around her. She states she had a similar episode of syncope on 12/21/2021. She states she was at home with her friend, she was standing at that time, had similar symptoms of lightheadedness and then loss consciousness briefly. Her Friend called EMS, she was told her blood pressure was low and that she was likely dehydrated. She did not present to the hospital at that time. She also has been feeling more short of breath over the past couple days, has been noticing it more at night. She did not know she had Covid, tested positive on admission. DIAGNOSTICS: EKG atrial fibrillation with rapid ventricular response, heart rate 127 Most recent echocardiogram obtained in September 2021 revealed ejection fraction 50-55%, moderate mitral regurgitation, and moderate tricuspid regurgitation 12/27 Patient denies any chest pain or pressure or shortness breath. She has been feeling well however still remains in A. fib with RVR. Heart rates in the 120s up to 140s now. She was increased from her home dose of Metoprolol 50 mg twice a day up to 75 mg twice a day however heart rates still elevated. Therefore the metoprolol was increased 100 mg twice a day and also Cardizem was added. 12/28 Patient seen and examined. Patient remains in A. fib with heart rates somewhat better controlled however predominantly 90s to 110s. Metoprolol was increased to 100 mg twice daily and Cardizem 30 mg was added yesterday. Heart rates still remained somewhat high. She denies any lightheadedness. She does state she feels somewhat more short of breath compared to yesterday with minimal exertion such as walking to the bathroom. SHe was started on Felcainide 50mg BID and Metoprolol tartrate was increased to 100mg BID 12/29/2021 Patient remains in atrial fibrillation, HR are better controlled. 70s-low 100s, she did have a few pauses, all less than 3 seconds. She is overall feeling ok, breathing has improved. Oxygen saturations >92% on room air. She is maintained on metoprolol titrate 100 mg twice a day, flecainide 50 mg twice a day, Cardizem 60 mg 3 times a day, Eliquis 5 mg twice a day, atorvastatin 40 mg nightly, Lasix 20 mg daily PHYSICAL EXAM: VITAL SIGNS: Reviewed. GENERAL: Well-developed in no acute distress. HEENT: Neck supple. No JVD LUNGS: Respirations even and unlabored. Lungs essentially clear to auscultation bilaterally, diminished in the bases. HEART: Irregular rate and rhythm. S1 and S2 heard. Systolic ejection murmur at apex ABDOMEN: Soft. Nondistended. Nontender. EXTREMITIES: Normal range of motion. No clubbing or cyanosis. Peripheral pulses intact. No lower extremity edema NEUROLOGIC: Awake and alert. Oriented x 3. ASSESSMENT: Syncope unclear etiology at this time, possibly vasvoagal, rule out cardiac cause Paroxysmal atrial fibrillation with RVR on Eliquis Covid-19 infection Metastatic lung cancer with metastases to brain and spine Hypertension Hyperlipidemia GERD Former nicotine dependence Acute on chronic diastolic heart failure likely exacerbated by A. fib PLAN: Echo shows preserved EF without significant valvular disease. Continue Eliquis Transition to Cardizem 240mg daily, continue metoprolol tartrate 100mg BID and Flecaidine 30 day event monitor going home. If patient's heart rates remain stable, ok to discharge and follow up with Dr. Quinn outpatient Objective - Vital Signs Vital signs: Vital Signs Temp 98.1 F 12/29/21 11:48 Pulse 82 12/29/21 11:48 Resp 16 12/29/21 11:48 BP 126/60 12/29/21 11:48 Pulse Ox 96 12/29/21 11:48 Intake & Output 12/28/21 12/29/21 12/29/21 18:59 06:59 18:59 Intake Total 480 440 Output Total 350 Balance 480 90 Intake: Oral 480 440 Output: Urine 350 Other: Voiding Method Toilet Toilet # Voids 1 1 # Bowel Movements 0 - Labs CBC & Chem 7: 12/28/21 07:34 12/28/21 07:34
--- NOTE | 2021-12-29 18:07 | P.PN ---
Progress Note - Text Progress Note Date: 12/29/21 Chief Complaint: Passing out Very pleasant 81 female, follows with Dr. Staton. 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 Also metastatic lesions in the brain. Patient has received radiation treatment to the lower spine. Patient has received chemotherapy. Also getting immunotherapy.. Patient presents with episodes of passing out. She done it twice in the last 1 week. Normally when walking. Does feel lightheaded. Some palpitations. Denies any nausea vomiting diarrhea. Appetite is okay. Does feel cold all the time no fever. Patient found to be in atrial fibrillation in the ER the range of 1:30. Patient started IV Cardizem in the ER. Patient also detected for COVID-19 in the ER. Patient denies any fever or chills. No cough or shortness of breath. Patient was vaccinated for the same. December 27: No chest pain palpitation. A. fib somewhat uncontrollably above 100. We'll give an extra dose of Lopressor 50 mg this afternoon increase Lopressor 100 mg twice a day. December 28: Patient's A. fib. Remains uncontrolled although 100. He was started on flecainide today. Also Cardizem 60 mg 3 times a day. On Lopressor 100 mg twice a day. December 29: A. fib remains better controlled. Change total Cardizem CD 240 mg, Lopressor 100 mg twice a day, flecainide. Told the patient increase activity. Oral intake fair. Active Medications Acetaminophen (Acetaminophen Tab 325 Mg Tab) 650 mg PO Q6HR PRN PRN Reason: Mild Pain or Fever > 100.5 Hydrocodone Bitart/Acetaminophen (Hydrocodone/Apap 10-325mg 1 Each Tab) 1 each PO Q4HR PRN PRN Reason: Pain Apixaban (Apixaban 5 Mg Tab) 5 mg PO BID [facility]; Protocol Last Admin: 12/29/21 08:52 Dose: 5 mg Documented by: Atorvastatin Calcium (Atorvastatin 40 Mg Tab) 40 mg PO HS [facility] Last Admin: 12/28/21 20:17 Dose: 40 mg Documented by: Diltiazem HCl (Diltiazem Cd 240 Mg Cap.Er.24h) 240 mg PO DAILY [facility] Famotidine (Famotidine 20 Mg Tab) 20 mg PO DAILY [facility] Last Admin: 12/29/21 08:53 Dose: 20 mg Documented by: Flecainide Acetate (Flecainide 50 Mg Tab) 50 mg PO Q12HR [facility] Last Admin: 12/29/21 08:53 Dose: 50 mg Documented by: Folic Acid (Folic Acid 1 Mg Tab) 1 mg PO DAILY [facility] Last Admin: 12/29/21 08:53 Dose: 1 mg Documented by: Furosemide (Furosemide 40 Mg Tab) 40 mg PO DAILY [facility] Last Admin: 12/29/21 08:52 Dose: 40 mg Documented by: Magnesium Oxide (Magnesium Oxide 400 Mg Tab) 200 mg PO BID [facility] Last Admin: 12/29/21 08:53 Dose: 200 mg Documented by: Metoprolol Tartrate (Metoprolol Tartrate 50 Mg Tab) 100 mg PO BID [facility] Last Admin: 12/29/21 08:53 Dose: 100 mg Documented by: Miscellaneous Information (Magnesium Replacement Protocol 1 Each Misc) 1 each MISCELLANE DAILY PRN; Protocol PRN Reason: Per Protocol Naloxone HCl (Naloxone 0.4 Mg/Ml 1 Ml Vial) 0.2 mg IV Q2M PRN PRN Reason: Opioid Reversal Olanzapine (Olanzapine 5 Mg Tab) 5 mg PO HS [facility] Last Admin: 12/28/21 20:18 Dose: 5 mg Documented by: Ondansetron HCl (Ondansetron 4 Mg/2 Ml Vial) 4 mg IVP Q8HR PRN PRN Reason: Nausea And Vomiting Pantoprazole Sodium (Pantoprazole 40 Mg Tablet) 40 mg PO AC-BID [facility] Last Admin: 12/29/21 17:46 Dose: 40 mg Documented by: Past medical history to include: breast cancer diagnosed in 1993 with recurrence in 2017. 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 Atrial fibrillation, Social history: Patient smoked for 30 years stopping at age of 44. 2 packs a day. Lives alone. Family history: Diabetes, hypertension, prostate cancer Physical examination: VITAL SIGNS: 98.1, 82, 16, 126/60, 96% room air GENERAL: Sitting up in chair, awake, not in distress EYES: Pupils equal. Conjunctiva palel. HEENT: External appearance of nose and ears normal, oral cavity grossly normal. NECK: JVD not raised; masses not palpable. HEART: Heart sounds irregular; no edema. LUNGS: Respiratory rate normal; clear to auscultation. ABDOMEN: Soft, nontender, liver spleen not palpable, no masses palpable. PSYCH: Alert and oriented x3; mood and affect normal. MUSCULOSKELETAL:No Clubbing/cyanosis;muscles-grossly intact. Evidence of OA INVESTIGATIONS, reviewed in the clinical context: December 28: White count 3 hemoglobin 8.6 platelets 323 potassium 3.9 creatinine 0.84 December 27: White count 2.5 hemoglobin 8 potassium 4.2 creatinine 0.7 White count 2.4 hemoglobin 8.3 platelets 202 sodium 138 potassium 3.8. 12 creatinine 0.86 AST 45 ALT 46 proBNP 3080 albumin 3.5 Coronavirus [PCF]: Detected Assessment and plan: -Syncopal episodes likely from uncontrolled underlying atrial fibrillation. -COVID-19 positive, asymptomatic -Paroxysmal atrial fibrillation now presenting with rapid ventricular rate: Better controlled Lopressor 100 mg twice daily. Increase Cardizem to 40 mg by mouth daily Eliquis. Flecainide 50 mg every 12 started. -Stage IV Metastatic adenocarcinoma of the lung. Status post biopsy on 07/31/2021 with metastatic of the bone and spine. radiation treatments palliation. Received chemotherapy. Currently immunotherapy. Follow-up with oncology -Essential Hypertension Lopressor 100 mg twice a day. Cardizem 60 mg 3 times a day -GERD Protonix -Osteopenia -Deafness in the left ear -DO NOT RESUSCITATE -Mild cognitive impairment Patient on Lopressor, flecainide. Cardizem increased to 240 mg CD daily. Increase activity. Remains good. Discharged tomorrow. Discussed with patient.
[2021-12-29] MEDS: ATORVASTATIN 40 MG TAB PO SCH (20:56)
[2021-12-29] MEDS: OLANZapine 5 MG TAB PO SCH (20:56)
[2021-12-30] MEDS: PANTOPRAZOLE 40 MG TABLET PO SCH ×2 (06:26→13:57)
[2021-12-30] MEDS: METOPROLOL TARTRATE 50 MG TAB PO SCH (08:30)
[2021-12-30] MEDS: FOLIC ACID 1 MG TAB PO SCH (08:30)
[2021-12-30] MEDS: APIXABAN 5 MG TAB PO SCH (08:30)
[2021-12-30] MEDS: FUROSEMIDE 40 MG TAB PO SCH (08:30)
[2021-12-30] MEDS: MAGNESIUM OXIDE 400 MG TAB PO SCH (08:30)
[2021-12-30] MEDS: FLECAINIDE 50 MG TAB PO SCH (08:30)
[2021-12-30] MEDS: FAMOTIDINE 20 MG TAB PO SCH (08:34)
[2021-12-30 08:35] VITALS: BP 138/60; PULSE 62; RESP 16; TEMP 97.1
[2021-12-30] MEDS ORDERED: DILTIAZEM CD 240 MG CAP.ER.24H PO SCH (09:00)
--- NOTE | 2021-12-30 12:27 | P.PN ---
Subjective Progress Note Date: 12/30/21 Principal diagnosis: A-fib, NSCLC In f/u today pt states feeling fine, she has no c/o, no s/s covid, fever or pain. She states that she has been ambulating in room with mild resp difficulty, no O2 at rest. Objective - Vital Signs Vital signs: Vital Signs Temp 97.1 F L 12/30/21 08:35 Pulse 62 12/30/21 08:35 Resp 16 12/30/21 08:35 BP 138/60 12/30/21 08:35 Pulse Ox 95 12/30/21 08:35 Intake & Output 12/29/21 12/30/21 12/30/21 18:59 06:59 18:59 Intake Total 690 550 Output Total 350 Balance 340 550 Intake: IV 10 10 Invasive Line 6 10 10 Oral 680 540 Output: Urine 350 Other: Voiding Method Toilet Toilet Toilet # Voids 1 1 1 - Constitutional General appearance: Present: average body habitus, cooperative, no acute distress - EENT Eyes: Present: anicteric sclerae, EOMI ENT: Present: hearing grossly normal - Respiratory Details: resp even and unlabored at rest - Neurologic Neurologic: Present: CNII-XII intact (grossly) - Psychiatric Psychiatric: Present: A&O x's 3, appropriate affect, intact judgment & insight - Labs CBC & Chem 7: 12/28/21 07:34 12/28/21 07:34 Assessment and Plan (1) Atrial fibrillation with rapid ventricular response Narrative/Plan: Cardiology has seen pt. Medications adjusted. monitoring analyst ordered. ECHO complete. Pt is on anticoagulation with eliquis. Current Visit: Yes Status: Acute Priority: High Code(s): I48.91 - UNSPECIFIED ATRIAL FIBRILLATION SNOMED Code(s): 527912398550275 (2) COVID Narrative/Plan: 12/25/21. IM treatment and mgmt. Current Visit: Yes Status: Acute Priority: High Code(s): U07.1 - COVID-19 SNOMED Code(s): 622132452 (3) Adenocarcinoma, lung Narrative/Plan: On maintenance IO. Primary Onc wants pt to have her treatment next week and then f/u with him the following week. Dr aviles in discharge plan. Chemo RNs will call pt to make appt for treatment. Current Visit: Yes Status: Acute Priority: High Code(s): C34.90 - MALIGNANT NEOPLASM OF UNSP PART OF UNSP BRONCHUS OR LUNG SNOMED Code(s): 501965964
--- NOTE | 2021-12-30 12:38 | P.PN ---
Subjective This is a 80-year-old female with a past medical history significant for paroxysmal atrial fibrillation (on Eliquis). 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 He follows with Dr. Quinn. We have been asked to see the patient in consultation for A. fib with RVR and syncope. Patient presents to the emergency department after a syncopal episode. She states she was at her [facility] appointment, she stood up to go to the assistant front desk manager, she had symptoms of lightheadedness and loss consciousness. She states the front office supervisor caught her. She is unsure how long she was out, but woke up to everyone standing around her. She states she had a similar episode of syncope on 12/21/2021. She states she was at home with her friend, she was standing at that time, had similar symptoms of lightheadedness and then loss consciousness briefly. Her Friend called EMS, she was told her blood pressure was low and that she was likely dehydrated. She did not present to the hospital at that time. She also has been feeling more short of breath over the past couple days, has been noticing it more at night. She did not know she had Covid, tested positive on admission. DIAGNOSTICS: EKG atrial fibrillation with rapid ventricular response, heart rate 127 Most recent echocardiogram obtained in September 2021 revealed ejection fraction 50-55%, moderate mitral regurgitation, and moderate tricuspid regurgitation 12/27 Patient denies any chest pain or pressure or shortness breath. She has been feeling well however still remains in A. fib with RVR. Heart rates in the 120s up to 140s now. She was increased from her home dose of Metoprolol 50 mg twice a day up to 75 mg twice a day however heart rates still elevated. Therefore the metoprolol was increased 100 mg twice a day and also Cardizem was added. 12/28 Patient seen and examined. Patient remains in A. fib with heart rates somewhat better controlled however predominantly 90s to 110s. Metoprolol was increased to 100 mg twice daily and Cardizem 30 mg was added yesterday. Heart rates still remained somewhat high. She denies any lightheadedness. She does state she feels somewhat more short of breath compared to yesterday with minimal exertion such as walking to the bathroom. SHe was started on Felcainide 50mg BID and Metoprolol tartrate was increased to 100mg BID 12/30/2021 Patient seen and examined at bedside, no acute distress. She converted to sinus mechanism earlier this morning overnight. Her heart rate is in the 50s. Telemetry reviewed, no further pauses noted .She is overall feeling ok, breathing has improved. Denies chest pain or shortness of breath. Oxygen satura tions >92% on room air. She is maintained on metoprolol tartrate 100 mg twice a day, flecainide 50 mg twice a day, Cardizem 240mg daily, Eliquis 5 mg twice a day, atorvastatin 40 mg nightly, Lasix 40 mg daily PHYSICAL EXAM: VITAL SIGNS: Reviewed. GENERAL: Well-developed in no acute distress. HEENT: Neck supple. No JVD LUNGS: Respirations even and unlabored. Lungs essentially clear to auscultation bilaterally, diminished in the bases. HEART: Irregular rate and rhythm. S1 and S2 heard. Systolic ejection murmur at apex ABDOMEN: Soft. Nondistended. Nontender. EXTREMITIES: Normal range of motion. No clubbing or cyanosis. Peripheral pulses intact. No lower extremity edema NEUROLOGIC: Awake and alert. Oriented x 3. ASSESSMENT: Syncope unclear etiology at this time, possibly vasvoagal, rule out cardiac cause Paroxysmal atrial fibrillation with RVR on Eliquis Covid-19 infection Metastatic lung cancer with metastases to brain and spine Hypertension Hyperlipidemia GERD Former nicotine dependence Acute on chronic diastolic heart failure likely exacerbated by A. fib PLAN: Echo shows preserved EF without significant valvular disease. Decrease cardizem to 180mg daily Continue Eliquis We will continue metoprolol tartrate 100mg BID and Flecaidine 30 day event monitor going home. Patient is stable from cardiology perspective, ok to discharge and follow up with Dr. Quinn outpatient in 1-2 weeks. Objective - Vital Signs Vital signs: Vital Signs Temp 97.1 F L 12/30/21 08:35 Pulse 62 12/30/21 08:35 Resp 16 12/30/21 08:35 BP 138/60 12/30/21 08:35 Pulse Ox 95 12/30/21 08:35 Intake & Output 12/29/21 12/30/21 12/30/21 18:59 06:59 18:59 Intake Total 690 550 Output Total 350 Balance 340 550 Intake: IV 10 10 Invasive Line 6 10 10 Oral 680 540 Output: Urine 350 Other: Voiding Method Toilet Toilet Toilet # Voids 1 1 1 - Labs CBC & Chem 7: 12/28/21 07:34 12/28/21 07:34
--- NOTE | 2021-12-30 22:30 | P.DS ---
Providers Date of admission: 12/25/21 15:20 Expected date of discharge: 12/30/21 Attending physician: Garrett Saez Consults: 12/25/21 15:10 Consult Physician Routine Consulting Provider: Valentino Jeffries Consult Reason/Comments: Adenocarcinoma with metastatic disease Do you want consulting provider notified?: Yes, Notify in am Consult Physician Routine Consulting Provider: Palmer Quinn Consult Reason/Comments: A. fib with RVR Do you want consulting provider notified?: Yes 12/26/21 12:21 Consult Physician Routine Consulting Provider: Tony Frazier Consult Reason/Comments: LOC and Syncopal with metastatic cancer, confirm no seizurel like activity Do you want consulting provider notified?: Yes Primary care physician: David [facility] Course: Chief Complaint: Passing out Very pleasant 81 female, follows with Dr. Staton. 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 Also metastatic lesions in the brain. Patient has received radiation treatment to the lower spine. Patient has received chemotherapy. Also getting immunotherapy.. Patient presents with episodes of passing out. She done it twice in the last 1 week. Normally when walking. Does feel lightheaded. Some palpitations. Denies any nausea vomiting diarrhea. Appetite is okay. Does feel cold all the time no fever. Patient found to be in atrial fibrillation in the ER the range of 1:30. Patient started IV Cardizem in the ER. Patient also detected for COVID-19 in the ER. Patient denies any fever or chills. No cough or shortness of breath. Patient was vaccinated for the same. December 27: No chest pain palpitation. A. fib somewhat uncontrollably above 100. We'll give an extra dose of Lopressor 50 mg this afternoon increase Lopressor 100 mg twice a day. December 28: Patient's A. fib. Remains uncontrolled although 100. He was started on flecainide today. Also Cardizem 60 mg 3 times a day. On Lopressor 100 mg twice a day. December 29: A. fib remains better controlled. Change total Cardizem CD 240 mg, Lopressor 100 mg twice a day, flecainide. Told the patient increase activity. Oral intake fair. December 30: A. fib controlled. Cardizem CD cutback to 180 mg. Cleared by cardiology. Patient doing well. No cardiac symptoms Past medical history to include: breast cancer diagnosed in 1993 with recurrence in 2017. 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 Atrial fibrillation, Social history: Patient smoked for 30 years stopping at age of 44. 2 packs a day. Lives alone. Family history: Diabetes, hypertension, prostate cancer Physical examination: VITAL SIGNS: 97.1, 62, 16, 1 38 x 60, 95% room air GENERAL: Propped up in bed, comfortable EYES: Pupils equal. Conjunctiva pale. HEENT: External appearance of nose and ears normal, oral cavity grossly normal. NECK: JVD not raised; masses not palpable. HEART: Heart sounds irregular; no edema. LUNGS: Respiratory rate normal; clear to auscultation. ABDOMEN: Soft, nontender, liver spleen not palpable, no masses palpable. PSYCH: Alert and oriented x3; mood and affect normal. MUSCULOSKELETAL:No Clubbing/cyanosis;muscles-grossly intact. Evidence of OA INVESTIGATIONS, reviewed in the clinical context: December 28: White count 3 hemoglobin 8.6 platelets 323 potassium 3.9 creatinine 0.84 December 27: White count 2.5 hemoglobin 8 potassium 4.2 creatinine 0.7 White count 2.4 hemoglobin 8.3 platelets 202 sodium 138 potassium 3.8. 12 creatinine 0.86 AST 45 ALT 46 proBNP 3080 albumin 3.5 Coronavirus [PCF]: Detected Assessment and plan: -Syncopal episodes likely from uncontrolled underlying atrial fibrillation. -COVID-19 positive, asymptomatic -Paroxysmal atrial fibrillation now presenting with rapid ventricular rate: Better controlled Lopressor 100 mg twice daily. Cardizem CD 180 mg a day Eliquis. Flecainide 50 mg every 12 started. -Stage IV Metastatic adenocarcinoma of the lung. Status post biopsy on 07/31/2021 with metastatic of the bone and spine. radiation treatments palliation. Received chemotherapy. Currently immunotherapy. Follow-up with oncology -Essential Hypertension Lopressor 100 mg twice a day. Cardizem CD 180 mg a day -GERD Protonix -Osteopenia -Deafness in the left ear -DO NOT RESUSCITATE -Mild cognitive impairment Disposition: Home Plan - Discharge Summary Discharge Rx Participant: No New Discharge Prescriptions: New Flecainide [Tambocor] 50 mg PO Q12HR 30 Days #30 tab Metoprolol Tartrate [Lopressor] 100 mg PO BID 30 Days #120 tab Diltiazem Cd [Cardizem CD] 180 mg PO DAILY #30 cap Furosemide [Lasix] 20 mg PO DAILY #30 tab Continue Apixaban [Eliquis] 5 mg PO BID #60 tab Magnesium Oxide [Mag-Ox] 200 mg PO BID #30 tab Pantoprazole [Protonix] 40 mg PO AC-BID #60 tab OLANZapine [ZyPREXA] 5 mg PO HS Glucosamine Sulfate 500 mg PO DAILY Atorvastatin [Lipitor] 40 mg PO HS #30 tab HYDROcodone/APAP 10-325MG [Glendo 10-325] 1 - 2 tab PO Q4HR PRN PRN Reason: Pain Ondansetron Odt [Zofran ODT] 4 mg PO Q6H PRN PRN Reason: Nausea Folic Acid 1 mg PO DAILY Ubidecarenone [Co Q-10] 100 mg PO DAILY Discontinued Metoprolol Tartrate [Lopressor] 50 mg PO BID #60 tab Discharge Medication List Apixaban [Eliquis] 5 mg PO BID #60 tab 09/26/21 [Rx] Atorvastatin [Lipitor] 40 mg PO HS #30 tab 09/26/21 [Rx] Magnesium Oxide [Mag-Ox] 200 mg PO BID #30 tab 09/26/21 [Rx] Pantoprazole [Protonix] 40 mg PO AC-BID #60 tab 09/26/21 [Rx] HYDROcodone/APAP 10-325MG [Glendo 10-325] 1 - 2 tab PO Q4HR PRN 10/15/21 [History] OLANZapine [ZyPREXA] 5 mg PO HS 10/15/21 [History] Ondansetron Odt [Zofran ODT] 4 mg PO Q6H PRN 10/15/21 [History] Folic Acid 1 mg PO DAILY 12/25/21 [History] Glucosamine Sulfate 500 mg PO DAILY 12/25/21 [History] Ubidecarenone [Co Q-10] 100 mg PO DAILY 12/25/21 [History] Flecainide [Tambocor] 50 mg PO Q12HR 30 Days #30 tab 12/29/21 [Rx] Metoprolol Tartrate [Lopressor] 100 mg PO BID 30 Days #120 tab 12/29/21 [Rx] Diltiazem Cd [Cardizem CD] 180 mg PO DAILY #30 cap 12/30/21 [Rx] Furosemide [Lasix] 20 mg PO DAILY #30 tab 12/30/21 [Rx] Follow up Appointment(s)/Referral(s): David Staton DO [Primary Care Provider] - 01/01/22 11:40 am (WEDNESDAY ) Palmer Quinn DO [STAFF PHYSICIAN] - 01/14/22 1:30 pm (WEDNESDAY) Boo Balderas MD [STAFF PHYSICIAN] - 01/13/22 1:30 pm (WEDNESDAY) Patient Instructions/Handouts: Coronavirus Disease 2019 (COVID-19), A-fib (Atrial Fibrillation) (DC) Activity/Diet/Wound Care/Special Instructions: Pt will be scheduled for maintenance immune therapy before seeing Dr. Balderas on 01/13/22. RNs will be calling her to schedule Discharge Disposition: HOME SELF-CARE
[2021-12-31] MEDS ORDERED: DILTIAZEM CD 180 MG CAP.ER.24H PO SCH (09:00)
== END 2021-12-30 14:26 | disposition home or self-care (01) | DRG 308 ==
LOC: EC 11:02 → 3SCARD 15:20
PROVIDERS: ADMIT Hospitalist; ATTEND Hospitalist
DX: I48.0 Paroxysmal atrial fibrillation (principal); U07.1 COVID-19; I50.33 Acute on chronic diastolic (congestive) heart failure; C79.31 Secondary malignant neoplasm of brain; C79.51 Secondary malignant neoplasm of bone; C79.71 Secondary malignant neoplasm of right adrenal gland; C78.00 Secondary malignant neoplasm of unspecified lung; R55 Syncope and collapse; E83.42 Hypomagnesemia; E86.0 Dehydration; E78.5 Hyperlipidemia, unspecified; J43.9 Emphysema, unspecified; K21.9 Gastro-esophageal reflux disease without esophagitis; H91.92 Unspecified hearing loss, left ear; G31.84 Mild cognitive impairment of uncertain or unknown etiology; Z66 Do not resuscitate; M85.80 Other specified disorders of bone density and structure, unspecified site; I08.1 Rheumatic disorders of both mitral and tricuspid valves; D64.81 Anemia due to antineoplastic chemotherapy; T45.1X5A Adverse effect of antineoplastic and immunosuppressive drugs, initial encounter; D70.2 Other drug-induced agranulocytosis; I11.0 Hypertensive heart disease with heart failure; W18.30XA Fall on same level, unspecified, initial encounter; Z85.3 Personal history of malignant neoplasm of breast; Z87.891 Personal history of nicotine dependence; Z79.01 Long term (current) use of anticoagulants; Z79.899 Other long term (current) drug therapy; Z92.3 Personal history of irradiation; Z90.49 Acquired absence of other specified parts of digestive tract; Z83.3 Family history of diabetes mellitus; Z82.49 Family history of ischemic heart disease and other diseases of the circulatory system; Z80.42 Family history of malignant neoplasm of prostate
CPT/HCPCS: 36415; 71046; 71275; 80048; 80053; 81001; 82728; 82784; 83540; 83550; 83735; 83880; 84484; 85025; 85379; 85610; 85730; 87635; 93005; 93270; 93308; 96361; 96365; 96366; 96368; 96375; 99285

== ENCOUNTER 2022-02-18 12:49 | Inpatient (IN) | payer MEDICARE ==
[2022-02-18] MEDS ORDERED: ONDANSETRON ODT 4 MG TAB PO PRN (16:33)
[2022-02-18] MEDS ORDERED: HYDROcodone/APAP 10-325MG 1 EACH TAB PO PRN (16:33)
[2022-02-18 17:33] LABS: Basophils # (A) 0.1 k/uL (0-0.2); Basophils % (A) 1 %; Eosinophils # (A) 0.1 k/uL (0-0.7); Eosinophils % (A) 1 %; HCT 41.2 % (34.0-46.0); Hypochromasia Moderate; Lymphocytes # (A) 0.5 k/uL (1.0-4.8); Lymphocytes % (A) 7 %; MCH 30.7 pg (25.0-35.0); MCHC 30.1 g/dL (31.0-37.0); Macrocytosis Slight; Mean Platelet Volume 10.4; Monocytes # (A) 0.2 k/uL (0-1.0); Monocytes % (A) 2 %; Neutrophils % (A) 88 %; Platelet Count 215 k/uL (150-450); RBC 4.04 m/uL (3.80-5.40); RDW 15.5 % (11.5-15.5); WBC 7.9 k/uL (3.8-10.6)
[2022-02-18 17:36] LABS: HGB 12.4 gm/dL (11.4-16.0)
[2022-02-18 17:39] LABS: Partial Thromboplastin Time 27.3 sec (22.0-30.0)
[2022-02-18] MEDS: PANTOPRAZOLE 40 MG TABLET PO SCH (17:44)
[2022-02-18] MEDS: predniSONE 20 MG TAB PO SCH (17:44)
[2022-02-18] MEDS: SODIUM CHLORIDE 0.9% 1,000 ML IV SCH (17:46)
[2022-02-18 17:53] LABS: INR 1.1 (<1.2); Prothrombin Time 11.6 sec (9.0-12.0)
--- NOTE | 2022-02-18 19:59 | P.CONS ---
History of Present Illness - Reason for Consult Consult date: 02/18/22 metastatic lung ca on IO Requesting physician: Garrett Saez - Chief Complaint immunotherapy hepatitis - History of Present Illness Mrs. Brooke is a very pleasant female pt of Dr. Balderas who has a Hx of ER/OH positive Her2 negative breast cancer 2016, s/p lumpectomy and SLND, adjuvant XRT and femara. She c/o lt sided rib pain in Jul 2021, CT chest revealed 6.6cm ELMER lung mass with rib invasion, biopsy positive for adenocarcinoma, staging PET revealed ELMER mass, L2 and rt adrenal met, PD-L1 neg. Liquid biopsy revealed KKEAP1 mutation, high TMB, NGS on tissues revealed POLE1 and ARIDA1 mutations,TMB 12.6, MADHU. She completed palliative XRT to left rib and L2. 10/07/2021 she started alimta/carboplatin/keytruda and completed 4 cycles on 12/09/2021. 12/05/21 repeat PET showed positive treatment response with diminished hypermetabolic uptake left midlung destructive neoplasm along with the prevascular adenopathy and right adrenal metastatic focus, however cannot e xclude new near 1.0 cm hypermetabolic lymph node near the diaphragmatic hiatus. She continued on keytruda only as of 01/09/2022 and is s/p 2 cycles. She had routine lab work done and was found to have elevating LFTs, suspicious for immunotherapy hepatitis. She was asked to come to the office to be evaluated. She denied CALVILLO, fever, chills, nausea, vomiting, reports decent appetite, no chest pain, SOB, abd distension, she did note ward supervisor stool and darker urine, no dysuria, bleeding, petechiae or unusual bruising. She feels ok. Review of Systems 14 point ROS is neg except as stated in HPI Past Medical History Past Medical History: Atrial Fibrillation, Cancer, GERD/Reflux, Hearing Disorder / Deafness, Hyperlipidemia, Hypertension, Syncope Additional Past Medical History / Comment(s): 1973 TB with L lung lobectomy, 1991 L breast cancer/lumpectomy/radiation, 2016 R breast cancer/lumpectomy/radi ation, 07/18/21 L rib pain with cat scan showing ELMER mass with rib invasion/biopsy showed adenocarcinoma with lung primary/pt states she has received chemo and immunotherapy and palliative radiation to L rib and L2. Other hx: Afib with rvr/syncope, covid infection 12/2021, diverticular disease, benign colon polyps, deaf L ear. History of Any Multi-Drug Resistant Organisms: None Reported Past Surgical History: Appendectomy, Breast Surgery, Section, Orthopedic Surgery Additional Past Surgical History / Comment(s): 1973 L lung lobectomy d/t TB, 1991 L breast bx/lumpectomy, 2016 R breast core bx/lumpectomy/sentinal node biopsy, 07/2021 L lung mass biopsy, multiple L ear surgeries, L ankle fracture with hardware since removed, colonoscopy/polypectomy, D&C Past Anesthesia/Blood Transfusion Reactions: No Reported Reaction Additional Past Anesthesia/Blood Transfusion Reaction / Comm: nausea/vomiting W/ appendectomy at age 15, "ether" was used for anesthesia Past Psychological History: No Psychological Hx Reported Additional Psychological History / Comment(s): Pt resides alone. She uses no assistive device. She has not driven since September 2021 and states she "bums rides" to get places. Smoking Status: Former smoker Past Alcohol Use History: None Reported Additional Past Alcohol Use History / Comment(s): started smoking regularly at age 14, quit smoking at age 44. Smoked 2 packs/day. Past Drug Use History: None Reported - Past Family History Mother Family Medical History: Diabetes Mellitus, Hypertension Father Family Medical History: Cancer, Coronary Artery Disease (CAD) Additional Family Medical History / Comment(s): POSS PROSTATE CA. CEREBRAL HEMORRHAGE. Medications and Allergies Home Medications Medication Instructions Recorded Confirmed Type Apixaban [Eliquis] 5 mg PO BID #60 tab 09/26/21 02/18/22 Rx Atorvastatin [Lipitor] 40 mg PO HS #30 tab 09/26/21 02/18/22 Rx Magnesium Oxide [Mag-Ox] 200 mg PO BID #30 tab 09/26/21 02/18/22 Rx OLANZapine [ZyPREXA] 5 mg PO HS 10/15/21 02/18/22 History Ondansetron Odt [Zofran ODT] 4 mg PO Q6H PRN 10/15/21 02/18/22 History Ubidecarenone [Co Q-10] 100 mg PO DAILY 12/25/21 02/18/22 History Flecainide [Tambocor] 50 mg PO Q12HR 30 Days #30 tab 12/29/21 02/18/22 Rx Calcium Carbonate [Calcium] 1,200 mg PO DAILY 02/18/22 02/18/22 History Cholecalciferol [Vitamin D3 (25 25 mcg PO DAILY 02/18/22 02/18/22 History Mcg = 1000 Iu)] Diltiazem Cd [Cardizem CD] 240 mg PO DAILY 02/18/22 02/18/22 History Metoprolol Tartrate [Lopressor] 100 mg PO BID 02/18/22 02/18/22 History Multivitamins, Thera [Multivitamin 1 tab PO DAILY 02/18/22 02/18/22 History (formulary)] Pantoprazole [Protonix] 40 mg PO DAILY 02/18/22 02/18/22 History Allergies Allergy/AdvReac Type Severity Reaction Status Date / Time Sulfa (Sulfonamide Allergy Nausea Verified 02/18/22 16:57 Antibiotics) cephalexin AdvReac Vomiting Verified 02/18/22 16:57 prednisone AdvReac Rash/Hives Verified 02/18/22 16:57 Physical Exam Vitals: Vital Signs Temp Pulse Resp BP Pulse Ox 02/18/22 16:21 97.8 F 77 19 156/89 95 Intake and Output 02/18/22 02/18/22 02/18/22 06:59 14:59 22:59 Other: Weight 58.9 kg - Constitutional General appearance: average body habitus, cooperative, no acute distress - EENT Eyes: EOMI, scleral icterus ENT: hearing grossly normal, normal oropharynx - Neck Neck: no lymphadenopathy - Respiratory Respiratory: bilateral: CTA - Cardiovascular Rhythm: regular Heart sounds: normal: S1, S2 Abnormal Heart Sounds: no systolic murmur, no diastolic murmur, no rub, no S3 Gallop, no S4 Gallop, no click, no other leg Peripheral Edema: bilateral: None - Gastrointestinal General gastrointestinal: no absent bowel sounds, no decreased bowel sounds, no distended, no hepatomegaly, no hyperactive bowel sounds, normal bowel sounds, no organomegaly, no rigid, no scaphoid, soft, no splenomegaly, no tenderness, no umbilical hernia, no ventral hernia - Integumentary Integumentary: jaundiced - Neurologic Neurologic: CNII-XII intact - Musculoskeletal Musculoskeletal: strength equal bilaterally - Psychiatric Psychiatric: A&O x's 3, appropriate affect, intact judgment & insight Results CBC & Chem 7: 02/18/22 17:00 Assessment and Plan (1) Hepatitis Narrative/Plan: 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 Discussed case with Attending. US liver, mult labs and coags ordered. Steroids started. Current Visit: Yes Status: Acute Priority: High Code(s): K75.9 - INFLAMMATORY LIVER DISEASE, UNSPECIFIED SNOMED Code(s): 306952803 (2) Adenocarcinoma, lung Narrative/Plan: Pt is currently on maintenance pembrolizumab. Based on response of the IO hepatitis she may or may not be able to receive immunotherapy in the future. Will see how she does Current Visit: No Status: Chronic Priority: Medium Code(s): C34.90 - MALIGNANT NEOPLASM OF UNSP PART OF UNSP BRONCHUS OR LUNG SNOMED Code(s): 470565733 Plan: Home meds reconciled Steroids started. PPI ordered.
[2022-02-18] MEDS: FLECAINIDE 50 MG TAB PO SCH (20:43)
[2022-02-18] MEDS: MAGNESIUM OXIDE 400 MG TAB PO SCH (20:43)
[2022-02-18] MEDS: APIXABAN 5 MG TAB PO SCH (20:43)
[2022-02-18] MEDS: OLANZapine 5 MG TAB PO SCH (20:44)
[2022-02-18] MEDS: METOPROLOL TARTRATE 50 MG TAB PO SCH (20:44)
[2022-02-19] MEDS: SODIUM CHLORIDE 0.9% 1,000 ML IV SCH ×3 (02:35→19:33)
[2022-02-19 04:49] LABS: African American GFR (CKD) 100.5 (60.0-200.0); Albumin 3.8 g/dL (3.8-4.9); Albumin/Globulin Ratio 1.15 (1.60-3.17); BUN/Creat Ratio 18.67 Ratio (12.00-20.00); Bilirubin, Conjugated 2.76 mg/dL (0.20-0.40); Bilirubin,Unconjugated 0.54 mg/dL (0.20-1.00); Blood Urea Nitrogen 11.2 mg/dL (9.0-27.0); Calcium 9.8 mg/dL (8.7-10.3); Globulin 3.3 g/dL (1.6-3.3); Non-African American GFR(CKD) 86.7 (60.0-200.0); Potassium 4.3 mmol/L (3.5-5.5); Total Bilirubin 3.3 mg/dL (0.30-1.20); Total Protein 7.1 g/dL (6.2-8.2)
[2022-02-19 06:50] LABS: ALT 613 U/L (4-34); AST 512 U/L (14-36); African American GFR (CKD) >90 (>60 ml/min/1.73 sqM); Albumin 2.9 g/dL (3.5-5.0); Albumin/Globulin Ratio 0.9; Anion Gap 9 mmol/L; Blood Urea Nitrogen 13 mg/dL (7-17); Calcium 8.9 mg/dL (8.4-10.2); Carbon Dioxide 26 mmol/L (22-30); Chloride 102 mmol/L (98-107); Globulin 3.4 g/dL; Glucose 217 mg/dL (74-99); Non-African American GFR(CKD) 87 (>60 ml/min/1.73 sqM); Sodium 137 mmol/L (137-145); Total Bilirubin 2.8 mg/dL (0.2-1.3); Total Protein 6.3 g/dL (6.3-8.2)
[2022-02-19 06:58] LABS: Alkaline Phosphatase 1767 U/L (38-126)
--- NOTE | 2022-02-19 08:28 | US ---
EXAMINATION TYPE: US liver DATE OF EXAM: 02/19/2022 COMPARISON: CLINICAL HISTORY: elevated liver ezymes. abnormal labs EXAM MEASUREMENTS: Liver Length: 16.6 cm Gallbladder Wall: 0.2 cm CBD: 0.5 cm Right Kidney: 10.6 x 3.6 x 3.5 cm Pancreas: Echogenic in appearance Liver: right lobe liver cyst = 0.7 x 0.6 x 0.5 cm Gallbladder: Limited visualization due to incomplete distention. Evidence for sonographic Morocho's sign: neg CBD: wnl Right Kidney: trace amount of fluid adjacent to right kidney. Cysts seen, with largest medial lowe r pole = 0.7 x 1.0 x 0.7 cm. IMPRESSION: 1. Tiny right hepatic lobe cyst. 2. Trace amount of fluid adjacent to the right kidney with tiny simple appearing cyst 3. Limited assessment of the gallbladder.
[2022-02-19] MEDS ORDERED: NON FORMULARY DRUG (Ubidecarenone [Co Q-10] 100 MG Capsule) PO SCH (09:00)
[2022-02-19] MEDS ORDERED: FUROSEMIDE 20 MG TAB PO SCH (09:00)
[2022-02-19] MEDS ORDERED: DILTIAZEM CD 180 MG CAP.ER.24H PO SCH (09:00)
[2022-02-19] MEDS ORDERED: NON FORMULARY DRUG (Glucosamine Sulfate 500 MG Cap) PO SCH (09:00)
[2022-02-19] MEDS: FOLIC ACID 1 MG TAB PO SCH (09:32)
[2022-02-19] MEDS: METOPROLOL TARTRATE 50 MG TAB PO SCH ×2 (09:33→20:04)
[2022-02-19] MEDS: APIXABAN 5 MG TAB PO SCH ×2 (09:33→20:04)
[2022-02-19] MEDS: DILTIAZEM CD 240 MG CAP.ER.24H PO SCH (09:33)
[2022-02-19] MEDS: MAGNESIUM OXIDE 400 MG TAB PO SCH ×2 (09:33→20:04)
[2022-02-19] MEDS: PANTOPRAZOLE 40 MG TABLET PO SCH ×2 (09:33→18:32)
[2022-02-19] MEDS: predniSONE 20 MG TAB PO SCH (09:34)
[2022-02-19] MEDS: FLECAINIDE 50 MG TAB PO SCH ×2 (09:34→20:04)
[2022-02-19] MEDS ORDERED: NON FORMULARY DRUG (Metoprolol Tartrate [Lopressor] 100 MG Tablet) PO SCH (10:45)
--- NOTE | 2022-02-19 15:45 | P.HPIM ---
History of Present Illness H&P Date: 02/19/22 Chief Complaint: Jaundice Hospital course Very pleasant 81 female, follows with Dr. Staton. 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 received radiation treatment to the lower spine. received chemotherapy. Also getting immunotherapy.. In December of this year admitted with atrial fibrillation Oncology history: pt of Dr. Balderas who has a Hx of ER/SC positive Her2 negative breast cancer 2016, s/p lumpectomy and SLND, adjuvant XRT and femara. She c/o lt sided rib pain in Jul 2021, CT chest revealed 6.6cm ELMER lung mass with rib invasion, biopsy positive for adenocarcinoma, staging PET revealed ELMER mass, L2 and rt adrenal met, PD-L1 neg. Liquid biopsy revealed KKEAP1 mutation, high TMB, NGS on tissues revealed POLE1 and ARIDA1 mutations,TMB 12.6, MADHU. She completed palliative XRT to left rib and L2. 10/07/2021 she started alimta/carboplati n/keytruda and completed 4 cycles on 12/09/2021. 12/05/21 repeat PET showed positive treatment response with diminished hypermetabolic uptake left midlung destructive neoplasm along with the prevascular adenopathy and right adrenal metastatic focus, however cannot exclude new near 1.0 cm hypermetabolic lymph node near the diaphragmatic hiatus. She continued on keytruda only as of 01/09/2022 and is s/p 2 cycles. She had routine lab work done and was found to have elevating LFTs, suspicious for immunotherapy hepatitis. She was asked to come to the office to be evaluated. Patient's appetite is good. No change in bowel pattern. No weight loss. Does feel tired though. Has noticed to be jaundiced. Significant itching.. Very strong clear urine. No fever no chills. Given significantly elevated LFTs being admitted. Review of systems: GEN.: Itching EYES: None HEENT: None NECK: None RESPIRATORY: None CARDIOVASCULAR: None GASTROINTESTINAL: None GENITOURINARY: None MUSCULOSKELETAL: Joint pains LYMPHATICS: None HEMATOLOGICAL: None PSYCHIATRY: None NEUROLOGICAL: None Past medical history to include: breast cancer diagnosed in 1993 with recurrence in 2017. Metastatic lung canc er, osteopenia, deafness in the left ear, hypertension, hyperlipidemia, GERD, metastatic lesion in the lumbar spine and the brain. Atrial fibrillation, Social history: Patient smoked for 30 years stopping at age of 44. 2 packs a day. Lives alone. Family history: Diabetes, hypertension, prostate cancer Physical examination: VITAL SIGNS: 97.9, 82, 18, 164 slice 100, 94% room air GENERAL: BMI 23, returning but awake, but tired. EYES: Pupils equal. Conjunctiva yellowl. HEENT: External appearance of nose and ears normal, oral cavity grossly normal. NECK: JVD not raised; masses not palpable. HEART: First and second heart sounds are normal; no edema. LUNGS: Respiratory rate normal; clear to auscultation. ABDOMEN: Soft, nontender, liver spleen not palpable, no masses palpable. PSYCH: Alert and oriented x3; mood and affect normal. MUSCULOSKELETAL:No Clubbing/cyanosis;muscles-grossly intact. Evidence of OA especially in the hands NEUROLOGICAL: Cranial nerves grossly intact; no facial asymmetry, power and sensation grossly intact. LYMPHATICS: No lymph nodes palpable in the axilla and neck INVESTIGATIONS, reviewed in the clinical context: Chest x-ray film personally reviewed by me: Left pleural effusion. Increased compared to previous x-ray. EKG tracing personally reviewed by me: Atrial flutter. Rate controlled Liver ultrasound: Tiny right hepatic lobe cyst. White count 7.9 hemoglobin 12.4 platelets 215 pressure 4 creatinine 0.6 Total bilirubin 2.8 AST 5.2 ALT 6.3 alkaline phosphatase 1767 Yesterday labs: AST 644 ALT 808 alkaline phosphatase 2285 Assessment and plan: -Obstructive hepatitis pattern. Patient has no abdominal pain. No systemic symptoms. Most likely secondary to immunotherapy. We will check acute hepatitis panel. Hold Lipitor. -Paroxysmal atrial fibrillation now presenting with rapid ventricular rate: Better controlled Lopressor 100 mg twice daily. Cardizem CD 180 mg a day Eliquis. Flecainide 50 mg every 12 -Stage IV Metastatic adenocarcinoma of the lung. Has been receiving immunotherapy. Follow-up with oncology -Essential Hypertension Lopressor 100 mg twice a day. Cardizem CD 180 mg a day -Left pleural effusion on x-ray. No real symptoms. Chest ultrasound for marking. -GERD Protonix -Osteopenia -Deafness in the left ear -DO NOT RESUSCITATE -Mild cognitive impairment Hold Lipitor. Acute hepatitis panel. Follow LFTs. Continue eliquis. Activity as tolerated. 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 Other hx: Afib with rvr/syncope, covid infection 12/2021, diverticular disease, benign colon polyps, deaf L ear. History of Any Multi-Drug Resistant Organisms: None Reported Past Surgical History: Appendectomy, Breast Surgery, Section, Orthopedic Surgery Additional Past Surgical History / Comment(s): 1973 L lung lobectomy d/t TB, 1991 L breast bx/lumpectomy, 2016 R breast core bx/lumpectomy/sentinal node biopsy, 07/2021 L lung mass biopsy, multiple L ear surgeries, L ankle fracture with hardware since removed, colonoscopy/polypectomy, D&C Past Anesthesia/Blood Transfusion Reactions: No Reported Reaction Additional Past Anesthesia/Blood Transfusion Reaction / Comment(s): nausea/vomiting W/ appendectomy at age 15, "ether" was used for anesthesia Past Psychological History: No Psychological Hx Reported Additional Psychological History / Comment(s): Pt resides alone. She uses no assistive device. She has not driven since September 2021 and states she "bums rides" to get places. Smoking Status: Former smoker Past Alcohol Use History: None Reported Additional Past Alcohol Use History / Comment(s): started smoking regularly at age 14, quit smoking at age 44. Smoked 2 packs/day. Past Drug Use History: None Reported - Past Family History Mother Family Medical History: Diabetes Mellitus, Hypertension Father Family Medical History: Cancer, Coronary Artery Disease (CAD) Additional Family Medical History / Comment(s): POSS PROSTATE CA. CEREBRAL HEMORRHAGE. Medications and Allergies Home Medications Medication Instructions Recorded Confirmed Type Apixaban [Eliquis] 5 mg PO BID #60 tab 09/26/21 02/18/22 Rx Atorvastatin [Lipitor] 40 mg PO HS #30 tab 09/26/21 02/18/22 Rx Magnesium Oxide [Mag-Ox] 200 mg PO BID #30 tab 09/26/21 02/18/22 Rx OLANZapine [ZyPREXA] 5 mg PO HS 10/15/21 02/18/22 History Ondansetron Odt [Zofran ODT] 4 mg PO Q6H PRN 10/15/21 02/18/22 History Ubidecarenone [Co Q-10] 100 mg PO DAILY 12/25/21 02/18/22 History Flecainide [Tambocor] 50 mg PO Q12HR 30 Days #30 tab 12/29/21 02/18/22 Rx Calcium Carbonate [Calcium] 1,200 mg PO DAILY 02/18/22 02/18/22 History Cholecalciferol [Vitamin D3 (25 25 mcg PO DAILY 02/18/22 02/18/22 History Mcg = 1000 Iu)] Diltiazem Cd [Cardizem CD] 240 mg PO DAILY 02/18/22 02/18/22 History Metoprolol Tartrate [Lopressor] 100 mg PO BID 02/18/22 02/18/22 History Multivitamins, Thera [Multivitamin 1 tab PO DAILY 02/18/22 02/18/22 History (formulary)] Pantoprazole [Protonix] 40 mg PO DAILY 02/18/22 02/18/22 History Allergies Allergy/AdvReac Type Severity Reaction Status Date / Time Sulfa (Sulfonamide Allergy Nausea Verified 02/18/22 16:57 Antibiotics) cephalexin AdvReac Vomiting Verified 02/18/22 16:57 prednisone AdvReac Rash/Hives Verified 02/18/22 16:57 Physical Exam Vitals: Vital Signs Temp Pulse Resp BP BP Pulse Ox 02/19/22 08:22 82 18 02/19/22 08:20 97.9 F 82 18 164/100 94 L 02/19/22 04:45 97.7 F 76 20 158/98 95 02/18/22 20:40 82 159/80 02/18/22 19:57 82 20 02/18/22 19:40 98.1 F 85 20 146/91 92 L 02/18/22 16:21 97.8 F 77 19 156/89 95 Intake and Output 02/18/22 02/19/22 02/19/22 22:59 06:59 14:59 Intake Total 650 1500 Balance 650 1500 Intake: Intake, IV Titration 250 1500 Amount Sodium Chloride 0.9% 1, 250 1500 000 ml @ 125 mls/hr IV . Q8H [facility] Rx#:[id number] Oral 400 Other: Voiding Method Toilet Toilet Weight 58.9 kg Results CBC & Chem 7: 02/18/22 17:00 02/19/22 05:56 Labs: Abnormal Lab Results - Last 24 Hours (Table) 02/18/22 02/18/22 02/19/22 Range/Units 17:00 17:00 05:56 MCV 102.0 H (80.0-100.0) fL MCHC 30.1 L (31.0-37.0) g/dL Lymphocytes # 0.5 L (1.0-4.8) k/uL Carbon Dioxide 19.0 L (20.0-27.5) mmol/L Anion Gap 20.00 H (10.00-18.00) mmol/L Glucose 160 H 217 H (70-110) mg/dL Total Bilirubin 3.30 H 2.8 H (0.30-1.20) mg/dL Conjugated Bilirubin 2.76 H (0.20-0.40) mg/dL AST 644 H 512 H (13-35) U/L ALT 808 H 613 H (8-44) U/L Alkaline Phosphatase 2285 H 1767 H (41-126) U/L Albumin 2.9 L (3.5-5.0) g/dL Albumin/Globulin Ratio 1.15 L (1.60-3.17) g/dL Thrombosis Risk Factor Assmnt - Choose All That Apply Any of the Below Risk Factors Present?: Yes Other Risk Factors: Yes Each Risk Factor Represents 2 Points: Malignancy Each Risk Factor Represents 3 Points: Age 75 years or older Other congenital or acquired thrombophilia - If yes, enter type in comment: No Thrombosis Risk Factor Assessment Total Risk Factor Score: 5 Thrombosis Risk Factor Assessment Level: High Risk
--- NOTE | 2022-02-19 16:03 | XR ---
EXAMINATION TYPE: XR chest 2V DATE OF EXAM: 02/19/2022 COMPARISON: 12/25/2021 TECHNIQUE: PA and lateral views submitted. HISTORY: Shortness of breath FINDINGS: A left-sided consolidation and pleural effusion. Interstitial pattern. Heart size enlarged but stable . No pneumothorax. Arthropathy of the shoulders. Mild ectasia of the aorta. Hypertrophic and degenera tive change of the spine correlate for COPD. Previously noted pleural-based mass with erosion of the fourth rib not as well-seen by standard chest x-ray. IMPRESSION: 1. COPD correlate for left lower lobe infiltrate and small effusion. 2. Previously noted pleural-based mass with erosion of the fourth rib not as well-seen by standard est x-ray
--- NOTE | 2022-02-19 16:04 | US ---
EXAMINATION TYPE: US chest DATE OF EXAM: 02/19/2022 COMPARISON: NONE CLINICAL HISTORY: Markings left chest for thoracentesis. Exam done portable TECHNIQUE: Targeted ultrasound of the posterior lower left hemithorax EXAM MEASUREMENTS: Left Pleural Effusion pocket size: 8.6 cm Left skin surface to fluid distance: 2.0 cm Left side marked for possible thoracentesis outside the dept. Pulmonologists are able to review the images in the patient?s EMR. IMPRESSIONS: Large left pleural effusion
--- NOTE | 2022-02-19 16:35 | P.PN ---
Subjective Progress Note Date: 02/19/22 Principal diagnosis: immune therapy related hepatits no acute events, awaiting todays labs, steroids continued Objective - Vital Signs Vital signs: Vital Signs Temp 97.9 F 02/19/22 08:20 Pulse 82 02/19/22 08:22 Resp 18 02/19/22 08:22 BP 164/100 02/19/22 08:20 Pulse Ox 94 L 02/19/22 08:20 Intake & Output 02/18/22 02/19/22 02/19/22 18:59 06:59 18:59 Intake Total 650 1500 Balance 650 1500 Weight 58.9 kg Intake: Intake, IV Titration 250 1500 Amount Sodium Chloride 0.9% 1, 250 1500 000 ml @ 125 mls/hr IV . Q8H [facility] Rx#:[id number] Oral 400 Other: Voiding Method Toilet Toilet - Exam - Constitutional General appearance: average body habitus, cooperative, no acute distress - EENT Eyes: EOMI, scleral icterus ENT: hearing grossly normal, normal oropharynx - Neck Neck: no lymphadenopathy - Respiratory Respiratory: bilateral: CTA - Cardiovascular Rhythm: regular Heart sounds: normal: S1, S2 Abnormal Heart Sounds: no systolic murmur, no diastolic murmur, no rub, no S3 Gallop, no S4 Gallop, no click, no other leg Peripheral Edema: bilateral: None - Gastrointestinal General gastrointestinal: no absent bowel sounds, no decreased bowel sounds, no distended, no hepatomegaly, no hyperactive bowel sounds, normal bowel sounds, no organomegaly, no rigid, no scaphoid, soft, no splenomegaly, no tenderness, no umbilical hernia, no ventral hernia - Integumentary Integumentary: jaundiced - Neurologic Neurologic: CNII-XII intact - Musculoskeletal Musculoskeletal: strength equal bilaterally - Psychiatric Psychiatric: A&O x's 3, appropriate affect, intact judgment & insight - Labs CBC & Chem 7: 02/18/22 17:00 02/19/22 05:56 Labs: Abnormal Lab Results - Last 24 Hours (Table) 02/18/22 02/18/22 02/19/22 Range/Units 17:00 17:00 05:56 MCV 102.0 H (80.0-100.0) fL MCHC 30.1 L (31.0-37.0) g/dL Lymphocytes # 0.5 L (1.0-4.8) k/uL Carbon Dioxide 19.0 L (20.0-27.5) mmol/L Anion Gap 20.00 H (10.00-18.00) mmol/L Glucose 160 H 217 H (70-110) mg/dL Total Bilirubin 3.30 H 2.8 H (0.30-1.20) mg/dL Conjugated Bilirubin 2.76 H (0.20-0.40) mg/dL AST 644 H 512 H (13-35) U/L ALT 808 H 613 H (8-44) U/L Alkaline Phosphatase 2285 H 1767 H (41-126) U/L Albumin 2.9 L (3.5-5.0) g/dL Albumin/Globulin Ratio 1.15 L (1.60-3.17) g/dL Assessment and Plan Plan: Assessment and Plan (1) Hepatitis Narrative/Plan: 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 Reviewed US liver Current Visit: Yes Status: Acute Priority: High Code(s): K75.9 - INFLAMMATORY LIVER DISEASE, UNSPECIFIED SNOMED Code(s): 591565736 (2) Adenocarcinoma, lung Narrative/Plan: Pt is currently on maintenance pembrolizumab. Based on response of the IO hepatitis she may or may not be able to receive immunotherapy in the future. Will see how she does Current Visit: No Status: Chronic Priority: Medium Code(s): C34.90 - MALIGNANT NEOPLASM OF UNSP PART OF UNSP BRONCHUS OR LUNG SNOMED Code(s): 330229285 Plan: Daily CBC and CMP please Continue Steroids PPI ordered. Doctor attests: I performed a history and physical examination of this patient, developed impression and plan of care. Discussed with dictator. I agree with dictators note, documented as a scribe.
[2022-02-19] MEDS: OLANZapine 5 MG TAB PO SCH (20:05)
[2022-02-19 23:29] LABS: Hepatitis A Antibody IgM Nonreactive (Nonreactive); Hepatitis B Core IgM Nonreactive (Nonreactive); Hepatitis B Surface Antigen Nonreactive (Nonreactive); Hepatitis C IgG Antibody Nonreactive (Nonreactive)
[2022-02-20] MEDS: SODIUM CHLORIDE 0.9% 1,000 ML IV SCH (04:32)
[2022-02-20] MEDS ORDERED: IPRATROPIUM-ALBUTEROL 3 ML NEB INHALATION PRN (05:06)
--- NOTE | 2022-02-20 06:08 | XR ---
EXAMINATION TYPE: XR chest 2V DATE OF EXAM: 02/20/2022 COMPARISON: Yesterday HISTORY: Short of breath TECHNIQUE: 2 views FINDINGS: There is blunting left costophrenic angle. There is mild pulmonary congestion. There are cl ips over the right breast. Heart is slightly enlarged. There are chest leads. IMPRESSION: Left lower lobe infiltrate and left pleural effusion slightly improved compared to yester day. There is probably some mild heart failure. Pulmonary congestion increased compared to yesterday.
[2022-02-20] MEDS ORDERED: FUROSEMIDE 10 MG/ML 4 ML VIAL IV STA (06:12)
[2022-02-20] MEDS: FOLIC ACID 1 MG TAB PO SCH (08:50)
[2022-02-20] MEDS: FLECAINIDE 50 MG TAB PO SCH ×2 (08:50→21:26)
[2022-02-20] MEDS: predniSONE 20 MG TAB PO SCH (08:50)
[2022-02-20] MEDS: METOPROLOL TARTRATE 50 MG TAB PO SCH ×2 (08:51→21:26)
[2022-02-20] MEDS: MAGNESIUM OXIDE 400 MG TAB PO SCH ×2 (08:51→21:26)
[2022-02-20] MEDS: DILTIAZEM CD 240 MG CAP.ER.24H PO SCH (08:51)
[2022-02-20] MEDS: PANTOPRAZOLE 40 MG TABLET PO SCH ×2 (08:51→17:38)
[2022-02-20] MEDS: APIXABAN 5 MG TAB PO SCH (08:51)
[2022-02-20] MEDS: IPRATROPIUM-ALBUTEROL 3 ML NEB INHALATION SCH ×4 (09:57→20:13)
[2022-02-20 12:05] LABS: ALT 674 U/L (4-34); AST 521 U/L (14-36); African American GFR (CKD) 75 (>60 ml/min/1.73 sqM); Albumin 3.3 g/dL (3.5-5.0); Albumin/Globulin Ratio 0.9; Anion Gap 12 mmol/L; Blood Urea Nitrogen 19 mg/dL (7-17); Calcium 8.9 mg/dL (8.4-10.2); Carbon Dioxide 23 mmol/L (22-30); Chloride 104 mmol/L (98-107); Globulin 3.6 g/dL; Glucose 174 mg/dL (74-99); Non-African American GFR(CKD) 65 (>60 ml/min/1.73 sqM); Sodium 139 mmol/L (137-145); Total Bilirubin 2.9 mg/dL (0.2-1.3); Total Protein 6.9 g/dL (6.3-8.2)
[2022-02-20 12:16] LABS: Alkaline Phosphatase 1671 U/L (38-126)
--- NOTE | 2022-02-20 14:18 | P.CNPUL ---
History of Present Illness Consult date: 02/20/22 Reason for consult: pleural effusion History of present illness: 81-year-old female patient who is currently in the hospital for immune related/d rug-related hepatitis. The patient is being seen by the pulmonary services because of her underlying history of lung cancer and a left-sided pleural effusion and I was requested to evacuate the left-sided pleural effusion. Note that the patient has history of breast cancer, ER/[place] positive and HER-2/dex negative diagnosed back in 2016, postlumpectomy, adjuvant radiation therapy and Femara therapy. Subsequently, the patient developed a 6.6 cm mass in the left upper lobe based on a CAT scan of the chest that was done in July 2021 and at that time the patient was having left-sided chest pain. Biopsy was done and it was consistent with adenocarcinoma, staging PET scan was done and the patient was found to have a L2 and the right adrenal metastases. The patient was PD-L1 negative. Liquid biopsy was done and the patient was treated with associated radiation therapy to the left rib cage and L2 on following that the patient was started on systemic treatment on 10/07/2021 and she completed a combination of carboplatinum and Alimta. The patient is currently on Keytruda and she has a lready completed 4 cycles on 12/09/2021. A repeat PET scan done on 12/05/2021 showed positive treatment response with diminished metabolic uptake in the left midlung destructive neoplasm along with the prevascular lymphadenopathy and the right adrenal metastases. The patient continued the immunotherapy and she received 2 more cycles. Subsequently, upon repeat blood work, the patient was found to have abnormal LFTs, suspicious for drug induced hepatitis. She denies having any headache. No nausea. No vomiting. No chest pain. No significant shortness of breath. She came into the hospital the chest x-ray showed a left- sided pleural effusion, ultrasound markings were done and for now the patient is being considered for thoracentesis. Note that the patient has history of atrial fibrillation and the patient is also on Eliquis which going to be placed on hold prior to this procedure. This pleural effusion is not known. He was seen on previous PET scan and CAT scan of the chest that was done on this patient prior evaluations. No fever. No chills. Review of Systems Constitutional: Denies chills, Denies fever Eyes: denies as per HPI, denies blurred vision, denies bulging eye, denies decreased vision, denies diplopia, denies discharge, denies dry eye, denies irritation, denies itching, denies pain, denies photophobia, denies loss of peripheral vision, denies loss of vision, denies tunnel vision/blind spots Ears: deny: decreased hearing, ear discharge, earache, tinnitus Ears, nose, mouth and throat: Denies headache, Denies sore throat Breasts: absent: as per HPI, change in shape, gynecomastia, masses, nipple discharge, pain, skin changes, swelling Cardiovascular: Reports dyspnea on exertion Respiratory: Reports dyspnea Gastrointestinal: Reports as per HPI Genitourinary: Reports as per HPI Menstruation: Reports as per HPI Musculoskeletal: Reports as per HPI Musculoskeletal: absent: ankle pain, ankle stiffness, ankle swelling Integumentary: Reports as per HPI Neurological: Reports as per HPI Psychiatric: Reports as per HPI Endocrine: Reports as per HPI Hematologic/Lymphatic: Reports as per HPI Allergic/Immunologic: Reports as per HPI Past Medical History Past Medical History: Atrial Fibrillation, Cancer, GERD/Reflux, Hearing Disorder / Deafness, Hyperlipidemia, Hypertension, Syncope Additional Past Medical History / Comment(s): 1973 TB with L lung lobectomy, 1991 L breast cancer/lumpectomy/radiation, 2016 R breast cancer/lumpec rick/radiation, 07/18/21 L rib pain with cat scan showing ELMER mass with rib invasion/biopsy showed adenocarcinoma with lung primary/pt states she has received chemo and immunotherapy and palliative radiation to L rib and L2. Other hx: Afib with rvr/syncope, covid infection 12/2021, diverticular disease, benign colon polyps, deaf L ear. History of Any Multi-Drug Resistant Organisms: None Reported Past Surgical History: Appendectomy, Breast Surgery, Section, Orthopedic Surgery Additional Past Surgical History / Comment(s): 1973 L lung lobectomy d/t TB, 1991 L breast bx/lumpectomy, 2017 R breast core bx/lumpectomy/sentinal node biopsy, 07/2021 L lung mass biopsy, multiple L ear surgeries, L ankle fracture with hardware since removed, colonoscopy/polypectomy, D&C Past Anesthesia/Blood Transfusion Reactions: No Reported Reaction Additional Past Anesthesia/Blood Transfusion Reaction / Comment(s): nausea/vomiting W/ appendectomy at age 15, "ether" was used for anesthesia Past Psychological History: No Psychological Hx Reported Additional Psychological History / Comment(s): Pt resides alone. She uses no assistive device. She has not driven since September 2021 and states she "bums rides" to get places. Smoking Status: Former smoker Past Alcohol Use History: None Reported Additional Past Alcohol Use History / Comment(s): started smoking regularly at age 14, quit smoking at age 44. Smoked 2 packs/day. Past Drug Use History: None Reported - Past Family History Mother Family Medical History: Diabetes Mellitus, Hypertension Father Family Medical History: Cancer, Coronary Artery Disease (CAD) Additional Family Medical History / Comment(s): POSS PROSTATE CA. CEREBRAL HEMORRHAGE. Medications and Allergies Home Medications Medication Instructions Recorded Confirmed Type Apixaban [Eliquis] 5 mg PO BID #60 tab 09/26/21 02/18/22 Rx Atorvastatin [Lipitor] 40 mg PO HS #30 tab 09/26/21 02/18/22 Rx Magnesium Oxide [Mag-Ox] 200 mg PO BID #30 tab 09/26/21 02/18/22 Rx OLANZapine [ZyPREXA] 5 mg PO HS 10/15/21 02/18/22 History Ondansetron Odt [Zofran ODT] 4 mg PO Q6H PRN 10/15/21 02/18/22 History Ubidecarenone [Co Q-10] 100 mg PO DAILY 12/25/21 02/18/22 History Flecainide [Tambocor] 50 mg PO Q12HR 30 Days #30 tab 12/29/21 02/18/22 Rx Calcium Carbonate [Calcium] 1,200 mg PO DAILY 02/18/22 02/18/22 History Cholecalciferol [Vitamin D3 (25 25 mcg PO DAILY 02/18/22 02/18/22 History Mcg = 1000 Iu)] Diltiazem Cd [Cardizem CD] 240 mg PO DAILY 02/18/22 02/18/22 History Metoprolol Tartrate [Lopressor] 100 mg PO BID 02/18/22 02/18/22 History Multivitamins, Thera [Multivitamin 1 tab PO DAILY 02/18/22 02/18/22 History (formulary)] Pantoprazole [Protonix] 40 mg PO DAILY 02/18/22 02/18/22 History Allergies Allergy/AdvReac Type Severity Reaction Status Date / Time Sulfa (Sulfonamide Allergy Nausea Verified 02/18/22 16:57 Antibiotics) cephalexin AdvReac Vomiting Verified 02/18/22 16:57 prednisone AdvReac Rash/Hives Verified 02/18/22 16:57 Physical Exam Vitals: Vital Signs Temp Pulse Pulse Resp BP BP Pulse Ox 02/20/22 12:40 97.6 F 73 20 155/82 98 02/20/22 12:25 82 02/20/22 12:16 80 02/20/22 10:08 78 02/20/22 09:58 78 02/20/22 08:45 74 16 02/20/22 07:16 97.4 F L 74 16 166/91 100 02/20/22 06:20 155/85 02/20/22 05:27 81 02/20/22 05:20 98 02/20/22 05:19 78 02/20/22 05:00 97.4 F L 91 24 182/117 96 02/19/22 20:57 80 20 02/19/22 20:00 98 F 54 L 20 165/83 94 L 02/19/22 15:57 98.2 F 71 18 155/82 95 Intake and Output 02/19/22 02/20/22 02/20/22 22:59 06:59 14:59 Intake Total 100 100 Balance 100 100 Intake: Oral 100 100 Other: Voiding Method Toilet Toilet # Voids 3 2 2 # Bowel Movements 1 Results - Laboratory Findings CBC and BMP: 02/18/22 17:00 02/20/22 06:33 PT/INR, D-dimer PT 11.6 sec (9.0-12.0) 02/18/22 17:00 INR 1.1 (<1.2) 02/18/22 17:00 Abnormal lab findings: Abnormal Labs 02/18/22 02/18/22 02/19/22 17:00 17:00 05:56 MCV 102.0 H MCHC 30.1 L Lymphocytes # 0.5 L Carbon Dioxide 19.0 L Anion Gap 20.00 H BUN Glucose 160 H 217 H Total Bilirubin 3.30 H 2.8 H Conjugated Bilirubin 2.76 H AST 644 H 512 H ALT 808 H 613 H Alkaline Phosphatase 2285 H 1767 H Albumin 2.9 L Albumin/Globulin Ratio 1.15 L 02/20/22 06:33 MCV MCHC Lymphocytes # Carbon Dioxide Anion Gap BUN 19 H Glucose 174 H Total Bilirubin 2.9 H Conjugated Bilirubin AST 521 H ALT 674 H Alkaline Phosphatase 1671 H Albumin 3.3 L Albumin/Globulin Ratio Assessment and Plan Plan: 1 left-sided pleural effusion, small to moderate-sized, seen on previous CAT scan images from 12/26/2021 and a previous PET/CT. The patient is also known to have a anterior pleural-based mass with erosion of the rib cage at the level of the rib cage #4 in addition to mediastinal lymphadenopathy consistent with underlying non-small cell lung cancer. 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 Note that his pleural fluid was not present at the time of the original diagnosis and the PET scan that was done on 08/24/2021 did not reveal any pleural fluid on the left. The pleural fluid was first seen in a PET scan that was done on 12/08/2021 and back then for this morning and sized and sided pleural fluid has increased since. 2 metastatic adenocarcinoma of the lung currently on immunotherapy with Keytruda 3 immunotherapy induced hepatitis 4 chronic atrial fibrillation maintained on long-term and to coagulation with Eliquis 5 history of breast cancer with a previous lumpectomy radiation therapy and hormonal treatment back in 2017. This was a right-sided breast cancer 6 remote history of tuberculosis of the lung, 1974 7 History of COVID 19 infection back in December 2021, recovered 8 diverticular disease 9. Hearing 10 hypertension 11 hyperlipidemia Plan Ultrasound markings of the chest was obtained. The size of pleural fluid and this fluid is in the order of 8.6 cm. Based on all this, a therapeutic thoracentesis will be done which may give this patient some symptomatic relief and the seventh of the pleural fluid will be sent for cytology. The patient is already metastatic and this is a well-known facts. Meanwhile, I suggest holding the Eliquis for 24-48 hours prior to this procedure. This without the bedside probably tomorrow morning or afternoon. Highly doubt infectious causes such as tuberculosis or any parapneumonic effusion on the left. Suspect malignant ef fusion. Monitor LFTs Stop the immunotherapy for now We'll continue to follow
--- NOTE | 2022-02-20 15:44 | P.PN ---
Progress Note - Text Progress Note Date: 02/20/22 Chief Complaint: Jaundice Hospital course Very pleasant 81 female, follows with Dr. Staton. 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 received radiation treatment to the lower spine. received chemotherapy. Also getting immunotherapy.. In December of this year admitted with atrial fibrillation Oncology history: pt of Dr. Balderas who has a Hx of ER/[place] positive Her2 negative breast cancer 2016, s/p lumpectomy and SLND, adjuvant XRT and femara. She c/o lt sided rib pain in Jul 2021, CT chest revealed 6.6cm ELMER lung mass with rib invasion, biopsy positive for adenocarcinoma, staging PET revealed ELMER mass, L2 and rt adrenal met, PD-L1 neg. Liquid biopsy revealed KKEAP1 mutation, high TMB, NGS on tissues revealed POLE1 and ARIDA1 mutations,TMB 12.6, MADHU. She completed palliative XRT to left rib and L2. 10/07/2021 she started alimta/carbo platin/keytruda and completed 4 cycles on 12/09/2021. 12/05/21 repeat PET showed positive treatment response with diminished hypermetabolic uptake left midlung destructive neoplasm along with the prevascular adenopathy and right adrenal metastatic focus, however cannot exclude new near 1.0 cm hypermetabolic lymph node near the diaphragmatic hiatus. She continued on keytruda only as of 01/09/2022 and is s/p 2 cycles. She had routine lab work done and was found to have elevating LFTs, suspicious for immunotherapy hepatitis. She was asked to come to the office to be evaluated. Patient's appetite is good. No change in bowel pattern. No weight loss. Does feel tired though. Has noticed to be jaundiced. Significant itching.. Very strong clear urine. No fever no chills. Given significantly elevated LFTs being admitted. Admitted with immunotherapy induced hepatitis. Started on prednisone. February 20: Patient also to have home edema. Given IV Lasix. Worsening left pleural effusion. Ultrasound showing significant effusion. Pulmonary consulted. Oral intake fair. the bathroom. Active Medications Hydrocodone Bitart/Acetaminophen (Hydrocodone/Apap 10-325mg 1 Each Tab) 1 - 2 each PO Q4HR PRN PRN Reason: Pain Albuterol/Ipratropium (Ipratropium-Albuterol 3 Ml Neb) 3 ml INHALATION RT-QID [facility] Last Admin: 02/20/22 12:15 Dose: 3 ml Documented by: Albuterol/Ipratropium (Ipratropium-Albuterol 3 Ml Neb) 3 ml INHALATION RT-Q4H PRN PRN Reason: Shortness Of Breath Or Wheezing Diltiazem HCl (Diltiazem Cd 240 Mg Cap.Er.24h) 240 mg PO DAILY [facility] Last Admin: 02/20/22 08:51 Dose: 240 mg Documented by: Flecainide Acetate (Flecainide 50 Mg Tab) 50 mg PO Q12HR [facility] Last Admin: 02/20/22 08:50 Dose: 50 mg Documented by: Folic Acid (Folic Acid 1 Mg Tab) 1 mg PO DAILY [facility] Last Admin: 02/20/22 08:50 Dose: 1 mg Documented by: Magnesium Oxide (Magnesium Oxide 400 Mg Tab) 200 mg PO BID [facility] Last Admin: 02/20/22 08:51 Dose: 200 mg Documented by: Metoprolol Tartrate (Metoprolol Tartrate 50 Mg Tab) 100 mg PO BID [facility] Last Admin: 02/20/22 08:51 Dose: 100 mg Documented by: Olanzapine (Olanzapine 5 Mg Tab) 5 mg PO HS [facility] Last Admin: 02/19/22 20:05 Dose: 5 mg Documented by: Ondansetron HCl (Ondansetron Odt 4 Mg Tab) 4 mg PO Q6H PRN PRN Reason: Nausea Pantoprazole Sodium (Pantoprazole 40 Mg Tablet) 40 mg PO AC-BID [facility] Last Admin: 02/20/22 08:51 Dose: 40 mg Documented by: Prednisone (Prednisone 20 Mg Tab) 90 mg PO DAILY [facility] Last Admin: 02/20/22 08:50 Dose: 90 mg Documented by: Past medical history to include: breast cancer diagnosed in 1993 with recurrence in 2017. 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 Atrial fibrillation, Social history: Patient smoked for 30 years stopping at age of 44. 2 packs a day. Lives alone. Family history: Diabetes, hypertension, prostate cancer Physical examination: VITAL SIGNS: 97.6, 73, 20, 155/82, 98% on 2 L GENERAL: Awake, but tired EYES: Pupils equal. Conjunctiva yellowl. HEENT: External appearance of nose and ears normal, oral cavity grossly normal. NECK: JVD not raised; masses not palpable. HEART: First and second heart sounds are normal; no edema. LUNGS: Respiratory rate normal; decreased breath sound on the left side. ABDOMEN: Soft, nontender, liver spleen not palpable, no masses palpable. PSYCH: Alert and oriented x3; mood and affect normal. MUSCULOSKELETAL:No Clubbing/cyanosis;muscles-grossly intact. Evidence of OA especially in the hands INVESTIGATIONS, reviewed in the clinical context: February 20: Potassium 4 creatinine 0.86 AST 521 ALT 674 alkaline phosphatase 1671 proBNP 2940 Acute hepatitis screen: Negative Chest x-ray film personally reviewed by me: Left pleural effusion. Increased compared to previous x-ray. EKG tracing personally reviewed by me: Atrial flutter. Rate controlled Liver ultrasound: Tiny right hepatic lobe cyst. White count 7.9 hemoglobin 12.4 platelets 215 pressure 4 creatinine 0.6 Total bilirubin 2.8 AST 5.2 ALT 6.3 alkaline phosphatase 1767 Yesterday labs: AST 644 ALT 808 alkaline phosphatase 2285 Assessment and plan: -Obstructive hepatitis pattern. Patient has no abdominal pain. No systemic symptoms. Most likely secondary to immunotherapy. We will check acute hepatitis panel. Hold Lipitor. -Paroxysmal atrial fibrillation now presenting with rapid ventricular rate: Better controlled Lopressor 100 mg twice daily. Cardizem CD 180 mg a day Eliquis. Flecainide 50 mg every 12 -Stage IV Metastatic adenocarcinoma of the lung. Has been receiving immunotherapy. Follow-up with oncology -Essential Hypertension Lopressor 100 mg twice a day. Cardizem CD 180 mg a day -Large left pleural effusion likely metastatic/malignant effusion. Pulmonary consulted for thoracentesis -GERD Protonix -Osteopenia -Deafness in the left ear -DO NOT RESUSCITATE -Mild cognitive impairment Continue with current medications. Received IV Lasix earlier. Eliquis to be held with a view thoracentesis. Discussed with the patient.
--- NOTE | 2022-02-20 18:43 | P.PN ---
Subjective Progress Note Date: 02/20/22 Principal diagnosis: immune therapy related hepatits Liver function remains increased, mild decrease. Steroids continued. She is awaiting on thoracentesis prior to discharge. Objective - Vital Signs Vital signs: Vital Signs Temp 97.6 F 02/20/22 12:40 Pulse 73 02/20/22 12:40 Resp 20 02/20/22 12:40 BP 155/82 02/20/22 12:40 Pulse Ox 98 02/20/22 12:40 Intake & Output 02/19/22 02/20/22 02/20/22 18:59 06:59 18:59 Intake Total 200 Balance 200 Intake: Oral 200 Other: Voiding Method Toilet Toilet Toilet # Voids 3 2 2 # Bowel Movements 1 - Exam - Constitutional General appearance: average body habitus, cooperative, no acute distress - EENT Eyes: EOMI, scleral icterus ENT: hearing grossly normal, normal oropharynx - Neck Neck: no lymphadenopathy - Respiratory Respiratory: bilateral:Diminished - Cardiovascular Rhythm: regular Heart sounds: normal: S1, S2 Abnormal Heart Sounds: no systolic murmur, no diastolic murmur, no rub, no S3 Gallop, no S4 Gallop, no click, no other leg Peripheral Edema: bilateral: None - Gastrointestinal General gastrointestinal: no absent bowel sounds, no decreased bowel sounds, no distended, no hepatomegaly, no hyperactive bowel sounds, normal bowel sounds, no organomegaly, no rigid, no scaphoid, soft, no splenomegaly, no tenderness, no umbilical hernia, no ventral hernia - Integumentary Integumentary: jaundiced - Neurologic Neurologic: CNII-XII intact - Musculoskeletal Musculoskeletal: strength equal bilaterally - Psychiatric Psychiatric: A&O x's 3, appropriate affect, intact judgment & insight - Labs CBC & Chem 7: 02/18/22 17:00 02/20/22 06:33 Labs: Abnormal Lab Results - Last 24 Hours (Table) 02/20/22 Range/Units 06:33 BUN 19 H (7-17) mg/dL Glucose 174 H (74-99) mg/dL Total Bilirubin 2.9 H (0.2-1.3) mg/dL AST 521 H (14-36) U/L ALT 674 H (4-34) U/L Alkaline Phosphatase 1671 H (38-126) U/L Albumin 3.3 L (3.5-5.0) g/dL Assessment and Plan Plan: Assessment and Plan (1) Hepatitis Narrative/Plan: 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 Reviewed US liver Current Visit: Yes Status: Acute Priority: High Code(s): K75.9 - INFLAMMATORY LIVER DISEASE, UNSPECIFIED SNOMED Code(s): 227324479 (2) Adenocarcinoma, lung Narrative/Plan: Pt is currently on maintenance pembrolizumab. Based on response of the IO hepatitis she may or may not be able to receive immunotherapy in the future. Will see how she does Current Visit: No Status: Chronic Priority: Medium Code(s): C34.90 - MALIGNANT NEOPLASM OF UNSP PART OF UNSP BRONCHUS OR LUNG SNOMED Code(s): 657794331 Pleural Effusion: - thoracentesis planned prior to discharge Plan: Daily CBC and CMP please Continue Steroids PPI thorcentesis From oncology standpoint ok for discharge after thoracentesis Doctor attests: I performed a history and physical examination of this patient, developed impression and plan of care. Discussed with dictator. I agree with dictators note, documented as a scribe.
[2022-02-20] MEDS: OLANZapine 5 MG TAB PO SCH (21:26)
[2022-02-21 08:07] LABS: ALT 602 U/L (4-34); AST 407 U/L (14-36); African American GFR (CKD) >90 (>60 ml/min/1.73 sqM); Albumin/Globulin Ratio 0.9; Alkaline Phosphatase 1462 U/L (38-126); Anion Gap 6 mmol/L; Blood Urea Nitrogen 23 mg/dL (7-17); Calcium 8.9 mg/dL (8.4-10.2); Carbon Dioxide 35 mmol/L (22-30); Chloride 97 mmol/L (98-107); Globulin 3.4 g/dL; Glucose 127 mg/dL (74-99); Non-African American GFR(CKD) 85 (>60 ml/min/1.73 sqM); Potassium 3.7 mmol/L (3.5-5.1); Sodium 138 mmol/L (137-145); Total Protein 6.4 g/dL (6.3-8.2)
[2022-02-21] MEDS: IPRATROPIUM-ALBUTEROL 3 ML NEB INHALATION SCH ×4 (08:44→20:13)
[2022-02-21] MEDS: PANTOPRAZOLE 40 MG TABLET PO SCH ×2 (09:00→18:50)
[2022-02-21] MEDS: DILTIAZEM CD 240 MG CAP.ER.24H PO SCH (09:31)
[2022-02-21] MEDS: predniSONE 20 MG TAB PO SCH (09:31)
[2022-02-21] MEDS: METOPROLOL TARTRATE 50 MG TAB PO SCH ×2 (09:32→21:02)
[2022-02-21] MEDS: FLECAINIDE 50 MG TAB PO SCH ×2 (09:32→21:05)
[2022-02-21] MEDS: MAGNESIUM OXIDE 400 MG TAB PO SCH ×2 (09:32→21:04)
[2022-02-21] MEDS: FOLIC ACID 1 MG TAB PO SCH (09:32)
[2022-02-21] MEDS: SODIUM CHLORIDE 0.9% 1,000 ML IV SCH (10:28)
--- NOTE | 2022-02-21 11:57 | XR ---
EXAMINATION TYPE: XR chest 1V portable DATE OF EXAM: 02/21/2022 11:42 AM COMPARISON:Multiple radiographs, with the most recent on 02/20/2022 TECHNIQUE: XR chest 1V portable Frontal view of the chest. CLINICAL INDICATION:Female, 81 years old with history of post thoracentesis; FINDINGS: Lungs/Pleura: Interval decrease in size of left pleural effusion now small. There is improved aeratio n of the left lung. Persistent right blunting the costophrenic angle. Pulmonary vascularity: Unremarkable. Heart/mediastinum: Cardiomediastinal silhouette is enlarged and stable. Musculoskeletal: No acute osseous pathology. IMPRESSION: 1. Interval decrease in size of left pleural effusion with associated atelectasis. Persistent small b ilateral pleural effusions. 2. Previously noted pleural-based mass with erosion of the fourth rib not as well-seen by standard ch est x-ray
[2022-02-21 12:01] LABS: Basophils # (A) 0.02 X 10*3/uL (0.00-0.10); Basophils % (A) 0.1 %; Eosinophils # (A) 0.01 X 10*3/uL (0.04-0.35); Eosinophils % (A) 0.1 %; HCT 33.5 % (37.2-46.3); HGB 10.5 g/dL (12.0-15.0); Immature Grans, Automated 0.8 %; Lymphocytes # (A) 0.76 X 10*3/uL (0.90-5.00); Lymphocytes % (A) 5.3 %; MCH 30.7 pg (27.0-32.0); MCHC 31.3 g/dL (32.0-37.0); Mean Platelet Volume 14.5 fL (9.5-12.2); Monocytes # (A) 1.19 X 10*3/uL (0.20-1.00); Monocytes % (A) 8.3 %; NRBC Per 100 WBC 0 /100 WBCS (0.0-0.0); Neutrophils # (A) 12.25 X 10*3/uL (1.80-7.70); Neutrophils % (A) 85.4 %; Platelet Count 201 X 10*3/uL (140-440); RBC 3.42 X 10*6/uL (4.10-5.20); RDW 17.2 % (11.5-14.5); WBC 14.35 X 10*3/uL (4.50-10.00)
--- NOTE | 2022-02-21 13:06 | P.PCN ---
Date of Procedure: 02/21/22 Preoperative Diagnosis: Left-sided pleural effusion Postoperative Diagnosis: Left-sided pleural effusion Procedure(s) Performed: Left-sided thoracentesis Anesthesia: local Surgeon: Jose Welch Estimated Blood Loss (ml): 0 Pathology: other Condition: stable Disposition: floor Operative Findings: A time out was performed and the chest x-ray was reviewed, the appropriate side was confirmed and marked. My hands were washed immediately prior to the procedure. I wore a surgical cap, mask with protective eyewear, sterile gown and sterile gloves throughout the procedure. The patient was prepped and draped in a sterile manner using chlorhexidine scrub after the appropriate level was percussed and confirmed by ultrasound. 1% lidocaine was used to anesthesize the skin, subcutaneous tissue, superior aspect of the rib periosteum and parietal pleura. A finder needle was then introduced over the superior aspect of the rib to locate the pleural fluid; 2colored fluid was aspirated at a depth of approximately 2 cm. A 10-blade scalpel was used to deejay the skin at the insertion site. The Eyai-m-Oedhyici needle was then introduced through the skin incision into the pleural space using negative aspiration pressure and the red colometric indicator to confirm appropriate positioning of the needle. The thoracentesis catheter was then threaded without difficulty. 900ml of turbid colored fluid was removed without difficulty. The catheter was then removed. No immediate complications were noted during the procedure. A post-procedure chest x-ray is pending at the time of this note. The fluid will be sent for studies. Estimated blood loss is 0cc
[2022-02-21 13:07] LABS: Glucose,Whole Blood 142 mg/dL (75-99)
--- NOTE | 2022-02-21 13:08 | P.PN ---
Subjective Progress Note Date: 02/21/22 02/21/2022, the patient is doing well. No complaints. Thoracentesis was done and a total of 950 mL of pleural fluid aspirated from the left lung. There is a very tiny pneumothorax ex vacuo in the left lower lobe. Periodically, the patient is doing well. The patient has no specific complaints. The pleural fluid sent for cultures. LFTs are continue to improve. Objective - Vital Signs Vital signs: Vital Signs Temp 97.6 F 02/21/22 12:01 Pulse 79 02/21/22 12:01 Resp 16 02/21/22 12:01 BP 172/104 02/21/22 12:01 Pulse Ox 94 L 02/21/22 12:01 Intake & Output 02/20/22 02/21/22 02/21/22 18:59 06:59 18:59 Intake Total 350 Balance 350 Intake: Oral 350 Other: Voiding Method Toilet Toilet Toilet # Voids 6 2 # Bowel Movements 1 - Exam The patient appeared well nourished and normally developed. Vital signs as documented. Head exam is unremarkable. No scleral icterus or corneal arcus noted. Neck is without jugular venous distension, thyromegaly, or carotid bruits. Carotid upstrokes are brisk bilaterally. Lungs reveal diminished breath on the left lung base and the patient is a thoracotomy scar over the left lateral chest area. Cardiac exam reveals the PMI to be normally sized and situated. Rhythm is regular. First and second heart sounds normal. No murmurs, rubs or gallops. Abdominal exam reveals normal bowel sounds, no masses, no organomegaly and no aortic enlargement. Extremities are nonedematous and both femoral and pedal pulses are normal.Examination of the skin revealed no evidence of significant rashes, suspicious appearing nevi or other concerning lesions.Neurologically, the patient is awake and alert and the patient does not have any focal neurological deficit. Cranial nerves are essentially intact. - Labs CBC & Chem 7: 02/21/22 07:13 02/21/22 07:13 Labs: Abnormal Lab Results - Last 24 Hours (Table) 02/21/22 02/21/22 Range/Units 07:13 07:13 WBC 14.35 H (4.50-10.00) X 10*3/uL RBC 3.42 L (4.10-5.20) X 10*6/uL Hgb 10.5 L (12.0-15.0) g/dL Hct 33.5 L (37.2-46.3) % MCV 98.0 H (80.0-97.0) fL MCHC 31.3 L (32.0-37.0) g/dL RDW 17.2 H (11.5-14.5) % MPV 14.5 H (9.5-12.2) fL Immature Gran # 0.12 H (0.00-0.04) X 10*3/uL Neutrophils # 12.25 H (1.80-7.70) X 10*3/uL Lymphocytes # 0.76 L (0.90-5.00) X 10*3/uL Monocytes # 1.19 H (0.20-1.00) X 10*3/uL Eosinophils # 0.01 L (0.04-0.35) X 10*3/uL Chloride 97 L (98-107) mmol/L Carbon Dioxide 35 H (22-30) mmol/L BUN 23 H (7-17) mg/dL Glucose 127 H (74-99) mg/dL Total Bilirubin 2.0 H (0.2-1.3) mg/dL AST 407 H (14-36) U/L ALT 602 H (4-34) U/L Alkaline Phosphatase 1462 H (38-126) U/L Albumin 3.0 L (3.5-5.0) g/dL Assessment and Plan Plan: 1 left-sided pleural effusion, small to moderate-sized, seen on previous CAT scan images from 12/26/2021 and a previous PET/CT. The patient is also known to have a anterior pleural-based mass with erosion of the rib cage at the level of the rib cage #4 in addition to mediastinal lymphadenopathy consistent with underlying non-small cell lung cancer. 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 Note that his pleural fluid was not present at the time of the original diagnosis and the PET scan that was done on 08/24/2021 did not reveal any pleural fluid on the left. The pleural fluid was first seen in a PET scan that was done on 12/08/2021 and back then for this morning and sized and sided pleural fluid has increased since. 2 metastatic adenocarcinoma of the lung currently on immunotherapy with Keytruda 3 immunotherapy induced hepatitis 4 chronic atrial fibrillation maintained on long-term and to coagulation with Eliquis 5 history of breast cancer with a previous lumpectomy radiation therapy and hormonal treatment back in 2017. This was a right-sided breast cancer 6 remote history of tuberculosis of the lung, 1973 7 History of COVID 19 infection back in December 2021, recovered 8 diverticular disease 9. Hearing 10 hypertension 11 hyperlipidemia Plan Left-sided thoracentesis was done 950 mL of fluid was aspirated The fluid will be sent for cultures and cytology There is a tiny pneumothorax ex vacuo in the left lung base, asymptomatic Keep immunotherapy on hold Monitor LFTs
[2022-02-21] MEDS ORDERED: APIXABAN 5 MG TAB PO SCH (13:30)
[2022-02-21 13:47] LABS: Glucose,Whole Blood 173 mg/dL (75-99)
[2022-02-21] MEDS ORDERED: SODIUM CHLORIDE 0.9% 500 ML 500 ML IV ONE ×2 (13:50→15:07)
--- NOTE | 2022-02-21 14:01 | XR ---
EXAMINATION TYPE: XR chest 1V portable DATE OF EXAM: 02/21/2022 1:34 PM COMPARISON:Chest radiographs from 03/04/2022 TECHNIQUE: XR chest 1V portable Frontal view of the chest. CLINICAL INDICATION:Female, 81 years old with history of possible pneumo; FINDINGS: Lungs/Pleura: Increased airspace opacity within the left lung compared to prior earlier in the day. N o evidence of pneumothorax. Unchanged from prior. Pulmonary vascularity: Unremarkable. Heart/mediastinum: Cardiomediastinal silhouette is unremarkable. Musculoskeletal: No acute osseous pathology. IMPRESSION: No evidence of pneumothorax increased airspace opacities throughout the left lung represent atelectas is changes. Clinical correlation is advised.
--- NOTE | 2022-02-21 15:28 | P.PN ---
Progress Note - Text Progress Note Date: 02/21/22 Chief Complaint: Jaundice Hospital course Very pleasant 81 female, follows with Dr. Staton. 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 received radiation treatment to the lower spine. received chemotherapy. Also getting immunotherapy.. In December of this year admitted with atrial fibrillation Oncology history: pt of Dr. Balderas who has a Hx of ER/ME positive Her2 negative breast cancer 2016, s/p lumpectomy and SLND, adjuvant XRT and femara. She c/o lt sided rib pain in Jul 2021, CT chest revealed 6.6cm ELMER lung mass with rib invasion, biopsy positive for adenocarcinoma, staging PET revealed ELMER mass, L2 and rt adrenal met, PD-L1 neg. Liquid biopsy revealed KKEAP1 mutation, high TMB, NGS on tissues revealed POLE1 and ARIDA1 mutations,TMB 12.6, MADHU. She completed palliative XRT to left rib and L2. 10/07/2021 she started alimta/carbo platin/keytruda and completed 4 cycles on 12/09/2021. 12/05/21 repeat PET showed positive treatment response with diminished hypermetabolic uptake left midlung destructive neoplasm along with the prevascular adenopathy and right adrenal metastatic focus, however cannot exclude new near 1.0 cm hypermetabolic lymph node near the diaphragmatic hiatus. She continued on keytruda only as of 01/09/2022 and is s/p 2 cycles. She had routine lab work done and was found to have elevating LFTs, suspicious for immunotherapy hepatitis. She was asked to come to the office to be evaluated. Patient's appetite is good. No change in bowel pattern. No weight loss. Does feel tired though. Has noticed to be jaundiced. Significant itching.. Very strong clear urine. No fever no chills. Given significantly elevated LFTs being admitted. Admitted with immunotherapy induced hepatitis. Started on prednisone. February 20: Patient also to have home edema. Given IV Lasix. Worsening left pleural effusion. Ultrasound showing significant effusion. Pulmonary consulted. Oral intake fair. the bathroom. February 21: Patient had left-sided thoracentesis of 900 mL of turbid fluid obtained. Breathing a bit better. Oral intake fair. Remains in atrial flutter. Active Medications Hydrocodone Bitart/Acetaminophen (Hydrocodone/Apap 10-325mg 1 Each Tab) 1 - 2 each PO Q4HR PRN PRN Reason: Pain Albuterol/Ipratropium (Ipratropium-Albuterol 3 Ml Neb) 3 ml INHALATION RT-QID [facility] Last Admin: 02/20/22 12:15 Dose: 3 ml Documented by: Albuterol/Ipratropium (Ipratropium-Albuterol 3 Ml Neb) 3 ml INHALATION RT-Q4H PRN PRN Reason: Shortness Of Breath Or Wheezing Diltiazem HCl (Diltiazem Cd 240 Mg Cap.Er.24h) 240 mg PO DAILY [facility] Last Admin: 02/20/22 08:51 Dose: 240 mg Documented by: Flecainide Acetate (Flecainide 50 Mg Tab) 50 mg PO Q12HR [facility] Last Admin: 02/20/22 08:50 Dose: 50 mg Documented by: Folic Acid (Folic Acid 1 Mg Tab) 1 mg PO DAILY [facility] Last Admin: 02/20/22 08:50 Dose: 1 mg Documented by: Magnesium Oxide (Magnesium Oxide 400 Mg Tab) 200 mg PO BID [facility] Last Admin: 02/20/22 08:51 Dose: 200 mg Documented by: Metoprolol Tartrate (Metoprolol Tartrate 50 Mg Tab) 100 mg PO BID [facility] Last Admin: 02/20/22 08:51 Dose: 100 mg Documented by: Olanzapine (Olanzapine 5 Mg Tab) 5 mg PO HS [facility] Last Admin: 02/19/22 20:05 Dose: 5 mg Documented by: Ondansetron HCl (Ondansetron Odt 4 Mg Tab) 4 mg PO Q6H PRN PRN Reason: Nausea Pantoprazole Sodium (Pantoprazole 40 Mg Tablet) 40 mg PO AC-BID [facility] Last Admin: 02/20/22 08:51 Dose: 40 mg Documented by: Prednisone (Prednisone 20 Mg Tab) 90 mg PO DAILY [facility] Last Admin: 02/20/22 08:50 Dose: 90 mg Documented by: Past medical history to include: breast cancer diagnosed in 1993 with recurrence in 2017. 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 Atrial fibrillation, Social history: Patient smoked for 30 years stopping at age of 44. 2 packs a day. Lives alone. Family history: Diabetes, hypertension, prostate cancer Physical examination: VITAL SIGNS: 97.6, 73, 20, 155/82, 98% on 2 L GENERAL: Awake, but tired EYES: Pupils equal. Conjunctiva yellowl. HEENT: External appearance of nose and ears normal, oral cavity grossly normal. NECK: JVD not raised; masses not palpable. HEART: First and second heart sounds are normal; no edema. LUNGS: Respiratory rate normal; decreased breath sound on the left side. ABDOMEN: Soft, nontender, liver spleen not palpable, no masses palpable. PSYCH: Alert and oriented x3; mood and affect normal. MUSCULOSKELETAL:No Clubbing/cyanosis;muscles-grossly intact. Evidence of OA especially in the hands INVESTIGATIONS, reviewed in the clinical context: February 21: White count 14.3 hemoglobin 10.5 potassium 3.7 creatinine 0.64 total bilirubin 2 AST 407 ALT 602 alkaline phosphatase 1462 February 20: Potassium 4 creatinine 0.86 AST 521 ALT 674 alkaline phosphatase 1671 proBNP 2940 Acute hepatitis screen: Negative Chest x-ray film personally reviewed by me: Left pleural effusion. Increased compared to previous x-ray. EKG tracing personally reviewed by me: Atrial flutter. Rate controlled Liver ultrasound: Tiny right hepatic lobe cyst. White count 7.9 hemoglobin 12.4 platelets 215 pressure 4 creatinine 0.6 Total bilirubin 2.8 AST 5.2 ALT 6.3 alkaline phosphatase 1767 Yesterday labs: AST 644 ALT 808 alkaline phosphatase 2285 Assessment and plan: -Obstructive hepatitis pattern. no abdominal pain. No systemic symptoms. likely secondary to immunotherapy. : Slow to respond Negative acute hepatitis panel. Hold Lipitor. Prednisone 90 mg. -Persistent atrial fibrillation rate controlled Lopressor 100 mg twice daily. Cardizem CD 180 mg a day Eliquis. Flecainide 50 mg every 12 -Stage IV Metastatic adenocarcinoma of the lung. Has been receiving immunotherapy. Follow with oncology -Essential Hypertension Lopressor 100 mg twice a day. Cardizem CD 180 mg a day -Large left pleural effusion likely metastatic/malignant effusion: Slow to respond. thoracentesis on February 21 of [address] Welch. -GERD Protonix -Osteopenia -Deafness in the left ear -DO NOT RESUSCITATE -Mild cognitive impairment -Leukocytosis is due to steroids Continue current medications. Thoracentesis carried out. Discussed with patient. Activity as tolerated.
[2022-02-21 15:51] LABS: Anisocytosis Slight; Basophils % (A) 0 %; Eosinophils % (A) 0 %; HCT 28.6 % (34.0-46.0); Hypochromasia Marked; Lymphocytes # (A) 0.6 k/uL (1.0-4.8); Lymphocytes % (A) 4 %; MCHC 30.8 g/dL (31.0-37.0); MCV 103.7 fL (80.0-100.0); Macrocytosis Moderate; Mean Platelet Volume 10.7; Monocytes # (A) 0.5 k/uL (0-1.0); Monocytes % (A) 3 %; Neutrophils # (A) 13.7 k/uL (1.3-7.7); Neutrophils % (A) 91 %; Platelet Count 220 k/uL (150-450); RBC 2.75 m/uL (3.80-5.40); RDW 16.3 % (11.5-15.5)
[2022-02-21 16:05] LABS: ALT 484 U/L (4-34); AST 270 U/L (14-36); African American GFR (CKD) >90 (>60 ml/min/1.73 sqM); Albumin 2.4 g/dL (3.5-5.0); Albumin/Globulin Ratio 0.9; Alkaline Phosphatase 1056 U/L (38-126); Anion Gap 2 mmol/L; Blood Urea Nitrogen 24 mg/dL (7-17); Calcium 7.9 mg/dL (8.4-10.2); Carbon Dioxide 30 mmol/L (22-30); Chloride 100 mmol/L (98-107); Globulin 2.6 g/dL; Glucose 191 mg/dL (74-99); Magnesium 1.6 mg/dL (1.6-2.3); Non-African American GFR(CKD) 87 (>60 ml/min/1.73 sqM); Potassium 3.7 mmol/L (3.5-5.1); Sodium 132 mmol/L (137-145); Total Bilirubin 1.6 mg/dL (0.2-1.3)
[2022-02-21 16:29] LABS: HGB 8.8 gm/dL (11.4-16.0)
[2022-02-21] MEDS ORDERED: Potassium Replacement Protocol 1 EACH MISC MISCELLANE PRN (18:19)
[2022-02-21] MEDS ORDERED: Magnesium Replacement Protocol 1 EACH MISC MISCELLANE PRN (18:22)
--- NOTE | 2022-02-21 18:48 | XR ---
EXAMINATION TYPE: XR chest 1V portable DATE OF EXAM: 02/21/2022 COMPARISON: Today HISTORY: Hypoxemia TECHNIQUE: Single view FINDINGS: There is large left pleural effusion and extensive airspace consolidation in the left lung. There is slight blunting right costophrenic angle. No heart failure seen. Thoracic aorta is atheroma tous. Heart appears enlarged. IMPRESSION: Left pleural effusion and left pulmonary consolidation without change compared to exam 5 hours ago. No heart failure seen.
[2022-02-21] MEDS: MAGNESIUM SULFATE-D5W PMX 1 GM in DEXTROSE/WATER 1 100ML.BAG IVPB SCH ×2 (18:50→21:02)
[2022-02-21] MEDS ORDERED: POTASSIUM CHLORIDE ER 20 MEQ TAB.ER PO SCH (19:00)
[2022-02-21] MEDS: OLANZapine 5 MG TAB PO SCH (21:05)
--- NOTE | 2022-02-22 01:21 | P.PN ---
Subjective Progress Note Date: 02/21/22 patient continues to have some shortness of breath, which is stable. At the time of exam, she was being prepped for thoracentesis. Case discussed with pulmonary medicine. She denied any nausea, vomiting or diarrhea, change in color of urine or stool. Objective - Vital Signs Vital signs: Vital Signs Temp 96.0 F L 02/22/22 00:00 Pulse 102 H 02/22/22 01:00 Resp 18 02/22/22 01:00 BP 98/69 02/22/22 01:00 Pulse Ox 98 02/22/22 01:00 Intake & Output 02/21/22 02/21/22 02/22/22 06:59 18:59 06:59 Intake Total 350 370 500 Output Total 150 200 Balance 350 220 300 Intake: IV 370 350 Sodium Chloride 0.9% 1, 120 350 000 ml @ 50 mls/hr IV . Q20H [facility] Rx#:[id number] Sodium Chloride 0.9% 500 250 ml 500 ml @ 999 mls/hr IV .Q31M ONE Rx#:[id number] Oral 350 150 Output: Urine 150 200 Other: Voiding Method Toilet Bedside Commode Bedside Commode Bedpan Bedpan # Voids 2 - Constitutional General appearance: Present: no acute distress - EENT Eyes: Present: EOMI ENT: Present: hearing grossly normal, normal oropharynx - Respiratory Respiratory: left: diminished (almost 3/4 of left lung field) - Cardiovascular Rhythm: regular Heart sounds: normal: S1, S2 - Gastrointestinal General gastrointestinal: Present: normal bowel sounds, soft - Integumentary Integumentary: Present: normal - Neurologic Neurologic: Present: CNII-XII intact - Musculoskeletal Musculoskeletal: Present: generalized weakness, strength equal bilaterally - Psychiatric Psychiatric: Present: A&O x's 3 - Labs CBC & Chem 7: 02/21/22 15:00 02/21/22 15:00 Labs: Abnormal Lab Results - Last 24 Hours (Table) 02/21/22 02/21/22 02/21/22 Range/Units 07:13 07:13 13:03 WBC 14.35 H (4.50-10.00) X 10*3/uL RBC 3.42 L (4.10-5.20) X 10*6/uL Hgb 10.5 L (12.0-15.0) g/dL Hct 33.5 L (37.2-46.3) % MCV 98.0 H (80.0-97.0) fL MCHC 31.3 L (32.0-37.0) g/dL RDW 17.2 H (11.5-14.5) % MPV 14.5 H (9.5-12.2) fL Immature Gran # 0.12 H (0.00-0.04) X 10*3/uL Neutrophils # 12.25 H (1.80-7.70) X 10*3/uL Lymphocytes # 0.76 L (0.90-5.00) X 10*3/uL Monocytes # 1.19 H (0.20-1.00) X 10*3/uL Eosinophils # 0.01 L (0.04-0.35) X 10*3/uL Sodium (137-145) mmol/L Chloride 97 L (98-107) mmol/L Carbon Dioxide 35 H (22-30) mmol/L BUN 23 H (7-17) mg/dL Glucose 127 H (74-99) mg/dL POC Glucose (mg/dL) 142 H (75-99) mg/dL Calcium (8.4-10.2) mg/dL Total Bilirubin 2.0 H (0.2-1.3) mg/dL AST 407 H (14-36) U/L ALT 602 H (4-34) U/L Alkaline Phosphatase 1462 H (38-126) U/L Total Protein (6.3-8.2) g/dL Albumin 3.0 L (3.5-5.0) g/dL 02/21/22 02/21/22 02/21/22 Range/Units 13:45 15:00 15:00 WBC 15.0 H (4.50-10.00) X 10*3/uL RBC 2.75 L (4.10-5.20) X 10*6/uL Hgb 8.8 L D (12.0-15.0) g/dL Hct 28.6 L (37.2-46.3) % MCV 103.7 H (80.0-97.0) fL MCHC 30.8 L (32.0-37.0) g/dL RDW 16.3 H (11.5-14.5) % MPV (9.5-12.2) fL Immature Gran # (0.00-0.04) X 10*3/uL Neutrophils # 13.7 H (1.80-7.70) X 10*3/uL Lymphocytes # 0.6 L (0.90-5.00) X 10*3/uL Monocytes # (0.20-1.00) X 10*3/uL Eosinophils # (0.04-0.35) X 10*3/uL Sodium 132 L (137-145) mmol/L Chloride (98-107) mmol/L Carbon Dioxide (22-30) mmol/L BUN 24 H (7-17) mg/dL Glucose 191 H (74-99) mg/dL POC Glucose (mg/dL) 173 H (75-99) mg/dL Calcium 7.9 L (8.4-10.2) mg/dL Total Bilirubin 1.6 H (0.2-1.3) mg/dL AST 270 H (14-36) U/L ALT 484 H (4-34) U/L Alkaline Phosphatase 1056 H (38-126) U/L Total Protein 5.0 L (6.3-8.2) g/dL Albumin 2.4 L (3.5-5.0) g/dL Assessment and Plan (1) Hepatitis Narrative/Plan: this is felt to be autoimmune in nature, but ultrasound showing no obstruction or anatomical abnormality. Therefore this is most likely immunotherapy effect. The patient is currently on prednisone. Liver enzymes are improving. She is asymptomatic. Therefore, from our standpoint she can be discharged on the same dose of oral steroids, whenever okay with the admitting service and other consultants. In case of discharge, she was advised to come to the office early next week for repeat blood drawn. Depending on her response, steroid taper can be started. Current Visit: Yes Status: Acute Priority: High Code(s): K75.9 - I NFLAMMATORY LIVER DISEASE, UNSPECIFIED SNOMED Code(s): 000276623 (2) Pleural effusion Narrative/Plan: This is new onset, and is quite significant. The patient is to have thoracentesis with pulmonary medicine today. Case discussed with them. Post thoracentesis if the patient is stable, she can be discharged from our standpoint. Current Visit: Yes Status: Acute Code(s): J90 - PLEURAL EFFUSION, NOT ELSEWHERE CLASSIFIED SNOMED Code(s): 47886084 (3) Adenocarcinoma, lung Narrative/Plan: as the clinical picture appears to be due to immunotherapy related to hepatitis, the patient likely can't continue on the same treatment. In addition the pleural effusion, if metastatic, would indicate progression. Patient will follow-up in the office, prior to starting back on any treatment. Current Visit: No Status: Chronic Priority: Medium Code(s): C34.90 - MALIGNANT NEOPLASM OF UNSP PART OF UNSP BRONCHUS OR LUNG SNOMED Code(s): 439236774
--- NOTE | 2022-02-22 06:09 | XR ---
EXAMINATION TYPE: XR chest 1V portable DATE OF EXAM: 02/22/2022 CLINICAL HISTORY: Difficulty breathing progress study. Increasing hypoxia. Left-sided lung cancer. TECHNIQUE: Single AP portable upright view of the chest is obtained. COMPARISON: Chest x-ray from one day earlier and older studies FINDINGS: Background chronic emphysematous change with persistent diffuse left lung opacities sparin g apex. Right lung predominantly clear. Stable cardiomegaly. Osseous structures are demineralized. IMPRESSION: Persistent left sided pleural effusion and associated left lung opacity obscuring known l eft lung neoplasm. Reexpansion pulmonary edema is suspected given history of recent thoracentesis. Pe rsistent cardiomegaly. No significant change from one day earlier.
[2022-02-22 06:33] LABS: Anisocytosis Slight; HCT 26.2 % (34.0-46.0); HGB 7.9 gm/dL (11.4-16.0); Hypochromasia Marked; MCH 31.6 pg (25.0-35.0); MCHC 30.2 g/dL (31.0-37.0); MCV 104.5 fL (80.0-100.0); Macrocytosis Moderate; Mean Platelet Volume 10.4; Platelet Count 213 k/uL (150-450); WBC 16.5 k/uL (3.8-10.6)
[2022-02-22 06:49] LABS: Albumin 2.7 g/dL (3.5-5.0); Calcium 8.4 mg/dL (8.4-10.2); Magnesium 2.3 mg/dL (1.6-2.3); Potassium 4.3 mmol/L (3.5-5.1); Total Bilirubin 1.6 mg/dL (0.2-1.3); Total Protein 5.5 g/dL (6.3-8.2)
[2022-02-22] MEDS: IPRATROPIUM-ALBUTEROL 3 ML NEB INHALATION SCH ×4 (08:03→19:22)
[2022-02-22] MEDS: PANTOPRAZOLE 40 MG TABLET PO SCH ×2 (09:18→16:57)
[2022-02-22] MEDS: FLECAINIDE 50 MG TAB PO SCH ×2 (09:18→20:11)
[2022-02-22] MEDS: FOLIC ACID 1 MG TAB PO SCH (09:19)
[2022-02-22] MEDS: METOPROLOL TARTRATE 50 MG TAB PO SCH (09:19)
[2022-02-22] MEDS: MAGNESIUM OXIDE 400 MG TAB PO SCH ×2 (09:19→20:10)
[2022-02-22] MEDS: DILTIAZEM CD 240 MG CAP.ER.24H PO SCH (09:19)
[2022-02-22] MEDS: predniSONE 20 MG TAB PO SCH (09:20)
--- NOTE | 2022-02-22 12:07 | P.PN ---
Subjective Progress Note Date: 02/22/22 02/22/2022, the patient is currently the intensive care unit. I had to transfer this patient to the ICU yesterday as the patient developed some acute shortness of breath following the thoracentesis. The patient also became slightly hypoxic. Initially, she became hypotensive and this occurred approximately 1 hour following the thoracentesis. Noted a removed a total of 950 mL of pleural fluid. They made a chest x-ray following thoracentesis showed a pneumothorax loculated ex vacuo in the left lower lobe. The subsequent chest x-rays on this patient showed persistent left-sided pleural effusion and the patient also developed a left sided pulmonary opacity. This was consistent with expansion p ulmonary edema post thoracentesis. There was no evidence of pneumothorax. There was no evidence of any cardiomegaly. The patient accordingly the chest into the intensive care unit and the patient is currently on 4 L of oxygen by nasal cannula. I am also concerned about some bleeding into the left hemithorax although the pleural fluid was not bloody. Nevertheless, the patient's hemoglobin has dropped from 10.5 down to 8.8 and later on down to 7.9 and for that reason the patient is kept in ICU for further monitoring. We'll check a coagulation profile. LFTs continued to improve and the patient's AST is down to 224 and ALT is down to 460 with an alkaline phosphatase of 1000. The currently is at 35 with a creatinine of 1.01. Sodium is at 136. The patient is receiving IV fluid at the rate of 50 mL an hour. No other significant events over the past 24 hours. Her current cardiac rhythm is atrial fibrillation. He is a concern of bleed, anticoagulation was held. Objective - Vital Signs Vital signs: Vital Signs Temp 97.9 F 02/22/22 08:00 Pulse 106 H 02/22/22 09:30 Resp 21 02/22/22 09:30 BP 119/68 02/22/22 09:30 Pulse Ox 94 L 02/22/22 09:30 Intake & Output 02/21/22 02/22/22 02/22/22 18:59 06:59 18:59 Intake Total 370 800 300 Output Total 150 200 Balance 220 600 300 Weight 62.2 kg Intake: IV 370 650 100 Sodium Chloride 0.9% 1, 120 650 100 000 ml @ 50 mls/hr IV . Q20H [facility] Rx#:[id number] Sodium Chloride 0.9% 500 250 ml 500 ml @ 999 mls/hr IV .Q31M ONE Rx#:[id number] Oral 150 200 Output: Urine 150 200 Other: Voiding Method Bedside Commode Bedside Commode Bedpan Bedpan - Exam The patient appeared well nourished and normally developed. The patient is c urrently on 4 L of oxygen by nasal cannula. Vital signs as documented. Head exam is unremarkable. No scleral icterus or corneal arcus noted. Neck is without jugular venous distension, thyromegaly, or carotid bruits. Carotid upstrokes are brisk bilaterally. Lungs reveal diminished breath on the left lung base and the patient is a thoracotomy scar over the left lateral chest area. Cardiac exam reveals the PMI to be normally sized and situated. Rhythm is regular. First and second heart sounds normal. No murmurs, rubs or gallops. Abdominal exam reveals normal bowel sounds, no masses, no organomegaly and no aortic enlargement. Extremities are nonedematous and both femoral and pedal pulses are n ormal.Examination of the skin revealed no evidence of significant rashes, suspicious appearing nevi or other concerning lesions.Neurologically, the patient is awake and alert and the patient does not have any focal neurological deficit. Cranial nerves are essentially intact. - Labs CBC & Chem 7: 02/22/22 05:40 02/22/22 05:40 Labs: Abnormal Lab Results - Last 24 Hours (Table) 02/21/22 02/21/22 02/21/22 Range/Units 13:03 13:45 15:00 WBC 15.0 H (3.8-10.6) k/uL RBC 2.75 L (3.80-5.40) m/uL Hgb 8.8 L D (11.4-16.0) gm/dL Hct 28.6 L (34.0-46.0) % MCV 103.7 H (80.0-100.0) fL MCHC 30.8 L (31.0-37.0) g/dL RDW 16.3 H (11.5-15.5) % Neutrophils # 13.7 H (1.3-7.7) k/uL Lymphocytes # 0.6 L (1.0-4.8) k/uL Sodium (137-145) mmol/L BUN (7-17) mg/dL Glucose (74-99) mg/dL POC Glucose (mg/dL) 142 H 173 H (75-99) mg/dL Calcium (8.4-10.2) mg/dL Total Bilirubin (0.2-1.3) mg/dL AST (14-36) U/L ALT (4-34) U/L Alkaline Phosphatase (38-126) U/L Total Protein (6.3-8.2) g/dL Albumin (3.5-5.0) g/dL 02/21/22 02/22/22 02/22/22 Range/Units 15:00 05:40 05:40 WBC 16.5 H (3.8-10.6) k/uL RBC 2.50 L (3.80-5.40) m/uL Hgb 7.9 L (11.4-16.0) gm/dL Hct 26.2 L (34.0-46.0) % MCV 104.5 H (80.0-100.0) fL MCHC 30.2 L (31.0-37.0) g/dL RDW 16.0 H (11.5-15.5) % Neutrophils # (1.3-7.7) k/uL Lymphocytes # (1.0-4.8) k/uL Sodium 132 L 136 L (137-145) mmol/L BUN 24 H 35 H (7-17) mg/dL Glucose 191 H 176 H (74-99) mg/dL POC Glucose (mg/dL) (75-99) mg/dL Calcium 7.9 L (8.4-10.2) mg/dL Total Bilirubin 1.6 H 1.6 H (0.2-1.3) mg/dL AST 270 H 224 H (14-36) U/L ALT 484 H 460 H (4-34) U/L Alkaline Phosphatase 1056 H 1000 H (38-126) U/L Total Protein 5.0 L 5.5 L (6.3-8.2) g/dL Albumin 2.4 L 2.7 L (3.5-5.0) g/dL Assessment and Plan Plan: 1 left-sided pleural effusion, small to moderate-sized, seen on previous CAT scan images from 12/26/2021 and a previous PET/CT. The patient is also known to have a anterior pleural-based mass with erosion of the rib cage at the level of the rib cage #4 in addition to mediastinal lymphadenopathy consistent with underlying non-small cell lung cancer. 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 Note that his pleural fluid was not present at the time of the original diagnosis and the PET scan that was done on 08/24/2021 did not reveal any pleural fluid on the left. The pleural fluid was first seen in a PET scan that was done on 12/08/2021 and back then for this morning and sized and sided pleural fluid has increased since. The patient underwent a thoracentesis with evacuation of around 950 mL of pleural fluid from the left lung. Following the thoracentesis and within 1-2 hours, the patient became hypotensive and shortness of breath and diaphoretic. Repeat series of chest x-rays following the thoracentesis showed that the patient may possibly developing reexpansion pulmonary edema. Also, the possibility of a intrapleural bleed, cannot be completely excluded as the patient is somewhat more opacified in the left lower lobe. There is also a small pneumothorax ex vacuo in the left lower lobe. The patient is currently being monitored in the intensive care unit and she is currently on 4 L of O2 by nasal cannula, stable. 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 This was a right-sided breast cancer 6 remote history of tuberculosis of the lung, 1973 7 History of COVID 19 infection back in December 2021, recovered 8 diverticular disease 9. Hearing 10 hypertension 11 hyperlipidemia Plan Clinically stable Keep the patient 4 L O2 and gradually wean it down as tolerated Continue using this incentive spirometer Monitor the hemoglobin Check coagulation profile Hold anticoagulation till we make sure that there is no bleed and hemoglobin remains stable Left-sided thoracentesis was done yesterday and the pleural fluid was nonbloody and a total of 950 mL of fluid was aspirated The fluid will be sent for cultures and cytology There is a tiny pneumothorax ex vacuo in the left lung base, asymptomatic Keep immunotherapy on hold Monitor LFTs Keep the patient in intensive care unit. Hemodynamically remains stable, and the hemoglobin is stable, I may give her a dose of Lasix 20 mg IV push.
--- NOTE | 2022-02-22 13:35 | P.PN ---
Subjective Progress Note Date: 02/22/22 The patient tolerated her thoracentesis yesterday with withdrawal of 967. However her hemoglobin subsequently dropped into the 7 range. She was therefore moved to the ICU for closer observation. She continues on steroids. She has noticed only mild improvement in her respiratory status with thoracentesis. Objective - Vital Signs Vital signs: Vital Signs Temp 97.9 F 02/22/22 08:00 Pulse 106 H 02/22/22 09:30 Resp 21 02/22/22 09:30 BP 119/68 02/22/22 09:30 Pulse Ox 94 L 02/22/22 09:30 Intake & Output 02/21/22 02/22/22 02/22/22 18:59 06:59 18:59 Intake Total 370 800 300 Output Total 150 200 Balance 220 600 300 Weight 62.2 kg Intake: IV 370 650 100 Sodium Chloride 0.9% 1, 120 650 100 000 ml @ 50 mls/hr IV . Q20H [facility] Rx#:[id number] Sodium Chloride 0.9% 500 250 ml 500 ml @ 999 mls/hr IV .Q31M [facility] Rx#:[id number] Oral 150 200 Output: Urine 150 200 Other: Voiding Method Bedside Commode Bedside Commode Bedpan Bedpan - Constitutional General appearance: Present: no acute distress - EENT Eyes: Present: EOMI ENT: Present: hearing grossly normal, normal oropharynx - Respiratory Respiratory: left: diminished (Aeration improved in the upper half) - Cardiovascular Rhythm: regular Heart sounds: normal: S1, S2 - Gastrointestinal General gastrointestinal: Present: normal bowel sounds, soft - Integumentary Integumentary: Present: normal - Neurologic Neurologic: Present: CNII-XII intact - Musculoskeletal Musculoskeletal: Present: generalized weakness, strength equal bilaterally - Psychiatric Psychiatric: Present: A&O x's 3, appropriate affect - Labs CBC & Chem 7: 02/22/22 05:40 02/22/22 05:40 Labs: Abnormal Lab Results - Last 24 Hours (Table) 02/21/22 02/21/22 02/21/22 Range/Units 13:45 15:00 15:00 WBC 15.0 H (3.8-10.6) k/uL RBC 2.75 L (3.80-5.40) m/uL Hgb 8.8 L D (11.4-16.0) gm/dL Hct 28.6 L (34.0-46.0) % MCV 103.7 H (80.0-100.0) fL MCHC 30.8 L (31.0-37.0) g/dL RDW 16.3 H (11.5-15.5) % Neutrophils # 13.7 H (1.3-7.7) k/uL Lymphocytes # 0.6 L (1.0-4.8) k/uL Sodium 132 L (137-145) mmol/L BUN 24 H (7-17) mg/dL Glucose 191 H (74-99) mg/dL POC Glucose (mg/dL) 173 H (75-99) mg/dL Calcium 7.9 L (8.4-10.2) mg/dL Total Bilirubin 1.6 H (0.2-1.3) mg/dL AST 270 H (14-36) U/L ALT 484 H (4-34) U/L Alkaline Phosphatase 1056 H (38-126) U/L Total Protein 5.0 L (6.3-8.2) g/dL Albumin 2.4 L (3.5-5.0) g/dL 02/22/22 02/22/22 Range/Units 05:40 05:40 WBC 16.5 H (3.8-10.6) k/uL RBC 2.50 L (3.80-5.40) m/uL Hgb 7.9 L (11.4-16.0) gm/dL Hct 26.2 L (34.0-46.0) % MCV 104.5 H (80.0-100.0) fL MCHC 30.2 L (31.0-37.0) g/dL RDW 16.0 H (11.5-15.5) % Neutrophils # (1.3-7.7) k/uL Lymphocytes # (1.0-4.8) k/uL Sodium 136 L (137-145) mmol/L BUN 35 H (7-17) mg/dL Glucose 176 H (74-99) mg/dL POC Glucose (mg/dL) (75-99) mg/dL Calcium (8.4-10.2) mg/dL Total Bilirubin 1.6 H (0.2-1.3) mg/dL AST 224 H (14-36) U/L ALT 460 H (4-34) U/L Alkaline Phosphatase 1000 H (38-126) U/L Total Protein 5.5 L (6.3-8.2) g/dL Albumin 2.7 L (3.5-5.0) g/dL Assessment and Plan (1) Anemia Narrative/Plan: At this time etiology is not clear. This was noted post procedure. However fluid itself was not bloody. - Patient is being followed by pulmonary medicine with serial imaging and CBCs for evidence of any significant postprocedure bleeding. Baseline coags were normal. - Check hemolysis workup. This was felt to be less likely, as it is a rare IO effect, and the patient is already on steroids. Current Visit: Yes Status: Acute Code(s): D64.9 - ANEMIA, UNSPECIFIED SNOMED Code(s): 970699923 (2) Hepatitis Narrative/Plan: Liver numbers continue to improve on steroids. Continue prednisone 90 mg. Plan to start tapering this coming week depending on labs Current Visit: Yes Status: Acute Priority: High Code(s): K75.9 - INFLAMMATORY LIVER DISEASE, UNSPECIFIED SNOMED Code(s): 263303285 (3) Pleural effusion Narrative/Plan: Metastatic disease is suspected. Cytology is pending. Current Visit: Yes Status: Acute Code(s): J90 - PLEURAL EFFUSION, NOT ELSEWHERE CLASSIFIED SNOMED Code(s): 46531200 (4) Adenocarcinoma, lung Narrative/Plan: Current regimen is on hold. Patient will need to be assessed primary oncologist prior to resuming treatment Current Visit: No Status: Chronic Priority: Medium Code(s): C34.90 - MALIGNANT NEOPLASM OF UNSP PART OF UNSP BRONCHUS OR LUNG SNOMED Code(s): 914736587
--- NOTE | 2022-02-22 14:49 | P.PN ---
Progress Note - Text Progress Note Date: 02/22/22 Chief Complaint: Jaundice Hospital course Very pleasant 81 female, follows with Dr. Staton. 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 received radiation treatment to the lower spine. received chemotherapy. Also getting immunotherapy.. In December of this year admitted with atrial fibrillation Oncology history: pt of Dr. Balderas who has a Hx of ER/MO positive Her2 negative breast cancer 2016, s/p lumpectomy and SLND, adjuvant XRT and femara. She c/o lt sided rib pain in Jul 2021, CT chest revealed 6.6cm ELMER lung mass with rib invasion, biopsy positive for adenocarcinoma, staging PET revealed ELMER mass, L2 and rt adrenal met, PD-L1 neg. Liquid biopsy revealed KKEAP1 mutation, high TMB, NGS on tissues revealed POLE1 and ARIDA1 mutations,TMB 12.6, MADHU. She completed palliative XRT to left rib and L2. 10/07/2021 she started alimta/carbo platin/keytruda and completed 4 cycles on 12/09/2021. 12/05/21 repeat PET showed positive treatment response with diminished hypermetabolic uptake left midlung destructive neoplasm along with the prevascular adenopathy and right adrenal metastatic focus, however cannot exclude new near 1.0 cm hypermetabolic lymph node near the diaphragmatic hiatus. She continued on keytruda only as of 01/09/2022 and is s/p 2 cycles. She had routine lab work done and was found to have elevating LFTs, suspicious for immunotherapy hepatitis. She was asked to come to the office to be evaluated. Patient's appetite is good. No change in bowel pattern. No weight loss. Does feel tired though. Has noticed to be jaundiced. Significant itching.. Very strong clear urine. No fever no chills. Given significantly elevated LFTs being admitted. Admitted with immunotherapy induced hepatitis. Started on prednisone. February 20: Patient also to have home edema. Given IV Lasix. Worsening left pleural effusion. Ultrasound showing significant effusion. Pulmonary consulted. Oral intake fair. the bathroom. February 21: Patient had left-sided thoracentesis of 900 mL of turbid fluid obtained. Breathing a bit better. Oral intake fair. Remains in atrial flutter. February 22: Post thoracentesis yesterday patient became hypotensive bradycardic. Moved to the ICU. Lopressor was held. No pneumothorax noted. Blood pressure remains lower side. Diet. Eating fair. Patient's hemoglobin has dropped. Chest x-ray reviewed. Active Medications Hydrocodone Bitart/Acetaminophen (Hydrocodone/Apap 10-325mg 1 Each Tab) 1 - 2 each PO Q4HR PRN PRN Reason: Pain Albuterol/Ipratropium (Ipratropium-Albuterol 3 Ml Neb) 3 ml INHALATION RT-QID [facility] Last Admin: 02/22/22 11:32 Dose: Not Given Documented by: Albuterol/Ipratropium (Ipratropium-Albuterol 3 Ml Neb) 3 ml INHALATION RT-Q4H PRN PRN Reason: Shortness Of Breath Or Wheezing Diltiazem HCl (Diltiazem Cd 240 Mg Cap.Er.24h) 240 mg PO DAILY [facility] Last Admin: 02/22/22 09:19 Dose: 240 mg Documented by: Flecainide Acetate (Flecainide 50 Mg Tab) 50 mg PO Q12HR [facility] Last Admin: 02/22/22 09:18 Dose: 50 mg Documented by: Folic Acid (Folic Acid 1 Mg Tab) 1 mg PO DAILY [facility] Last Admin: 02/22/22 09:19 Dose: Not Given Documented by: Sodium Chloride (Saline 0.9%) 1,000 mls @ 50 mls/hr IV .Q20H [facility] Last Admin: 02/21/22 10:28 Dose: 50 mls/hr Documented by: Magnesium Oxide (Magnesium Oxide 400 Mg Tab) 200 mg PO BID [facility] Last Admin: 02/22/22 09:19 Dose: 200 mg Documented by: Metoprolol Tartrate (Metoprolol Tartrate 50 Mg Tab) 100 mg PO BID [facility] Last Admin: 02/22/22 09:19 Dose: 100 mg Documented by: Miscellaneous Information (Potassium Replacement Protocol 1 Each Misc) 1 each MISCELLANE DAILY PRN; Protocol PRN Reason: Per Protocol Miscellaneous Information (Magnesium Replacement Protocol 1 Each Misc) 1 each MISCELLANE DAILY PRN; Protocol PRN Reason: Per Protocol Olanzapine (Olanzapine 5 Mg Tab) 5 mg PO HS [facility] Last Admin: 02/21/22 21:05 Dose: 5 mg Documented by: Ondansetron HCl (Ondansetron Odt 4 Mg Tab) 4 mg PO Q6H PRN PRN Reason: Nausea Pantoprazole Sodium (Pantoprazole 40 Mg Tablet) 40 mg PO AC-BID [facility] Last Admin: 02/22/22 09:18 Dose: 40 mg Documented by: Prednisone (Prednisone 20 Mg Tab) 90 mg PO DAILY [facility] Last Admin: 02/22/22 09:20 Dose: 90 mg Documented by: Past medical history to include: breast cancer diagnosed in 1993 with recurrence in 2017. 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 Atrial fibrillation, Social history: Patient smoked for 30 years stopping at age of 44. 2 packs a day. Lives alone. Family history: Diabetes, hypertension, prostate cancer Physical examination: VITAL SIGNS: 97.9, GENERAL: Reclining in bed, tired tired EYES: Pupils equal. Conjunctiva yellow HEENT: External appearance of nose and ears normal, oral cavity grossly normal. NECK: JVD not raised; masses not palpable. HEART: First and second heart sounds are normal; no edema. LUNGS: Respiratory rate normal; decreased breath sound on the left side. ABDOMEN: Soft, nontender, liver spleen not palpable, no masses palpable. PSYCH: Alert and oriented x3; mood and affect normal. MUSCULOSKELETAL:No Clubbing/cyanosis;muscles-grossly intact. Evidence of OA especially in the hands INVESTIGATIONS, reviewed in the clinical context: February 22: White count 16.5 hemoglobin 7.9 platelets 213 potassium 4.3 creatinine 1.01 total bilirubin 1.6 AST 224 ALT 460 alkaline phosphatase thousand February 21: White count 14.3 hemoglobin 10.5 potassium 3.7 creatinine 0.64 total bilirubin 2 AST 407 ALT 602 alkaline phosphatase 1462 February 20: Potassium 4 creatinine 0.86 AST 521 ALT 674 alkaline phosphatase 1671 proBNP 2940 Acute hepatitis screen: Negative Chest x-ray film personally reviewed by me: Left pleural effusion. Increased compared to previous x-ray. EKG tracing personally reviewed by me: Atrial flutter. Rate controlled Liver ultrasound: Tiny right hepatic lobe cyst. White count 7.9 hemoglobin 12.4 platelets 215 pressure 4 creatinine 0.6 Total bilirubin 2.8 AST 5.2 ALT 6.3 alkaline phosphatase 1767 Yesterday labs: AST 644 ALT 808 alkaline phosphatase 2285 Assessment and plan: -Obstructive hepatitis pattern. no abdominal pain. No systemic symptoms. likely secondary to immunotherapy. : Slow to respond Negative acute hepatitis panel. Hold Lipitor. Prednisone 90 mg. -Post thoracentesis hypotension Suspect element of bleeding from procedure. -Suspect underlying possible hemothorax following thoracentesis as indicated by drop in hemoglobin -Follow H&H -Persistent atrial fibrillation rate controlled Lopressor held. Cardizem CD 180 mg a day Eliquis-held. Flecainide 50 mg every 12 -Stage IV Metastatic adenocarcinoma of the lung. Has been receiving immunotherapy. Follow with oncology -Essential Hypertension, currently hypotensive . Cardizem CD 180 mg a day -Large left pleural effusion likely metastatic/malignant effusion: Slow to respond. thoracentesis on February 21 of [address] Welch. -GERD Protonix -Osteopenia -Deafness in the left ear -DO NOT RESUSCITATE -Mild cognitive impairment -Leukocytosis is due to steroids -Hypotension from likely hemorrhage from thoracentesis Follow blood pressure closely. Add Lopressor 12.5 by mouth twice a day. Follow H&H. Other medications to continue. Patient admitted ICU.
[2022-02-22 15:19] LABS: Prothrombin Time 11.1 sec (9.0-12.0)
[2022-02-22 15:24] LABS: Reticulocyte % 4.1 % (0.5-2.0)
[2022-02-22 15:25] LABS: Anisocytosis Slight; HCT 26.9 % (34.0-46.0); HGB 8.6 gm/dL (11.4-16.0); Hypochromasia Marked; MCH 33.2 pg (25.0-35.0); MCV 103.8 fL (80.0-100.0); Macrocytosis Moderate; Mean Platelet Volume 10.5; Platelet Count 229 k/uL (150-450); RDW 16.8 % (11.5-15.5); WBC 14.9 k/uL (3.8-10.6)
[2022-02-22] MEDS: OLANZapine 5 MG TAB PO SCH (20:10)
[2022-02-22] MEDS: METOPROLOL TARTRATE 12.5 MG TAB PO SCH (20:11)
[2022-02-22] MEDS: SODIUM CHLORIDE 0.9% 1,000 ML IV SCH (23:56)
[2022-02-23 06:20] LABS: Basophils % (A) 0 %; Eosinophils % (A) 0 %; Hypochromasia Slight; Lymphocytes # (A) 0.7 k/uL (1.0-4.8); Lymphocytes % (A) 5 %; MCH 30.6 pg (25.0-35.0); MCV 102.1 fL (80.0-100.0); Macrocytosis Slight; Mean Platelet Volume 10.7; Monocytes # (A) 1.1 k/uL (0-1.0); Monocytes % (A) 8 %; Neutrophils # (A) 12.7 k/uL (1.3-7.7); Neutrophils % (A) 87 %; Platelet Count 184 k/uL (150-450); RBC 2.15 m/uL (3.80-5.40); WBC 14.7 k/uL (3.8-10.6)
[2022-02-23 06:24] LABS: HGB 6.6 gm/dL (11.4-16.0)
[2022-02-23 07:08] LABS: Albumin 2.6 g/dL (3.5-5.0); Calcium 8.5 mg/dL (8.4-10.2); Potassium 3.9 mmol/L (3.5-5.1); Total Bilirubin 1.4 mg/dL (0.2-1.3); Total Protein 5.5 g/dL (6.3-8.2)
[2022-02-23] MEDS: IPRATROPIUM-ALBUTEROL 3 ML NEB INHALATION SCH ×4 (09:12→20:53)
[2022-02-23] MEDS: predniSONE 20 MG TAB PO SCH (09:31)
[2022-02-23] MEDS: FOLIC ACID 1 MG TAB PO SCH (09:32)
[2022-02-23] MEDS: DILTIAZEM CD 240 MG CAP.ER.24H PO SCH (09:32)
[2022-02-23] MEDS: METOPROLOL TARTRATE 12.5 MG TAB PO SCH ×2 (09:32→22:19)
[2022-02-23] MEDS: PANTOPRAZOLE 40 MG TABLET PO SCH ×2 (09:32→17:50)
[2022-02-23] MEDS: MAGNESIUM OXIDE 400 MG TAB PO SCH ×2 (09:32→22:19)
[2022-02-23] MEDS: FLECAINIDE 50 MG TAB PO SCH ×2 (09:32→22:18)
--- NOTE | 2022-02-23 11:31 | P.PN ---
Subjective Progress Note Date: 02/23/22 Principal diagnosis: IO hepatitis In follow-up today patient denies any nosebleeds, hemoptysis, unusual bruising, hematuria, black or bloody stool-last BM 3 days ago. Her breathing is stable, denies recurrent shortness of breath or unusual cough. Objective - Vital Signs Vital signs: Vital Signs Temp 97.5 F L 02/23/22 08:00 Pulse 70 02/23/22 09:21 Resp 20 02/23/22 08:00 BP 123/67 02/23/22 08:00 Pulse Ox 92 L 02/23/22 08:00 Intake & Output 02/22/22 02/23/22 02/23/22 18:59 06:59 18:59 Intake Total 1300 Balance 1300 Intake: IV 550 Sodium Chloride 0.9% 1, 550 000 ml @ 50 mls/hr IV . Q20H [facility] Rx#:[id number] Oral 750 Other: Voiding Method Bedside Commode Bedside Commode Bedside Commode Bedpan Bedpan Bedpan # Voids 1 2 - Constitutional General appearance: Present: average body habitus, cooperative, no acute distress - EENT Eyes: Present: anicteric sclerae, EOMI ENT: Present: hearing grossly normal - Respiratory Respiratory: right: CTA, left: diminished - Cardiovascular Rhythm: regular Heart sounds: normal: S1, S2 Abnormal Heart Sounds: Absent: systolic murmur, diastolic murmur, rub, S3 Gallop, S4 Gallop, click, other - Gastrointestinal General gastrointestinal: Present: normal bowel sounds, soft. Absent: absent bowel sounds, decreased bowel sounds, distended, hepatomegaly, hyperactive bowel sounds, organomegaly, rigid, scaphoid, splenomegaly, tenderness, umbilical hernia, ventral hernia - Integumentary Integumentary: Present: pale - Neurologic Neurologic: Present: CNII-XII intact - Musculoskeletal Musculoskeletal: Present: generalized weakness, strength equal bilaterally - Psychiatric Psychiatric: Present: A&O x's 3, appropriate affect, intact judgment & insight - Labs CBC & Chem 7: 02/23/22 05:21 02/23/22 05:21 Labs: Abnormal Lab Results - Last 24 Hours (Table) 02/22/22 02/22/22 02/22/22 Range/Units 14:45 14:45 14:45 WBC 14.9 H (3.8-10.6) k/uL RBC 2.60 L (3.80-5.40) m/uL Hgb 8.6 L (11.4-16.0) gm/dL Hct 26.9 L (34.0-46.0) % MCV 103.8 H (80.0-100.0) fL MCHC (31.0-37.0) g/dL RDW 16.8 H (11.5-15.5) % Neutrophils # (1.3-7.7) k/uL Lymphocytes # (1.0-4.8) k/uL Monocytes # (0-1.0) k/uL Retic Count 4.1 H (0.5-2.0) % Haptoglobin (31.2-198.0) mg/dL Sodium (137-145) mmol/L BUN (7-17) mg/dL Glucose (74-99) mg/dL Total Bilirubin (0.2-1.3) mg/dL AST (14-36) U/L ALT (4-34) U/L Alkaline Phosphatase (38-126) U/L Lactate Dehydrogenase 696 H (313-618) U/L Total Protein (6.3-8.2) g/dL Albumin (3.5-5.0) g/dL Crossmatch 02/22/22 02/23/22 02/23/22 Range/Units 14:45 05:21 05:21 WBC 14.7 H (3.8-10.6) k/uL RBC 2.15 L (3.80-5.40) m/uL Hgb 6.6 L* D (11.4-16.0) gm/dL Hct 22.0 L (34.0-46.0) % MCV 102.1 H (80.0-100.0) fL MCHC 30.0 L (31.0-37.0) g/dL RDW 16.0 H (11.5-15.5) % Neutrophils # 12.7 H (1.3-7.7) k/uL Lymphocytes # 0.7 L (1.0-4.8) k/uL Monocytes # 1.1 H (0-1.0) k/uL Retic Count (0.5-2.0) % Haptoglobin 245.0 H (31.2-198.0) mg/dL Sodium 136 L (137-145) mmol/L BUN 40 H (7-17) mg/dL Glucose 168 H (74-99) mg/dL Total Bilirubin 1.4 H (0.2-1.3) mg/dL AST 106 H (14-36) U/L ALT 323 H (4-34) U/L Alkaline Phosphatase 820 H (38-126) U/L Lactate Dehydrogenase (313-618) U/L Total Protein 5.5 L (6.3-8.2) g/dL Albumin 2.6 L (3.5-5.0) g/dL Crossmatch 02/23/22 Range/Units 07:39 WBC (3.8-10.6) k/uL RBC (3.80-5.40) m/uL Hgb (11.4-16.0) gm/dL Hct (34.0-46.0) % MCV (80.0-100.0) fL MCHC (31.0-37.0) g/dL RDW (11.5-15.5) % Neutrophils # (1.3-7.7) k/uL Lymphocytes # (1.0-4.8) k/uL Monocytes # (0-1.0) k/uL Retic Count (0.5-2.0) % Haptoglobin (31.2-198.0) mg/dL Sodium (137-145) mmol/L BUN (7-17) mg/dL Glucose (74-99) mg/dL Total Bilirubin (0.2-1.3) mg/dL AST (14-36) U/L ALT (4-34) U/L Alkaline Phosphatase (38-126) U/L Lactate Dehydrogenase (313-618) U/L Total Protein (6.3-8.2) g/dL Albumin (3.5-5.0) g/dL Crossmatch See Detail Assessment and Plan (1) Anemia Narrative/Plan: Patient's hemoglobin was normal on admit, likely secondary to hemoconcentration as patient's hemoglobin typically runs in the 8-9 range. Patient is needing transfusion today, which was ordered this morning. Hemolysis workup was negative. Coags are normal. Patient's breathing remained stable but, did re quest a repeat chest x-ray as patient is status post thoracentesis. Occult stool has been requested. 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 Liver enzymes has started to decrease since adm itted. Patient is a 90 mg of prednisone orally. We'll plan for taper. Current Visit: Yes Status: Acute Priority: High Code(s): K75.9 - INFLAMMATORY LIVER DISEASE, UNSPECIFIED SNOMED Code(s): 204014641 (3) Adenocarcinoma, lung Narrative/Plan: Pt is currently on maintenance pembrolizumab. Based on response of the IO hepa titis to steroid therapy she may or may not be able to receive immunotherapy in the future. Will see how she does Current Visit: No Status: Chronic Priority: Medium Code(s): C34.90 - MALIGNANT NEOPLASM OF UNSP PART OF UNSP BRONCHUS OR LUNG SNOMED Code(s): 396275500 Plan: Doctor attests: I performed a history and physical examination of this patient, developed impression and plan of care. Discussed with dictator. I agree with dictators note, documented as a scribe.
--- NOTE | 2022-02-23 11:49 | XR ---
EXAMINATION TYPE: XR chest 2V DATE OF EXAM: 02/23/2022 COMPARISON: 02/22/2022 TECHNIQUE: PA and lateral views submitted. HISTORY: Shortness of breath FINDINGS: There is bilateral consolidation and small effusion on the left. There is suggestion of air-fluid lev els in the left hemithorax which could be related to previous thoracentesis with a hydropneumothorax. Consider follow-up CT scan exclude other etiologies. Degenerative changes of the spine. Diffuse oste openia with arthropathy of the shoulders. IMPRESSION: 1. Persistent large left-sided consolidation and pleural effusion. There appear to be air-fluid level s on today's exam which could represent components of loculated hydropneumothorax given the patient h ad recent history of thoracentesis correlate clinically. 2. Right lower lobe infiltrate and small effusion. 3. Previously described below left sided neoplasm not well-seen by standard chest x-ray due to underl tom pleural and parenchymal lung disease.
--- NOTE | 2022-02-23 13:32 | CDI ---
Documentation Clarification Form Date: 02/23/2022 01:16:00 PM From: Eva Buckley CCS, CCDS Admit Date: 02/18/2022 03:22:00 PM Patient Name: Inga Brooke Visit Number: [id number] Discharge Date: ATTENTION: The Clinical Documentation Specialists (CDI) and [facility] Coding Staff appreciate your assistance in clarifying documentation. Please respond to the clarification below the line at the bottom and electronically sign. The CDI & [facility] Coding staff will review the response and follow-up if needed. Please note: Queries are made part of the Legal Health Record. If you have any questions, please contact the author of this message via ITS. Dr. Chaitanya Blue: Anemia is documented in the 02/22 & 02/23 Oncology Progress Notes. Per the 02/23 Note: Patient's hemoglobin was normal on admit, likely secondary to hemoconcentration as patient's hemoglobin typically runs in the 8-9 range. Patient is needing transfusion today, which was ordered this morning. The patient had a Left Thoracentesis done on 02/21 for evaluation of pleural fluid for suspected malignancy. Post Thoracentesis, the patient was transferred to ICU with acute SOB & Hypotension. Additional specificity regarding the Acuity & Type of Anemia is requested. 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 Clinical indicators: Sent from the physician office due to elevated LFTs, suspecting immunotherapy hepatitis. Admit with Obstructive Hepatitis. Hemoglobin: 02/18: 12.4. 02/19 & 02/20: not drawn. 02/21: 10.5, 8.8. 02/22: 7.9, 8.6. 02/23: 6.6 Hematocrit: 02/18: 41.2. 02/21: 33.5, 28.6. 02/22: 26.2, 26.9. 02/23 22.0 Treatment 02/21: O2 2Lnc, IV Na Cl 500 mls @ 999 mls/hr q3M x2, IV Na Cl 1,000 mls @ 50 mls/hr q20H, Kcl 20 meq po q1H. 02/22 PO Lopressor 12.5 mg BID 02/23 Stool Occult Blood, Midline for IV Access, Blood Transfusion: PRBCs 1 unit. Please clarify the Type and Acuity of Anemia: [ ] Acute blood loss anemia [ ] If ABLA: is the Anemia a complication of the patient's procedure? [ ] If ABLA: is the Anemia not related to the patient's procedure? [ ] Acute on chronic blood loss anemia [ ] Chronic blood loss anemia [ ] Drug induced anemia [ ] Anemia due to malignancy [ ] Unable to determine [ ] Other, please specify (Template Last Revised: December 2020) MTDD
--- NOTE | 2022-02-23 13:47 | CDI ---
Documentation Clarification Form Date: 02/23/2022 01:35:00 PM From: Eva EspositoBuckleyXIOMARA shine, CCDS Admit Date: 02/18/2022 03:22:00 PM Patient Name: Inga Brooke Visit Number: [id number] Discharge Date: ATTENTION: The Clinical Documentation Specialists (CDI) and [facility] Coding Staff appreciate your assistance in clarifying documentation. Please respond to the clarification below the line at the bottom and electronically sign. The CDI & [facility] Coding staff will review the response and follow-up if needed. Please note: Queries are made part of the Legal Health Record. If you have any questions, please contact the author of this message via ITS. Dr. Jose Welch: Per the 02/22 Pulmonary/Critical Care Progress Note: I had to transfer this patient to the ICU yesterday as the patient developed some acute shortness of breath following the thoracentesis. The patient also became slightly hypoxic. The patient had a Left sided Thoracentesis done on 02/21 for a Left sided pleural effusion. Based on this information and the findings below, is there an additional diagnosis that is clinically appropriate for this patient? 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 Clinical indicators: Sent from the physician office due to elevated LFTs, suspecting immunotherapy hepatitis. Admit with Obstructive Hepatitis. 02/21 VS: T 97.5, P 74, 95; R 22, 24, 10, 24; BP 100/59, 88/59, 82/66; PO 93 5Lnc, 90 5Lnc, 88 5Lnc 02/21 LAB: WBC 15.0, RBC 2.75, Hgb 8.8, Hct 28.6, Neutrophils 13.7, Lymph 0.6; Na 132, BUN 24, glucose 191, Calcium 7.9, Total bilirubin 1.6, AST 270, ALT 484, Alk Phos 1056. 02/21 CXR: Left pleural effusion and left pulmonary consolidation without change compared to 5 hrs ago, No heart failure. 02/22 CXR: Background chronic emphysematous change. Persistent left sided pleural effusion and associated left lung opacity obscuring known left lung neoplasm. Re-expansion pulmonary edema is suspected given history of recent thoracentesis. Persistent cardiomegaly. No significant change from one day earlier. Treatment 02/21: O2 2Lnc - 5Lnc, IV Na Cl 500 mls @ 999 mls/hr q3M x2, IV Na Cl 1,000 mls @ 50 mls/hr q20H, Kcl 20 meq po q1H. 02/22 PO Lopressor 12.5 mg BID, O2 4Lnc 02/23 Stool Occult Blood, Midline for IV Access, Blood Transfusion: PRBCs 1 unit, O2 2Lnc Is there an additional diagnosis that is clinically appropriate for this patient? [ ] Acute Hypoxic Respiratory Failure [ x ] Acute on Chronic Hypoxic Respiratory Failure [ ] Chronic Hypoxic Respiratory Failure [ ] Acute Respiratory Insufficiency [ ] Other Diagnosis, please specify: [ ] Unable to determine [ ] If Acute or Acute on Chronic Hypoxic Respiratory Failure is present, was this a complication of the patient's procedure? [ ] If Acute or Acute on Chronic Hypoxic Respiratory Failure is present, was this not related to the patient's procedure? (Template Last Revised: January 2021) MTDD
--- NOTE | 2022-02-23 15:19 | P.PN ---
Subjective Progress Note Date: 02/23/22 Principal diagnosis: Left sided pleural effusion 02/22/2022, the patient is currently the intensive care unit. I had to transfer this patient to the ICU yesterday as the patient developed some acute shortness of breath following the thoracentesis. The patient also became slightly hypoxic. Initially, she became hypotensive and this occurred approximately 1 hour following the thoracentesis. Noted a removed a total of 950 mL of pleural fluid. They made a chest x-ray following thoracentesis showed a pneumothorax loculated ex vacuo in the left lower lobe. The subsequent chest x-rays on this patient showed persistent left-sided pleural effusion and the patient also developed a left sided pulmonary opacity. This was consistent with expansion pulmonary edema post thoracentesis. There was no evidence of pneumothorax. There was no evidence of any cardiomegaly. The patient accordingly the chest into the intensive care unit and the patient is currently on 4 L of oxygen by nasal cannula. I am also concerned about some bleeding into the left hemithorax although the pleural fluid was not bloody. Nevertheless, the patient's hemoglobin has dropped from 10.5 down to 8.8 and later on down to 7.9 and for that reason the patient is kept in ICU for further monitoring. We'll check a coagulation profile. LFTs continued to improve and the patient's AST is down to 224 and ALT is down to 460 with an alkaline phosphatase of 1000. The currently is at 35 with a creatinine of 1.01. Sodium is at 136. The patient is receiving IV fluid at the rate of 50 mL an hour. No other significant events over the past 24 hours. Her current cardiac rhythm is atrial fibrillation. He is a concern of bleed, anticoagulation was held. Patient was not seen today, however I had a chance to review her chest x-ray today, and I had a chance to discuss her condition with Dr. Saez over the phone, and I recommended a CT-guided or ultrasound-guided pigtail catheter placement for her large left-sided pleural effusion which seems to be loculated, and the patient seems to have a hydropneumothorax. This will be done today, patient is now having the procedure done, and I believe the patient may have sustained some worsening pleural effusion postthoracentesis, likely consistent with bleeding in the pleural space. This may or may not be related to the procedure itself, but considering the timing of the symptoms and the timing of the procedure, this is most likely iatrogenic hemothorax involving the left pleural space. At this point may have to consider drainage of the large pleural effusion which is likely hemothorax. And this will be done by interventional radiology today. Objective - Vital Signs Vital signs: Vital Signs Temp 97.5 F L 02/23/22 13:00 Pulse 92 02/23/22 13:00 Resp 15 02/23/22 12:59 BP 129/75 02/23/22 13:00 Pulse Ox 93 L 02/23/22 13:00 Intake & Output 02/22/22 02/23/22 02/23/22 18:59 06:59 18:59 Intake Total 1300 0 Balance 1300 0 Intake: IV 550 Sodium Chloride 0.9% 1, 550 000 ml @ 50 mls/hr IV . Q20H [facility] Rx#:[id number] Oral 750 Blood Product 0 Rc As-1 Unit 0 [id number] Other: Voiding Method Bedside Commode Bedside Commode Bedside Commode Bedpan Bedpan Bedpan # Voids 1 2 - Exam Patient was not examined today, she was not in the room. Patient was having pigtail catheter placement in the pleural space while I was rounding on the floor - Labs CBC & Chem 7: 02/23/22 05:21 02/23/22 05:21 Labs: Abnormal Lab Results - Last 24 Hours (Table) 02/22/22 02/22/22 02/22/22 Range/Units 14:45 14:45 14:45 WBC 14.9 H (3.8-10.6) k/uL RBC 2.60 L (3.80-5.40) m/uL Hgb 8.6 L (11.4-16.0) gm/dL Hct 26.9 L (34.0-46.0) % MCV 103.8 H (80.0-100.0) fL MCHC (31.0-37.0) g/dL RDW 16.8 H (11.5-15.5) % Neutrophils # (1.3-7.7) k/uL Lymphocytes # (1.0-4.8) k/uL Monocytes # (0-1.0) k/uL Retic Count 4.1 H (0.5-2.0) % Haptoglobin (31.2-198.0) mg/dL Sodium (137-145) mmol/L BUN (7-17) mg/dL Glucose (74-99) mg/dL Total Bilirubin (0.2-1.3) mg/dL AST (14-36) U/L ALT (4-34) U/L Alkaline Phosphatase (38-126) U/L Lactate Dehydrogenase 696 H (313-618) U/L Total Protein (6.3-8.2) g/dL Albumin (3.5-5.0) g/dL Crossmatch 02/22/22 02/23/22 02/23/22 Range/Units 14:45 05:21 05:21 WBC 14.7 H (3.8-10.6) k/uL RBC 2.15 L (3.80-5.40) m/uL Hgb 6.6 L* D (11.4-16.0) gm/dL Hct 22.0 L (34.0-46.0) % MCV 102.1 H (80.0-100.0) fL MCHC 30.0 L (31.0-37.0) g/dL RDW 16.0 H (11.5-15.5) % Neutrophils # 12.7 H (1.3-7.7) k/uL Lymphocytes # 0.7 L (1.0-4.8) k/uL Monocytes # 1.1 H (0-1.0) k/uL Retic Count (0.5-2.0) % Haptoglobin 245.0 H (31.2-198.0) mg/dL Sodium 136 L (137-145) mmol/L BUN 40 H (7-17) mg/dL Glucose 168 H (74-99) mg/dL Total Bilirubin 1.4 H (0.2-1.3) mg/dL AST 106 H (14-36) U/L ALT 323 H (4-34) U/L Alkaline Phosphatase 820 H (38-126) U/L Lactate Dehydrogenase (313-618) U/L Total Protein 5.5 L (6.3-8.2) g/dL Albumin 2.6 L (3.5-5.0) g/dL Crossmatch 02/23/22 Range/Units 07:39 WBC (3.8-10.6) k/uL RBC (3.80-5.40) m/uL Hgb (11.4-16.0) gm/dL Hct (34.0-46.0) % MCV (80.0-100.0) fL MCHC (31.0-37.0) g/dL RDW (11.5-15.5) % Neutrophils # (1.3-7.7) k/uL Lymphocytes # (1.0-4.8) k/uL Monocytes # (0-1.0) k/uL Retic Count (0.5-2.0) % Haptoglobin (31.2-198.0) mg/dL Sodium (137-145) mmol/L BUN (7-17) mg/dL Glucose (74-99) mg/dL Total Bilirubin (0.2-1.3) mg/dL AST (14-36) U/L ALT (4-34) U/L Alkaline Phosphatase (38-126) U/L Lactate Dehydrogenase (313-618) U/L Total Protein (6.3-8.2) g/dL Albumin (3.5-5.0) g/dL Crossmatch See Detail Assessment and Plan Assessment: Impression: Left sided pleural effusion in a patient with history of metastatic non-small cell lung cancer, it is likely malignant unless for otherwise. Status post thoracentesis with postoperative complication/bleeding into the pleural space, and I will the patient has loculated pleural effusion most likely hemopneumothorax with multiple air-fluid levels noted on the chest x-ray. And I'm recommending a pigtail catheter placement to drain the pleural effusion, and if the patient continues to develop any worsening bleeding will consult thoracic surgery to evaluate. Metastatic adenocarcinoma/lungs patient is on immunotherapy with keytruda immunotherapy induced hepatitis Chronic atrial fibrillation, antonettequis remains presently on hold because of her bleeding History of breast cancer with previous lumpectomy and radiation therapy History of COVID-19 infection back in December 17 022 Hypertension Recommendation: Continue present supportive care measures Continue to hold blood thinners and anticoagulation therapy Pigtail catheter placement by interventional radiology Continue immunotherapy on hold Consider thoracic surgery consultation if the patient continues to have worsening hemothorax or bleeding into the left pleural space. Transfuse patient and keep hemoglobin above 7 if possible. Continue steroids. Prognosis remains guarded, we'll continue to follow Time with Patient: Less than 30
--- NOTE | 2022-02-23 15:28 | P.PN ---
Progress Note - Text Progress Note Date: 02/23/22 Chief Complaint: Jaundice Hospital course Very pleasant 81 female, follows with Dr. Staton. 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 received radiation treatment to the lower spine. received chemotherapy. Also getting immunotherapy.. In December of this year admitted with atrial fibrillation Oncology history: pt of Dr. Balderas who has a Hx of ER/MO positive Her2 negative breast cancer 2016, s/p lumpectomy and SLND, adjuvant XRT and femara. She c/o lt sided rib pain in Jul 2021, CT chest revealed 6.6cm ELMER lung mass with rib invasion, biopsy positive for adenocarcinoma, staging PET revealed ELMER mass, L2 and rt adrenal met, PD-L1 neg. Liquid biopsy revealed KKEAP1 mutation, high TMB, NGS on tissues revealed POLE1 and ARIDA1 mutations,TMB 12.6, MADHU. She completed palliative XRT to left rib and L2. 10/07/2021 she started alimta/carbo platin/keytruda and completed 4 cycles on 12/09/2021. 12/05/21 repeat PET showed positive treatment response with diminished hypermetabolic uptake left midlung destructive neoplasm along with the prevascular adenopathy and right adrenal metastatic focus, however cannot exclude new near 1.0 cm hypermetabolic lymph node near the diaphragmatic hiatus. She continued on keytruda only as of 01/09/2022 and is s/p 2 cycles. She had routine lab work done and was found to have elevating LFTs, suspicious for immunotherapy hepatitis. She was asked to come to the office to be evaluated. Patient's appetite is good. No change in bowel pattern. No weight loss. Does feel tired though. Has noticed to be jaundiced. Significant itching.. Very strong clear urine. No fever no chills. Given significantly elevated LFTs being admitted. Admitted with immunotherapy induced hepatitis. Started on prednisone. February 20: Patient also to have home edema. Given IV Lasix. Worsening left pleural effusion. Ultrasound showing significant effusion. Pulmonary consulted. Oral intake fair. the bathroom. February 21: Patient had left-sided thoracentesis of 900 mL of turbid fluid obtained. Breathing a bit better. Oral intake fair. Remains in atrial flutter. February 22: Post thoracentesis yesterday patient became hypotensive bradycardic. Moved to the ICU. Lopressor was held. No pneumothorax noted. Blood pressure remains lower side. Diet. Eating fair. Patient's hemoglobin has dropped. Chest x-ray reviewed. February 23: Patient dropped hemoglobin to 6.6. I ordered a chest x-ray. Has air fluid level. Likely hemothorax. Spoke to Dr. Paredes. Pigtail catheter per interventional radiology. Patient also getting a midline because of poor IV access. Patient tired. Blood ordered Active Medications Hydrocodone Bitart/Acetaminophen (Hydrocodone/Apap 10-325mg 1 Each Tab) 1 - 2 each PO Q4HR PRN PRN Reason: Pain Albuterol/Ipratropium (Ipratropium-Albuterol 3 Ml Neb) 3 ml INHALATION RT-QID [facility] Last Admin: 02/23/22 12:45 Dose: 3 ml Documented by: Albuterol/Ipratropium (Ipratropium-Albuterol 3 Ml Neb) 3 ml INHALATION RT-Q4H PRN PRN Reason: Shortness Of Breath Or Wheezing Diltiazem HCl (Diltiazem Cd 240 Mg Cap.Er.24h) 240 mg PO DAILY [facility] Last Admin: 02/23/22 09:32 Dose: 240 mg Documented by: Flecainide Acetate (Flecainide 50 Mg Tab) 50 mg PO Q12HR [facility] Last Admin: 02/23/22 09:32 Dose: 50 mg Documented by: Folic Acid (Folic Acid 1 Mg Tab) 1 mg PO DAILY [facility] Last Admin: 02/23/22 09:32 Dose: 1 mg Documented by: Sodium Chloride (Saline 0.9%) 1,000 mls @ 50 mls/hr IV .Q20H [facility] Last Admin: 02/22/22 23:56 Dose: 50 mls/hr Documented by: Magnesium Oxide (Magnesium Oxide 400 Mg Tab) 200 mg PO BID [facility] Last Admin: 02/23/22 09:32 Dose: 200 mg Documented by: Metoprolol Tartrate (Metoprolol Tartrate 12.5 Mg Tab) 12.5 mg PO BID [facility] Last Admin: 02/23/22 09:32 Dose: 12.5 mg Documented by: Miscellaneous Information (Potassium Replacement Protocol 1 Each Misc) 1 each MISCELLANE DAILY PRN; Protocol PRN Reason: Per Protocol Miscellaneous Information (Magnesium Replacement Protocol 1 Each Mis) 1 each MISCELLANE DAILY PRN; Protocol PRN Reason: Per Protocol Olanzapine (Olanzapine 5 Mg Tab) 5 mg PO HS [facility] Last Admin: 02/22/22 20:10 Dose: 5 mg Documented by: Ondansetron HCl (Ondansetron Odt 4 Mg Tab) 4 mg PO Q6H PRN PRN Reason: Nausea Pantoprazole Sodium (Pantoprazole 40 Mg Tablet) 40 mg PO AC-BID [facility] Last Admin: 02/23/22 09:32 Dose: 40 mg Documented by: Prednisone (Prednisone 20 Mg Tab) 90 mg PO DAILY [facility] Last Admin: 02/23/22 09:31 Dose: 90 mg Documented by: Past medical history to include: breast cancer diagnosed in 1993 with recurrence in 2017. 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 Atrial fibrillation, Social history: Patient smoked for 30 years stopping at age of 44. 2 packs a day. Lives alone. Family history: Diabetes, hypertension, prostate cancer Physical examination: VITAL SIGNS: 97.5, 92, 15, 129/75, 93% on 4 L GENERAL: Reclining in bed, tired EYES: Pupils equal. Conjunctiva yellow HEENT: External appearance of nose and ears normal, oral cavity grossly normal. NECK: JVD not raised; masses not palpable. HEART: First and second heart sounds are normal; no edema. LUNGS: Respiratory rate normal; decreased breath sound on the left side. ABDOMEN: Soft, nontender, liver spleen not palpable, no masses palpable. PSYCH: Alert and oriented x3; mood and affect normal. MUSCULOSKELETAL:No Clubbing/cyanosis;muscles-grossly intact. Evidence of OA especially in the hands INVESTIGATIONS, reviewed in the clinical context: February 23: White count 14.7 hemoglobin 6.6 platelets 184 potassium 3.9 creatinine 0.98 bilirubin 1.4 AST 106 ALT 323 Chest x-ray film personally reviewed by me-[February 23]: Large fluid level February 22: White count 16.5 hemoglobin 7.9 platelets 213 potassium 4.3 creatinine 1.01 total bilirubin 1.6 AST 224 ALT 460 alkaline phosphatase thousand February 21: White count 14.3 hemoglobin 10.5 potassium 3.7 creatinine 0.64 total bilirubin 2 AST 407 ALT 602 alkaline phosphatase 1462 February 20: Potassium 4 creatinine 0.86 AST 521 ALT 674 alkaline phosphatase 1671 proBNP 2940 Acute hepatitis screen: Negative Chest x-ray film personally reviewed by me: Left pleural effusion. Increased compared to previous x-ray. EKG tracing personally reviewed by me: Atrial flutter. Rate controlled Liver ultrasound: Tiny right hepatic lobe cyst. White count 7.9 hemoglobin 12.4 platelets 215 pressure 4 creatinine 0.6 Total bilirubin 2.8 AST 5.2 ALT 6.3 alkaline phosphatase 1767 Yesterday labs: AST 644 ALT 808 alkaline phosphatase 2285 Assessment and plan: -Obstructive hepatitis pattern. no abdominal pain. No systemic symptoms. likely secondary to immunotherapy. : Slow improvement Negative acute hepatitis panel. Hold Lipitor. Prednisone 90 mg. -Post thoracentesis hypotension Suspect element of bleeding from procedure. -Probable hemothorax following thoracentesis as indicated by drop in hemoglobin: New diagnosis The pigtail catheter per interventional radiology. -Persistent atrial fibrillation rate controlled Lopressor held. Cardizem CD 180 mg a day Eliquis-held. Flecainide 50 mg every 12 -Stage IV Metastatic adenocarcinoma of the lung. Has been receiving immunotherapy. Follow with oncology -Essential Hypertension, currently hypotensive . Cardizem CD 180 mg a day -Large left pleural effusion likely metastatic/malignant effusion: Slow to respond. thoracentesis on February 21 of [address] Welch. -GERD Protonix -Osteopenia -Deafness in the left ear -DO NOT RESUSCITATE -Mild cognitive impairment -Leukocytosis is due to steroids -Hypotension from likely hemorrhage from thoracentesis Follow blood pressure closely. Pigtail catheter per interventional radiology. Cardiothoracic surgery also consulted. Had earlier discussed with Dr. Paredes. Follow H&H.
--- NOTE | 2022-02-23 16:33 | P.GSCN ---
History of Present Illness Consult date: 02/23/22 Reason for Consult: Hemothorax status post pigtail chest tube insertion Requesting physician: Josefa Perez History of present illness: This is a 81-year-old female patient who follows on an outpatient basis with Dr. Staton for primary care. 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 She presented to [facility] as a direct admit on 02/18/2022 after routine lab work demonstrated elevated LFTs which was suspicious for immunotherapy hepatitis. During her stay chest x-ray demonstrated left-sided pleural effusion. Her Eliquis was stopped on February 20, left thoracentesis was completed by Dr. Welch on February 21 with evacuation of 900 mL of bloody fluid. Subsequently she developed ex-vacuo pneumothorax. She also developed hypotension requiring transfer to the intensive care unit. This morning she was noted to have hemoglobin 6.6 and was transfused 1 unit packed red blood cells. She was felt to have left-sided loculated effusion as well as hydropneumothorax as well as some bleeding into the post thoracentesis space likely causing hemothorax and a pigtail catheter was placed today by interventional radiology. Dr. Oleary from cardiothoracic surgery was consulted for management of the pigtail catheter and for surgical recommendations. Review of Systems Review of systems was completed and was essentially negative currently, did experience shortness of breath a couple of days ago Past Medical History Past Medical History: Atrial Fibrillation, Cancer, GERD/Reflux, Hearing Disorder / Deafness, Hyperlipidemia, Hypertension, Syncope Additional Past Medical History / Comment(s): 1973 TB with L lung lobectomy, 1991 L breast cancer/lumpectomy/radiation, 2016 R breast cancer/lumpectomy/radiation, 07/18/21 L rib pain with cat scan showing ELMER mass with rib invasion/biopsy showed adenocarcinoma with lung primary/pt states she has received chemo and immunotherapy and palliative radiation to L rib and L2. Other hx: Afib with rvr/syncope, covid infection 12/2021, diverticular disease, benign colon polyps, deaf L ear. History of Any Multi-Drug Resistant Organisms: None Reported Past Surgical History: Appendectomy, Breast Surgery, Section, Orthopedic Surgery Additional Past Surgical History / Comment(s): 1973 L lung lobectomy d/t TB, 1991 L breast bx/lumpectomy, 2016 R breast core bx/lumpectomy/sentinal node biopsy, 07/2021 L lung mass biopsy, multiple L ear surgeries, L ankle fracture with hardware since removed, colonoscopy/polypectomy, D&C Past Anesthesia/Blood Transfusion Reactions: No Reported Reaction Additional Past Anesthesia/Blood Transfusion Reaction / Comm: nausea/vomiting W/ appendectomy at age 15, "ether" was used for anesthesia Past Psychological History: No Psychological Hx Reported Additional Psychological History / Comment(s): Pt resides alone. She uses no assistive device. She has not driven since September 2021 and states she "bums rides" to get places. Smoking Status: Former smoker Past Alcohol Use History: None Reported Additional Past Alcohol Use History / Comment(s): started smoking regularly at age 14, quit smoking at age 44. Smoked 2 packs/day. Past Drug Use History: None Reported - Past Family History Mother Family Medical History: Diabetes Mellitus, Hypertension Father Family Medical History: Cancer, Coronary Artery Disease (CAD) Additional Family Medical History / Comment(s): POSS PROSTATE CA. CEREBRAL H EMORRHAGE. Medications and Allergies Home Medications Medication Instructions Recorded Confirmed Type Apixaban [Eliquis] 5 mg PO BID #60 tab 09/26/21 02/18/22 Rx Atorvastatin [Lipitor] 40 mg PO HS #30 tab 09/26/21 02/18/22 Rx Magnesium Oxide [Mag-Ox] 200 mg PO BID #30 tab 09/26/21 02/18/22 Rx OLANZapine [ZyPREXA] 5 mg PO HS 10/15/21 02/18/22 History Ondansetron Odt [Zofran ODT] 4 mg PO Q6H PRN 10/15/21 02/18/22 History Ubidecarenone [Co Q-10] 100 mg PO DAILY 12/25/21 02/18/22 History Flecainide [Tambocor] 50 mg PO Q12HR 30 Days #30 tab 12/29/21 02/18/22 Rx Calcium Carbonate [Calcium] 1,200 mg PO DAILY 02/18/22 02/18/22 History Cholecalciferol [Vitamin D3 (25 25 mcg PO DAILY 02/18/22 02/18/22 History Mcg = 1000 Iu)] Diltiazem Cd [Cardizem CD] 240 mg PO DAILY 02/18/22 02/18/22 History Metoprolol Tartrate [Lopressor] 100 mg PO BID 02/18/22 02/18/22 History Multivitamins, Thera [Multivitamin 1 tab PO DAILY 02/18/22 02/18/22 History (formulary)] Pantoprazole [Protonix] 40 mg PO DAILY 02/18/22 02/18/22 History Allergies Allergy/AdvReac Type Severity Reaction Status Date / Time Sulfa (Sulfonamide Allergy Nausea Verified 02/18/22 16:57 Antibiotics) cephalexin AdvReac Vomiting Verified 02/18/22 16:57 prednisone AdvReac Rash/Hives Verified 02/18/22 16:57 Surgical - Exam Vital Signs Temp Pulse Resp BP Pulse Ox 97.8 F 77 19 156/89 95 02/18/22 16:21 02/18/22 16:21 02/18/22 16:21 02/18/22 16:21 02/18/22 16:21 CONSTITUTIONAL: Awake and alert, appears comfortable, cooperative, well- developed, well-nourished, no pain, no acute distress EYES: Pupils equal, round, reactive to light, normal ocular movement ENT: Moist mucous membranes without oral lesions present NECK: No masses, no bruits, trachea midline RESPIRATORY: Lungs sounds diminished bilaterally, left greater than right. Respirations even, nonlabored. Currently on 4 L nasal cannula with oxygen saturation 93%. Strong cough. Left sided pigtail catheter present draining thick dark bloody drainage CARDIOVASCULAR: S1, S2 present. Irregular rate and rhythm, atrial fibrillation on telemetry. Palpable peripheral pulses bilaterally. No edema present. No calf pain or tenderness noted. GASTROINTESTINAL: Abdomen soft, nontender, nondistended without masses or organomegaly noted. There is no rebound or guarding present. Active bowel sounds present 4 quadrants. GENITOURINARY: Deferred INTEGUMENTARY: Skin is warm and dry with evidence of good perfusion. NEUROLOGIC: Cranial nerves II through XII intact, normal coordination, no obvious motor or sensory deficits, speech is normal MUSKULOSKELETAL: Able to move all extremities, strength equal bilaterally, normal posture PSYCHIATRIC: Alert and oriented to person place and time, appropriate affect, intact judgment and insight Results - Labs 02/23/22 05:21 02/23/22 05:21 Abnormal Lab Results - Last 24 Hours (Table) 02/22/22 02/23/22 02/23/22 Range/Units 14:45 05:21 05:21 WBC 14.7 H (3.8-10.6) k/uL RBC 2.15 L (3.80-5.40) m/uL Hgb 6.6 L* D (11.4-16.0) gm/dL Hct 22.0 L (34.0-46.0) % MCV 102.1 H (80.0-100.0) fL MCHC 30.0 L (31.0-37.0) g/dL RDW 16.0 H (11.5-15.5) % Neutrophils # 12.7 H (1.3-7.7) k/uL Lymphocytes # 0.7 L (1.0-4.8) k/uL Monocytes # 1.1 H (0-1.0) k/uL Haptoglobin 245.0 H (31.2-198.0) mg/dL Sodium 136 L (137-145) mmol/L BUN 40 H (7-17) mg/dL Glucose 168 H (74-99) mg/dL Total Bilirubin 1.4 H (0.2-1.3) mg/dL AST 106 H (14-36) U/L ALT 323 H (4-34) U/L Alkaline Phosphatase 820 H (38-126) U/L Total Protein 5.5 L (6.3-8.2) g/dL Albumin 2.6 L (3.5-5.0) g/dL Crossmatch 02/23/22 Range/Units 07:39 WBC (3.8-10.6) k/uL RBC (3.80-5.40) m/uL Hgb (11.4-16.0) gm/dL Hct (34.0-46.0) % MCV (80.0-100.0) fL MCHC (31.0-37.0) g/dL RDW (11.5-15.5) % Neutrophils # (1.3-7.7) k/uL Lymphocytes # (1.0-4.8) k/uL Monocytes # (0-1.0) k/uL Haptoglobin (31.2-198.0) mg/dL Sodium (137-145) mmol/L BUN (7-17) mg/dL Glucose (74-99) mg/dL Total Bilirubin (0.2-1.3) mg/dL AST (14-36) U/L ALT (4-34) U/L Alkaline Phosphatase (38-126) U/L Total Protein (6.3-8.2) g/dL Albumin (3.5-5.0) g/dL Crossmatch See Detail Diabetes panel 02/23/22 Range/Units 05:21 Sodium 136 L (137-145) mmol/L Potassium 3.9 (3.5-5.1) mmol/L Chloride 100 (98-107) mmol/L Carbon Dioxide 28 (22-30) mmol/L BUN 40 H (7-17) mg/dL Creatinine 0.98 (0.52-1.04) mg/dL Glucose 168 H (74-99) mg/dL Calcium 8.5 (8.4-10.2) mg/dL AST 106 H (14-36) U/L ALT 323 H (4-34) U/L Alkaline Phosphatase 820 H (38-126) U/L Total Protein 5.5 L (6.3-8.2) g/dL Albumin 2.6 L (3.5-5.0) g/dL Calcium panel 02/23/22 Range/Units 05:21 Calcium 8.5 (8.4-10.2) mg/dL Albumin 2.6 L (3.5-5.0) g/dL Pituitary panel 02/23/22 Range/Units 05:21 Sodium 136 L (137-145) mmol/L Potassium 3.9 (3.5-5.1) mmol/L Chloride 100 (98-107) mmol/L Carbon Dioxide 28 (22-30) mmol/L BUN 40 H (7-17) mg/dL Creatinine 0.98 (0.52-1.04) mg/dL Glucose 168 H (74-99) mg/dL Calcium 8.5 (8.4-10.2) mg/dL Adrenal panel 02/23/22 Range/Units 05:21 Sodium 136 L (137-145) mmol/L Potassium 3.9 (3.5-5.1) mmol/L Chloride 100 (98-107) mmol/L Carbon Dioxide 28 (22-30) mmol/L BUN 40 H (7-17) mg/dL Creatinine 0.98 (0.52-1.04) mg/dL Glucose 168 H (74-99) mg/dL Calcium 8.5 (8.4-10.2) mg/dL Total Bilirubin 1.4 H (0.2-1.3) mg/dL AST 106 H (14-36) U/L ALT 323 H (4-34) U/L Alkaline Phosphatase 820 H (38-126) U/L Total Protein 5.5 L (6.3-8.2) g/dL Albumin 2.6 L (3.5-5.0) g/dL - Imaging Chest x-ray: report reviewed, image reviewed Assessment and Plan Assessment: 1. Elevated LFTs, questionable immunotherapy hepatitis 2. Left-sided pleural effusion status post thoracentesis with subsequent ex- vacuo pneumothorax, subsequent hemothorax status post pigtail catheter placement by interventional radiology 3. Acute blood loss anemia, status post transfusion 4. Metastatic lung cancer with lesion in the spine and brain, status post radiation/chemo/immunotherapy 5. History of breast cancer diagnosed in 1991 6. Chronic atrial fibrillation on Eliquis for anticoagulation, currently on hold 7. History of hypertension 8. Hyperlipidemia 9. Syncope 10. 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 Covid in December 2021 12. Previous tobacco dependence 13. Hearing deficiency Plan: The patient was seen and examined at the bedside with Dr. Oleary. Chart/diagnostics were reviewed. We'll continue to monitor pigtail catheter output. If bleeding persists consider embolization. No surgical intervention warranted at this time. Cancer management per oncology. Medical management of other comorbidities per primary care service. More recommendations to follow. Thank you for this consult. We will continue to follow along with you I have personally seen and examined the patient, performed the documentation and the assessment and plan as written. Number of minutes spent on the visit: 20. Tejal Hooker, MICHEAL
[2022-02-23 17:43] LABS: Anisocytosis Slight; Basophils % (A) 0 %; Eosinophils # (A) 0.1 k/uL (0-0.7); Eosinophils % (A) 0 %; HCT 26.7 % (34.0-46.0); Hypochromasia Slight; Lymphocytes # (A) 0.4 k/uL (1.0-4.8); Lymphocytes % (A) 3 %; MCH 31.8 pg (25.0-35.0); MCHC 31.5 g/dL (31.0-37.0); MCV 100.9 fL (80.0-100.0); Macrocytosis Slight; Mean Platelet Volume 10.2; Monocytes # (A) 0.5 k/uL (0-1.0); Monocytes % (A) 3 %; Neutrophils # (A) 13.5 k/uL (1.3-7.7); Neutrophils % (A) 93 %; Platelet Count 159 k/uL (150-450); Poikilocytosis Slight; RBC 2.64 m/uL (3.80-5.40); WBC 14.5 k/uL (3.8-10.6)
[2022-02-23 17:50] LABS: HGB 8.4 gm/dL (11.4-16.0)
--- NOTE | 2022-02-23 18:50 | CT ---
EXAMINATION TYPE: CT chest tube insertion DATE OF EXAM: 02/23/2022 COMPARISON: Chest x-ray 02/23/2022 HISTORY: LT hemothorax, chest tube insertion CT DLP: 756 mGycm The procedure is discussed with the patient, the risks, complications, benefits and alternatives, wer e discussed and any questions were answered. Informed consent was obtained. The patient is placed p rebecca on the CT table, prepped and draped in the usual sterile fashion. Utilizing a 22-gauge Chiba needle access into the left pleural space was achieved and there is patchy residual 0.018 guidewire. Conversion to an old 0.035 system with serial dilation 8 Libyan and placem ent of an 8 Libyan drainage catheter. Small sample of the fluid was aspirated and sent to pathology f or analysis. All elements of maximal barrier and sterile technique were utilized. The patient remained stable thr oughout the procedure with no immediate postprocedural complication. IMPRESSION: 1. Successful CT guided left chest tube insertion for pneumothorax.
[2022-02-23] MEDS: OLANZapine 5 MG TAB PO SCH (22:18)
[2022-02-23] MEDS: SODIUM CHLORIDE 0.9% 1,000 ML IV SCH (22:19)
[2022-02-24] MEDS: SODIUM CHLORIDE 0.9% 1,000 ML IV SCH ×2 (05:31→22:48)
[2022-02-24] MEDS: PANTOPRAZOLE 40 MG TABLET PO SCH ×2 (07:50→16:28)
[2022-02-24] MEDS: predniSONE 20 MG TAB PO SCH (07:51)
[2022-02-24] MEDS: FLECAINIDE 50 MG TAB PO SCH ×2 (07:51→22:47)
[2022-02-24] MEDS: DILTIAZEM CD 240 MG CAP.ER.24H PO SCH (07:51)
[2022-02-24] MEDS: FOLIC ACID 1 MG TAB PO SCH (07:51)
[2022-02-24] MEDS: MAGNESIUM OXIDE 400 MG TAB PO SCH ×2 (07:52→19:52)
[2022-02-24] MEDS: METOPROLOL TARTRATE 12.5 MG TAB PO SCH ×2 (07:52→19:52)
[2022-02-24] MEDS: IPRATROPIUM-ALBUTEROL 3 ML NEB INHALATION SCH ×4 (08:10→19:22)
--- NOTE | 2022-02-24 08:30 | XR ---
EXAMINATION TYPE: XR chest 1V portable DATE OF EXAM: 02/24/2022 COMPARISON: 02/23/2022 HISTORY: Left hemothorax TECHNIQUE: Single frontal view of the chest is obtained. FINDINGS: There now is a pigtail chest tube noted in position with interval reduction in amount of p leural fluid. There is persistent amount of fluid and consolidation. Small right pleural effusion and basilar infiltrate. Heart size enlarged. Atherosclerotic change aorta. Arthropathy of the shoulders and degenerative change of the spine with scoliosis. Surgical clips overlying the right lower chest a nd upper quadrant abdomen. IMPRESSION: 1. Interval reduction in amount of pleural fluid post chest tube insertion persistent sizable amount of consolidation and pleural effusion. 2. Small right pleural effusion and basilar infiltrate.
[2022-02-24 09:11] LABS: ALT 257 U/L (4-34); AST 66 U/L (14-36); African American GFR (CKD) >90 (>60 ml/min/1.73 sqM); Albumin 2.7 g/dL (3.5-5.0); Albumin/Globulin Ratio 0.9; Alkaline Phosphatase 727 U/L (38-126); Anion Gap 8 mmol/L; Blood Urea Nitrogen 22 mg/dL (7-17); Calcium 8.4 mg/dL (8.4-10.2); Carbon Dioxide 26 mmol/L (22-30); Chloride 105 mmol/L (98-107); Globulin 3.1 g/dL; Glucose 139 mg/dL (74-99); Non-African American GFR(CKD) 87 (>60 ml/min/1.73 sqM); Sodium 139 mmol/L (137-145); Total Bilirubin 1.6 mg/dL (0.2-1.3); Total Protein 5.8 g/dL (6.3-8.2)
--- NOTE | 2022-02-24 09:11 | CDI ---
Documentation Clarification Form Date: 02/24/2022 09:08:58 AM From: Eva Bcukley CCS, CCDS Admit Date: 02/18/2022 03:22:00 PM Patient Name: Inga Brooke Visit Number: [id number] Discharge Date: ATTENTION: The Clinical Documentation Specialists (CDI) and [employer] Coding Staff appreciate your assistance in clarifying documentation. Please respond to the clarification below the line at the bottom and electronically sign. The CDI & [employer] Coding staff will review the response and follow-up if needed. Please note: Queries are made part of the Legal Health Record. If you have any questions, please contact the author of this message via ITS. Dr. Jose Welch: Thank you for responding to the initial query regarding Respiratory Failure, please see the additional query inquiry regarding Acute on Chronic Hypoxic Respiratory Failure in the postoperative period based on the following information: Per the 02/22 Pulmonary/Critical Care Progress Note: I had to transfer this patient to the ICU yesterday as the patient developed some acute shortness of breath following the thoracentesis. The patient also became slightly hypoxic. The patient had a Left sided Thoracentesis done on 02/21 for a Left sided pleural effusion. Based on this information and the findings below, is there an additional diagnosis that is clinically appropriate for this patient? 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 Clinical indicators: Sent from the physician office due to elevated LFTs, suspecting immunotherapy hepatitis. Admit with Obstructive Hepatitis. 02/21 VS: T 97.5, P 74, 95; R 22, 24, 10, 24; BP 100/59, 88/59, 82/66; PO 93 5Lnc, 90 5Lnc, 88 5Lnc 02/21 LAB: WBC 15.0, RBC 2.75, Hgb 8.8, Hct 28.6, Neutrophils 13.7, Lymph 0.6; Na 132, BUN 24, glucose 191, Calcium 7.9, Total bilirubin 1.6, AST 270, ALT 484, Alk Phos 1056. 02/21 CXR: Left pleural effusion and left pulmonary consolidation without change compared to 5 hrs ago, No heart failure. 02/22 CXR: Background chronic emphysematous change. Persistent left sided pleural effusion and associated left lung opacity obscuring known left lung neoplasm. Re-expansion pulmonary edema is suspected given history of recent thoracentesis. Persistent cardiomegaly. No significant change from one day earlier. Treatment 02/21: O2 2Lnc - 5Lnc, IV Na Cl 500 mls @ 999 mls/hr q3M x2, IV Na Cl 1,000 mls @ 50 mls/hr q20H, Kcl 20 meq po q1H. 02/22 PO Lopressor 12.5 mg BID, O2 4Lnc 02/23 Stool Occult Blood, Midline for IV Access, Blood Transfusion: PRBCs 1 unit, O2 2Lnc Is there an additional diagnosis that is clinically appropriate for this patient? [ x ] Acute on Chronic Hypoxic Respiratory Failure is a complication of the patient's procedure [ ] Acute on Chronic Hypoxic Respiratory Failure is not a complication of the patient's procedure [ ] Acute on Chronic Hypoxic Respiratory Failure is related to the patient's co-morbid condition(s), please specify and is not a complication of the patient's procedure. [ ] Other Diagnosis, please specify: [ ] Unable to determine (Template Last Revised: January 2021) MTDD
[2022-02-24 11:15] LABS: Basophils # (A) 0.02 X 10*3/uL (0.00-0.10); Basophils % (A) 0.1 %; Eosinophils # (A) 0 X 10*3/uL (0.04-0.35); Eosinophils % (A) 0 %; HCT 23.6 % (37.2-46.3); HGB 7.5 g/dL (12.0-15.0); Immature Grans, Automated 1.5 %; Lymphocytes # (A) 0.71 X 10*3/uL (0.90-5.00); Lymphocytes % (A) 4.9 %; MCH 31.5 pg (27.0-32.0); MCHC 31.8 g/dL (32.0-37.0); MCV 99.2 fL (80.0-97.0); Mean Platelet Volume 13.8 fL (9.5-12.2); Monocytes # (A) 1.14 X 10*3/uL (0.20-1.00); Monocytes % (A) 7.8 %; NRBC Per 100 WBC 0.3 /100 WBCS (0.0-0.0); Neutrophils # (A) 12.54 X 10*3/uL (1.80-7.70); Neutrophils % (A) 85.7 %; Platelet Count 166 X 10*3/uL (140-440); RBC 2.38 X 10*6/uL (4.10-5.20); RDW 17.3 % (11.5-14.5); WBC 14.63 X 10*3/uL (4.50-10.00)
[2022-02-24 11:16] LABS: Rouleaux PRESENT
[2022-02-24 11:43] VITALS: BMI 24.3
--- NOTE | 2022-02-24 14:35 | P.PN ---
Subjective Progress Note Date: 02/24/22 02/22/2022, the patient is currently the intensive care unit. I had to transfer this patient to the ICU yesterday as the patient developed some acute shortness of breath following the thoracentesis. The patient also became slightly hypoxic. Initially, she became hypotensive and this occurred approximately 1 hour following the thoracentesis. Noted a removed a total of 950 mL of pleural fluid. They made a chest x-ray following thoracentesis showed a pneumothorax loculated ex vacuo in the left lower lobe. The subsequent chest x-rays on this patient showed persistent left-sided pleural effusion and the patient also developed a left sided pulmonary opacity. This was consistent with expansion pulmonary edema post thoracentesis. There was no evidence of pneumothorax. There was no evidence of any cardiomegaly. The patient accordingly the chest into the intensive care unit and the patient is currently on 4 L of oxygen by nasal cannula. I am also concerned about some bleeding into the left hemithorax although the pleural fluid was not bloody. Nevertheless, the patient's hemoglobin has dropped from 10.5 down to 8.8 and later on down to 7.9 and for that reason the patient is kept in ICU for further monitoring. We'll check a coagulation profile. LFTs continued to improve and the patient's AST is down to 224 and ALT is down to 460 with an alkaline phosphatase of 1000. The currently is at 35 with a creatinine of 1.01. Sodium is at 136. The patient is receiving IV fluid at the rate of 50 mL an hour. No other significant events over the past 24 hours. Her current cardiac rhythm is atrial fibrillation. He is a concern of bleed, anticoagulation was held. Patient was not seen today, however I had a chance to review her chest x-ray today, and I had a chance to discuss her condition with Dr. Saez over the phone, and I recommended a CT-guided or ultrasound-guided pigtail catheter placement for her large left-sided pleural effusion which seems to be loculated, and the patient seems to have a hydropneumothorax. This will be done today, patient is now having the procedure done, and I believe the patient may have sustained some worsening pleural effusion postthoracentesis, likely consistent with bleeding in the pleural space. This may or may not be related to the pro cedure itself, but considering the timing of the symptoms and the timing of the procedure, this is most likely iatrogenic hemothorax involving the left pleural space. At this point may have to consider drainage of the large pleural effusion which is likely hemothorax. And this will be done by interventional radiology today. On 02/24/2022 patient seen in follow-up on medical surgical floor. She is alert, in no acute distress, she is on 3 L of oxygen pulse ox is 96%, resting comfortably in bed, yesterday she underwent CT-guided left sided pigtail chest tube catheter insertion, and overnight there has been 750 mL of dark thin bloody pleural fluid drainage. The Pleur-evac is connected to wall suction. There is no air leak. On the signs have been stable, patient has been afebrile. Her b reathing is nonlabored. Today's chest x-ray showing interval reduction in the amount of pleural fluid post chest tube insertion with persistent sizable amount of consolidation and pleural effusion, and small right pleural effusion and basilar infiltrate. Patient's cytology from the left thoracentesis that was completed on 02/23/2022 is still pending at this time. But overall patient seems to be fairly comfortable. His labs have been reviewed, platelets of colitis stable at 14.6, hemoglobin is 7.5, and patient is status post transfusion with 1 unit of packed red blood cells yesterday for hemoglobin of 6.6. Platelet count is 166. Electrolytes are within normal limits, BUN is 22 creatinine is 0.6 on today's labs. Objective - Vital Signs Vital signs: Vital Signs Temp 97.5 F L 02/24/22 13:00 Pulse 88 02/24/22 13:00 Resp 18 02/24/22 10:39 BP 119/75 02/24/22 13:00 Pulse Ox 93 L 02/24/22 13:00 Intake & Output 02/23/22 02/24/22 02/24/22 18:59 06:59 18:59 Intake Total 910 Output Total 180 200 Balance 730 -200 Weight 62.2 kg Intake: IV 400 Sodium Chloride 0.9% 1, 400 000 ml @ 50 mls/hr IV . Q20H [facility] Rx#:[id number] Oral 200 Blood Product 310 Rc As-1 Unit 310 [id number] Output: Chest Tube Drainage 180 Chest Tube Left Lateral 180 Chest Urine 200 Other: Voiding Method Bedside Commode Bedside Commode Toilet Bedpan Bedpan # Voids 4 2 1 # Bowel Movements 1 - Exam GENERAL EXAM: Alert, comfortable in no apparent distress. HEAD: Normocephalic/atraumatic. EYES: Normal reaction of pupils, equal size. Conjunctiva pink, sclera white. NOSE: Clear with pink turbinates. THROAT: No erythema or exudates. NECK: No masses, no JVD, no thyroid enlargement, no adenopathy. CHEST: No chest wall deformity. Symmetrical expansion. Left chest pigtail chest tube catheter connected to the Pleur-evac and wall suction with 750 mL of thin dark old bloody pleural effusion fluid in the Pleur-evac. LUNGS: Equal air entry with no crackles, wheeze, rhonchi or dullness. CVS: Regular rate and rhythm, normal S1 and S2, no gallops, no murmurs, no rubs ABDOMEN: Soft, nontender. No hepatosplenomegaly, normal bowel sounds, no guarding or rigidity. EXTREMITIES: No clubbing, no edema, no cyanosis, 2+ pulses and upper and lower extremities. MUSCULOSKELETAL: Muscle strength and tone normal. SPINE: No scoliosis or deformity SKIN: No rashes CENTRAL NERVOUS SYSTEM: Alert and oriented -3. No focal deficits, tone is normal in all 4 extremities. PSYCHIATRIC: Alert and oriented -3. Appropriate affect. Intact judgment and insight. - Labs CBC & Chem 7: 02/24/22 05:55 02/24/22 05:55 Labs: Abnormal Lab Results - Last 24 Hours (Table) 02/23/22 02/23/22 02/24/22 Range/Units 07:39 17:35 05:55 WBC 14.5 H 14.63 H (3.8-10.6) k/uL RBC 2.64 L 2.38 L (3.80-5.40) m/uL Hgb 8.4 L D 7.5 L (11.4-16.0) gm/dL Hct 26.7 L 23.6 L (34.0-46.0) % MCV 100.9 H 99.2 H (80.0-100.0) fL MCHC 31.8 L (32.0-37.0) g/dL RDW 16.0 H 17.3 H (11.5-15.5) % MPV 13.8 H (9.5-12.2) fL Absolute Nucleated RBC 0.05 H (0.00-0.00) X 10*3/uL Immature Gran # 0.22 H (0.00-0.04) X 10*3/uL Neutrophils # 13.5 H 12.54 H (1.3-7.7) k/uL Lymphocytes # 0.4 L 0.71 L (1.0-4.8) k/uL Monocytes # 1.14 H (0.20-1.00) X 10*3/uL Eosinophils # 0 L (0.04-0.35) X 10*3/uL NRBC/100 WBC Diff 0.3 H (0.0-0.0) /100 WBCS BUN (7-17) mg/dL Glucose (74-99) mg/dL Total Bilirubin (0.2-1.3) mg/dL AST (14-36) U/L ALT (4-34) U/L Alkaline Phosphatase (38-126) U/L Total Protein (6.3-8.2) g/dL Albumin (3.5-5.0) g/dL Crossmatch See Detail 02/24/22 Range/Units 05:55 WBC (3.8-10.6) k/uL RBC (3.80-5.40) m/uL Hgb (11.4-16.0) gm/dL Hct (34.0-46.0) % MCV (80.0-100.0) fL MCHC (32.0-37.0) g/dL RDW (11.5-15.5) % MPV (9.5-12.2) fL Absolute Nucleated RBC (0.00-0.00) X 10*3/uL Immature Gran # (0.00-0.04) X 10*3/uL Neutrophils # (1.3-7.7) k/uL Lymphocytes # (1.0-4.8) k/uL Monocytes # (0.20-1.00) X 10*3/uL Eosinophils # (0.04-0.35) X 10*3/uL NRBC/100 WBC Diff (0.0-0.0) /100 WBCS BUN 22 H (7-17) mg/dL Glucose 139 H (74-99) mg/dL Total Bilirubin 1.6 H (0.2-1.3) mg/dL AST 66 H (14-36) U/L ALT 257 H (4-34) U/L Alkaline Phosphatase 727 H (38-126) U/L Total Protein 5.8 L (6.3-8.2) g/dL Albumin 2.7 L (3.5-5.0) g/dL Crossmatch Assessment and Plan Plan: Assessment: #1. Left-sided pleural effusion, possibly malignant unless proven otherwise, awaiting results of the cytology for the left pleural fluid effusion that was drained on 02/23/2022. Patient had a left-sided pigtail chest tube put in on 02/23/2022, so father 757 document old bloody effusion fluid in the left pleural #2. Status post thoracentesis with postoperative complications and bleeding into the pleural space #3. Metastatic adenocarcinoma carcinoma of the lungs, patient is on immunotherapy with Keytruda #4. Immunotherapy-induced hepatitis #5. Chronic A. fib, was on A[place]quist which is currently on hold related to pn eumothorax #6. Blood loss anemia, acute, anticoagulation remains on hold, patient has required transfusion with 1 unit of packed red blood cells #7. History of breast cancer with previous lumpectomy and radiation therapy #8. History of chronic infection in December 2021 #9. Hypertension Plan: No worsening dyspnea Breathing fairly comfortably Hemodynamically stable Continue monitoring output from the left chest tube CT surgery recommendations Today's hemoglobin has been noted Continue holding anticoagulation Transfuse for hemoglobin less than 7 Continue steroids and breathing treatments We'll continue to follow clinical course I have personally seen and examined the patient, performed the documentation and the assessment and plan as written. Number of minutes spent on the visit: [10] Time with Patient: Less than 30
--- NOTE | 2022-02-24 15:24 | P.PN ---
Subjective Progress Note Date: 02/24/22 Principal diagnosis: Hemothorax status post left pigtail chest tube insertion. 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 POD #1 left chest pigtail catheter insertion by interventional radiology. The patient was seen in follow-up today 02/24/2022 at her bedside on the fourth floor medical surgical unit. Currently she is lying in bed, is awake, alert, oriented 3 and is in no acute distress. She denies any complaints of pain or shortness of breath at this time. Oxygen saturation are 96% on 3 L nasal cannula. Remote telemetry showing atrial fibrillation heart rate 99 BPM. Left chest pigtail catheter remains in place to low continuous wall suction -20 cm H2O. No air leak is present. Draining thin serosanguineous drainage with 650 mL output in the last 24 hours. Laboratory results and chest x-ray results reviewed. Objective - Vital Signs Vital signs: Vital Signs Temp 97.3 F L 02/24/22 10:39 Pulse 96 02/24/22 11:39 Resp 18 02/24/22 10:39 BP 152/95 02/24/22 10:39 Pulse Ox 96 02/24/22 10:39 Intake & Output 02/23/22 02/24/22 02/24/22 18:59 06:59 18:59 Intake Total 910 Output Total 180 200 Balance 730 -200 Weight 62.2 kg Intake: IV 400 Sodium Chloride 0.9% 1, 400 000 ml @ 50 mls/hr IV . Q20H [facility] Rx#:[id number] Oral 200 Blood Product 310 Rc As-1 Unit 310 [id number] Output: Chest Tube Drainage 180 Chest Tube Left Lateral 180 Chest Urine 200 Other: Voiding Method Bedside Commode Bedside Commode Toilet Bedpan Bedpan # Voids 4 2 1 # Bowel Movements 1 - Exam CONSTITUTIONAL: Awake and alert, appears comfortable, cooperative, well- developed, well-nourished, no pain, no acute distress EYES: Pupils equal, round, reactive to light, normal ocular movement ENT: Moist mucous membranes without oral lesions present NECK: No masses, no bruits, trachea midline RESPIRATORY: Lungs sounds diminished bilaterally, left greater than right. Respirations are symmetrical and nonlabored. Currently on 3 L nasal cannula with oxygen saturation 96%. Strong cough. Left sided pigtail catheter present draining thin serosanguineous drainage. CARDIOVASCULAR: S1, S2 present. Irregular rate and rhythm, atrial fibrillation on telemetry. Palpable peripheral pulses bilaterally. No edema present. No calf pain or tenderness noted. GASTROINTESTINAL: Abdomen soft, nontender, nondistended without masses or organomegaly noted. There is no rebound or guarding present. Active bowel sounds present 4 quadrants. GENITOURINARY: Continues to void. INTEGUMENTARY: Skin is warm and dry with with no evidence of cyanosis or clubbing. NEUROLOGIC: Cranial nerves II through XII intact, normal coordination, no obvious motor or sensory deficits, speech is normal MUSKULOSKELETAL: Able to move all extremities, strength equal bilaterally, normal posture PSYCHIATRIC: Alert and oriented to person place and time, appropriate affect, intact judgment and insight - Allied health notes Allied health notes reviewed: nursing - Labs CBC & Chem 7: 02/24/22 05:55 02/24/22 05:55 Labs: Abnormal Lab Results - Last 24 Hours (Table) 02/23/22 02/23/22 02/24/22 Range/Units 07:39 17:35 05:55 WBC 14.5 H 14.63 H (3.8-10.6) k/uL RBC 2.64 L 2.38 L (3.80-5.40) m/uL Hgb 8.4 L D 7.5 L (11.4-16.0) gm/dL Hct 26.7 L 23.6 L (34.0-46.0) % MCV 100.9 H 99.2 H (80.0-100.0) fL MCHC 31.8 L (32.0-37.0) g/dL RDW 16.0 H 17.3 H (11.5-15.5) % MPV 13.8 H (9.5-12.2) fL Absolute Nucleated RBC 0.05 H (0.00-0.00) X 10*3/uL Immature Gran # 0.22 H (0.00-0.04) X 10*3/uL Neutrophils # 13.5 H 12.54 H (1.3-7.7) k/uL Lymphocytes # 0.4 L 0.71 L (1.0-4.8) k/uL Monocytes # 1.14 H (0.20-1.00) X 10*3/uL Eosinophils # 0 L (0.04-0.35) X 10*3/uL NRBC/100 WBC Diff 0.3 H (0.0-0.0) /100 WBCS BUN (7-17) mg/dL Glucose (74-99) mg/dL Total Bilirubin (0.2-1.3) mg/dL AST (14-36) U/L ALT (4-34) U/L Alkaline Phosphatase (38-126) U/L Total Protein (6.3-8.2) g/dL Albumin (3.5-5.0) g/dL Crossmatch See Detail 02/24/22 Range/Units 05:55 WBC (3.8-10.6) k/uL RBC (3.80-5.40) m/uL Hgb (11.4-16.0) gm/dL Hct (34.0-46.0) % MCV (80.0-100.0) fL MCHC (32.0-37.0) g/dL RDW (11.5-15.5) % MPV (9.5-12.2) fL Absolute Nucleated RBC (0.00-0.00) X 10*3/uL Immature Gran # (0.00-0.04) X 10*3/uL Neutrophils # (1.3-7.7) k/uL Lymphocytes # (1.0-4.8) k/uL Monocytes # (0.20-1.00) X 10*3/uL Eosinophils # (0.04-0.35) X 10*3/uL NRBC/100 WBC Diff (0.0-0.0) /100 WBCS BUN 22 H (7-17) mg/dL Glucose 139 H (74-99) mg/dL Total Bilirubin 1.6 H (0.2-1.3) mg/dL AST 66 H (14-36) U/L ALT 257 H (4-34) U/L Alkaline Phosphatase 727 H (38-126) U/L Total Protein 5.8 L (6.3-8.2) g/dL Albumin 2.7 L (3.5-5.0) g/dL Crossmatch - Imaging and Cardiology Chest x-ray: report reviewed, image reviewed Assessment and Plan Assessment: 1. Elevated LFTs, questionable immunotherapy hepatitis 2. Left-sided pleural effusion status post thoracentesis with subsequent ex- vacuo pneumothorax, subsequent hemothorax status post pigtail catheter placement by interventional radiology 3. Acute blood loss anemia, status post transfusion 1 unit of PRBCs 4. Metastatic lung cancer with lesion in the spine and brain, status post radiation/chemo/immunotherapy 5. History of breast cancer diagnosed in 1991 6. Chronic atrial fibrillation on Eliquis for anticoagulation, currently on hold 7. History of hypertension 8. Hyperlipidemia 9. Syncope 10. 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 Covid in December 2021 12. Remote history of tobacco dependence, quit smoking at age 44 13. Hearing deficiency Plan: 1. Keep left pleural pigtail catheter in place to low continuous wall suction - 20 cm H2O. Continue to monitor pigtail catheter output. 650 mL of thin serosanguineous drainage from the left pigtail catheter in the last 24 hours. The patient remains hemodynamically stable at this time. No surgical intervention warranted at this time. 2. Encourage use of incentive spirometry 10 times every hour while awake. 3. Medical management and other comorbidities per primary care service and oncology. 4. Continue to follow daily labs and chest x-ray. 5. Anticoagulation remains on hold. 6. More recommendations to follow based on patient's clinical course. Time with Patient: Greater than 30
--- NOTE | 2022-02-24 16:17 | P.PN ---
Progress Note - Text Progress Note Date: 02/24/22 Chief Complaint: Jaundice Hospital course Very pleasant 81 female, follows with Dr. Staton. 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 received radiation treatment to the lower spine. received chemotherapy. Also getting immunotherapy.. In December of this year admitted with atrial fibrillation Oncology history: pt of Dr. Balderas who has a Hx of ER/HI positive Her2 negative breast cancer 2016, s/p lumpectomy and SLND, adjuvant XRT and femara. She c/o lt sided rib pain in Jul 2021, CT chest revealed 6.6cm ELMER lung mass with rib invasion, biopsy positive for adenocarcinoma, staging PET revealed ELMER mass, L2 and rt adrenal met, PD-L1 neg. Liquid biopsy revealed KKEAP1 mutation, high TMB, NGS on tissues revealed POLE1 and ARIDA1 mutations,TMB 12.6, MADHU. She completed palliative XRT to left rib and L2. 10/07/2021 she started alimta/carbo platin/keytruda and completed 4 cycles on 12/09/2021. 12/05/21 repeat PET showed positive treatment response with diminished hypermetabolic uptake left midlung destructive neoplasm along with the prevascular adenopathy and right adrenal metastatic focus, however cannot exclude new near 1.0 cm hypermetabolic lymph node near the diaphragmatic hiatus. She continued on keytruda only as of 01/09/2022 and is s/p 2 cycles. She had routine lab work done and was found to have elevating LFTs, suspicious for immunotherapy hepatitis. She was asked to come to the office to be evaluated. Patient's appetite is good. No change in bowel pattern. No weight loss. Does feel tired though. Has noticed to be jaundiced. Significant itching.. Very strong clear urine. No fever no chills. Given significantly elevated LFTs being admitted. Admitted with immunotherapy induced hepatitis. Started on prednisone. February 20: Patient also to have home edema. Given IV Lasix. Worsening left pleural effusion. Ultrasound showing significant effusion. Pulmonary consulted. Oral intake fair. the bathroom. February 21: Patient had left-sided thoracentesis of 900 mL of turbid fluid obtained. Breathing a bit better. Oral intake fair. Remains in atrial flutter. February 22: Post thoracentesis yesterday patient became hypotensive bradycardic. Moved to the ICU. Lopressor was held. No pneumothorax noted. Blood pressure remains lower side. Diet. Eating fair. Patient's hemoglobin has dropped. Chest x-ray reviewed. February 23: Patient dropped hemoglobin to 6.6. I ordered a chest x-ray. Has air fluid level. Likely hemothorax. Spoke to Dr. Paredes. Pigtail catheter per interventional radiology. Patient also getting a midline because of poor IV access. Patient tired. Blood ordered February 24: Patient had a pigtail catheter placed by interventional radiology. Bloody output. Breathing stable. Eating fair. Pain control. Patient received a unit of blood yesterday. Chest x-ray: Left effusion Active Medications Hydrocodone Bitart/Acetaminophen (Hydrocodone/Apap 10-325mg 1 Each Tab) 1 - 2 each PO Q4HR PRN PRN Reason: Pain Albuterol/Ipratropium (Ipratropium-Albuterol 3 Ml Neb) 3 ml INHALATION RT-QID [facility] Last Admin: 02/24/22 15:33 Dose: 3 ml Documented by: Albuterol/Ipratropium (Ipratropium-Albuterol 3 Ml Neb) 3 ml INHALATION RT-Q4H PRN PRN Reason: Shortness Of Breath Or Wheezing Diltiazem HCl (Diltiazem Cd 240 Mg Cap.Er.24h) 240 mg PO DAILY [facility] Last Admin: 02/24/22 07:51 Dose: 240 mg Documented by: Flecainide Acetate (Flecainide 50 Mg Tab) 50 mg PO Q12HR [facility] Last Admin: 02/24/22 07:51 Dose: 50 mg Documented by: Folic Acid (Folic Acid 1 Mg Tab) 1 mg PO DAILY [facility] Last Admin: 02/24/22 07:51 Dose: 1 mg Documented by: Sodium Chloride (Saline 0.9%) 1,000 mls @ 50 mls/hr IV .Q20H [facility] Last Admin: 02/24/22 05:31 Dose: 50 mls/hr Documented by: Magnesium Oxide (Magnesium Oxide 400 Mg Tab) 200 mg PO BID [facility] Last Admin: 02/24/22 07:52 Dose: 200 mg Documented by: Metoprolol Tartrate (Metoprolol Tartrate 12.5 Mg Tab) 12.5 mg PO BID [facility] Last Admin: 02/24/22 07:52 Dose: 12.5 mg Documented by: Miscellaneous Information (Potassium Replacement Protocol 1 Each Misc) 1 each MISCELLANE DAILY PRN; Protocol PRN Reason: Per Protocol Miscellaneous Information (Magnesium Replacement Protocol 1 Each Misc) 1 each MISCELLANE DAILY PRN; Protocol PRN Reason: Per Protocol Olanzapine (Olanzapine 5 Mg Tab) 5 mg PO HS [facility] Last Admin: 02/23/22 22:18 Dose: 5 mg Documented by: Ondansetron HCl (Ondansetron Odt 4 Mg Tab) 4 mg PO Q6H PRN PRN Reason: Nausea Pantoprazole Sodium (Pantoprazole 40 Mg Tablet) 40 mg PO AC-BID [facility] Last Admin: 02/24/22 07:50 Dose: 40 mg Documented by: Prednisone (Prednisone 20 Mg Tab) 90 mg PO DAILY [facility] Last Admin: 02/24/22 07:51 Dose: 90 mg Documented by: Past medical history to include: breast cancer diagnosed in 1993 with recurrence in 2017. 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 Atrial fibrillation, Social history: Patient smoked for 30 years stopping at age of 44. 2 packs a day. Lives alone. Family history: Diabetes, hypertension, prostate cancer Physical examination: VITAL SIGNS: 97.5, 88, 18, 109/75, 93% on 3 L GENERAL: Reclining in bed, tired EYES: Pupils equal. Conjunctiva yellow HEENT: External appearance of nose and ears normal, oral cavity grossly normal. NECK: JVD not raised; masses not palpable. HEART: First and second heart sounds are normal; no edema. LUNGS: Respiratory rate increased; decreased breath sound on the left side. Left-sided pigtail catheter ABDOMEN: Soft, nontender, liver spleen not palpable, no masses palpable. PSYCH: Alert and oriented x3; mood and affect normal. MUSCULOSKELETAL:No Clubbing/cyanosis;muscles-grossly intact. Evidence of OA especially in the hands INVESTIGATIONS, reviewed in the clinical context: February 24: White count 14.6 hemoglobin 7.5 platelets 166 potassium 4 creatinine 0.61 total bilirubin 1.6 AST 66 ALT 257 February 23: White count 14.7 hemoglobin 6.6 platelets 184 potassium 3.9 creatinine 0.98 bilirubin 1.4 AST 106 ALT 323 Chest x-ray film personally reviewed by me-[February 23]: Large fluid level February 22: White count 16.5 hemoglobin 7.9 platelets 213 potassium 4.3 creatinine 1.01 total bilirubin 1.6 AST 224 ALT 460 alkaline phosphatase thousand February 21: White count 14.3 hemoglobin 10.5 potassium 3.7 creatinine 0.64 total bilirubin 2 AST 407 ALT 602 alkaline phosphatase 1462 February 20: Potassium 4 creatinine 0.86 AST 521 ALT 674 alkaline phosphatase 1671 proBNP 2940 Acute hepatitis screen: Negative Chest x-ray film personally reviewed by me: Left pleural effusion. Increased compared to previous x-ray. EKG tracing personally reviewed by me: Atrial flutter. Rate controlled Liver ultrasound: Tiny right hepatic lobe cyst. White count 7.9 hemoglobin 12.4 platelets 215 pressure 4 creatinine 0.6 Total bilirubin 2.8 AST 5.2 ALT 6.3 alkaline phosphatase 1767 Yesterday labs: AST 644 ALT 808 alkaline phosphatase 2285 Assessment and plan: -Obstructive hepatitis pattern. no abdominal pain. No systemic symptoms. likely secondary to immunotherapy. : Some improvement Negative acute hepatitis panel. Hold Lipitor. Prednisone 90 mg. - hypotension from hemothorax Follow blood pressure -Acute blood loss anemia secondary to hemothorax Received 1 unit of blood -Iatrogenic hemothorax following thoracentesis : Slow to respond pigtail catheter in place -Persistent atrial fibrillation rate controlled Lopressor held. Cardizem CD 180 mg a day Eliquis-held. Flecainide 50 mg every 12 -Stage IV Metastatic adenocarcinoma of the lung. Has been receiving immunotherapy. Follow with oncology -Essential Hypertension, currently hypotensive . Cardizem CD 180 mg a day -Large left pleural effusion likely metastatic/malignant effusion: thoracentesis on February 21 of [address] Welch. -GERD Protonix -Osteopenia -Deafness in the left ear -DO NOT RESUSCITATE -Mild cognitive impairment -Leukocytosis is due to steroids -Hypotension from likely hemorrhage from thoracentesis Follow blood pressure closely. Follow H&H. Care was discussed with the patient. Pigtail catheter in place. T elemetry. Follow with pulmonary.
--- NOTE | 2022-02-24 20:06 | P.PN ---
Subjective Progress Note Date: 02/24/22 Principal diagnosis: IO hepatitis In follow-up today patient denies any nosebleeds, hemoptysis, unusual bruising, hematuria, black or bloody stool. The chest tube is draining bloody fluid, she reports breathing is stable, she denies any pain. Objective - Vital Signs Vital signs: Vital Signs Temp 97.3 F L 02/24/22 10:39 Pulse 96 02/24/22 11:39 Resp 18 02/24/22 10:39 BP 152/95 02/24/22 10:39 Pulse Ox 96 02/24/22 10:39 Intake & Output 02/23/22 02/24/22 02/24/22 18:59 06:59 18:59 Intake Total 910 Output Total 180 200 Balance 730 -200 Weight 62.2 kg Intake: IV 400 Sodium Chloride 0.9% 1, 400 000 ml @ 50 mls/hr IV . Q20H [facility] Rx#:[id number] Oral 200 Blood Product 310 Rc As-1 Unit 310 [id number] Output: Chest Tube Drainage 180 Chest Tube Left Lateral 180 Chest Urine 200 Other: Voiding Method Bedside Commode Bedside Commode Toilet Bedpan Bedpan # Voids 4 2 1 # Bowel Movements 1 - Constitutional General appearance: Present: average body habitus, cooperative, no acute distress - EENT Eyes: Present: anicteric sclerae, EOMI ENT: Present: hearing grossly normal - Respiratory Respiratory: right: CTA, left: diminished (but improved aeration from yesterday) - Cardiovascular Rhythm: regular Heart sounds: normal: S1, S2 Abnormal Heart Sounds: Absent: systolic murmur, diastolic murmur, rub, S3 Gallop, S4 Gallop, click, other - Peripheral edema leg Peripheral Edema: bilateral: None - Gastrointestinal General gastrointestinal: Present: normal bowel sounds, soft - Neurologic Neurologic: Present: CNII-XII intact - Musculoskeletal Musculoskeletal: Present: generalized weakness, strength equal bilaterally - Psychiatric Psychiatric: Present: A&O x's 3, appropriate affect, intact judgment & insight - Labs CBC & Chem 7: 02/24/22 05:55 02/24/22 05:55 Labs: Abnormal Lab Results - Last 24 Hours (Table) 02/23/22 02/23/22 02/24/22 Range/Units 07:39 17:35 05:55 WBC 14.5 H 14.63 H (3.8-10.6) k/uL RBC 2.64 L 2.38 L (3.80-5.40) m/uL Hgb 8.4 L D 7.5 L (11.4-16.0) gm/dL Hct 26.7 L 23.6 L (34.0-46.0) % MCV 100.9 H 99.2 H (80.0-100.0) fL MCHC 31.8 L (32.0-37.0) g/dL RDW 16.0 H 17.3 H (11.5-15.5) % MPV 13.8 H (9.5-12.2) fL Absolute Nucleated RBC 0.05 H (0.00-0.00) X 10*3/uL Immature Gran # 0.22 H (0.00-0.04) X 10*3/uL Neutrophils # 13.5 H 12.54 H (1.3-7.7) k/uL Lymphocytes # 0.4 L 0.71 L (1.0-4.8) k/uL Monocytes # 1.14 H (0.20-1.00) X 10*3/uL Eosinophils # 0 L (0.04-0.35) X 10*3/uL NRBC/100 WBC Diff 0.3 H (0.0-0.0) /100 WBCS BUN (7-17) mg/dL Glucose (74-99) mg/dL Total Bilirubin (0.2-1.3) mg/dL AST (14-36) U/L ALT (4-34) U/L Alkaline Phosphatase (38-126) U/L Total Protein (6.3-8.2) g/dL Albumin (3.5-5.0) g/dL Crossmatch See Detail 02/24/22 Range/Units 05:55 WBC (3.8-10.6) k/uL RBC (3.80-5.40) m/uL Hgb (11.4-16.0) gm/dL Hct (34.0-46.0) % MCV (80.0-100.0) fL MCHC (32.0-37.0) g/dL RDW (11.5-15.5) % MPV (9.5-12.2) fL Absolute Nucleated RBC (0.00-0.00) X 10*3/uL Immature Gran # (0.00-0.04) X 10*3/uL Neutrophils # (1.3-7.7) k/uL Lymphocytes # (1.0-4.8) k/uL Monocytes # (0.20-1.00) X 10*3/uL Eosinophils # (0.04-0.35) X 10*3/uL NRBC/100 WBC Diff (0.0-0.0) /100 WBCS BUN 22 H (7-17) mg/dL Glucose 139 H (74-99) mg/dL Total Bilirubin 1.6 H (0.2-1.3) mg/dL AST 66 H (14-36) U/L ALT 257 H (4-34) U/L Alkaline Phosphatase 727 H (38-126) U/L Total Protein 5.8 L (6.3-8.2) g/dL Albumin 2.7 L (3.5-5.0) g/dL Crossmatch Assessment and Plan (1) Anemia Narrative/Plan: Patient's hemoglobin was normal on admit, likely secondary to hemoconcentration as patient's hemoglobin typically runs in the 8-9 range. She did reqire a transfusion which is new for her. Hemolysis workup was negative. Coags were normal. Hgb stable today (Hgb of 7.5 after being transfused with 1 unit for a Hgb 6.6 is more likely then the Hgb of 8.4 drawn about 4-5 hours after transfusion). The chest tube is draining very bloody fluid. Pt wondered why sudden onset anemia-acute causes have been ruled out. Possibility that maybe a lung tumor has eroded into or regressed from a blood vessel in the lungs causing the hemothorax? Will cont to monitor CBC. Transfuse for Hgb <7. Current Visit: Yes Status: Acute Priority: High Code(s): D64.9 - ANEMIA, UNSPECIFIED SNOMED Code(s): 865522893 (2) Hepatitis Narrative/Plan: Suspect IO induced hepatitis. Liver enzymes has started to decrease since admitted. Patient is a 90 mg of prednisone orally. Plan to start taper tomorrow. Recommend taper over 4 weeks. Current Visit: Yes Status: Acute Priority: High Code(s): K75.9 - INFLAMMATORY LIVER DISEASE, UNSPECIFIED SNOMED Code(s): 889459675 (3) Adenocarcinoma, lung Narrative/Plan: Pt is currently on maintenance pembrolizumab. Based on response of the IO hepatitis to steroid therapy she may or may not be able to receive immunotherapy in the future. Will see how she does Current Visit: No Status: Chronic Priority: Medium Code(s): C34.90 - MALIGNANT NEOPLASM OF UNSP PART OF UNSP BRONCHUS OR LUNG SNOMED Code(s): 797517505
[2022-02-24] MEDS: OLANZapine 5 MG TAB PO SCH (22:47)
[2022-02-24 22:57] LABS: Appearance,BF Clear
[2022-02-25 02:10] LABS: Cholesterol,BF Source Pleural Fluid; Cholesterol,Body Fluid 41 mg/dL; Glucose, BF Source Pleural Fluid; Glucose, Body Fluid 178 mg/dL; T. Protein, Body Fluid Source Pleural Fluid; Total Protein, Body Fluid 2380 mg/dL
[2022-02-25 03:35] LABS: Amylase, Fluid Source Pleural Fluid; Amylase,Body Fluid 10 U/L; LDH, Body Fluid Source Pleural Fluid
[2022-02-25 06:10] LABS: Anisocytosis Slight; Basophils # (A) 0.1 k/uL (0-0.2); Basophils % (A) 0 %; Eosinophils # (A) 0.1 k/uL (0-0.7); Eosinophils % (A) 1 %; HCT 26.4 % (34.0-46.0); HGB 8.4 gm/dL (11.4-16.0); Hypochromasia Moderate; Lymphocytes # (A) 0.8 k/uL (1.0-4.8); Lymphocytes % (A) 4 %; MCH 32.9 pg (25.0-35.0); MCHC 31.8 g/dL (31.0-37.0); MCV 103.5 fL (80.0-100.0); Macrocytosis Moderate; Mean Platelet Volume 10.1; Monocytes % (A) 5 %; Neutrophils # (A) 16.2 k/uL (1.3-7.7); Neutrophils % (A) 89 %; Platelet Count 211 k/uL (150-450); Poikilocytosis Slight; RBC 2.55 m/uL (3.80-5.40); RDW 16.5 % (11.5-15.5); WBC 18.1 k/uL (3.8-10.6)
--- NOTE | 2022-02-25 08:36 | XR ---
EXAMINATION TYPE: XR chest 1V portable DATE OF EXAM: 02/25/2022 COMPARISON: 02/24/2022 HISTORY: Left hemothorax TECHNIQUE: Single frontal view of the chest is obtained. FINDINGS: Bilateral consolidation and small effusion. There is interstitial pattern. Atherosclerotic change aorta. Left-sided chest tube seen. No sizable pneumothorax. Heart is enlarged. Vascular calci fications noted. Surgical clips are seen overlying the right breast. IMPRESSION: 1. Persistent bilateral infiltrate and pleural effusion similar to the prior exam.
--- NOTE | 2022-02-25 08:41 | P.PN ---
Subjective Progress Note Date: 02/25/22 Principal diagnosis: Elevated LFTs, questionable immunotherapy hepatitis, left-sided pleural effusion status post thoracentesis with subsequent ex-vacuo pneumothorax, subsequent he mothorax status post pigtail catheter placement by interventional radiology, acute blood loss anemia. 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 Denies pain, states shortness of breath is about the same. Has been up to ambulate to and from the bathroom without difficulty. Left sided pigtail catheter remains draining bloody drainage, 200 mL overnight, 400 mL in the last 24 hours. No other new concerns. Objective - Vital Signs Vital signs: Vital Signs Temp 96.2 F L 02/25/22 06:55 Pulse 89 02/25/22 06:55 Resp 18 02/25/22 06:55 BP 189/89 02/25/22 06:55 Pulse Ox 93 L 02/25/22 06:55 Intake & Output 02/24/22 02/25/22 02/25/22 18:59 06:59 18:59 Intake Total 600 Output Total 100 200 Balance 500 -200 Weight 62.2 kg Intake: Intake, IV Titration 600 Amount Sodium Chloride 0.9% 1, 600 000 ml @ 50 mls/hr IV . Q20H [facility] Rx#:[id number] Output: Chest Tube Drainage 100 200 Chest Tube Left Lateral 100 200 Chest Other: Voiding Method Toilet Toilet # Voids 1 3 # Bowel Movements 1 - Exam CONSTITUTIONAL: Appears comfortable, cooperative, no acute distress RESPIRATORY: Lungs sounds diminished bilaterally, left greater than right. Respirations even, nonlabored. Currently on 2 LPM NC with oxygen saturation 93%. Able to achieve 500 mL on incentive spirometry. Strong cough. CARDIOVASCULAR: S1, S2 present. Irregular rate and rhythm, controlled atrial fibrillation on telemetry. Palpable peripheral pulses bilaterally. No edema present. GASTROINTESTINAL: Abdomen soft, nontender, nondistended. Active bowel sounds present 4 quadrants. Tolerating diet. Positive bowel movement 4/12/22 GENITOURINARY: Continues to void INTEGUMENTARY: Skin is warm and dry with evidence of good perfusion NEUROLOGIC: Cranial nerves II through XII intact MUSKULOSKELETAL: Able to move all extremities, strength equal bilaterally, gait normal PSYCHIATRIC: Alert and oriented to person place and time, appropriate affect, intact judgment and insight INVASIVE LINES AND TUBES: Left sided pigtail catheter present and connected to continuous wall suction, no air leak present, 200 mL bloody drainage overnight, 400 mL in the last 24 hours - Labs CBC & Chem 7: 02/25/22 05:50 02/24/22 05:55 Labs: Abnormal Lab Results - Last 24 Hours (Table) 02/24/22 02/24/22 02/25/22 Range/Units 05:55 05:55 05:50 WBC 14.63 H 18.1 H (4.50-10.00) X 10*3/uL RBC 2.38 L 2.55 L (4.10-5.20) X 10*6/uL Hgb 7.5 L 8.4 L (12.0-15.0) g/dL Hct 23.6 L 26.4 L (37.2-46.3) % MCV 99.2 H 103.5 H (80.0-97.0) fL MCHC 31.8 L (32.0-37.0) g/dL RDW 17.3 H 16.5 H (11.5-14.5) % MPV 13.8 H (9.5-12.2) fL Absolute Nucleated RBC 0.05 H (0.00-0.00) X 10*3/uL Immature Gran # 0.22 H (0.00-0.04) X 10*3/uL Neutrophils # 12.54 H 16.2 H (1.80-7.70) X 10*3/uL Lymphocytes # 0.71 L 0.8 L (0.90-5.00) X 10*3/uL Monocytes # 1.14 H (0.20-1.00) X 10*3/uL Eosinophils # 0 L (0.04-0.35) X 10*3/uL NRBC/100 WBC Diff 0.3 H (0.0-0.0) /100 WBCS BUN 22 H (7-17) mg/dL Glucose 139 H (74-99) mg/dL Total Bilirubin 1.6 H (0.2-1.3) mg/dL AST 66 H (14-36) U/L ALT 257 H (4-34) U/L Alkaline Phosphatase 727 H (38-126) U/L Total Protein 5.8 L (6.3-8.2) g/dL Albumin 2.7 L (3.5-5.0) g/dL - Imaging and Cardiology Chest x-ray: image reviewed Assessment and Plan Assessment: 1. Elevated LFTs 2. Left-sided pleural effusion status post thoracentesis with subsequent ex- vacuo pneumothorax, subsequent hemothorax status post pigtail catheter placement by interventional radiology 3. Acute blood loss anemia, status post transfusion 4. Metastatic lung cancer with lesion in the spine and brain, status post radiation/chemo/immunotherapy 5. History of breast cancer diagnosed in 1991 6. Chronic atrial fibrillation on Eliquis for anticoagulation, currently on hold 7. History of hypertension 8. Hyperlipidemia 9. Syncope 10. 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 Covid in December 2021 12. Previous tobacco dependence 13. Hearing deficiency Plan: 1. Keep left pleural pigtail catheter in place to continuous wall suction. Continue to monitor pigtail catheter output. 2. No surgical intervention warranted at this time. 3. Wean oxygen as tolerated. Encourage use of incentive spirometry 10 times every hour while awake. 4. Continue to follow daily labs and chest x-ray. 5. Cancer management per oncology, medical management of other comorbidities per primary service 6. More recommendations to follow
[2022-02-25] MEDS: MAGNESIUM OXIDE 400 MG TAB PO SCH ×2 (08:47→20:30)
[2022-02-25] MEDS: METOPROLOL TARTRATE 12.5 MG TAB PO SCH ×3 (08:47→20:30)
[2022-02-25] MEDS: FOLIC ACID 1 MG TAB PO SCH (08:47)
[2022-02-25] MEDS: DILTIAZEM CD 240 MG CAP.ER.24H PO SCH (08:48)
[2022-02-25] MEDS: FLECAINIDE 50 MG TAB PO SCH ×2 (08:48→20:30)
[2022-02-25] MEDS: PANTOPRAZOLE 40 MG TABLET PO SCH ×2 (08:48→17:39)
[2022-02-25] MEDS: predniSONE 20 MG TAB PO SCH (08:48)
[2022-02-25] MEDS: IPRATROPIUM-ALBUTEROL 3 ML NEB INHALATION SCH ×4 (08:54→21:25)
[2022-02-25 09:32] LABS: African American GFR (CKD) 95.5 (60.0-200.0); Albumin 3.2 g/dL (3.8-4.9); Albumin/Globulin Ratio 1.28 (1.60-3.17); Anion Gap 11.4 mmol/L (10.00-18.00); BUN/Creat Ratio 24.71 Ratio (12.00-20.00); Blood Urea Nitrogen 17.3 mg/dL (9.0-27.0); Calcium 8.6 mg/dL (8.7-10.3); Carbon Dioxide 22.6 mmol/L (20.0-27.5); Globulin 2.5 g/dL (1.6-3.3); Non-African American GFR(CKD) 82.4 (60.0-200.0); Potassium 3.9 mmol/L (3.5-5.5); Total Protein 5.7 g/dL (6.2-8.2)
[2022-02-25] MEDS ORDERED: FUROSEMIDE 10 MG/ML 4 ML VIAL IV STA (12:21)
--- NOTE | 2022-02-25 12:25 | P.PN ---
Subjective Progress Note Date: 02/25/22 02/22/2022, the patient is currently the intensive care unit. I had to transfer this patient to the ICU yesterday as the patient developed some acute shortness of breath following the thoracentesis. The patient also became slightly hypoxic. Initially, she became hypotensive and this occurred approximately 1 hour following the thoracentesis. Noted a removed a total of 950 mL of pleural fluid. They made a chest x-ray following thoracentesis showed a pneumothorax loculated ex vacuo in the left lower lobe. The subsequent chest x-rays on this patient showed persistent left-sided pleural effusion and the patient also developed a left sided pulmonary opacity. This was consistent with expansion pulmonary edema post thoracentesis. There was no evidence of pneumothorax. There was no evidence of any cardiomegaly. The patient accordingly the chest into the intensive care unit and the patient is currently on 4 L of oxygen by nasal cannula. I am also concerned about some bleeding into the left hemithorax although the pleural fluid was not bloody. Nevertheless, the patient's hemoglobin has dropped from 10.5 down to 8.8 and later on down to 7.9 and for that reason the patient is kept in ICU for further monitoring. We'll check a coagulation profile. LFTs continued to improve and the patient's AST is down to 224 and ALT is down to 460 with an alkaline phosphatase of 1000. The currently is at 35 with a creatinine of 1.01. Sodium is at 136. The patient is receiving IV fluid at the rate of 50 mL an hour. No other significant events over the past 24 hours. Her current cardiac rhythm is atrial fibrillation. He is a concern of bleed, anticoagulation was held. Patient was not seen today, however I had a chance to review her chest x-ray today, and I had a chance to discuss her condition with Dr. Saez over the phone, and I recommended a CT-guided or ultrasound-guided pigtail catheter placement for her large left-sided pleural effusion which seems to be loculated, and the patient seems to have a hydropneumothorax. This will be done today, patient is now having the procedure done, and I believe the patient may have sustained some worsening pleural effusion postthoracentesis, likely consistent with bleeding in the pleural space. This may or may not be related to the pro cedure itself, but considering the timing of the symptoms and the timing of the procedure, this is most likely iatrogenic hemothorax involving the left pleural space. At this point may have to consider drainage of the large pleural effusion which is likely hemothorax. And this will be done by interventional radiology today. On 02/24/2022 patient seen in follow-up on medical surgical floor. She is alert, in no acute distress, she is on 3 L of oxygen pulse ox is 96%, resting comfortably in bed, yesterday she underwent CT-guided left sided pigtail chest tube catheter insertion, and overnight there has been 750 mL of dark thin bloody pleural fluid drainage. The Pleur-evac is connected to wall suction. There is no air leak. On the signs have been stable, patient has been afebrile. Her b reathing is nonlabored. Today's chest x-ray showing interval reduction in the amount of pleural fluid post chest tube insertion with persistent sizable amount of consolidation and pleural effusion, and small right pleural effusion and basilar infiltrate. Patient's cytology from the left thoracentesis that was completed on 02/23/2022 is still pending at this time. But overall patient seems to be fairly comfortable. His labs have been reviewed, platelets of colitis stable at 14.6, hemoglobin is 7.5, and patient is status post transfusion with 1 unit of packed red blood cells yesterday for hemoglobin of 6.6. Platelet count is 166. Electrolytes are within normal limits, BUN is 22 creatinine is 0.6 on today's labs. On 02/25/2022 patient seen in follow-up. She is resting comfortably in bed, still has left-sided posterior pigtail chest tube catheter in place, and there has been approximately 300 mL of thin dark serosanguineous output the last 24 hours. Lung sounds are diminished. Pleural fluid cytology is still pending. Today's chest x-ray showed persistent bilateral infiltrates and pleural effusion. Today's labs have been reviewed by evert, was 18.1, hemoglobin is 8.4, electrolytes and renal profile were unremarkable. Objective - Vital Signs Vital signs: Vital Signs Temp 96.2 F L 02/25/22 06:55 Pulse 88 02/25/22 12:17 Resp 18 02/25/22 06:55 BP 189/89 02/25/22 06:55 Pulse Ox 93 L 02/25/22 06:55 Intake & Output 02/24/22 02/25/22 02/25/22 18:59 06:59 18:59 Intake Total 600 Output Total 100 200 Balance 500 -200 Weight 62.2 kg Intake: Intake, IV Titration 600 Amount Sodium Chloride 0.9% 1, 600 000 ml @ 50 mls/hr IV . Q20H [facility] Rx#:[id number] Output: Chest Tube Drainage 100 200 Chest Tube Left Lateral 100 200 Chest Other: Voiding Method Toilet Toilet # Voids 1 3 1 # Bowel Movements 1 - Exam GENERAL EXAM: Alert, comfortable in no apparent distress. HEAD: Normocephalic/atraumatic. EYES: Normal reaction of pupils, equal size. Conjunctiva pink, sclera white. NOSE: Clear with pink turbinates. THROAT: No erythema or exudates. NECK: No masses, no JVD, no thyroid enlargement, no adenopathy. CHEST: No chest wall deformity. Symmetrical expansion. Left chest pigtail chest tube catheter connected to the Pleur-evac and wall suction with 750 mL of thin dark old bloody pleural effusion fluid in the Pleur-evac. LUNGS: Equal air entry with no crackles, wheeze, rhonchi or dullness. CVS: Regular rate and rhythm, normal S1 and S2, no gallops, no murmurs, no rubs ABDOMEN: Soft, nontender. No hepatosplenomegaly, normal bowel sounds, no gua rding or rigidity. EXTREMITIES: No clubbing, no edema, no cyanosis, 2+ pulses and upper and lower extremities. MUSCULOSKELETAL: Muscle strength and tone normal. SPINE: No scoliosis or deformity SKIN: No rashes CENTRAL NERVOUS SYSTEM: Alert and oriented -3. No focal deficits, tone is normal in all 4 extremities. PSYCHIATRIC: Alert and oriented -3. Appropriate affect. Intact judgment and insight. - Labs CBC & Chem 7: 02/25/22 05:50 02/25/22 05:50 Labs: Abnormal Lab Results - Last 24 Hours (Table) 02/25/22 02/25/22 Range/Units 05:50 05:50 WBC 18.1 H (3.8-10.6) k/uL RBC 2.55 L (3.80-5.40) m/uL Hgb 8.4 L (11.4-16.0) gm/dL Hct 26.4 L (34.0-46.0) % MCV 103.5 H (80.0-100.0) fL RDW 16.5 H (11.5-15.5) % Neutrophils # 16.2 H (1.3-7.7) k/uL Lymphocytes # 0.8 L (1.0-4.8) k/uL BUN/Creatinine Ratio 24.71 H (12.00-20.00) Ratio Glucose 148 H (70-110) mg/dL Calcium 8.6 L (8.7-10.3) mg/dL AST 43 H (13-35) U/L ALT 213 H (8-44) U/L Alkaline Phosphatase 788 H (41-126) U/L Total Protein 5.7 L (6.2-8.2) g/dL Albumin 3.2 L (3.8-4.9) g/dL Albumin/Globulin Ratio 1.28 L (1.60-3.17) g/dL Assessment and Plan Plan: Assessment: #1. Left-sided pleural effusion, possibly malignant unless proven otherwise, awaiting results of the cytology for the left pleural fluid effusion that was drained on 02/23/2022. Patient had a left-sided pigtail chest tube put in on 02/23/2022, so father 757 document old bloody effusion fluid in the left pleural #2. Status post thoracentesis with postoperative complications and bleeding into the pleural space #3. Metastatic adenocarcinoma carcinoma of the lungs, patient is on immunotherapy with Keytruda #4. Immunotherapy-induced hepatitis #5. Chronic A. fib, was on Ahlquist which is currently on hold related to pneumothorax #6. Blood loss anemia, acute, anticoagulation remains on hold, patient has required transfusion with 1 unit of packed red blood cells #7. History of breast cancer with previous lumpectomy and radiation therapy #8. History of chronic infection in December 2021 #9. Hypertension Plan: This chest x-ray has been reviewed Shows persistent bilateral infiltrates and pleural effusion, interstitial pattern Left-sided chest tube remains in place, pleural fluid output has decreased CT surgery is following Today's hemoglobin remains stable, slightly improved We'll give the patient one-time dose of Lasix Hep-Lock IV fluids Follow-up chest x-ray and labs tomorrow Anticoagulation remains on hold Continue oral prednisone Continue to follow I have personally seen and examined the patient, performed the documentation and the assessment and plan as written. Number of minutes spent on the visit: [10] Time with Patient: Less than 30
--- NOTE | 2022-02-25 16:01 | P.PN ---
Progress Note - Text Progress Note Date: 02/25/22 Chief Complaint: Jaundice Hospital course Very pleasant 81 female, follows with Dr. Staton. 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 received radiation treatment to the lower spine. received chemotherapy. Also getting immunotherapy.. In December of this year admitted with atrial fibrillation Oncology history: pt of Dr. Balderas who has a Hx of ER/MI positive Her2 negative breast cancer 2016, s/p lumpectomy and SLND, adjuvant XRT and femara. She c/o lt sided rib pain in Jul 2021, CT chest revealed 6.6cm ELMER lung mass with rib invasion, biopsy positive for adenocarcinoma, staging PET revealed ELMER mass, L2 and rt adrenal met, PD-L1 neg. Liquid biopsy revealed KKEAP1 mutation, high TMB, NGS on tissues revealed POLE1 and ARIDA1 mutations,TMB 12.6, MADHU. She completed palliative XRT to left rib and L2. 10/07/2021 she started alimta/carbo platin/keytruda and completed 4 cycles on 12/09/2021. 12/05/21 repeat PET showed positive treatment response with diminished hypermetabolic uptake left midlung destructive neoplasm along with the prevascular adenopathy and right adrenal metastatic focus, however cannot exclude new near 1.0 cm hypermetabolic lymph node near the diaphragmatic hiatus. She continued on keytruda only as of 01/09/2022 and is s/p 2 cycles. She had routine lab work done and was found to have elevating LFTs, suspicious for immunotherapy hepatitis. She was asked to come to the office to be evaluated. Patient's appetite is good. No change in bowel pattern. No weight loss. Does feel tired though. Has noticed to be jaundiced. Significant itching.. Very strong clear urine. No fever no chills. Given significantly elevated LFTs being admitted. Admitted with immunotherapy induced hepatitis. Started on prednisone. February 20: Patient also to have home edema. Given IV Lasix. Worsening left pleural effusion. Ultrasound showing significant effusion. Pulmonary consulted. Oral intake fair. the bathroom. February 21: Patient had left-sided thoracentesis of 900 mL of turbid fluid obtained. Breathing a bit better. Oral intake fair. Remains in atrial flutter. February 22: Post thoracentesis yesterday patient became hypotensive bradycardic. Moved to the ICU. Lopressor was held. No pneumothorax noted. Blood pressure remains lower side. Diet. Eating fair. Patient's hemoglobin has dropped. Chest x-ray reviewed. February 23: Patient dropped hemoglobin to 6.6. I ordered a chest x-ray. Has air fluid level. Likely hemothorax. Spoke to Dr. Paredes. Pigtail catheter per interventional radiology. Patient also getting a midline because of poor IV access. Patient tired. Blood ordered February 24: Patient had a pigtail catheter placed by interventional radiology. Bloody output. Breathing stable. Eating fair. Pain control. Patient received a unit of blood yesterday. Chest x-ray: Left effusion February 25: Left chest wall PICC catheter. Put noted. Breathing stable. Oral intake fair. LFTs been coming down. Active Medications Hydrocodone Bitart/Acetaminophen (Hydrocodone/Apap 10-325mg 1 Each Tab) 1 - 2 each PO Q4HR PRN PRN Reason: Pain Albuterol/Ipratropium (Ipratropium-Albuterol 3 Ml Neb) 3 ml INHALATION RT-QID [facility] Last Admin: 02/25/22 12:09 Dose: 3 ml Documented by: Albuterol/Ipratropium (Ipratropium-Albuterol 3 Ml Neb) 3 ml INHALATION RT-Q4H PRN PRN Reason: Shortness Of Breath Or Wheezing Diltiazem HCl (Diltiazem Cd 240 Mg Cap.Er.24h) 240 mg PO DAILY [facility] Last Admin: 02/25/22 08:48 Dose: 240 mg Documented by: Flecainide Acetate (Flecainide 50 Mg Tab) 50 mg PO Q12HR [facility] Last Admin: 02/25/22 08:48 Dose: 50 mg Documented by: Folic Acid (Folic Acid 1 Mg Tab) 1 mg PO DAILY [facility] Last Admin: 02/25/22 08:47 Dose: 1 mg Documented by: Magnesium Oxide (Magnesium Oxide 400 Mg Tab) 200 mg PO BID [facility] Last Admin: 02/25/22 08:47 Dose: 200 mg Documented by: Metoprolol Tartrate (Metoprolol Tartrate 12.5 Mg Tab) 12.5 mg PO BID [facility] Last Admin: 02/25/22 08:47 Dose: 12.5 mg Documented by: Miscellaneous Information (Potassium Replacement Protocol 1 Each Misc) 1 each MISCELLANE DAILY PRN; Protocol PRN Reason: Per Protocol Miscellaneous Information (Magnesium Replacement Protocol 1 Each Misc) 1 each MISCELLANE DAILY PRN; Protocol PRN Reason: Per Protocol Olanzapine (Olanzapine 5 Mg Tab) 5 mg PO HS [facility] Last Admin: 02/24/22 22:47 Dose: 5 mg Documented by: Ondansetron HCl (Ondansetron Odt 4 Mg Tab) 4 mg PO Q6H PRN PRN Reason: Nausea Pantoprazole Sodium (Pantoprazole 40 Mg Tablet) 40 mg PO AC-BID [facility] Last Admin: 02/25/22 08:48 Dose: 40 mg Documented by: Prednisone (Prednisone 20 Mg Tab) 90 mg PO DAILY [facility] Last Admin: 02/25/22 08:48 Dose: 90 mg Documented by: Past medical history to include: breast cancer diagnosed in 1993 with recurrence in 2017. 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 Atrial fibrillation, Social history: Patient smoked for 30 years stopping at age of 44. 2 packs a day. Lives alone. Family history: Diabetes, hypertension, prostate cancer Physical examination: VITAL SIGNS: 98.1, 97, 16, 133 bradycardia 1, 97% on 3 L GENERAL: Reclining in bed, tired EYES: Pupils equal. Conjunctiva yellow HEENT: External appearance of nose and ears normal, oral cavity grossly normal. NECK: JVD not raised; masses not palpable. HEART: First and second heart sounds are normal; no edema. LUNGS: Respiratory rate increased; decreased breath sound on the left side. Left-sided pigtail catheter ABDOMEN: Soft, nontender, liver spleen not palpable, no masses palpable. PSYCH: Alert and oriented x3; mood and affect normal. MUSCULOSKELETAL:No Clubbing/cyanosis;muscles-grossly intact. Evidence of OA especially in the hands INVESTIGATIONS, reviewed in the clinical context: February 25: White count 18.1 hemoglobin 8.4 platelets 211 potassium 3.9 creatinine 0.7 bilirubin 1 AST 43 ALT 213 February 24: White count 14.6 hemoglobin 7.5 platelets 166 potassium 4 creatinine 0.61 total bilirubin 1.6 AST 66 ALT 257 February 23: White count 14.7 hemoglobin 6.6 platelets 184 potassium 3.9 creatinine 0.98 bilirubin 1.4 AST 106 ALT 323 Chest x-ray film personally reviewed by me-[February 23]: Large fluid level February 22: White count 16.5 hemoglobin 7.9 platelets 213 potassium 4.3 creatinine 1.01 total bilirubin 1.6 AST 224 ALT 460 alkaline phosphatase thousand February 21: White count 14.3 hemoglobin 10.5 potassium 3.7 creatinine 0.64 total bilirubin 2 AST 407 ALT 602 alkaline phosphatase 1462 February 20: Potassium 4 creatinine 0.86 AST 521 ALT 674 alkaline phosphatase 1671 proBNP 2940 Acute hepatitis screen: Negative Chest x-ray film personally reviewed by me: Left pleural effusion. Increased compared to previous x-ray. EKG tracing personally reviewed by me: Atrial flutter. Rate controlled Liver ultrasound: Tiny right hepatic lobe cyst. White count 7.9 hemoglobin 12.4 platelets 215 pressure 4 creatinine 0.6 Total bilirubin 2.8 AST 5.2 ALT 6.3 alkaline phosphatase 1767 Yesterday labs: AST 644 ALT 808 alkaline phosphatase 2285 Assessment and plan: -Obstructive hepatitis pattern. no abdominal pain. No systemic symptoms. likely secondary to immunotherapy. : Improving Negative acute hepatitis panel. Hold Lipitor. Prednisone 90 mg. - hypotension from hemothorax Follow blood pressure -Acute blood loss anemia secondary to hemothorax Received 1 unit of blood -Iatrogenic hemothorax following thoracentesis : Slow to respond pigtail catheter in place -Persistent atrial fibrillation rate controlled Lopressor held. Cardizem CD 180 mg a day Eliquis-held. Flecainide 50 mg every 12 -Stage IV Metastatic adenocarcinoma of the lung. Has been receiving immunotherapy. Follow with oncology -Essential Hypertension, currently hypotensive . Cardizem CD 180 mg a day -Large left pleural effusion likely metastatic/malignant effusion: thoracentesis on February 21 of [address] Welch. -GERD Protonix -Osteopenia -Deafness in the left ear -DO NOT RESUSCITATE -Mild cognitive impairment -Leukocytosis is due to steroids -Hypotension from likely hemorrhage from thoracentesis: Better Follow blood pressure closely. Follow H&H. We'll cut back on prednisone if okay with oncology. Pigtail catheter in place. Telemetry. Follow with pulmonary. Increase Lopressor to 12.5 mg by mouth 3 times a day
--- NOTE | 2022-02-25 16:30 | P.PN ---
Subjective Progress Note Date: 02/25/22 Principal diagnosis: IO hepatitis. Hemothorax In follow-up today patient continues to deny bleeding. The chest tube cont to drain bloody fluid, she reports breathing is stable-but is visibly taking shallow breaths- she denies any pain. She is ambulating to the restroom. Objective - Vital Signs Vital signs: Vital Signs Temp 98.1 F 02/25/22 15:32 Pulse 97 02/25/22 15:32 Resp 18 02/25/22 06:55 BP 133/81 02/25/22 15:32 Pulse Ox 97 02/25/22 15:32 Intake & Output 02/24/22 02/25/22 02/25/22 18:59 06:59 18:59 Intake Total 600 Output Total 100 200 20 Balance 500 -200 -20 Weight 62.2 kg Intake: Intake, IV Titration 600 Amount Sodium Chloride 0.9% 1, 600 000 ml @ 50 mls/hr IV . Q20H [facility] Rx#:[id number] Output: Chest Tube Drainage 100 200 20 Chest Tube Left Lateral 100 200 20 Chest Other: Voiding Method Toilet Toilet # Voids 1 3 1 # Bowel Movements 1 - Constitutional General appearance: Present: average body habitus, cooperative, no acute distress - EENT Eyes: Present: anicteric sclerae, EOMI ENT: Present: hearing grossly normal - Respiratory Respiratory: bilateral: CTA, diminished (bilateral bases), other (shallow breathing) - Cardiovascular Rhythm: regular Heart sounds: normal: S1, S2 Abnormal Heart Sounds: Absent: systolic murmur, diastolic murmur, rub, S3 Gallop, S4 Gallop, click, other - Gastrointestinal General gastrointestinal: Present: normal bowel sounds, soft - Integumentary Integumentary: Present: pale - Neurologic Neurologic Comment(s): very slight, generalized tremor noted Neurologic: Present: CNII-XII intact - Musculoskeletal Musculoskeletal: Present: generalized weakness, strength equal bilaterally - Psychiatric Psychiatric: Present: A&O x's 3, appropriate affect, intact judgment & insight - Labs CBC & Chem 7: 02/25/22 05:50 02/25/22 05:50 Labs: Abnormal Lab Results - Last 24 Hours (Table) 02/25/22 02/25/22 Range/Units 05:50 05:50 WBC 18.1 H (3.8-10.6) k/uL RBC 2.55 L (3.80-5.40) m/uL Hgb 8.4 L (11.4-16.0) gm/dL Hct 26.4 L (34.0-46.0) % MCV 103.5 H (80.0-100.0) fL RDW 16.5 H (11.5-15.5) % Neutrophils # 16.2 H (1.3-7.7) k/uL Lymphocytes # 0.8 L (1.0-4.8) k/uL BUN/Creatinine Ratio 24.71 H (12.00-20.00) Ratio Glucose 148 H (70-110) mg/dL Calcium 8.6 L (8.7-10.3) mg/dL AST 43 H (13-35) U/L ALT 213 H (8-44) U/L Alkaline Phosphatase 788 H (41-126) U/L Total Protein 5.7 L (6.2-8.2) g/dL Albumin 3.2 L (3.8-4.9) g/dL Albumin/Globulin Ratio 1.28 L (1.60-3.17) g/dL - Imaging and Cardiology Chest x-ray: report reviewed, image reviewed (with Pulmonary DNP) Assessment and Plan (1) Anemia Narrative/Plan: Patient's hemoglobin was normal on admit, likely secondary to hemoconcentration as patient's hemoglobin typically runs in the 8-9 range. She did reqire a transfusion which is new for her. Hemolysis workup was negative. Coags were normal. Hgb stable today, it did increase, 8.4 today The chest tube continues to drain bloody fluid. Possibility that maybe a lung tumor has eroded into or regressed from a blood vessel in the lungs causing the hemothorax was discussed with Pulmonary and felt that that could quite likely could be the cause. Will cont to monitor CBC. Transfuse for Hgb <7. Current Visit: Yes Status: Acute Priority: High Code(s): D64.9 - ANEMIA, UNSPECIFIED SNOMED Code(s): 364002927 (2) Hepatitis Narrative/Plan: IO induced hepatitis, improving with steroid treatment. Liver enzymes have continued to decrease since admit and initiation of 90 mg of prednisone orally. Taper entered and will start tomorrow, will cont over the next 4 weeks. This was discussed with pt, IM and Pharmacist Current Visit: Yes Status: Acute Priority: High Code(s): K75.9 - INFLAMMATORY LIVER DISEASE, UNSPECIFIED SNOMED Code(s): 410248147 (3) Adenocarcinoma, lung Narrative/Plan: Pt is currently on maintenance pembrolizumab. F/U with Primary Onc before being considered for further IO treatment. Current Visit: No Status: Chronic Priority: Medium Code(s): C34.90 - MALIGNANT NEOPLASM OF UNSP PART OF UNSP BRONCHUS OR LUNG SNOMED Code(s): 331200078
[2022-02-25] MEDS: OLANZapine 5 MG TAB PO SCH (20:30)
[2022-02-26 05:15] LABS: ALT 145 U/L (4-34); AST 39 U/L (14-36); African American GFR (CKD) >90 (>60 ml/min/1.73 sqM); Albumin 2.6 g/dL (3.5-5.0); Alkaline Phosphatase 614 U/L (38-126); Anion Gap 4 mmol/L; Blood Urea Nitrogen 18 mg/dL (7-17); Calcium 8.3 mg/dL (8.4-10.2); Carbon Dioxide 33 mmol/L (22-30); Chloride 98 mmol/L (98-107); Globulin 2.7 g/dL; Glucose 196 mg/dL (74-99); Non-African American GFR(CKD) 87 (>60 ml/min/1.73 sqM); Sodium 135 mmol/L (137-145); Total Protein 5.3 g/dL (6.3-8.2)
--- NOTE | 2022-02-26 07:56 | XR ---
EXAMINATION TYPE: XR chest 1V portable DATE OF EXAM: 02/26/2022 COMPARISON: 02/25/2022 HISTORY: Pneumothorax TECHNIQUE: Single frontal view of the chest is obtained. FINDINGS: Bilateral consolidation and small effusion. There is interstitial pattern. Atherosclerotic change aorta. Left-sided chest tube seen. No sizable pneumothorax. Heart is enlarged. Vascular calci fications noted. Surgical clips are seen overlying the right breast. IMPRESSION: Stable bilateral infiltrate and pleural effusion greater on the left.
[2022-02-26] MEDS: IPRATROPIUM-ALBUTEROL 3 ML NEB INHALATION SCH ×4 (08:00→20:30)
--- NOTE | 2022-02-26 08:54 | P.PN ---
Subjective Progress Note Date: 02/26/22 Principal diagnosis: Elevated LFTs, questionable immunotherapy hepatitis, left-sided pleural effusion status post thoracentesis with subsequent ex-vacuo pneumothorax, subsequent he mothorax status post pigtail catheter placement by interventional radiology, acute blood loss anemia. 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 Denies pain, states shortness of breath is about the same. Has been up to ambulate to and from the bathroom without difficulty. Left sided pigtail catheter remains draining bloody drainage, 110 mL overnight, 150 mL in the last 24 hours. No other new concerns. Objective - Vital Signs Vital signs: Vital Signs Temp 97.5 F L 02/26/22 07:39 Pulse 86 02/26/22 08:11 Resp 17 02/26/22 08:00 BP 165/89 02/26/22 07:39 Pulse Ox 97 02/26/22 07:39 Intake & Output 02/25/22 02/26/22 02/26/22 18:59 06:59 18:59 Output Total 940 110 110 Balance -940 -110 -110 Output: Chest Tube Drainage 40 110 110 Chest Tube Left Lateral 40 110 110 Chest Urine 900 Other: Voiding Method Toilet # Voids 2 - Exam CONSTITUTIONAL: Appears comfortable, cooperative, no acute distress RESPIRATORY: Lungs sounds diminished bilaterally, left greater than right. R espirations even, nonlabored. Currently on 2 LPM NC with oxygen saturation 97%. CARDIOVASCULAR: S1, S2 present. Irregular rate and rhythm, controlled atrial fibrillation on telemetry. Palpable peripheral pulses bilaterally. No edema present. GASTROINTESTINAL: Abdomen soft, nontender, nondistended. Active bowel sounds present 4 quadrants. Tolerating diet. Positive bowel movement 02/24/22 GENITOURINARY: Continues to void INTEGUMENTARY: Skin is warm and dry with evidence of good perfusion NEUROLOGIC: Cranial nerves II through XII intact MUSKULOSKELETAL: Able to move all extremities, strength equal bilaterally, gait normal PSYCHIATRIC: Alert and oriented to person place and time, appropriate affect, intact judgment and insight INVASIVE LINES AND TUBES: Left sided pigtail catheter present and connected to continuous wall suction, no air leak present, 110 mL bloody drainage overnight, 150 mL in the last 24 hours - Labs CBC & Chem 7: 02/25/22 05:50 02/26/22 04:25 Labs: Abnormal Lab Results - Last 24 Hours (Table) 02/25/22 02/26/22 Range/Units 05:50 04:25 Sodium 135 L (137-145) mmol/L Potassium 3.0 L (3.5-5.1) mmol/L Carbon Dioxide 33 H (22-30) mmol/L BUN 18 H (7-17) mg/dL BUN/Creatinine Ratio 24.71 H (12.00-20.00) Ratio Glucose 148 H 196 H (70-110) mg/dL Calcium 8.6 L 8.3 L (8.7-10.3) mg/dL AST 43 H 39 H (13-35) U/L ALT 213 H 145 H (8-44) U/L Alkaline Phosphatase 788 H 614 H (41-126) U/L Total Protein 5.7 L 5.3 L (6.2-8.2) g/dL Albumin 3.2 L 2.6 L (3.8-4.9) g/dL Albumin/Globulin Ratio 1.28 L (1.60-3.17) g/dL - Imaging and Cardiology Chest x-ray: report reviewed, image reviewed Assessment and Plan Assessment: 1. Elevated LFTs 2. Left-sided pleural effusion status post thoracentesis with subsequent ex-vac uo pneumothorax, subsequent hemothorax status post pigtail catheter placement by interventional radiology 3. Acute blood loss anemia, status post transfusion 4. Metastatic lung cancer with lesion in the spine and brain, status post radiation/chemo/immunotherapy 5. History of breast cancer diagnosed in 1991 6. Chronic atrial fibrillation on Eliquis for anticoagulation, currently on hold 7. History of hypertension 8. Hyperlipidemia 9. Syncope 10. 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 Covid in December 2021 12. Previous tobacco dependence 13. Hearing deficiency Plan: 1. Keep left pleural pigtail catheter in place to continuous wall suction. Continue to monitor pigtail catheter output. 2. No surgical intervention warranted at this time. 3. Wean oxygen as tolerated. Encourage use of incentive spirometry 10 times every hour while awake. 4. Continue to follow daily labs and chest x-ray. 5. Cancer management per oncology, medical management of other comorbidities per primary service 6. More recommendations to follow
[2022-02-26] MEDS: predniSONE 20 MG TAB PO SCH (09:05)
[2022-02-26] MEDS: METOPROLOL TARTRATE 12.5 MG TAB PO SCH ×3 (09:07→20:28)
[2022-02-26] MEDS: POTASSIUM CHLORIDE ER 20 MEQ TAB.ER PO SCH ×2 (09:07→10:28)
[2022-02-26] MEDS: PANTOPRAZOLE 40 MG TABLET PO SCH ×2 (09:08→16:49)
[2022-02-26] MEDS: FOLIC ACID 1 MG TAB PO SCH (09:08)
[2022-02-26] MEDS: MAGNESIUM OXIDE 400 MG TAB PO SCH ×2 (09:08→20:28)
[2022-02-26] MEDS: DILTIAZEM CD 240 MG CAP.ER.24H PO SCH (09:10)
[2022-02-26] MEDS: FLECAINIDE 50 MG TAB PO SCH ×2 (09:11→20:28)
[2022-02-26 10:29] LABS: Basophils # (A) 0.04 X 10*3/uL (0.00-0.10); Basophils % (A) 0.2 %; Elliptocytes 2+; Eosinophils # (A) 0 X 10*3/uL (0.04-0.35); Eosinophils % (A) 0 %; HCT 23.6 % (37.2-46.3); HGB 7.4 g/dL (12.0-15.0); Immature Grans, Automated 2.4 %; Lymphocytes # (A) 0.56 X 10*3/uL (0.90-5.00); Lymphocytes % (A) 3.4 %; MCH 31.8 pg (27.0-32.0); MCHC 31.4 g/dL (32.0-37.0); MCV 101.3 fL (80.0-97.0); Mean Platelet Volume 13.7 fL (9.5-12.2); Monocytes # (A) 1.38 X 10*3/uL (0.20-1.00); Monocytes % (A) 8.3 %; NRBC Per 100 WBC 0.3 /100 WBCS (0.0-0.0); Neutrophils # (A) 14.23 X 10*3/uL (1.80-7.70); Neutrophils % (A) 85.7 %; Platelet Count 194 X 10*3/uL (140-440); RBC 2.33 X 10*6/uL (4.10-5.20); RDW 17.2 % (11.5-14.5); WBC 16.61 X 10*3/uL (4.50-10.00)
--- NOTE | 2022-02-26 13:50 | P.PN ---
Subjective Progress Note Date: 02/26/22 02/22/2022, the patient is currently the intensive care unit. I had to transfer this patient to the ICU yesterday as the patient developed some acute shortness of breath following the thoracentesis. The patient also became slightly hypoxic. Initially, she became hypotensive and this occurred approximately 1 hour following the thoracentesis. Noted a removed a total of 950 mL of pleural fluid. They made a chest x-ray following thoracentesis showed a pneumothorax loculated ex vacuo in the left lower lobe. The subsequent chest x-rays on this patient showed persistent left-sided pleural effusion and the patient also developed a left sided pulmonary opacity. This was consistent with expansion pulmonary edema post thoracentesis. There was no evidence of pneumothorax. There was no evidence of any cardiomegaly. The patient accordingly the chest into the intensive care unit and the patient is currently on 4 L of oxygen by nasal cannula. I am also concerned about some bleeding into the left hemithorax although the pleural fluid was not bloody. Nevertheless, the patient's hemoglobin has dropped from 10.5 down to 8.8 and later on down to 7.9 and for that reason the patient is kept in ICU for further monitoring. We'll check a coagulation profile. LFTs continued to improve and the patient's AST is down to 224 and ALT is down to 460 with an alkaline phosphatase of 1000. The currently is at 35 with a creatinine of 1.01. Sodium is at 136. The patient is receiving IV fluid at the rate of 50 mL an hour. No other significant events over the past 24 hours. Her current cardiac rhythm is atrial fibrillation. He is a concern of bleed, anticoagulation was held. Patient was not seen today, however I had a chance to review her chest x-ray today, and I had a chance to discuss her condition with Dr. Saez over the phone, and I recommended a CT-guided or ultrasound-guided pigtail catheter placement for her large left-sided pleural effusion which seems to be loculated, and the patient seems to have a hydropneumothorax. This will be done today, patient is now having the procedure done, and I believe the patient may have sustained some worsening pleural effusion postthoracentesis, likely consistent with bleeding in the pleural space. This may or may not be related to the pro cedure itself, but considering the timing of the symptoms and the timing of the procedure, this is most likely iatrogenic hemothorax involving the left pleural space. At this point may have to consider drainage of the large pleural effusion which is likely hemothorax. And this will be done by interventional radiology today. On 02/24/2022 patient seen in follow-up on medical surgical floor. She is alert, in no acute distress, she is on 3 L of oxygen pulse ox is 96%, resting comfortably in bed, yesterday she underwent CT-guided left sided pigtail chest tube catheter insertion, and overnight there has been 750 mL of dark thin bloody pleural fluid drainage. The Pleur-evac is connected to wall suction. There is no air leak. On the signs have been stable, patient has been afebrile. Her b reathing is nonlabored. Today's chest x-ray showing interval reduction in the amount of pleural fluid post chest tube insertion with persistent sizable amount of consolidation and pleural effusion, and small right pleural effusion and basilar infiltrate. Patient's cytology from the left thoracentesis that was completed on 02/23/2022 is still pending at this time. But overall patient seems to be fairly comfortable. His labs have been reviewed, platelets of colitis stable at 14.6, hemoglobin is 7.5, and patient is status post transfusion with 1 unit of packed red blood cells yesterday for hemoglobin of 6.6. Platelet count is 166. Electrolytes are within normal limits, BUN is 22 creatinine is 0.6 on today's labs. On 02/25/2022 patient seen in follow-up. She is resting comfortably in bed, still has left-sided posterior pigtail chest tube catheter in place, and there has been approximately 300 mL of thin dark serosanguineous output the last 24 hours. Lung sounds are diminished. Pleural fluid cytology is still pending. Today's chest x-ray showed persistent bilateral infiltrates and pleural effusion. Today's labs have been reviewed by evert, was 18.1, hemoglobin is 8.4, electrolytes and renal profile were unremarkable. On 02/26/2022 patient seen in follow-up. She is currently up in the recliner, breathing comfortably, left-sided pigtail chest tube remains in place, with a total of 150 mL of thin watery serosanguineous output in the last 24 hours. Patient denies any worsening dyspnea, however her incentive spirometer effort is suboptimal she is only able to achieve 500 today, denies any chest discomfort. Her Eliquis remains on hold. Vital signs have been stable, blood pressure has been stable, today's hemoglobin is 7.4, white blood cell count is improved and i s down to 16.6, platelet count is 194. Sodium is 135, potassium is 3.0, CO2 33, B1 is 18 creatinine 0.61. Her LFTs are improving, and medical oncology is decreasing the dose of prednisone to 70 mg daily. Patient received a dose of IV Lasix yesterday, she continues on nebulized bronchodilators. Objective - Vital Signs Vital signs: Vital Signs Temp 97.5 F L 02/26/22 07:39 Pulse 88 02/26/22 11:25 Resp 17 02/26/22 08:00 BP 165/89 02/26/22 07:39 Pulse Ox 97 02/26/22 07:39 Intake & Output 02/25/22 02/26/22 02/26/22 18:59 06:59 18:59 Output Total 940 110 110 Balance -940 -110 -110 Output: Chest Tube Drainage 40 110 110 Chest Tube Left Lateral 40 110 110 Chest Urine 900 Other: Voiding Method Toilet # Voids 2 - Exam GENERAL EXAM: Alert, comfortable in no apparent distress. HEAD: Normocephalic/atraumatic. EYES: Normal reaction of pupils, equal size. Conjunctiva pink, sclera white. NOSE: Clear with pink turbinates. THROAT: No erythema or exudates. NECK: No masses, no JVD, no thyroid enlargement, no adenopathy. CHEST: No chest wall deformity. Symmetrical expansion. Left chest pigtail chest tube catheter connected to the Pleur-evac and wall suction with 750 mL of thin dark old bloody pleural effusion fluid in the Pleur-evac. LUNGS: Equal air entry with no crackles, wheeze, rhonchi or dullness. CVS: Regular rate and rhythm, normal S1 and S2, no gallops, no murmurs, no rubs ABDOMEN: Soft, nontender. No hepatosplenomegaly, normal bowel sounds, no guarding or rigidity. EXTREMITIES: No clubbing, no edema, no cyanosis, 2+ pulses and upper and lower extremities. MUSCULOSKELETAL: Muscle strength and tone normal. SPINE: No scoliosis or deformity SKIN: No rashes CENTRAL NERVOUS SYSTEM: Alert and oriented -3. No focal deficits, tone is normal in all 4 extremities. PSYCHIATRIC: Alert and oriented -3. Appropriate affect. Intact judgment and insight. - Labs CBC & Chem 7: 02/26/22 04:25 02/26/22 04:25 Labs: Abnormal Lab Results - Last 24 Hours (Table) 02/26/22 02/26/22 Range/Units 04:25 04:25 WBC 16.61 H (4.50-10.00) X 10*3/uL RBC 2.33 L (4.10-5.20) X 10*6/uL Hgb 7.4 L (12.0-15.0) g/dL Hct 23.6 L (37.2-46.3) % MCV 101.3 H (80.0-97.0) fL MCHC 31.4 L (32.0-37.0) g/dL RDW 17.2 H (11.5-14.5) % Plt Count Comment DECREASED A MPV 13.7 H (9.5-12.2) fL Absolute Nucleated RBC 0.05 H (0.00-0.00) X 10*3/uL Immature Gran # 0.40 H (0.00-0.04) X 10*3/uL Neutrophils # 14.23 H (1.80-7.70) X 10*3/uL Lymphocytes # 0.56 L (0.90-5.00) X 10*3/uL Monocytes # 1.38 H (0.20-1.00) X 10*3/uL Eosinophils # 0 L (0.04-0.35) X 10*3/uL NRBC/100 WBC Diff 0.3 H (0.0-0.0) /100 WBCS Sodium 135 L (137-145) mmol/L Potassium 3.0 L (3.5-5.1) mmol/L Carbon Dioxide 33 H (22-30) mmol/L BUN 18 H (7-17) mg/dL Glucose 196 H (74-99) mg/dL Calcium 8.3 L (8.4-10.2) mg/dL AST 39 H (14-36) U/L ALT 145 H (4-34) U/L Alkaline Phosphatase 614 H (38-126) U/L Total Protein 5.3 L (6.3-8.2) g/dL Albumin 2.6 L (3.5-5.0) g/dL Assessment and Plan Plan: Assessment: #1. Left-sided pleural effusion, possibly malignant unless proven otherwise, awaiting results of the cytology for the left pleural fluid effusion that was drained on 02/23/2022. Patient had a left-sided pigtail chest tube put in on 02/23/2022, so father 757 document old bloody effusion fluid in the left pleural #2. Status post thoracentesis with postoperative complications and bleeding into the pleural space #3. Metastatic adenocarcinoma carcinoma of the lungs, patient is on immunotherapy with Keytruda #4. Immunotherapy-induced hepatitis #5. Chronic A. fib, was on Ahlquist which is currently on hold related to pneumothorax #6. Blood loss anemia, acute, anticoagulation remains on hold, patient has required transfusion with 1 unit of packed red blood cells #7. History of breast cancer with previous lumpectomy and radiation therapy #8. History of chronic infection in December 2021 #9. Hypertension Plan: Continue encouraging deep breathing and coughing We'll hold on further diuretics Today's chest x-ray has been reviewed showing stable bilateral infiltrates and pleural effusion greater on the left Left-sided pigtail chest tube output is decreasing in amount, it is serosanguineous, with appearance of old blood Vital signs are stable Today's hemoglobin has been noted Prednisone dosing per medical oncology CT surgery is following in regards to left-sided pneumothorax Clinical patient stable, Increase activity as tolerated Once the chest tube output is less than 100 mL per hour, anticipate removal of the chest tube I have personally seen and examined the patient, performed the documentation and the assessment and plan as written. Number of minutes spent on the visit: [10] Time with Patient: Less than 30
--- NOTE | 2022-02-26 14:49 | P.PN ---
Subjective Progress Note Date: 02/26/22 Principal diagnosis: IO hepatitis. Hemothorax In follow-up today patient continues to deny bleeding. The chest tube cont to drain bloody fluid, reports breathing is stable, maybe a little better, she walker in the hallway, she is using incentive spirometry. Denies pain. Objective - Vital Signs Vital signs: Vital Signs Temp 97.5 F L 02/26/22 07:39 Pulse 88 02/26/22 11:25 Resp 17 02/26/22 08:00 BP 165/89 02/26/22 07:39 Pulse Ox 97 02/26/22 07:39 Intake & Output 02/25/22 02/26/22 02/26/22 18:59 06:59 18:59 Output Total 940 110 110 Balance -940 -110 -110 Output: Chest Tube Drainage 40 110 110 Chest Tube Left Lateral 40 110 110 Chest Urine 900 Other: Voiding Method Toilet # Voids 2 - Constitutional General appearance: Present: average body habitus, cooperative, no acute distres s - EENT Eyes: Present: anicteric sclerae, EOMI ENT: Present: hearing grossly normal - Respiratory Respiratory: right: other (absent breath sounds), left: CTA, rales (few scattered) - Cardiovascular Rhythm: regular - Peripheral edema leg Peripheral Edema: bilateral: None - Gastrointestinal General gastrointestinal: Present: normal bowel sounds, soft - Neurologic Neurologic: Present: CNII-XII intact - Musculoskeletal Musculoskeletal: Present: generalized weakness - Psychiatric Psychiatric: Present: A&O x's 3, appropriate affect, intact judgment & insight - Labs CBC & Chem 7: 02/26/22 04:25 02/26/22 04:25 Labs: Abnormal Lab Results - Last 24 Hours (Table) 02/26/22 02/26/22 Range/Units 04:25 04:25 WBC 16.61 H (4.50-10.00) X 10*3/uL RBC 2.33 L (4.10-5.20) X 10*6/uL Hgb 7.4 L (12.0-15.0) g/dL Hct 23.6 L (37.2-46.3) % MCV 101.3 H (80.0-97.0) fL MCHC 31.4 L (32.0-37.0) g/dL RDW 17.2 H (11.5-14.5) % Plt Count Comment DECREASED A MPV 13.7 H (9.5-12.2) fL Absolute Nucleated RBC 0.05 H (0.00-0.00) X 10*3/uL Immature Gran # 0.40 H (0.00-0.04) X 10*3/uL Neutrophils # 14.23 H (1.80-7.70) X 10*3/uL Lymphocytes # 0.56 L (0.90-5.00) X 10*3/uL Monocytes # 1.38 H (0.20-1.00) X 10*3/uL Eosinophils # 0 L (0.04-0.35) X 10*3/uL NRBC/100 WBC Diff 0.3 H (0.0-0.0) /100 WBCS Sodium 135 L (137-145) mmol/L Potassium 3.0 L (3.5-5.1) mmol/L Carbon Dioxide 33 H (22-30) mmol/L BUN 18 H (7-17) mg/dL Glucose 196 H (74-99) mg/dL Calcium 8.3 L (8.4-10.2) mg/dL AST 39 H (14-36) U/L ALT 145 H (4-34) U/L Alkaline Phosphatase 614 H (38-126) U/L Total Protein 5.3 L (6.3-8.2) g/dL Albumin 2.6 L (3.5-5.0) g/dL - Imaging and Cardiology Chest x-ray: report reviewed Assessment and Plan (1) Anemia Narrative/Plan: Patient's hemoglobin was normal on admit, likely secondary to hemoconcentration as patient's hemoglobin typically runs in the 8-9 range. She did require a transfusion which is new for her. Hemolysis workup was negative. Coags were normal. Hgb cont to be stable. Amt of bloody drainage in chest tube container is decreasing. Possibility that maybe a lung tumor has eroded into or regressed from a blood vessel in the lungs causing the hemothorax was discussed. Will cont to monitor CBC. Transfuse for Hgb <7. Current Visit: Yes Status: Acute Priority: High Code(s): D64.9 - ANEMIA, UNSPECIFIED SNOMED Code(s): 903328464 (2) Hepatitis Narrative/Plan: IO induced hepatitis, improving with steroid treatment. Liver enzymes have cont inued to decrease since admit and initiation of 90 mg of prednisone orally. Taper started today, will cont over the next 4 weeks. Current Visit: Yes Status: Acute Priority: High Code(s): K75.9 - INFLAMMATORY LIVER DISEASE, UNSPECIFIED SNOMED Code(s): 465771902 (3) Adenocarcinoma, lung Narrative/Plan: Pt is currently on maintenance pembrolizumab. F/U with Primary Onc before being considered for further IO treatment. Current Visit: No Status: Chronic Priority: Medium Code(s): C34.90 - MALIGNANT NEOPLASM OF UNSP PART OF UNSP BRONCHUS OR LUNG SNOMED Code(s): 741505248
--- NOTE | 2022-02-26 16:33 | P.PN ---
Progress Note - Text Progress Note Date: 02/26/22 Chief Complaint: Jaundice Hospital course Very pleasant 81 female, follows with Dr. Staton. 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 received radiation treatment to the lower spine. received chemotherapy. Also getting immunotherapy.. In December of this year admitted with atrial fibrillation Oncology history: pt of Dr. Balderas who has a Hx of ER/MS positive Her2 negative breast cancer 2016, s/p lumpectomy and SLND, adjuvant XRT and femara. She c/o lt sided rib pain in Jul 2021, CT chest revealed 6.6cm ELMER lung mass with rib invasion, biopsy positive for adenocarcinoma, staging PET revealed ELMER mass, L2 and rt adrenal met, PD-L1 neg. Liquid biopsy revealed KKEAP1 mutation, high TMB, NGS on tissues revealed POLE1 and ARIDA1 mutations,TMB 12.6, MADHU. She completed palliative XRT to left rib and L2. 10/07/2021 she started alimta/carbo platin/keytruda and completed 4 cycles on 12/09/2021. 12/05/21 repeat PET showed positive treatment response with diminished hypermetabolic uptake left midlung destructive neoplasm along with the prevascular adenopathy and right adrenal metastatic focus, however cannot exclude new near 1.0 cm hypermetabolic lymph node near the diaphragmatic hiatus. She continued on keytruda only as of 01/09/2022 and is s/p 2 cycles. She had routine lab work done and was found to have elevating LFTs, suspicious for immunotherapy hepatitis. She was asked to come to the office to be evaluated. Patient's appetite is good. No change in bowel pattern. No weight loss. Does feel tired though. Has noticed to be jaundiced. Significant itching.. Very strong clear urine. No fever no chills. Given significantly elevated LFTs being admitted. Admitted with immunotherapy induced hepatitis. Started on prednisone. February 20: Patient also to have home edema. Given IV Lasix. Worsening left pleural effusion. Ultrasound showing significant effusion. Pulmonary consulted. Oral intake fair. the bathroom. February 21: Patient had left-sided thoracentesis of 900 mL of turbid fluid obtained. Breathing a bit better. Oral intake fair. Remains in atrial flutter. February 22: Post thoracentesis yesterday patient became hypotensive bradycardic. Moved to the ICU. Lopressor was held. No pneumothorax noted. Blood pressure remains lower side. Diet. Eating fair. Patient's hemoglobin has dropped. Chest x-ray reviewed. February 23: Patient dropped hemoglobin to 6.6. I ordered a chest x-ray. Has air fluid level. Likely hemothorax. Spoke to Dr. Paredes. Pigtail catheter per interventional radiology. Patient also getting a midline because of poor IV access. Patient tired. Blood ordered February 24: Patient had a pigtail catheter placed by interventional radiology. Bloody output. Breathing stable. Eating fair. Pain control. Patient received a unit of blood yesterday. Chest x-ray: Left effusion February 25: Left chest wall pigtail catheter. Put noted. Breathing stable. Oral intake fair. LFTs been coming down. February 26: Left chest wall pigtail catheter output noted. Breathing stable. Ora l intake fair. Prednisone decreased to 70 mg. Discussed with patient. Active Medications Hydrocodone Bitart/Acetaminophen (Hydrocodone/Apap 10-325mg 1 Each Tab) 1 - 2 each PO Q4HR PRN PRN Reason: Pain Albuterol/Ipratropium (Ipratropium-Albuterol 3 Ml Neb) 3 ml INHALATION RT-QID [facility] Last Admin: 02/26/22 16:02 Dose: 3 ml Documented by: Albuterol/Ipratropium (Ipratropium-Albuterol 3 Ml Neb) 3 ml INHALATION RT-Q4H PRN PRN Reason: Shortness Of Breath Or Wheezing Diltiazem HCl (Diltiazem Cd 240 Mg Cap.Er.24h) 240 mg PO DAILY [facility] Last Admin: 02/26/22 09:10 Dose: 240 mg Documented by: Flecainide Acetate (Flecainide 50 Mg Tab) 50 mg PO Q12HR [facility] Last Admin: 02/26/22 09:11 Dose: 50 mg Documented by: Folic Acid (Folic Acid 1 Mg Tab) 1 mg PO DAILY [facility] Last Admin: 02/26/22 09:08 Dose: 1 mg Documented by: Magnesium Oxide (Magnesium Oxide 400 Mg Tab) 200 mg PO BID [facility] Last Admin: 02/26/22 09:08 Dose: 200 mg Documented by: Metoprolol Tartrate (Metoprolol Tartrate 12.5 Mg Tab) 12.5 mg PO TID [facility] Last Admin: 02/26/22 09:07 Dose: 12.5 mg Documented by: Miscellaneous Information (Potassium Replacement Protocol 1 Each Misc) 1 each MISCELLANE DAILY PRN; Protocol PRN Reason: Per Protocol Miscellaneous Information (Magnesium Replacement Protocol 1 Each Misc) 1 each MISCELLANE DAILY PRN; Protocol PRN Reason: Per Protocol Olanzapine (Olanzapine 5 Mg Tab) 5 mg PO HS [facility] Last Admin: 02/25/22 20:30 Dose: 5 mg Documented by: Ondansetron HCl (Ondansetron Odt 4 Mg Tab) 4 mg PO Q6H PRN PRN Reason: Nausea Pantoprazole Sodium (Pantoprazole 40 Mg Tablet) 40 mg PO AC-BID [facility] Last Admin: 02/26/22 09:08 Dose: 40 mg Documented by: Prednisone (Prednisone 20 Mg Tab) 70 mg PO DAILY [facility]; Taper Stop: 03/26/22 08:59 Last Admin: 02/26/22 09:05 Dose: 70 mg Documented by: Past medical history to include: breast cancer diagnosed in 1993 with recurrence in 2017. 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 Atrial fibrillation, Social history: Patient smoked for 30 years stopping at age of 44. 2 packs a day. Lives alone. Family history: Diabetes, hypertension, prostate cancer Physical examination: VITAL SIGNS: 97.9, 88, 19, 125-74, 96% on nasal cannula GENERAL: Reclining in bed, tired EYES: Pupils equal. Conjunctiva yellow HEENT: External appearance of nose and ears normal, oral cavity grossly normal. NECK: JVD not raised; masses not palpable. HEART: First and second heart sounds are normal; no edema. LUNGS: Respiratory rate increased; decreased breath sound on the left side. Left-sided pigtail catheter ABDOMEN: Soft, nontender, liver spleen not palpable, no masses palpable. PSYCH: Alert and oriented x3; mood and affect normal. MUSCULOSKELETAL:No Clubbing/cyanosis;muscles-grossly intact. Evidence of OA especially in the hands INVESTIGATIONS, reviewed in the clinical context: BUN 18 creatinine 0.61 total bilirubin 1 AST 39 ALT 145 alkaline phosphatase 614 February 25: White count 18.1 hemoglobin 8.4 platelets 211 potassium 3.9 creatinine 0.7 bilirubin 1 AST 43 ALT 213 Acute hepatitis screen: Negative Chest x-ray film personally reviewed by me: Left pleural effusion. Increased compared to previous x-ray. EKG tracing personally reviewed by me: Atrial flutter. Rate controlled Liver ultrasound: Tiny right hepatic lobe cyst. White count 7.9 hemoglobin 12.4 platelets 215 pressure 4 creatinine 0.6 Total bilirubin 2.8 AST 5.2 ALT 6.3 alkaline phosphatase 1767 Yesterday labs: AST 644 ALT 808 alkaline phosphatase 2285 Assessment and plan: -Obstructive hepatitis pattern. no abdominal pain. No systemic symptoms. likely secondary to immunotherapy. : Improving Negative acute hepatitis panel. Hold Lipitor. Prednisone 70 mg. - hypotension from hemothorax: Improved Follow blood pressure -Acute blood loss anemia secondary to hemothorax Received 1 unit of blood -Iatrogenic hemothorax following thoracentesis : Slow to respond pigtail catheter in place. Follow with cardiothoracic surgery. -Persistent atrial fibrillation rate controlled Lopressor held. Cardizem CD 180 mg a day Eliquis-held. Flecainide 50 mg every 12 -Stage IV Metastatic adenocarcinoma of the lung. Has been receiving immunotherapy.. Follow with oncology -Essential Hypertension, . Cardizem CD 180 mg a day. Lopressor 12.5 mg by mouth 3 times a day -Large left pleural effusion likely metastatic/malignant effusion: thoracentesis on February 21 of [address] Welch. -GERD Protonix -Osteopenia -Deafness in the left ear -DO NOT RESUSCITATE -Mild cognitive impairment -Leukocytosis is due to steroids -Hypotension from likely hemorrhage from thoracentesis: Better Follow blood pressure closely. Follow H&H. Decrease prednisone to 70 mg. Pigtail catheter with bloody output.. Telemetry. Follow with pulmonary. Follow with cardiothoracic surgery.
[2022-02-26] MEDS: OLANZapine 5 MG TAB PO SCH (20:28)
[2022-02-27] MEDS: IPRATROPIUM-ALBUTEROL 3 ML NEB INHALATION SCH ×4 (07:23→19:12)
--- NOTE | 2022-02-27 08:21 | XR ---
EXAMINATION TYPE: XR chest 1V portable DATE OF EXAM: 02/27/2022 COMPARISON: 02/26/2022 HISTORY: Hemothorax TECHNIQUE: Single frontal view of the chest is obtained. FINDINGS: Bilateral consolidation and small effusion. There is interstitial pattern. Atherosclerotic change aorta. Left-sided chest tube seen. No sizable pneumothorax. Heart is enlarged. Vascular calci fications noted. Surgical clips are seen overlying the right breast. IMPRESSION: Stable bilateral infiltrate and pleural effusion greater on the left.
[2022-02-27] MEDS: METOPROLOL TARTRATE 12.5 MG TAB PO SCH ×3 (08:51→20:55)
[2022-02-27] MEDS: DILTIAZEM CD 240 MG CAP.ER.24H PO SCH (08:51)
[2022-02-27] MEDS: FLECAINIDE 50 MG TAB PO SCH ×2 (08:51→20:56)
[2022-02-27] MEDS: FOLIC ACID 1 MG TAB PO SCH (08:51)
[2022-02-27] MEDS: PANTOPRAZOLE 40 MG TABLET PO SCH ×2 (08:51→17:54)
[2022-02-27] MEDS: predniSONE 20 MG TAB PO SCH (08:52)
[2022-02-27] MEDS: MAGNESIUM OXIDE 400 MG TAB PO SCH ×2 (08:52→20:55)
--- NOTE | 2022-02-27 09:23 | P.PN ---
Subjective Progress Note Date: 02/27/22 Principal diagnosis: Elevated LFTs, questionable immunotherapy hepatitis, left-sided pleural effusion status post thoracentesis with subsequent ex-vacuo pneumothorax, subsequent he mothorax status post pigtail catheter placement by interventional radiology, acute blood loss anemia. 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 Denies pain, states shortness of breath is about the same. Has been up to ambulate to and from the bathroom without difficulty. Left sided pigtail catheter remains draining bloody drainage, 75 mL overnight, 100 mL in the last 24 hours. Remains on 3 L nasal cannula with oxygen saturation 100%, still only able to achieve 500 mL on her incentive spirometry. No other new concerns. Objective - Vital Signs Vital signs: Vital Signs Temp 97.7 F 02/27/22 07:50 Pulse 87 02/27/22 08:00 Resp 17 02/27/22 08:00 BP 156/83 02/27/22 07:50 Pulse Ox 100 02/27/22 07:50 Intake & Output 02/26/22 02/27/22 02/27/22 18:59 06:59 18:59 Output Total 175 100 Balance -175 -100 Output: Chest Tube Drainage 175 100 Chest Tube Left Lateral 175 100 Chest Other: Voiding Method Toilet Toilet Toilet # Voids 4 2 1 - Exam CONSTITUTIONAL: Appears comfortable, cooperative, no acute distress RESPIRATORY: Lungs sounds diminished bilaterally, left greater than right. Respirations even, nonlabored. Currently on 3 LPM NC with oxygen saturation 100%. CARDIOVASCULAR: S1, S2 present. Irregular rate and rhythm, controlled atrial fibrillation on telemetry. Palpable peripheral pulses bilaterally. No edema present. GASTROINTESTINAL: Abdomen soft, nontender, nondistended. Active bowel sounds present 4 quadrants. Tolerating diet. Positive bowel movement 02/24/22 GENITOURINARY: Continues to void INTEGUMENTARY: Skin is warm and dry with evidence of good perfusion NEUROLOGIC: Cranial nerves II through XII intact MUSKULOSKELETAL: Able to move all extremities, strength equal bilaterally, gait normal PSYCHIATRIC: Alert and oriented to person place and time, appropriate affect, intact judgment and insight INVASIVE LINES AND TUBES: Left sided pigtail catheter present and connected to continuous wall suction, no air leak present, 75 mL bloody drainage overnight, 100 mL in the last 24 hours - Allied health notes Allied health notes reviewed: nursing - Labs CBC & Chem 7: 02/26/22 04:25 02/26/22 04:25 Labs: Abnormal Lab Results - Last 24 Hours (Table) 02/26/22 Range/Units 04:25 WBC 16.61 H (4.50-10.00) X 10*3/uL RBC 2.33 L (4.10-5.20) X 10*6/uL Hgb 7.4 L (12.0-15.0) g/dL Hct 23.6 L (37.2-46.3) % MCV 101.3 H (80.0-97.0) fL MCHC 31.4 L (32.0-37.0) g/dL RDW 17.2 H (11.5-14.5) % Plt Count Comment DECREASED A MPV 13.7 H (9.5-12.2) fL Absolute Nucleated RBC 0.05 H (0.00-0.00) X 10*3/uL Immature Gran # 0.40 H (0.00-0.04) X 10*3/uL Neutrophils # 14.23 H (1.80-7.70) X 10*3/uL Lymphocytes # 0.56 L (0.90-5.00) X 10*3/uL Monocytes # 1.38 H (0.20-1.00) X 10*3/uL Eosinophils # 0 L (0.04-0.35) X 10*3/uL NRBC/100 WBC Diff 0.3 H (0.0-0.0) /100 WBCS - Imaging and Cardiology Chest x-ray: report reviewed, image reviewed Assessment and Plan Assessment: 1. Elevated LFTs 2. Left-sided pleural effusion status post thoracentesis with subsequent ex- vacuo pneumothorax, subsequent hemothorax status post pigtail catheter placement by interventional radiology 3. Acute blood loss anemia, status post transfusion 4. Metastatic lung cancer with lesion in the spine and brain, status post radiation/chemo/immunotherapy 5. History of breast cancer diagnosed in 1991 6. Chronic atrial fibrillation on Eliquis for anticoagulation, currently on hold 7. History of hypertension 8. Hyperlipidemia 9. Syncope 10. TB in 1974 status post left lobectomy 11. Covid in December 2021 12. Previous tobacco dependence 13. Hearing deficiency Plan: 1. No surgical intervention warranted. Pigtail catheter to be removed by IR whenever OK with pulmonology 3. Wean oxygen as tolerated. Encourage use of incentive spirometry 10 times every hour while awake. 4. Continue to follow daily labs and chest x-ray. 5. Cancer management per oncology, medical management of other comorbidities per primary service 6. Will sign off, please call us with any further questions
[2022-02-27] MEDS ORDERED: FUROSEMIDE 10 MG/ML 4 ML VIAL IV STA (09:49)
--- NOTE | 2022-02-27 10:36 | P.PN ---
Subjective Progress Note Date: 02/27/22 Principal diagnosis: Left-sided pleural effusion The patient is seen today 02/27/2022 in follow-up on the regular medical floor. She is resting quite comfortably in bed. Awake and alert in no acute distress. She is maintaining good O2 saturations up to 100% on 3 L/m per nasal cannula. Chest x-ray reveals stable bilateral infiltrates and pleural effusion greater on the left. No evidence of pneumothorax. Pigtail catheter remains in place. She had approximately 75 mL of fluid out in the past 8 hours. She is pulling about 500 ML's on the incentive spirometer. No new labs today. She is continued on DuoNeb inhalations, oral prednisone. Objective - Vital Signs Vital signs: Vital Signs Temp 97.7 F 02/27/22 07:50 Pulse 87 02/27/22 08:00 Resp 17 02/27/22 08:00 BP 156/83 02/27/22 07:50 Pulse Ox 100 02/27/22 07:50 Intake & Output 02/26/22 02/27/22 02/27/22 18:59 06:59 18:59 Output Total 175 100 Balance -175 -100 Weight 62.2 kg Output: Chest Tube Drainage 175 100 Chest Tube Left Lateral 175 100 Chest Other: Voiding Method Toilet Toilet Toilet # Voids 4 2 1 - Exam GENERAL EXAM: Alert, very pleasant 81-year-old female patient, on 3 L nasal cannula, oxygen saturation at 100%, comfortable in no apparent distress. HEAD: Normocephalic. EYES: Normal reaction of pupils, equal size. NOSE: Clear with pink turbinates. THROAT: No erythema or exudates. NECK: No masses, no JVD. CHEST: No chest wall deformity. Sided pigtail catheter secured in place connected to Pleur-evac LUNGS: Equal air entry with crackles in the left base. CVS: S1 and S2 normal with no audible murmur, regular rhythm. ABDOMEN: No hepatosplenomegaly, normal bowel sounds, no guarding or rigidity. SPINE: No scoliosis or deformity SKIN: No rashes CENTRAL NERVOUS SYSTEM: No focal deficits, tone is normal in all 4 extremities. EXTREMITIES: There is no peripheral edema. No clubbing, no cyanosis. Peripheral pulses are intact. - Labs CBC & Chem 7: 02/26/22 04:25 02/26/22 04:25 Labs: Abnormal Lab Results - Last 24 Hours (Table) 02/26/22 Range/Units 04:25 WBC 16.61 H (4.50-10.00) X 10*3/uL RBC 2.33 L (4.10-5.20) X 10*6/uL Hgb 7.4 L (12.0-15.0) g/dL Hct 23.6 L (37.2-46.3) % MCV 101.3 H (80.0-97.0) fL MCHC 31.4 L (32.0-37.0) g/dL RDW 17.2 H (11.5-14.5) % Plt Count Comment DECREASED A MPV 13.7 H (9.5-12.2) fL Absolute Nucleated RBC 0.05 H (0.00-0.00) X 10*3/uL Immature Gran # 0.40 H (0.00-0.04) X 10*3/uL Neutrophils # 14.23 H (1.80-7.70) X 10*3/uL Lymphocytes # 0.56 L (0.90-5.00) X 10*3/uL Monocytes # 1.38 H (0.20-1.00) X 10*3/uL Eosinophils # 0 L (0.04-0.35) X 10*3/uL NRBC/100 WBC Diff 0.3 H (0.0-0.0) /100 WBCS Assessment and Plan Assessment: 1 Left-sided pleural effusion, cytology negative of the left pleural fluid effusion that was drained on 02/23/2022. Patient had a left-sided pigtail chest tube put in on 02/23/2022, plan is to have it discontinued today 02/27/2022 2 Status post thoracentesis with postoperative complications and bleeding into the pleural space 3 Metastatic adenocarcinoma carcinoma of the lungs, patient is on immunotherapy with Keytruda 4 Immunotherapy-induced hepatitis 5 Chronic A. fib, was on Ahlquist which is currently on hold related to pneumothorax 6 Blood loss anemia, acute, anticoagulation remains on hold, patient has required transfusion with 1 unit of packed red blood cells 7 History of breast cancer with previous lumpectomy and radiation therapy 8 History of chronic infection in December 2021 9 Hypertension Plan: The patient was seen and evaluated Chest x-ray reviewed Chest tube output noted Plan is for IR to remove the pigtail catheter today Cleared for discharge from the pulmonary standpoint Evaluate for possible home oxygen Follow-up closely in our office in 1 week I have personally seen and examined the patient, performed the documentation and the assessment and plan as written. Number of minutes spent on the visit: 10.
[2022-02-27 12:36] LABS: Anisocytosis Slight; Basophils % (A) 0 %; Eosinophils % (A) 0 %; HCT 28.3 % (34.0-46.0); HGB 8.8 gm/dL (11.4-16.0); Hypochromasia Marked; Lymphocytes # (A) 0.6 k/uL (1.0-4.8); Lymphocytes % (A) 5 %; MCH 32.7 pg (25.0-35.0); MCHC 31.2 g/dL (31.0-37.0); MCV 104.8 fL (80.0-100.0); Macrocytosis Moderate; Mean Platelet Volume 9.7; Monocytes # (A) 0.5 k/uL (0-1.0); Monocytes % (A) 4 %; Neutrophils # (A) 12.3 k/uL (1.3-7.7); Neutrophils % (A) 90 %; Platelet Count 237 k/uL (150-450); RDW 16.6 % (11.5-15.5); WBC 13.7 k/uL (3.8-10.6)
[2022-02-27 12:54] LABS: ALT 135 U/L (4-34); AST 46 U/L (14-36); African American GFR (CKD) >90 (>60 ml/min/1.73 sqM); Albumin 3.1 g/dL (3.5-5.0); Alkaline Phosphatase 648 U/L (38-126); Anion Gap 7 mmol/L; Blood Urea Nitrogen 19 mg/dL (7-17); Calcium 8.9 mg/dL (8.4-10.2); Carbon Dioxide 31 mmol/L (22-30); Chloride 95 mmol/L (98-107); Globulin 3.1 g/dL; Glucose 118 mg/dL (74-99); Magnesium 1.5 mg/dL (1.6-2.3); Non-African American GFR(CKD) 89 (>60 ml/min/1.73 sqM); Potassium 4.3 mmol/L (3.5-5.1); Sodium 133 mmol/L (137-145); Total Bilirubin 1.2 mg/dL (0.2-1.3); Total Protein 6.2 g/dL (6.3-8.2)
--- NOTE | 2022-02-27 17:30 | P.PN ---
Progress Note - Text Progress Note Date: 02/27/22 Hospital course Very pleasant 81 female, follows with Dr. Staton. with a known history of malini st cancer diagnosed in 1993 and recurrence in 2016, metastatic lung cancer, osteopenia, deafness in the left ear, hypertension, hyperlipidemia, GERD and previous history of smoking has metastatic lesions in the lumbar spine , brain. received radiation treatment to the lower spine. received chemotherapy. Also getting immunotherapy.. In December of this year admitted with atrial fibrillation Oncology history: pt of Dr. Balderas who has a Hx of ER/FL positive Her2 negative breast cancer 2016, s/p lumpectomy and SLND, adjuvant XRT and femara. She c/o lt sided rib pain in Jul 2021, CT chest revealed 6.6cm ELMER lung mass with rib invasion, biopsy positive for adenocarcinoma, staging PET revealed ELMER mass, L2 and rt adrenal met, PD-L1 neg. Liquid biopsy revealed KKEAP1 mutation, high TMB, NGS on tissues revealed POLE1 and ARIDA1 mutations,TMB 12.6, MADHU. She completed palliative XRT to left rib and L2. 10/07/2021 she started alimta/carboplatin/keytruda and completed 4 cycles on 12/09/2021. 12/05/21 repeat PET showed positive treatment response with diminished hypermetabolic uptake left midlung destructive neoplasm along with the prevascular adenopathy and right adrenal metastatic focus, however cannot exclude new near 1.0 cm hypermetabolic lymph node near the diaphragmatic hiatus. She continued on keytruda only as of 01/09/2022 and is s/p 2 cycles. She had routine lab work done and was found to have elevating LFTs, suspicious for immunotherapy hepatitis. She was asked to come to the office to be evaluated. Patient's appetite is good. No change in bowel pattern. No weight loss. Does feel tired though. Has noticed to be jaundiced. Significant itching.. Very strong clear urine. No fever no chills. Given significantly elevated LFTs being admitted. Admitted with immunotherapy induced hepatitis. Started on prednisone. February 20: Patient also to have home edema. Given IV Lasix. Worsening left pleural effusion. Ultrasound showing significant effusion. Pulmonary consulted. Oral intake fair. the bathroom. February 21: Patient had left-sided thoracentesis of 900 mL of turbid fluid obtained. Breathing a bit better. Oral intake fair. Remains in atrial flu tter. February 22: Post thoracentesis yesterday patient became hypotensive bradycardic. Moved to the ICU. Lopressor was held. No pneumothorax noted. Blood pressure remains lower side. Diet. Eating fair. Patient's hemoglobin has dropped. Chest x-ray reviewed. February 23: Patient dropped hemoglobin to 6.6. I ordered a chest x-ray. Has air fluid level. Likely hemothorax. Spoke to Dr. Paredes. Pigtail catheter per interventional radiology. Patient also getting a midline because of poor IV access. Patient tired. Blood ordered February 24: Patient had a pigtail catheter placed by interventional radiology. Bloody output. Breathing stable. Eating fair. Pain control. Patient received a unit of blood yesterday. Chest x-ray: Left effusion February 25: Left chest wall pigtail catheter. Put noted. Breathing stable. Oral intake fair. LFTs been coming down. February 26: Left chest wall pigtail catheter output noted. Breathing stable. Oral intake fair. Prednisone decreased to 70 mg. Discussed with patient. February 27: Reclining in bed. Left chest wall pigtail catheter in place. No air leak. We will decrease prednisone to 60 mg tomorrow. 275 mL of bloody drainage 24 hours overnight. Eating fair. Breathing stable.. Active Medications Hydrocodone Bitart/Acetaminophen (Hydrocodone/Apap 10-325mg 1 Each Tab) 1 - 2 each PO Q4HR PRN PRN Reason: Pain Albuterol/Ipratropium (Ipratropium-Albuterol 3 Ml Neb) 3 ml INHALATION RT-QID [facility] Last Admin: 02/27/22 16:24 Dose: 3 ml Documented by: Albuterol/Ipratropium (Ipratropium-Albuterol 3 Ml Neb) 3 ml INHALATION RT-Q4H PRN PRN Reason: Shortness Of Breath Or Wheezing Diltiazem HCl (Diltiazem Cd 240 Mg Cap.Er.24h) 240 mg PO DAILY [facility] Last Admin: 02/27/22 08:51 Dose: 240 mg Documented by: Flecainide Acetate (Flecainide 50 Mg Tab) 50 mg PO Q12HR [facility] Last Admin: 02/27/22 08:51 Dose: 50 mg Documented by: Folic Acid (Folic Acid 1 Mg Tab) 1 mg PO DAILY [facility] Last Admin: 02/27/22 08:51 Dose: 1 mg Documented by: Magnesium Oxide (Magnesium Oxide 400 Mg Tab) 200 mg PO BID [facility] Last Admin: 02/27/22 08:52 Dose: 200 mg Documented by: Metoprolol Tartrate (Metoprolol Tartrate 12.5 Mg Tab) 12.5 mg PO TID [facility] Last Admin: 02/27/22 08:51 Dose: 12.5 mg Documented by: Miscellaneous Information (Potassium Replacement Protocol 1 Each Misc) 1 each MISCELLANE DAILY PRN; Protocol PRN Reason: Per Protocol Miscellaneous Information (Magnesium Replacement Protocol 1 Each Misc) 1 each MISCELLANE DAILY PRN; Protocol PRN Reason: Per Protocol Olanzapine (Olanzapine 5 Mg Tab) 5 mg PO HS [facility] Last Admin: 02/26/22 20:28 Dose: 5 mg Documented by: Ondansetron HCl (Ondansetron Odt 4 Mg Tab) 4 mg PO Q6H PRN PRN Reason: Nausea Pantoprazole Sodium (Pantoprazole 40 Mg Tablet) 40 mg PO AC-BID [facility] Last Admin: 02/27/22 08:51 Dose: 40 mg Documented by: Prednisone (Prednisone 20 Mg Tab) 70 mg PO DAILY [facility]; Taper Stop: 03/26/22 08:59 Last Admin: 02/27/22 08:52 Dose: 70 mg Documented by: Past medical history to include: breast cancer diagnosed in 1993 with recurrence in 2017. 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 Atrial fibrillation, Social history: Patient smoked for 30 years stopping at age of 44. 2 packs a day. Lives alone. Family history: Diabetes, hypertension, prostate cancer Physical examination: VITAL SIGNS: 98, 84, 18, 129/84, 98% on 3 L GENERAL: Reclining in bed, tired EYES: Pupils equal. Conjunctiva yellow HEENT: External appearance of nose and ears normal, oral cavity grossly normal. NECK: JVD not raised; masses not palpable. HEART: First and second heart sounds are normal; no edema. LUNGS: Respiratory rate increased; decreased breath sound on the left side. Left-sided pigtail catheter ABDOMEN: Soft, nontender, liver spleen not palpable, no masses palpable. PSYCH: Alert and oriented x3; mood and affect normal. MUSCULOSKELETAL:No Clubbing/cyanosis;muscles-grossly intact. Evidence of OA especially in the hands INVESTIGATIONS, reviewed in the clinical context: February 27: White count 13.7 hemoglobin 8.8 platelets 237 sodium 133 potassium 4.3 total bilirubin 1.2 AST 46 ALT 135 February 25: White count 18.1 hemoglobin 8.4 platelets 211 potassium 3.9 creatinine 0.7 bilirubin 1 AST 43 ALT 213 Acute hepatitis screen: Negative Chest x-ray film personally reviewed by me: Left pleural effusion. Increased compared to previous x-ray. EKG tracing personally reviewed by me: Atrial flutter. Rate controlled Liver ultrasound: Tiny right hepatic lobe cyst. White count 7.9 hemoglobin 12.4 platelets 215 pressure 4 creatinine 0.6 Total bilirubin 2.8 AST 5.2 ALT 6.3 alkaline phosphatase 1767 Yesterday labs: AST 644 ALT 808 alkaline phosphatase 2285 Assessment and plan: -Obstructive hepatitis pattern. no abdominal pain. No systemic symptoms. likely secondary to immunotherapy. : Improving Negative acute hepatitis panel. Hold Lipitor. Prednisone 70 mg. - hypotension from hemothorax: Improved Follow blood pressure -Acute blood loss anemia secondary to hemothorax Received 1 unit of blood -Iatrogenic hemothorax following thoracentesis : Slow to respond pigtail catheter in place. Follow with cardiothoracic surgery. -Persistent atrial fibrillation rate controlled Lopressor held. Cardizem CD 180 mg a day Eliquis-held. Flecainide 50 mg every 12 -Stage IV Metastatic adenocarcinoma of the lung. Has been receiving immunotherapy.. Follow with oncology -Essential Hypertension, Cardizem CD 180 mg a day. Lopressor 12.5 mg by mouth 3 times a day -Large left pleural effusion-metastatic/malignant effusion: thoracentesis on February 21 of [address] Welch. -GERD Protonix -Osteopenia -Deafness in the left ear -DO NOT RESUSCITATE -Mild cognitive impairment -Leukocytosis is due to steroids -Hypotension from likely hemorrhage from thoracentesis: Better Follow blood pressure closely. Follow H&H. Decrease prednisone to 60 mg. Pigtail catheter with bloody output.. Telemetry. Follow with pulmonary. and cardiothoracic surgery. Discussed with patient.
--- NOTE | 2022-02-27 18:28 | P.PN ---
Subjective Progress Note Date: 02/27/22 Principal diagnosis: immune therapy related hepatits recheck cbc and cmp today Chest tube removed Objective - Vital Signs Vital signs: Vital Signs Temp 97.7 F 02/27/22 07:50 Pulse 87 02/27/22 08:00 Resp 17 02/27/22 08:00 BP 156/83 02/27/22 07:50 Pulse Ox 100 02/27/22 07:50 Intake & Output 02/26/22 02/27/22 02/27/22 18:59 06:59 18:59 Output Total 175 100 Balance -175 -100 Weight 62.2 kg Output: Chest Tube Drainage 175 100 Chest Tube Left Lateral 175 100 Chest Other: Voiding Method Toilet Toilet Toilet # Voids 4 2 1 - Exam - Constitutional General appearance: Present: average body habitus, cooperative, no acute distress - EENT Eyes: Present: anicteric sclerae, EOMI ENT: Present: hearing grossly normal - Respiratory Respiratory: right: other (absent breath sounds), left: CTA, rales (few scattered) - Cardiovascular Rhythm: regular - Peripheral edema leg Peripheral Edema: bilateral: None - Gastrointestinal General gastrointestinal: Present: normal bowel sounds, soft - Neurologic Neurologic: Present: CNII-XII intact - Musculoskeletal Musculoskeletal: Present: generalized weakness - Psychiatric Psychiatric: Present: A&O x's 3, appropriate affect, intact judgment & insight - Labs CBC & Chem 7: 02/27/22 12:02 02/27/22 12:02 Assessment and Plan Plan: Assessment and Plan (1) Immune Related Hepatitis Narrative/Plan: 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 Reviewed US liver Current Visit: Yes Status: Acute Priority: High Code(s): K75.9 - INFLAMMATORY LIVER DISEASE, UNSPECIFIED SNOMED Code(s): 039993240 (2) Adenocarcinoma, lung Narrative/Plan: Pt is currently on maintenance pembrolizumab. Based on response of the IO hepatitis she may or may not be able to receive immunotherapy in the future. Will see how she does Current Visit: No Status: Chronic Priority: Medium Code(s): C34.90 - MALIGNANT NEOPLASM OF UNSP PART OF UNSP BRONCHUS OR LUNG SNOMED Code(s): 288108787 (3) Hypokalemia: Recheck Potassium and Mag today Anemia Narrative/Plan: Patient's hemoglobin was normal on admit, likely secondary to hemoconcentration as patient's hemoglobin typically runs in the 8-9 range. She did require a transfusion which is new for her. Hemolysis workup was negative. Coags were normal. Hgb cont to be stable. Is felt that Possibility that maybe a lung tumor has eroded into or regressed from a blood vessel in the lungs causing the hemothorax was discussed. Will cont to monitor CBC. Transfuse for Hgb <7. CBC today an in am Chest tube has been removed Current Visit: Yes Status: Acute Priority: High Code(s): D64.9 - ANEMIA, UNSPECIFIED SNOMED Code(s): 171208532 Plan: Doctor attests: I performed a history and physical examination of this patient, developed impression and plan of care. Discussed with dictator. I agree with dictators note, documented as a scribe.
[2022-02-27] MEDS: OLANZapine 5 MG TAB PO SCH (20:55)
[2022-02-28 04:42] LABS: Anisocytosis Slight; Basophils % (A) 0 %; Eosinophils % (A) 0 %; HCT 26.1 % (34.0-46.0); HGB 8.2 gm/dL (11.4-16.0); Hypochromasia Slight; Lymphocytes # (A) 0.8 k/uL (1.0-4.8); Lymphocytes % (A) 5 %; MCH 32.1 pg (25.0-35.0); MCHC 31.3 g/dL (31.0-37.0); MCV 102.3 fL (80.0-100.0); Macrocytosis Moderate; Mean Platelet Volume 9.7; Monocytes # (A) 0.6 k/uL (0-1.0); Monocytes % (A) 4 %; Neutrophils # (A) 13.4 k/uL (1.3-7.7); Neutrophils % (A) 90 %; Platelet Count 234 k/uL (150-450); RBC 2.55 m/uL (3.80-5.40); RDW 16.8 % (11.5-15.5); WBC 14.9 k/uL (3.8-10.6)
[2022-02-28 05:01] VITALS: RESP 18
[2022-02-28] MEDS: IPRATROPIUM-ALBUTEROL 3 ML NEB INHALATION SCH ×3 (07:11→15:10)
[2022-02-28] MEDS: METOPROLOL TARTRATE 12.5 MG TAB PO SCH (07:49)
[2022-02-28] MEDS: MAGNESIUM OXIDE 400 MG TAB PO SCH (07:49)
[2022-02-28] MEDS: FOLIC ACID 1 MG TAB PO SCH (07:49)
[2022-02-28] MEDS: FLECAINIDE 50 MG TAB PO SCH (07:49)
[2022-02-28] MEDS: PANTOPRAZOLE 40 MG TABLET PO SCH (07:49)
[2022-02-28] MEDS: DILTIAZEM CD 240 MG CAP.ER.24H PO SCH (07:50)
[2022-02-28 09:00] LABS: Magnesium 1.6 mg/dL (1.5-2.4)
[2022-02-28] MEDS ORDERED: predniSONE 20 MG TAB PO SCH (09:00)
[2022-02-28 09:15] LABS: African American GFR (CKD) 106.7 (60.0-200.0); Albumin 2.9 g/dL (3.8-4.9); Albumin/Globulin Ratio 1.21 (1.60-3.17); Anion Gap 7.3 mmol/L (10.00-18.00); BUN/Creat Ratio 33.4 Ratio (12.00-20.00); Blood Urea Nitrogen 16.7 mg/dL (9.0-27.0); Calcium 8.9 mg/dL (8.7-10.3); Carbon Dioxide 33.7 mmol/L (20.0-27.5); Globulin 2.4 g/dL (1.6-3.3); Non-African American GFR(CKD) 92.1 (60.0-200.0); Potassium 3.9 mmol/L (3.5-5.5); Total Bilirubin 0.7 mg/dL (0.30-1.20); Total Protein 5.3 g/dL (6.2-8.2)
--- NOTE | 2022-02-28 10:50 | P.PN ---
Subjective Progress Note Date: 02/28/22 Principal diagnosis: Left-sided pleural effusion The patient is seen today 02/27/2022 in follow-up on the regular medical floor. She is resting quite comfortably in bed. Awake and alert in no acute distress. She is maintaining good O2 saturations up to 100% on 3 L/m per nasal cannula. Chest x-ray reveals stable bilateral infiltrates and pleural effusion greater on the left. No evidence of pneumothorax. Pigtail catheter remains in place. She had approximately 75 mL of fluid out in the past 8 hours. She is pulling about 500 ML's on the incentive spirometer. No new labs today. She is continued on DuoNeb inhalations, oral prednisone. The patient is seen today 02/28/2022 in follow-up on the regular medical floor. She is currently sitting up at the bedside. Awake and alert in no acute distress. Maintaining O2 saturations in the high 90s on 2 L/m per nasal can nula. She's been afebrile. Hemodynamically stable. Denies any worsening shortness of breath, cough or congestion. Pigtail catheter has been removed. Continued on DuoNeb inhalations and oral prednisone. Objective - Vital Signs Vital signs: Vital Signs Temp 98 F 02/28/22 07:24 Pulse 97 02/28/22 07:51 Resp 18 02/28/22 07:51 BP 148/86 02/28/22 07:24 Pulse Ox 96 02/28/22 07:24 Intake & Output 02/27/22 02/28/22 02/28/22 18:59 06:59 18:59 Intake Total 1080 Balance 1080 Weight 62.2 kg Intake: Oral 1080 Other: Voiding Method Toilet Toilet # Voids 6 1 # Bowel Movements 2 - Exam GENERAL EXAM: Alert, very pleasant 81-year-old female patient, on 2 L nasal cannula, oxygen saturation at 96%, comfortable in no apparent distress. HEAD: Normocephalic. EYES: Normal reaction of pupils, equal size. NOSE: Clear with pink turbinates. THROAT: No erythema or exudates. NECK: No masses, no JVD. CHEST: No chest wall deformity. LUNGS: Equal air entry with crackles in the left base. CVS: S1 and S2 normal with no audible murmur, regular rhythm. ABDOMEN: No hepatosplenomegaly, normal bowel sounds, no guarding or rigidity. SPINE: No scoliosis or deformity SKIN: No rashes CENTRAL NERVOUS SYSTEM: No focal deficits, tone is normal in all 4 extremities. EXTREMITIES: There is no peripheral edema. No clubbing, no cyanosis. Peripher al pulses are intact. - Labs CBC & Chem 7: 02/28/22 03:48 02/28/22 03:48 Labs: Abnormal Lab Results - Last 24 Hours (Table) 02/27/22 02/27/22 02/28/22 Range/Units 12:02 12:02 03:48 WBC 13.7 H 14.9 H (3.8-10.6) k/uL RBC 2.70 L 2.55 L (3.80-5.40) m/uL Hgb 8.8 L 8.2 L (11.4-16.0) gm/dL Hct 28.3 L 26.1 L (34.0-46.0) % MCV 104.8 H 102.3 H (80.0-100.0) fL RDW 16.6 H 16.8 H (11.5-15.5) % Neutrophils # 12.3 H 13.4 H (1.3-7.7) k/uL Lymphocytes # 0.6 L 0.8 L (1.0-4.8) k/uL Sodium 133 L (137-145) mmol/L Chloride 95 L (98-107) mmol/L Carbon Dioxide 31 H (22-30) mmol/L Anion Gap (10.00-18.00) mmol/L BUN 19 H (7-17) mg/dL Creatinine (0.6-1.5) mg/dL BUN/Creatinine Ratio (12.00-20.00) Ratio Glucose 118 H (74-99) mg/dL Magnesium 1.5 L (1.6-2.3) mg/dL AST 46 H (14-36) U/L ALT 135 H (4-34) U/L Alkaline Phosphatase 648 H (38-126) U/L Total Protein 6.2 L (6.3-8.2) g/dL Albumin 3.1 L (3.5-5.0) g/dL Albumin/Globulin Ratio (1.60-3.17) g/dL 02/28/22 Range/Units 03:48 WBC (3.8-10.6) k/uL RBC (3.80-5.40) m/uL Hgb (11.4-16.0) gm/dL Hct (34.0-46.0) % MCV (80.0-100.0) fL RDW (11.5-15.5) % Neutrophils # (1.3-7.7) k/uL Lymphocytes # (1.0-4.8) k/uL Sodium (137-145) mmol/L Chloride 94 L (98-107) mmol/L Carbon Dioxide 33.7 H (22-30) mmol/L Anion Gap 7.30 L (10.00-18.00) mmol/L BUN (7-17) mg/dL Creatinine 0.5 L (0.6-1.5) mg/dL BUN/Creatinine Ratio 33.40 H (12.00-20.00) Ratio Glucose 166 H (74-99) mg/dL Magnesium (1.6-2.3) mg/dL AST (14-36) U/L ALT 118 H (4-34) U/L Alkaline Phosphatase 644 H (38-126) U/L Total Protein 5.3 L (6.3-8.2) g/dL Albumin 2.9 L (3.5-5.0) g/dL Albumin/Globulin Ratio 1.21 L (1.60-3.17) g/dL Assessment and Plan Assessment: 1 Left-sided pleural effusion, cytology negative of the left pleural fluid effusion that was drained on 02/23/2022. Patient had a left-sided pigtail chest tube put in on 02/23/2022, discontinued 02/27/2022 2 Status post thoracentesis with postoperative complications and bleeding into the pleural space 3 Metastatic adenocarcinoma carcinoma of the lungs, patient is on immunotherapy with Keytruda 4 Immunotherapy-induced hepatitis 5 Chronic A. fib, was on Ahlquist which is currently on hold related to pneumothorax 6 Blood loss anemia, acute, anticoagulation remains on hold, patient has required transfusion with 1 unit of packed red blood cells 7 History of breast cancer with previous lumpectomy and radiation therapy 8 History of chronic infection in December 2021 9 Hypertension Plan: The patient was seen and evaluated Cleared for discharge from the pulmonary standpoint Evaluate for possible home oxygen Follow-up closely in our office in 1 week I have personally seen and examined the patient, performed the documentation and the assessment and plan as written. Number of minutes spent on the visit: 10.
[2022-02-28 15:22] VITALS: BP 113/75; TEMP 97.4
[2022-02-28 15:24] VITALS: PULSE 96
--- NOTE | 2022-02-28 20:47 | P.DS ---
Providers Date of admission: 02/18/22 15:22 Expected date of discharge: 02/28/22 Attending physician: Garrett Saez Consults: 02/18/22 16:16 Consult Physician Routine Consulting Provider: Chaitanya Blue Consult Reason/Comments: existing pt Do you want consulting provider notified?: Yes Placement Type Exists?: Yes 02/20/22 11:43 Consult Physician Routine Consulting Provider: Tae Haley Consult Reason/Comments: poss Thoracentesis Do you want consulting provider notified?: Yes 02/23/22 14:57 Consult Physician Routine Consulting Provider: Katarzyna Oleary Consult Reason/Comments: hemothorax, S/P pig tail chest tube Do you want consulting provider notified?: Yes Primary care physician: David Staton [facility] Course: Hospital course Very pleasant 81 female, follows with Dr. Staton. 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 received radiation treatment to the lower spine. received chemotherapy. Also getting immunotherapy.. In December of this year admitted with atrial fibrillation Oncology history: pt of Dr. Balderas who has a Hx of ER/PA positive Her2 negative breast cancer 2016, s/p lumpectomy and SLND, adjuvant XRT and femara. She c/o lt sided rib pain in Jul 2021, CT chest revealed 6.6cm ELMER lung mass with rib invasion, biopsy positive for adenocarcinoma, staging PET revealed ELMER mass, L2 and rt adrenal met, PD-L1 neg. Liquid biopsy revealed KKEAP1 mutation, high TMB, NGS on tissues revealed POLE1 and ARIDA1 mutations,TMB 12.6, MADHU. She completed palliative XRT to left rib and L2. 10/07/2021 she started alimta/carboplatin /keytruda and completed 4 cycles on 12/09/2021. 12/05/21 repeat PET showed positive treatment response with diminished hypermetabolic uptake left midlung destructive neoplasm along with the prevascular adenopathy and right adrenal metastatic focus, however cannot exclude new near 1.0 cm hypermetabolic lymph node near the diaphragmatic hiatus. She continued on keytruda only as of 01/09/2022 and is s/p 2 cycles. She had routine lab work done and was found to have elevating LFTs, suspicious for immunotherapy hepatitis. She was asked to come to the office to be evaluated. Patient's appetite is good. No change in bowel pattern. No weight loss. Does feel tired though. Has noticed to be jaundiced. Significant itching.. Very strong clear urine. No fever no chills. Given significantly elevated LFTs being admitted. Admitted with immunotherapy induced hepatitis. Started on prednisone. Ultrasound showed significant pleural effusion. February 21 thoracentesis and nodular cc of turbid fluid was done. Subsequently patient became bradycardic dropped hemoglobin. 4 hemothorax pigtail catheter was placed. Attached to suction. Followed by pulmonary and cardiothoracic surgery. Liver function tests Improving. Steroid was tapered down. February 28: Patient doing well. Eating well. Breathing stable. On ambulation pulse ox 91%. No pain. Cleared by other services for discharge. He'll be discharged on tapering dose of steroids. Questions answered. Discussion and discharge planning more than 35 minutes Past medical history to include: breast cancer diagnosed in 1993 with recurrence in 2017. 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 Atrial fibrillation, Social history: Patient smoked for 30 years stopping at age of 44. 2 packs a day. Lives alone. Family history: Diabetes, hypertension, prostate cancer Physical examination: VITAL SIGNS: He 7.4, 71, 18, 130/75, 92% on 2 L GENERAL: Sitting up comfortable EYES: Pupils equal. Conjunctiva yellow HEENT: External appearance of nose and ears normal, oral cavity grossly normal. NECK: JVD not raised; masses not palpable. HEART: First and second heart sounds are normal; no edema. LUNGS: Respiratory rate increased; decreased breath sound on the left side. r ABDOMEN: Soft, nontender, liver spleen not palpable, no masses palpable. PSYCH: Alert and oriented x3; mood and affect normal. MUSCULOSKELETAL:No Clubbing/cyanosis;muscles-grossly intact. Evidence of OA especially in the hands INVESTIGATIONS, reviewed in the clinical context: February 28: White count 14.9 hemoglobin 8.2 platelets 234 potassium 3.9 creatinine 0.5 total bilirubin 0.7 AST 25 ALT 118 February 27: White count 13.7 hemoglobin 8.8 platelets 237 sodium 133 potassium 4.3 total bilirubin 1.2 AST 46 ALT 135 February 25: White count 18.1 hemoglobin 8.4 platelets 211 potassium 3.9 creatinine 0.7 bilirubin 1 AST 43 ALT 213 Acute hepatitis screen: Negative Chest x-ray film personally reviewed by me: Left pleural effusion. Increased compared to previous x-ray. EKG tracing personally reviewed by me: Atrial flutter. Rate controlled Liver ultrasound: Tiny right hepatic lobe cyst. White count 7.9 hemoglobin 12.4 platelets 215 pressure 4 creatinine 0.6 Total bilirubin 2.8 AST 5.2 ALT 6.3 alkaline phosphatase 1767 Yesterday labs: AST 644 ALT 808 alkaline phosphatase 2285 Assessment and plan: -Obstructive hepatitis pattern. no abdominal pain. No systemic symptoms. likely secondary to immunotherapy. : Improving Negative acute hepatitis panel. Hold Lipitor. Prednisone taper - hypotension from hemothorax: Improved Follow blood pressure -Acute blood loss anemia secondary to hemothorax Received 1 unit of blood -Iatrogenic hemothorax following thoracentesis : Better pigtail catheter removed. -Persistent atrial fibrillation rate controlled Lopressor 12.5 by mouth 3 times a day. Cardizem CD 180 mg a day resumed. Flecainide 50 mg every 12 -Stage IV Metastatic adenocarcinoma of the lung. Has been receiving immunotherapy.. Follow with oncology -Essential Hypertension, Cardizem CD 180 mg a day. Lopressor 12.5 mg by mouth 3 times a day -Large left pleural effusion-metastatic/malignant effusion: thoracentesis on February 21 of [address] Welch. -GERD Protonix -Osteopenia -Deafness in the left ear -DO NOT RESUSCITATE -Mild cognitive impairment -Leukocytosis is due to steroids -DO NOT RESUSCITATE Disposition: Home Plan - Discharge Summary Discharge Rx Participant: No New Discharge Prescriptions: New predniSONE 10 mg PO DAILY #30 tab Folic Acid 1 mg PO DAILY #30 tab Metoprolol Tartrate [Lopressor] 12.5 mg PO TID #90 tab Continue Apixaban [Eliquis] 5 mg PO BID #60 tab Magnesium Oxide [Mag-Ox] 200 mg PO BID #30 tab OLANZapine [ZyPREXA] 5 mg PO HS Flecainide [Tambocor] 50 mg PO Q12HR 30 Days #30 tab Calcium Carbonate [Calcium] 1,200 mg PO DAILY Cholecalciferol [Vitamin D3 (25 Mcg = 1000 Iu)] 25 mcg PO DAILY Pantoprazole [Protonix] 40 mg PO DAILY Ondansetron Odt [Zofran ODT] 4 mg PO Q6H PRN PRN Reason: Nausea Ubidecarenone [Co Q-10] 100 mg PO DAILY Diltiazem Cd [Cardizem CD] 240 mg PO DAILY Multivitamins, Thera [Multivitamin (formulary)] 1 tab PO DAILY Discontinued Metoprolol Tartrate [Lopressor] 100 mg PO BID No Action Atorvastatin [Lipitor] 40 mg PO HS #30 tab Discharge Medication List Apixaban [Eliquis] 5 mg PO BID #60 tab 09/26/21 [Rx] Atorvastatin [Lipitor] 40 mg PO HS #30 tab 09/26/21 [Rx] Magnesium Oxide [Mag-Ox] 200 mg PO BID #30 tab 09/26/21 [Rx] OLANZapine [ZyPREXA] 5 mg PO HS 10/15/21 [History] Ondansetron Odt [Zofran ODT] 4 mg PO Q6H PRN 10/15/21 [History] Ubidecarenone [Co Q-10] 100 mg PO DAILY 12/25/21 [History] Flecainide [Tambocor] 50 mg PO Q12HR 30 Days #30 tab 12/29/21 [Rx] Calcium Carbonate [Calcium] 1,200 mg PO DAILY 02/18/22 [History] Cholecalciferol [Vitamin D3 (25 Mcg = 1000 Iu)] 25 mcg PO DAILY 02/18/22 [History] Diltiazem Cd [Cardizem CD] 240 mg PO DAILY 02/18/22 [History] Multivitamins, Thera [Multivitamin (formulary)] 1 tab PO DAILY 02/18/22 [Hi story] Pantoprazole [Protonix] 40 mg PO DAILY 02/18/22 [History] Folic Acid 1 mg PO DAILY #30 tab 02/28/22 [Rx] Metoprolol Tartrate [Lopressor] 12.5 mg PO TID #90 tab 02/28/22 [Rx] predniSONE 10 mg PO DAILY #30 tab 02/28/22 [Rx] Follow up Appointment(s)/Referral(s): David Staton DO [Primary Care Provider] - 1 Week Valentina Dave [NON-STAFF] - As Needed Boo Balderas MD [STAFF PHYSICIAN] - 03/16/22 3:00 pm Discharge Disposition: HOME WITH HOME HEALTH SERVICES
== END 2022-02-28 16:49 | disposition home health service (06) | DRG 444 ==
LOC: 5NMEDONC 15:22 → 2SICU 02-21 14:09 → 4SSUR 02-22 21:40
PROVIDERS: ADMIT Hospitalist; ATTEND Hospitalist
PROC: 0W9B3ZX Drainage of Left Pleural Cavity, Percutaneous Approach, Diagnostic (ICD-10-PCS; 2022-02-21)
PROC: 30233N1 Transfusion of Nonautologous Red Blood Cells into Peripheral Vein, Percutaneous Approach (ICD-10-PCS; 2022-02-23)
PROC: 05HB33Z Insertion of Infusion Device into Right Basilic Vein, Percutaneous Approach (ICD-10-PCS; 2022-02-23)
PROC: 0W9B30Z Drainage of Left Pleural Cavity with Drainage Device, Percutaneous Approach (ICD-10-PCS; principal; 2022-02-23 10:40)
DX: K83.1 Obstruction of bile duct (principal); J95.822 Acute and chronic postprocedural respiratory failure; C79.71 Secondary malignant neoplasm of right adrenal gland; J91.0 Malignant pleural effusion; D62 Acute posthemorrhagic anemia; I48.19 Other persistent atrial fibrillation; I48.92 Unspecified atrial flutter; J81.1 Chronic pulmonary edema; J94.2 Hemothorax; J94.8 Other specified pleural conditions; C78.02 Secondary malignant neoplasm of left lung; E11.9 Type 2 diabetes mellitus without complications; E78.5 Hyperlipidemia, unspecified; E87.6 Hypokalemia; G31.84 Mild cognitive impairment of uncertain or unknown etiology; H91.92 Unspecified hearing loss, left ear; I10 Essential (primary) hypertension; K21.9 Gastro-esophageal reflux disease without esophagitis; Z66 Do not resuscitate; M85.80 Other specified disorders of bone density and structure, unspecified site; I95.9 Hypotension, unspecified; Y83.8 Other surgical procedures as the cause of abnormal reaction of the patient, or of later complication, without mention of misadventure at the time of the procedure; K75.9 Inflammatory liver disease, unspecified; R09.02 Hypoxemia; T38.0X5A Adverse effect of glucocorticoids and synthetic analogues, initial encounter; D72.829 Elevated white blood cell count, unspecified; Z17.0 Estrogen receptor positive status [ER+]; Z86.16 Personal history of COVID-19; Z79.01 Long term (current) use of anticoagulants; Z79.899 Other long term (current) drug therapy; Z60.2 Problems related to living alone; Z83.3 Family history of diabetes mellitus; Z82.49 Family history of ischemic heart disease and other diseases of the circulatory system; Z85.3 Personal history of malignant neoplasm of breast; Z86.11 Personal history of tuberculosis; Z87.19 Personal history of other diseases of the digestive system; Z87.891 Personal history of nicotine dependence; Z92.3 Personal history of irradiation; Z90.49 Acquired absence of other specified parts of digestive tract; Z88.1 Allergy status to other antibiotic agents; Z88.2 Allergy status to sulfonamides; Z88.8 Allergy status to other drugs, medicaments and biological substances; Z92.21 Personal history of antineoplastic chemotherapy; Z80.42 Family history of malignant neoplasm of prostate; Z87.81 Personal history of (healed) traumatic fracture; Z86.010 Personal history of colon polyps; Z98.890 Other specified postprocedural states
CPT/HCPCS: 32551; 36410; 71045; 71046; 76604; 76705; 76937; 80053; 80074; 82150; 82248; 82465; 82945; 83010; 83615; 83735; 83880; 84157; 84484; 85025; 85027; 85045; 85610; 85730; 86850; 86900; 86901; 86920; 88108; 88305; 88341; 88342; 89050; 93005; 94640; 94760

== ENCOUNTER → 2022-03-06 | Outpatient (CLI) | payer MEDICARE ==
--- NOTE | 2022-03-10 06:17 | PE ---
EXAMINATION TYPE: PET CT fusion skull to thigh DATE OF EXAM: 03/06/2022 COMPARISON: Prior PET/CT December 05, 2021 and older studies. HISTORY: Left-sided lung cancer progress study. Originally diagnosed July 2021. Completed chemot herapy December 09, 2021. TECHNIQUE: Following the intravenous administration of 9.4 mCi of F-18 FDG, whole body images are pe rformed from the skull base to the midthigh. Images are reviewed on the computer in the coronal, axi al, and sagittal planes. Reconstructed rotating images are created on independent workstation and re viewed on the computer. A localization and attenuation correction CT is performed in conjunction wi th the PET scan. Blood glucose level equals 99 SCAN: Subsequent Scan FINDINGS: SKULL BASE AND NECK: There is new 1.1 cm hypermetabolic mass or lymph node axial image 27 deep to th e inferior right parotid gland, max SUV is 8.81. CHEST, MEDIASTINUM, AND HILAR REGION: Small to moderate size left pleural effusion shows continued in creased size from the prior PET/CT and is now higher density. There are some foci of air and it does not completely layer dependently. There is worsening hypermetabolic uptake in the abnormal destructiv e soft tissue anterior left midlung with some lytic involvement of the adjacent ribs, max SUV is 21.5 6 on current study axial image 82 versus 6.64 on prior. Enlarging prevascular lymph node measures 2.1 x 1.6 cm axial image 70 with increasing hypermetabolic uptake, max SUV is 10.7 versus 8.39 prior study. Enlarging mass or lymph node just above diaphragmatic hiatus measures 1.8 x 1.5 cm axial image 108, m ax SUV is 6.62 versus 3.1 on the prior. No new areas of abnormal hypermetabolic uptake. ABDOMEN AND PELVIS: There is enlarging right adrenal mass now measuring 2.5 x 1.9 cm current study, m ax SUV is 15.17 versus 5.81 prior study. New hypermetabolic 1.7 cm left adrenal mass axial image 122, max SUV is 9.92. Normal excretion is present. No additional new areas of abnormal hypermetabolic uptake noted. OSSEOUS STRUCTURES: No new areas of abnormal hypermetabolic uptake noted. No hypermetabolic uptake currently in the right L2 level at site of prior pathologic fracture OTHER CT: Three-vessel coronary artery calcification is redemonstrated. Cardiomegaly is again seen. S urgical changes to the right breast are again seen. Dystrophic calcifications medially in the left br east redemonstrated. Moderate to severe calcified plaque bilateral carotid bulb level. Ascending aort ic aneurysm up to 4.0 cm axial image 75. Stable 3.2 cm thin-walled cyst in the left pelvis axial image 179. Moderate to severe calcified plaqu e of the aorta extends into branch vessels. Underlying scoliosis is present. IMPRESSION: Negative treatment response as detailed above.
== END | disposition home or self-care (01) ==
LOC: RADPETMAIN 11:23
PROVIDERS: ATTEND Internal Medicine Hematology & Oncology
DX: C34.12 Malignant neoplasm of upper lobe, left bronchus or lung (principal)
CPT/HCPCS: 78815; A9552

== ENCOUNTER → 2022-05-15 | Outpatient (CLI) | payer MEDICARE ==
[2022-05-15 10:52] LABS: African American GFR (CKD) >90 (>60 ml/min/1.73 sqM); Blood Urea Nitrogen 29 mg/dL (7-17); Non-African American GFR(CKD) 87 (>60 ml/min/1.73 sqM)
--- NOTE | 2022-05-15 16:34 | CT ---
EXAMINATION TYPE: CT ChestAbdPelvis w con DATE OF EXAM: 05/15/2022 COMPARISON: PET/CT 03/06/2022, lumbar spine CT 09/20/2021 HISTORY: 81-year-old female C34.12, follow-up Lung cancer TECHNIQUE: Contiguous axial scanning of the chest, abdomen, and pelvis performed with IV Contrast, pa tient injected with 70 mL of Isovue 300. Delayed images through the kidneys were obtained. Coronal/sa gittal reconstructions performed. CT DLP: 1233 mGycm Automated exposure control for dose reduction was used. FINDINGS: CHEST: The heart is borderline enlarged. Coronary artery calcifications are a marker for coronary artery dis ease. Ectatic ascending aorta 3.9 cm. Mild to moderate atherosclerotic arch calcifications. Moderate stenos is origin of the left subclavian artery. Conventional arch vessel branching anatomy. Subcarinal node has increased in size at 1.3 cm now. AP window node increased in size at 3.0 cm versus 2.1 cm, previously. Subpleural/chest wall mass along the anterior lingula now 6.2 x 2.5 cm versus 6.2 x 2.3 cm, previousl y, again noted to destroy the anterior left fourth rib. Moderate to large complicated left effusion with mild smooth pleural thickening persists. The previou s internal heterogeneity appears to have cleared. Prominent adjacent atelectasis with some interval i mprovement. Medial left basilar mass larger at 2.3 cm versus 1.8 cm, previously. Background mild to moderate emphysema. Similar areas of scattered patchy subpleural reticular change in the right lung. ABDOMEN: A few scattered tiny hypodensities measuring up to 9 mm in the liver likely small cysts. Portal venou s system is patent. No biliary ductal dilatation. No abnormal gallbladder distention. Tiny dependent gallstone. Right adrenal mass 3.5 cm versus 2.5 cm, previously. Left adrenal nodule 2.0 cm versus 1.7 cm, previously. Scattered small renal cortical cysts. Largest on the left measuring 1.2 cm. Symmetric uptake and excr etion of contrast from both kidneys. Spleen and pancreas within normal limits. Moderate atherosclerotic calcifications abdominal aorta and iliac arteries, likely moderate segmental stenoses within the common iliac arteries, possibly focal severe stenoses. No dilated small bowel, free fluid, free air. No mesenteric or retroperitoneal lymphadenopathy. Scattered mild stool burden. Mid to distal sigmoid diverticulosis. No pericolonic inflammatory change . PELVIS: Bladder urine distended. Uterus anteverted. Cyst within the left adnexa measures 3.5 cm, unchanged ba ck to at least 09/20/2021. Annual ultrasound surveillance recommended in a postmenopausal female. Uter us anteverted. Right ovary visualized. No abnormal fluid collection in the pelvis or pelvic lymphaden opathy. There is a new 1.2 cm soft tissue nodule just below the skin surface anterior left upper thigh, axial image 124. BONES: Mild degenerative change both hips. Moderate degenerative disc disease thoracic spine. S-shaped scoli otic curvature thoracolumbar spine. Old pathologic vertebral compression collapse of L2 vertebral bod y. Prominent displacement of endplate fragment anteriorly is unchanged. Normal variant sternal forame n. IMPRESSION: 1. PERSISTENT SUBPLEURAL/CHEST WALL MASS ALONG THE ANTERIOR LINGULA MEASURING 6.2 CM CONTINUING TO DE STROY THE ANTERIOR LEFT FOURTH RIB. AT OTHER SITES, THERE HAS BEEN INTERVAL DISEASE PROGRESSION: 2. ENLARGING AP WINDOW LYMPH NODE NOW 3 CM VERSUS 2.1 CM, PREVIOUSLY, MEDIAL LEFT BASILAR MASS AT 2.3 CM VERSUS 1.8 CM, PREVIOUSLY, AND ENLARGING BILATERAL ADRENAL MASSES CURRENTLY MEASURING UP TO 3.5 C M VERSUS 2.5 CM, PREVIOUSLY. 3. A 1.2 CM SOFT TISSUE NODULE JUST BELOW THE SKIN SURFACE ANTERIOR LEFT UPPER THIGH IS ALSO NEW BUT THE ETIOLOGY IS UNCLEAR. A METASTATIC DEPOSIT IS POSSIBLE. CORRELATE TO EXCLUDE A SEBACEOUS CYST. 4. ONGOING MODERATE TO LARGE LEFT-SIDED PLEURAL FLUID COLLECTION. ADJACENT ATELECTASIS SHOW SLIGHT IM PROVEMENT. THE INTERNAL COMPLEXITY SHOWS IMPROVEMENT FROM PRIOR EXAM. 5. UNCHANGED L2 VERTEBRAL COMPRESSION DEFORMITY LIKELY RELATED TO OLD OSSEOUS DISEASE INVOLVEMENT HER E. 6. INCIDENTAL: COPD, MID TO DISTAL SIGMOID DIVERTICULOSIS, LEFT OVARIAN CYST MEASURING 3.5 CM FOR WHI CH ANNUAL ULTRASOUND SURVEILLANCE IS RECOMMENDED IN A POSTMENOPAUSAL FEMALE.
== END | disposition home or self-care (01) ==
LOC: RADCTMAIN 10:17
PROVIDERS: ATTEND Internal Medicine Hematology & Oncology
DX: Z03.89 Encounter for observation for other suspected diseases and conditions ruled out (principal); C34.12 Malignant neoplasm of upper lobe, left bronchus or lung
CPT/HCPCS: 82565; 84520; 71260; 74177; 36415; Q9967 ×2